=== PATIENT | male | born 1940 | race Caucasian/White ===

== ENCOUNTER 2016-11-04 05:40 | Inpatient (IN) | payer MEDICARE, BC ==
[2016-11-04] MEDS ORDERED: Albuterol/Ipratropium 3.0-0.5 MG/3 ML Neb Soln NEB ONE (05:43)
[2016-11-04] MEDS ORDERED: methylPREDNISolone Sodium Succinate 125 MG/2 ML SDV IVPUSH ONE (05:43)
--- NOTE | 2016-11-04 06:03 | EDM.PDOC ---
ED HISTORY OF PRESENT ILLNESS - General Stated Complaint: GENERAL Time Seen by Provider: 11/04/16 05:40 Source: Reports: Patient, EMS History Limitations: Reports: Respiratory distress - History of Present Illness INITIAL COMMENTS - FREE TEXT/NARRATIVE: 75 years old w m with metabolic syndrome, spinal kyphosis deformity of spine, COPD , DNR/DNI, came to the ed due elevated blood sugar to 405. As the patient arrived here in the ed, his pulse ox was 55 on 5 liters O2 by NC. Pt was talking 2 word sentences. After a NRBM and Duo neb were applied, the pulse ox improved to 91. No CP. Symptom Onset Date: 11/04/16 Symptom Onset Time: 01:00 Timing/Duration: Reports: Hour(s):, Intermittent Severity: moderate Location, General: Reports: chest Quality: Reports: Same as previous episode Improves with: Reports: Cold therapy Context, General: Reports: Activity Associated Symptoms: Reports: shortness of breath, weakness - Related Data Allergies/ADRs: Allergies Allergy/AdvReac Type Severity Reaction Status Date / Time Penicillins Allergy Mouth Sores Verified 04/24/16 16:52 Home Meds: Home Meds Acetaminophen with Codeine [Tylenol with Codeine #3 Tablet] 2 tab PO Q4H PRN 05/16 [History] Aspirin/Calcium Carbonate/Mag [Aspirin Buffered 325 mg Tab] 325 mg PO BID [History] Cholecalciferol (Vitamin D3) [Vitamin D3] 1,000 units PO DAILY 11/10/13 [History ] Furosemide 40 mg PO BID 11/10/13 [History] Glimepiride 2 mg PO DAILY 11/10/13 [History] Mirtazapine [Remeron] 7.5 mg PO BEDTIME 11/10/13 [History] Nitroglycerin [Nitrostat] 0.4 mg SL ASDIRECTED PRN 11/10/13 [History] [place]-3 Fatty Acids [Fish Oil] 1,000 mg PO DAILY 11/10/13 [History] Omeprazole 40 mg PO DAILY 11/10/13 [History] Simvastatin 40 mg PO BEDTIME 11/10/13 [History] Vitamin B Complex 1 each PO DAILY 11/10/13 [History] Vitamin E 1,000 unit PO DAILY 11/10/13 [History] Albuterol/Ipratropium [Combivent] 2 puff INH QID PRN 04/24/16 [History] Alendronate Sodium [Fosamax] 70 mg PO TU 04/24/16 [History] Arformoterol [Brovana] 2 ml INH BID 04/24/16 [History] Ascorbic Acid [Vitamin C with Heather Hips] 1,000 mg PO DAILY 04/24/16 [History] FLUoxetine HCl [Fluoxetine HCl] 40 mg PO DAILY 04/24/16 [History] Glucosam/Msm/Vit C/Jesús/Hrb#21 [Glucosamine-MSM Complex] 1 tab PO BID 04/24/16 [ History] LORazepam 1 mg PO TID PRN 04/24/16 [History] Multivitamin [Multi-Vitamin Daily] 1 tab PO DAILY 04/24/16 [History] Nabumetone 750 mg PO BID 04/24/16 [History] Naproxen Sodium [Naproxen Sodium ER] 500 mg PO DAILY 04/24/16 [History] Polyethylene Glycol 3350 [MiraLAX] 17 gm PO BEDTIME 04/24/16 [History] Levofloxacin [Levaquin] 500 mg PO Q24H #7 tablet 04/26/16 [Rx] predniSONE [Prednisone] 20 mg PO BID #10 tablet 04/26/16 [Rx] Past Medical History Cardiovascular History: Reports: Heart Failure, Hypertension, SOB on exertion, Syncope Respiratory History: Reports: COPD, SOB Other Respiratory History: restrictive airway disease Gastrointestinal History: Reports: Chronic constipation, GERD Musculoskeletal History: Reports: Other (see below) Other Musculoskeletal History: scoliosis Psychiatric History: Reports: Anxiety Endocrine/Metabolic History: Reports: Diabetes, type II Social & Family History - Tobacco Use Smoking Status *Q: Former Smoker Years of Tobacco use: 30 Packs/Tins Daily: 1 Used Tobacco, but Quit: Yes Month Tobacco Last Used: 1980 Second Hand Smoke Exposure: No - Alcohol Use Days Per Week of Alcohol Use: 0 Number of Drinks Per Day: 1 Total Drinks Per Week: 0 - Recreational Drug Use Recreational Drug Use: No ED ROS GENERAL - Review of Systems Review Of Systems: Unable To Obtain (in resp distress) ED EXAM, GENERAL - Physical Exam Exam: See Below Exam Limited By: Respiratory distress General Appearance: alert, WD/WN, moderate distress, obese Eye Exam: bilateral eye: normal inspection Ears: normal external exam Ear Exam: bilateral ear: auricle normal Nose: normal inspection, normal mucosa Throat/Mouth: Normal inspection, No airway compromise Head: atraumatic, normocephalic Neck: normal inspection, supple, non-tender, full range of motion Respiratory/Chest: respiratory distress, decreased breath sounds, wheezing, accessory muscle use, prolonged expiration Cardiovascular: normal peripheral pulses, regular rate, rhythm, no edema, no JVD Peripheral Pulses: 1+: femoral (L), femoral (R) GI/Abdominal: normal bowel sounds, soft, non tender, no abnormal bruit, distended (spinal kyphosis) (Male) Exam: Deferred Rectal (Males) Exam: Deferred Back Exam: other (spinal kyphosis) Extremities: normal inspection, normal range of motion, non-tender, no pedal edema Neurological: alert, CN II-XII intact, no motor/sensory deficits Psychiatric: normal affect, normal mood Skin Exam: Warm, Dry, Intact, Normal color Lymphatic: no adenopathy EKG INTERPRETATION EKG Date: 11/04/16 Time: 06:50 Rhythm: NSR Rate (beats/min): 104 [place]: normal P-wave: present QRS: normal ST-T: other (Peaked T waves) QT: normal Comparison: NA - no prior EKG Course - Vital Signs Text/Narrative:: 75 years old w m with metabolic syndrome, spinal kyphosis deformity of spine, COPD , DNR/DNI, came to the ed due elevated blood sugar to 405. As the patient arrived here in the ed, his pulse ox was 55 on 5 liters O2 by NC. Pt was talking 2 word sentences. After a NRBM and Duo neb were applied, the pulse ox improved to 91. No CP. PE: 75 y.o.w.m. in resp distress due to COPD, pulm edema, spinal Kyphosis Labs: potassium 6.2 BNP 103 WBC nl Cr. 0.9 BUN 24 ABG: pCO2 >100 pH 7.18 Imaging: CXR Pulmonary edema(?), pleural effusion, Kyphosis, official report is pending Impression: COPD, Hyperkalemia, CO2 retainer, resp acidosis, DNR/DNI, pulmonary edema(?) Tx: Ca gluconate, Insulin, Duoneb, Bipap, Biocarbonate, Lasix Reexam: Improved Consultation: Dr. Nolasco, Hospitalist: Accepted the pt for admission to ICU Last Recorded V/S: Last Vital Signs Temp 36.6 C 11/04/16 05:45 Pulse 110 H 11/04/16 05:45 Resp 20 11/04/16 05:45 BP 131/76 11/04/16 05:45 Pulse Ox 92 L 11/04/16 07:40 - Orders/Labs/Meds Orders: Active Orders 24 hr Category Date Time Status Patient Status [ADT] Routine ADT 11/04/16 07:54 Active BIPAP Adult [RT BiPAP/CPAP] [RC] ASDIRECTED Care 11/04/16 07:48 Active Cardiac Monitoring [RC] CONTINUOUS Care 11/04/16 07:56 Active EKG Documentation Completion [RC] ASDIRECTED Care 11/04/16 06:38 Active Rutherford Catheter Insertion [Insert Urinary Catheter] [OM. Care 11/04/16 07:15 Ordered PC] Q24H Oxygen Therapy [RC] PRN Care 11/04/16 07:54 Active RT Aerosol Therapy [RC] ASDIRECTED Care 11/04/16 05:45 Active RT Aerosol Therapy [RC] ASDIRECTED Care 11/04/16 07:58 Active Supplemental O2 [Oxygen Therapy, ED] [RC] ASDIRECTED Care 11/04/16 05:45 Active Up With Assistance [RC] ASDIRECTED Care 11/04/16 07:53 Active Urinary Catheter Assessment [RC] QSHIFT Care 11/04/16 07:15 Active VTE/DVT Education [RC] Per Unit Routine Care 11/04/16 07:54 Active Vital Signs [RC] Q4H Care 11/04/16 07:54 Active Respiratory Care Assess and Treatment [CONS] Routine Cons 11/04/16 07:53 Active Nothing per Oral Now Diet [DIET] Diet 11/04/16 Breakfast Ordered Chest 1V Frontal [CR] Stat Exams 11/04/16 05:43 Taken TROPONIN I [CHEM] Stat Lab 11/04/16 06:20 Received Albuterol [Proventil Neb Soln] Med 11/04/16 07:53 Active 2.5 mg NEB Q2H PRN Sodium Chloride 0.9% [Normal Saline] 1,000 ml Med 11/04/16 07:45 Active IV ASDIRECTED Sodium Chloride 0.9% [Saline Flush] Med 11/04/16 05:43 Active 10 ml FLUSH ASDIRECTED PRN Peripheral IV Insertion Adult [OM.PC] Routine Oth 11/04/16 05:43 Ordered Resuscitation Status Routine Resus Stat 11/04/16 07:53 Ordered EKG 12 Lead [EK] Routine Ther 11/04/16 06:37 Ordered Medication Orders Albuterol (Proventil Neb Soln) 2.5 mg NEB Q2H PRN PRN Reason: Shortness Of Breath/wheezing Sodium Chloride (Normal Saline) 1,000 mls @ 75 mls/hr IV ASDIRECTED WALTER Sodium Chloride (Saline Flush) 10 ml FLUSH ASDIRECTED PRN PRN Reason: Keep Vein Open Last Admin: 11/04/16 08:06 Dose: 10 ml Labs: Laboratory Tests 11/04/16 11/04/16 11/04/16 Range/Units 06:20 06:20 06:20 WBC 11.6 (4.5-12.0) X10-3/uL RBC 4.14 L (4.30-5.75) x10(6)uL Hgb 12.8 (11.5-15.5) g/dL Hct 40.3 (30.0-51.3) % MCV 97.2 H (80-96) fL MCH 30.8 (27.7-33.6) pg MCHC 31.7 L (32.2-35.4) g/dL RDW 12.6 (11.5-15.5) % Plt Count 148 (125-369) X10(3)uL MPV 7.9 (7.4-10.4) fL Add Manual Diff Yes Neutrophils % (Manual) 83 H (46-82) % Band Neutrophils % 2 (0-6) % Lymphocytes % (Manual) 6 L (13-37) % Monocytes % (Manual) 9 (4-12) % PT 10.2 (8.7-11.1) INR 1.01 (0.89-1.13) ABG pH (7.35-7.45) ABG pCO2 (35-45) mmHg ABG pO2 (83-108) mmHg ABG HCO3 (22-26) mmol/L ABG O2 Saturation (96-97) % ABG Base Excess (-2-2) Moises Test O2 Delivery Device Oxygen Flow Rate L Sodium 133 L (135-145) mmol/L Potassium 6.2 H* D (3.5-5.3) mmol/L Chloride 89 L* (100-110) mmol/L Carbon Dioxide 38 H (23-29) mmol/L BUN 25 H (8-23) mg/dL Creatinine 0.9 (0.6-1.3) mg/dL Est Cr Clr Drug Dosing TNP Estimated GFR (MDRD) > 60 (>60) BUN/Creatinine Ratio 27.8 H (9-20) Glucose 361 H D (80-116) mg/dL Hemoglobin A1c (4.0-6.0) % Calcium 8.9 (8.6-10.2) mg/dL B-Natriuretic Peptide (0-100) pg/mL Urine Color (YELLOW) Urine Appearance (CLEAR) Urine pH (5.0-6.5) Ur Specific [place] (1.010-1.025) Urine Protein (NEGATIVE) mg/dL Urine Glucose (UA) (NEGATIVE) mg/dL Urine Ketones (NEGATIVE) mg/dL Urine Occult Blood (NEGATIVE) Urine Nitrite (NEGATIVE) Urine Bilirubin (NEGATIVE) Urine Urobilinogen (NEGATIVE) mg/dL Ur Leukocyte Esterase (NEGATIVE) Urine RBC (0) Urine WBC (0) Ur Squamous Epith Cells (NS,R,O) Urine Bacteria (NS) 11/04/16 11/04/16 11/04/16 Range/Units 06:20 06:20 07:20 WBC (4.5-12.0) X10-3/uL RBC (4.30-5.75) x10(6)uL Hgb (11.5-15.5) g/dL Hct (30.0-51.3) % MCV (80-96) fL MCH (27.7-33.6) pg MCHC (32.2-35.4) g/dL RDW (11.5-15.5) % Plt Count (125-369) X10(3)uL MPV (7.4-10.4) fL Add Manual Diff Neutrophils % (Manual) (46-82) % Band Neutrophils % (0-6) % Lymphocytes % (Manual) (13-37) % Monocytes % (Manual) (4-12) % PT (8.7-11.1) INR (0.89-1.13) ABG pH 7.18 L* (7.35-7.45) ABG pCO2 > 100 H* (35-45) mmHg ABG pO2 80 L (83-108) mmHg ABG HCO3 42 H (22-26) mmol/L ABG O2 Saturation 90 L (96-97) % ABG Base Excess 7.8 H (-2-2) Moises Test passed O2 Delivery Device Non rebr mask Oxygen Flow Rate 0 L Sodium (135-145) mmol/L Potassium (3.5-5.3) mmol/L Chloride (100-110) mmol/L Carbon Dioxide (23-29) mmol/L BUN (8-23) mg/dL Creatinine (0.6-1.3) mg/dL Est Cr Clr Drug Dosing Estimated GFR (MDRD) (>60) BUN/Creatinine Ratio (9-20) Glucose (80-116) mg/dL Hemoglobin A1c 6.7 H (4.0-6.0) % Calcium (8.6-10.2) mg/dL B-Natriuretic Peptide 109 H (0-100) pg/mL Urine Color (YELLOW) Urine Appearance (CLEAR) Urine pH (5.0-6.5) Ur Specific [place] (1.010-1.025) Urine Protein (NEGATIVE) mg/dL Urine Glucose (UA) (NEGATIVE) mg/dL Urine Ketones (NEGATIVE) mg/dL Urine Occult Blood (NEGATIVE) Urine Nitrite (NEGATIVE) Urine Bilirubin (NEGATIVE) Urine Urobilinogen (NEGATIVE) mg/dL Ur Leukocyte Esterase (NEGATIVE) Urine RBC (0) Urine WBC (0) Ur Squamous Epith Cells (NS,R,O) Urine Bacteria (NS) 11/04/16 Range/Units 07:30 WBC (4.5-12.0) X10-3/uL RBC (4.30-5.75) x10(6)uL Hgb (11.5-15.5) g/dL Hct (30.0-51.3) % MCV (80-96) fL MCH (27.7-33.6) pg MCHC (32.2-35.4) g/dL RDW (11.5-15.5) % Plt Count (125-369) X10(3)uL MPV (7.4-10.4) fL Add Manual Diff Neutrophils % (Manual) (46-82) % Band Neutrophils % (0-6) % Lymphocytes % (Manual) (13-37) % Monocytes % (Manual) (4-12) % PT (8.7-11.1) INR (0.89-1.13) ABG pH (7.35-7.45) ABG pCO2 (35-45) mmHg ABG pO2 (83-108) mmHg ABG HCO3 (22-26) mmol/L ABG O2 Saturation (96-97) % ABG Base Excess (-2-2) Moises Test O2 Delivery Device Oxygen Flow Rate L Sodium (135-145) mmol/L Potassium (3.5-5.3) mmol/L Chloride (100-110) mmol/L Carbon Dioxide (23-29) mmol/L BUN (8-23) mg/dL Creatinine (0.6-1.3) mg/dL Est Cr Clr Drug Dosing Estimated GFR (MDRD) (>60) BUN/Creatinine Ratio (9-20) Glucose (80-116) mg/dL Hemoglobin A1c (4.0-6.0) % Calcium (8.6-10.2) mg/dL B-Natriuretic Peptide (0-100) pg/mL Urine Color Yellow (YELLOW) Urine Appearance Slightly cloudy (CLEAR) Urine pH 5.0 (5.0-6.5) Ur Specific [place] 1.020 (1.010-1.025) Urine Protein Negative (NEGATIVE) mg/dL Urine Glucose (UA) >1000 H (NEGATIVE) mg/dL Urine Ketones Negative (NEGATIVE) mg/dL Urine Occult Blood Moderate H (NEGATIVE) Urine Nitrite Negative (NEGATIVE) Urine Bilirubin Negative (NEGATIVE) Urine Urobilinogen Normal (NEGATIVE) mg/dL Ur Leukocyte Esterase Negative (NEGATIVE) Urine RBC 10-20 H (0) Urine WBC 0-5 (0) Ur Squamous Epith Cells Rare (NS,R,O) Urine Bacteria Few H (NS) Meds: Medications Generic Name Dose Route Start Last Admin Trade Name Freq PRN Reason Stop Dose Admin Albuterol 2.5 mg 11/04/16 07:53 Proventil Neb Soln NEB Q2H PRN Shortness Of Breath/wheezing Sodium Chloride 1,000 mls @ 75 mls/hr 11/04/16 07:45 Normal Saline IV ASDIRECTED WALTER Sodium Chloride 10 ml 11/04/16 05:43 11/04/16 08:06 Saline Flush FLUSH 10 ml ASDIRECTED PRN Administration Keep Vein Open Discontinued Medications Generic Name Dose Route Start Last Admin Trade Name Maritoq PRN Reason Stop Dose Admin Albuterol/Ipratropium 3 ml 11/04/16 05:43 11/04/16 06:10 Duoneb 3.0-0.5 Mg/3 Ml NEB 11/04/16 05:44 3 ml ONETIME ONE Administration Calcium Gluconate 1 gm 11/04/16 06:59 11/04/16 07:09 Calcium Gluconate IVPUSH 11/04/16 07:00 1 gm ONETIME ONE Administration Calcium Gluconate Confirm 11/04/16 07:01 11/04/16 07:05 Calcium Gluconate Administered 11/04/16 07:02 Not Given Dose 1 gm .ROUTE .STK-MED ONE Furosemide 20 mg 11/04/16 06:45 11/04/16 07:25 Lasix IVPUSH 11/04/16 06:46 20 mg ONETIME ONE Administration Furosemide Confirm 11/04/16 07:05 11/04/16 07:18 Lasix Administered 11/04/16 07:06 Not Given Dose 40 mg .ROUTE .STK-MED ONE Insulin Human Regular 7 unit 11/04/16 06:40 11/04/16 06:56 Humulin R IVPUSH 11/04/16 06:41 7 units BIDAC STA Administration Protocol Methylprednisolone Sodium Succinate 125 mg 11/04/16 05:43 11/04/16 06:45 Solu-Medrol IVPUSH 11/04/16 05:44 125 mg ONETIME ONE Administration Sodium Bicarbonate 50 meq 11/04/16 07:39 11/04/16 08:06 Sodium Bicarbonate 8.4% IVPUSH 11/04/16 07:40 50 meq ONETIME ONE Administration Departure - Departure Time of Disposition: 08:07 Disposition: Admitted As Inpatient 65 Condition: critical Clinical Impression: Hyperkalemia, COPD exacerbation Hyperglycemia due to type 2 diabetes mellitus Qualifiers: 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 insulin use: unspecified prison insulin use status Qualified Code(s): E11.65 - Type 2 diabetes mellitus with hyperglycemia - My Orders Last 24 Hours: My Active Orders 11/04/16 05:43 Chest 1V Frontal [CR] Stat Sodium Chloride 0.9% [Saline Flush] 10 ml FLUSH ASDIRECTED PRN Peripheral IV Insertion Adult [OM.PC] Routine 11/04/16 05:45 RT Aerosol Therapy [RC] ASDIRECTED Supplemental O2 [Oxygen Therapy, ED] [RC] ASDIRECTED 11/04/16 06:20 TROPONIN I [CHEM] Stat 11/04/16 06:37 EKG 12 Lead [EK] Routine 11/04/16 06:38 EKG Documentation Completion [RC] ASDIRECTED 11/04/16 07:15 Rutherford Catheter Insertion [Insert Urinary Catheter] [OM.PC] Q24H Urinary Catheter Assessment [RC] QSHIFT 11/04/16 07:45 Sodium Chloride 0.9% [Normal Saline] 1,000 ml IV ASDIRECTED 11/04/16 07:48 BIPAP Adult [RT BiPAP/CPAP] [RC] ASDIRECTED 11/04/16 07:53 Up With Assistance [RC] ASDIRECTED Respiratory Care Assess and Treatment [CONS] Routine Albuterol [Proventil Neb Soln] 2.5 mg NEB Q2H PRN Resuscitation Status Routine 11/04/16 07:54 Patient Status [ADT] Routine Oxygen Therapy [RC] PRN VTE/DVT Education [RC] Per Unit Routine Vital Signs [RC] Q4H 11/04/16 07:56 Cardiac Monitoring [RC] CONTINUOUS 11/04/16 07:58 RT Aerosol Therapy [RC] ASDIRECTED 11/04/16 Breakfast Nothing per Oral Now Diet [DIET] - Assessment/Plan Last 24 Hours: My Active Orders 11/04/16 05:43 Chest 1V Frontal [CR] Stat Sodium Chloride 0.9% [Saline Flush] 10 ml FLUSH ASDIRECTED PRN Peripheral IV Insertion Adult [OM.PC] Routine 11/04/16 05:45 RT Aerosol Therapy [RC] ASDIRECTED Supplemental O2 [Oxygen Therapy, ED] [RC] ASDIRECTED 11/04/16 06:20 TROPONIN I [CHEM] Stat 11/04/16 06:37 EKG 12 Lead [EK] Routine 11/04/16 06:38 EKG Documentation Completion [RC] ASDIRECTED 11/04/16 07:15 Rutherford Catheter Insertion [Insert Urinary Catheter] [OM.PC] Q24H Urinary Catheter Assessment [RC] QSHIFT 11/04/16 07:45 Sodium Chloride 0.9% [Normal Saline] 1,000 ml IV ASDIRECTED 11/04/16 07:48 BIPAP Adult [RT BiPAP/CPAP] [RC] ASDIRECTED 11/04/16 07:53 Up With Assistance [RC] ASDIRECTED Respiratory Care Assess and Treatment [CONS] Routine Albuterol [Proventil Neb Soln] 2.5 mg NEB Q2H PRN Resuscitation Status Routine 11/04/16 07:54 Patient Status [ADT] Routine Oxygen Therapy [RC] PRN VTE/DVT Education [RC] Per Unit Routine Vital Signs [RC] Q4H 11/04/16 07:56 Cardiac Monitoring [RC] CONTINUOUS 11/04/16 07:58 RT Aerosol Therapy [RC] ASDIRECTED 11/04/16 Breakfast Nothing per Oral Now Diet [DIET]
[2016-11-04] MEDS ORDERED: Insulin Regular, Human 100 Units/ML 3 ML Vial IVPUSH STA (06:40)
[2016-11-04] MEDS ORDERED: Furosemide 20 MG/2 ML VIAL IVPUSH ONE (06:45)
[2016-11-04] MEDS ORDERED: Calcium Gluconate 10% 1 GM/10 ML SDV IVPUSH ONE (06:59)
[2016-11-04] MEDS ORDERED: Calcium Gluconate 10% 1 GM/10 ML SDV ONE (07:01)
[2016-11-04] MEDS ORDERED: Furosemide 40 MG/4 ML VIAL ONE (07:05)
[2016-11-04] MEDS ORDERED: Sodium Bicarbonate 8.4% 50 MEQ/50 ML Syringe IVPUSH ONE (07:39)
[2016-11-04] MEDS ORDERED: Sodium Chloride 0.9% 1,000 ML IV SCH ×3 (07:45→14:15)
[2016-11-04] MEDS ORDERED: Albuterol 0.083% 2.5 MG/3 ML Neb Soln NEB PRN (07:53)
[2016-11-04] MEDS: Sodium Chloride 0.9% 10 ML Syringe FLUSH PRN ×3 (08:06→19:56)
[2016-11-04] MEDS ORDERED: Enoxaparin 30 MG/0.3 ML Syringe SUBCUT SCH (10:00)
[2016-11-04] MEDS ORDERED: Iopamidol 755 Mg/ML 75 ML Bottle IV ONE (10:32)
[2016-11-04] MEDS: Albuterol/Ipratropium 3.0-0.5 MG/3 ML Neb Soln NEB SCH ×4 (10:51→21:49)
[2016-11-04] MEDS: Azithromycin 500 MG in Sodium Chloride 0.9% 250 ML IV SCH (10:55)
[2016-11-04] MEDS: Insulin Aspart 100 Units/ML 3 ML Pen SUBCUT SCH ×3 (11:06→17:52)
[2016-11-04] MEDS: methylPREDNISolone Sodium Succinate 40 MG/1 ML SDV IVPUSH SCH ×2 (12:00→19:55)
[2016-11-04] MEDS: cefTRIAXone 1 GM in Sodium Chloride 0.9% 50 ML IV SCH (12:03)
--- NOTE | 2016-11-04 13:59 | PCM.HP ---
H&P History of Present Illness - General Date of Service: 11/04/16 Admit Problem/Dx: Admission Diagnosis/Problem Admission Diagnosis/Problem Respiratory failure Source of Information: Patient History Limitations: Reports: Respiratory distress - History of Present Illness Initial Comments - Free Text/Narative: This is a 75-year-old male patient with history of pressure to lung disease possibly COPD. Last 3 days he's been using the oxygen and he couldn't sleep last night because he was so short of breath so he came to the ER. His PCO2 was over 100 and PO2 is very low. Told the ER doctor did not want to be intubated or have CPR. They put him on a CPAP machine. His potassium is elevated they gave him some calcium gluconate and insulin. Blood sugar was also elevated. He can talk to me and is oriented x3. He talks in one-word sentences. He denies cough, fevers, chills, nasal congestion, leg swelling or history of CHF. R hip Pain Score (Numeric/FACES): 2 - Related Data Allergies/Adverse Reactions: Allergies Allergy/AdvReac Type Severity Reaction Status Date / Time Penicillins Allergy Mouth Sores Verified 04/24/16 16:52 Home Medications: Home Meds Acetaminophen with Codeine [Tylenol with Codeine #3 Tablet] 1 - 2 tab PO QID 05/16 [History] Aspirin/Calcium Carbonate/Mag [Aspirin Buffered 325 mg Tab] 325 mg PO BID [History] Cholecalciferol (Vitamin D3) [Vitamin D3] 1,000 units PO DAILY 11/10/13 [History ] Furosemide 40 mg PO BID 11/10/13 [History] Glimepiride 2 mg PO DAILY 11/10/13 [History] Mirtazapine [Remeron] 7.5 mg PO BEDTIME 11/10/13 [History] Nitroglycerin [Nitrostat] 0.4 mg SL ASDIRECTED PRN 11/10/13 [History] Omeprazole 40 mg PO DAILY 11/10/13 [History] Simvastatin 40 mg PO BEDTIME 11/10/13 [History] Vitamin E 1,000 unit PO DAILY 11/10/13 [History] Alendronate Sodium [Fosamax] 70 mg PO TU 04/24/16 [History] Arformoterol [Brovana] 2 ml INH BID 04/24/16 [History] Ascorbic Acid [Vitamin C with Heather Hips] 1,000 mg PO DAILY 04/24/16 [History] FLUoxetine HCl [Fluoxetine HCl] 40 mg PO DAILY 04/24/16 [History] Glucosam/Msm/Vit C/Jesús/Hrb#21 [Glucosamine-MSM Complex] 1 tab PO BID 04/24/16 [ History] LORazepam 0.5 - 1 mg PO TID PRN 04/24/16 [History] Multivitamin [Multi-Vitamin Daily] 1 tab PO DAILY 04/24/16 [History] Nabumetone 750 mg PO BID 04/24/16 [History] Polyethylene Glycol 3350 [MiraLAX] 17 gm PO BEDTIME PRN 04/24/16 [History] Cyanocobalamin (Vitamin B12) [Vitamin B12] 1,000 mcg PO DAILY 11/04/16 [History] Fish Oil/Toxey-3 Fatty Acids [Fish Oil 1,000 MG] 1 gm PO DAILY 11/04/16 [History ] busPIRone [Buspar] 7.5 mg PO BID 11/04/16 [History] Past Medical History HEENT History: Reports: Cataract Cardiovascular History: Reports: Heart Failure, Hypertension, SOB on exertion, Syncope Respiratory History: Reports: COPD, SOB Other Respiratory History: restrictive airway disease Gastrointestinal History: Reports: Chronic constipation, GERD Genitourinary History: Reports: None Musculoskeletal History: Reports: Arthritis, Gout, Other (see below) Other Musculoskeletal History: scoliosis Psychiatric History: Reports: Anxiety, Depression Endocrine/Metabolic History: Reports: Diabetes, type II - Past Surgical History Male Surgical History: Reports: Vasectomy Neurological Surgical History: Reports: Scoliosis Musculoskeletal Surgical History: Reports: None Social & Family History - Family History Family Medical History: Noncontributory - Tobacco Use Smoking Status *Q: Former Smoker Years of Tobacco use: 30 Packs/Tins Daily: 1 Used Tobacco, but Quit: Yes Month Tobacco Last Used: 1980 Second Hand Smoke Exposure: No - Caffeine Use Caffeine Use: Reports: Coffee, Soda - Alcohol Use Days Per Week of Alcohol Use: 0 Number of Drinks Per Day: 1 Total Drinks Per Week: 0 - Recreational Drug Use Recreational Drug Use: No H&P Review of Systems - Review of Systems: Review Of Systems: See Below General: Reports: no symptoms HEENT: Reports: no symptoms Pulmonary: Reports: Shortness of Breath Cardiovascular: Reports: no symptoms Gastrointestinal: Reports: No symptoms Genitourinary: Reports: no symptoms Musculoskeletal: Reports: no symptoms Skin: Reports: no symptoms Psychiatric: Reports: agitation Neurological: Reports: No Symptoms Hematologic/Lymphatic: Reports: no symptoms Immunologic: Reports: no symptoms Exam - Exam Exam: See Below - Vital Signs Vital Signs: Last Vital Signs Temp 97.4 F 11/04/16 11:14 Pulse 90 11/04/16 10:50 Resp 22 H 11/04/16 11:14 BP 120/58 L 11/04/16 11:14 Pulse Ox 98 11/04/16 13:41 Weight: 181 lb 8 oz - Exam Quality Assessment: supplemental oxygen General: alert, oriented, cooperative HEENT: EACs clear, Hearing intact, Mucosa moist & pink, Posterior pharynx clear , Pupils equal, Pupils reactive, TMs clear Neck: supple, trachea midline Lungs: Decreased breath sounds, Crackles. No: Clear to auscultation, Normal respiratory effort Cardiovascular: regular rate, regular rhythm. No: systolic murmur, diastolic murmur Abdomen: normal bowel sounds, soft. No: organomegaly, guarding, rigidity, rebound, tenderness Back Exam: normal inspection Extremities: normal inspection. No: edema Skin: warm, dry, intact Neuro Extensive - Mental Status: alert - Patient Data Lab Results last 24 hrs: Laboratory Results - last 24 hr 11/04/16 11/04/16 11/04/16 Range/Units 08:35 09:00 11:01 ABG pH 7.28 L (7.35-7.45) ABG pCO2 99 H* (35-45) mmHg ABG pO2 97 (83-108) mmHg ABG HCO3 45 H (22-26) mmol/L ABG O2 Saturation 96 (96-97) % ABG Base Excess 12.9 H (-2-2) Moises Test passed O2 Delivery Device Bipap Oxygen Flow Rate 0 L POC Glucose 324 H 218 H D (80-116) mg/dL Troponin I (0.02-0.06) NG/ML 11/04/16 Range/Units 11:36 ABG pH (7.35-7.45) ABG pCO2 (35-45) mmHg ABG pO2 (83-108) mmHg ABG HCO3 (22-26) mmol/L ABG O2 Saturation (96-97) % ABG Base Excess (-2-2) Moises Test O2 Delivery Device Oxygen Flow Rate L POC Glucose (80-116) mg/dL Troponin I 0.01 L (0.02-0.06) NG/ML Result Diagrams: 11/04/16 06:20 11/04/16 06:20 *Q Meaningful Use (ADM) - VTE *Q VTE Criteria *Q: - Stroke *Q Stroke Criteria *Q: - AMI *Q AMI Criteria *Q: - Problem List (1) Respiratory failure SNOMED Code(s): 161254296 ICD Code: J96.90 - RESPIRATORY FAILURE, UNSP, UNSP W HYPOXIA OR HYPERCAPNIA Status: Acute Current Visit: Yes (2) COPD exacerbation SNOMED Code(s): 011150260, 470867663 ICD Code: J44.1 - CHRONIC OBSTRUCTIVE PULMONARY DISEASE W (ACUTE) EXACERBATION Status: Acute Current Visit: Yes (3) Hyperglycemia due to type 2 diabetes mellitus SNOMED Code(s): 468623182019843, 173627119776254 ICD Code: E11.65 - TYPE 2 DIABETES MELLITUS WITH HYPERGLYCEMIA Status: Acute Current Visit: Yes Qualifiers: Diabetes mellitus retirement insulin use: unspecified 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 Qualified Code(s): E11.65 - Type 2 diabetes mellitus with hyperglycemia (4) Hyperkalemia SNOMED Code(s): 44613240 ICD Code: E87.5 - HYPERKALEMIA Status: Acute Current Visit: Yes (5) Palliative care status SNOMED Code(s): 381276722 ICD Code: Z51.5 - ENCOUNTER FOR PALLIATIVE CARE Status: Acute Current Visit: Yes Problem List Initiated/Reviewed/Updated: Yes Orders Last 24hrs: Active Orders 24 hr Category Date Time Status Patient Status [ADT] Routine ADT 11/04/16 08:19 Active Accu Check [Blood Glucose Check, Bedside] [RC] 02,06,10 Care 11/04/16 10:00 Active ,14,18,22 Oxygen Therapy [RC] PRN Care 11/04/16 08:19 Active RT Aerosol Therapy [RC] ASDIRECTED Care 11/04/16 09:26 Active Vital Signs [RC] Q4H Care 11/04/16 08:19 Active Chest w Cont [CT] Routine Exams 11/04/16 09:32 Taken ABG [BLOOD GAS ARTERIAL] [BG] Routine Lab 11/04/16 16:30 Ordered BASIC METABOLIC PANEL,BMP [CHEM] AM Lab 11/05/16 05:11 Ordered POTASSIUM,K [CHEM] Routine Lab 11/04/16 16:30 Ordered Albuterol/Ipratropium [DuoNeb 3.0-0.5 MG/3 ML] Med 11/04/16 10:00 Active 3 ml NEB Q4H Azithromycin [Zithromax] 500 mg Med 11/04/16 10:00 Active Sodium Chloride 0.9% [Normal Saline] 250 ml IV Q24H Enoxaparin [Lovenox] Med 11/04/16 10:00 Active 30 mg SUBCUT Q24H Insulin Aspart [NovoLOG] Med 11/04/16 10:00 Active See Protocol SUBCUT Q4H Sodium Chloride 0.9% [Normal Saline] 1,000 ml Med 11/04/16 09:30 Active IV ASDIRECTED cefTRIAXone [Rocephin] 1 gm Med 11/04/16 11:00 Active Sodium Chloride 0.9% [Normal Saline] 50 ml IV Q24H methylPREDNISolone Sod Succ [Solu-MEDROL] Med 11/04/16 12:00 Active 40 mg IVPUSH Q8H SCD [Sequential Compression Device] [OM.PC] Routine Oth 11/04/16 09:25 Ordered Medication Orders Albuterol (Proventil Neb Soln) 2.5 mg NEB Q2H PRN PRN Reason: Shortness Of Breath/wheezing Albuterol/Ipratropium (Duoneb 3.0-0.5 Mg/3 Ml) 3 ml NEB Q4H [facility] Last Admin: 11/04/16 10:51 Dose: 3 ml Enoxaparin Sodium (Lovenox) 30 mg SUBCUT Q24H [facility] Last Admin: 11/04/16 11:06 Dose: 30 mg Sodium Chloride (Normal Saline) 1,000 mls @ 75 mls/hr IV ASDIRECTED [facility] Azithromycin 500 mg/ Sodium (Chloride) 250 mls @ 250 mls/hr IV Q24H [facility] Last Admin: 11/04/16 10:55 Dose: 250 mls/hr Sodium Chloride (Normal Saline) 1,000 mls @ 100 mls/hr IV ASDIRECTED [facility] Last Admin: 11/04/16 10:55 Dose: 100 mls/hr Ceftriaxone Sodium 1 gm/ (Sodium Chloride) 50 mls @ 100 mls/hr IV Q24H [facility] Last Admin: 11/04/16 12:03 Dose: 100 mls/hr Insulin Aspart (Novolog) 0 unit SUBCUT Q4H [facility] PRN Reason: Protocol Last Admin: 11/04/16 11:06 Dose: 4 units Methylprednisolone Sodium Succinate (Solu-Medrol) 40 mg IVPUSH Q8H [facility] Last Admin: 11/04/16 12:00 Dose: 40 mg Sodium Chloride (Saline Flush) 10 ml FLUSH ASDIRECTED PRN PRN Reason: Keep Vein Open Last Admin: 11/04/16 08:06 Dose: 10 ml Assessment/Plan Comment:: 1. Patient reiterated again to me in the ER doctor he did not want intubation or CPR. So he'll be made a DO NOT RESUSCITATE. 2. X-rays very poor slightly red and I'm going to get CT scan for better clarification. 3. Start Solu-Medrol 40 mg every 8 hours with nebulizer treatments and CPAP. 4. Recheck blood gases. 5. Accu-Cheks every 4 hours with sliding scale insulin 6. Discussed care with his nephew that he is very serious at this point 7. Maintain oxygenation greater than 90%. 8. Recheck potassium 9. NPO 10. IV fluids
[2016-11-04] MEDS ORDERED: Polyethylene Glycol 3350 Powder 17 GM Packet PO PRN (14:00)
[2016-11-04] MEDS: FLUoxetine 20 MG Cap PO SCH (14:46)
[2016-11-04] MEDS: Acetaminophen/Codeine 300-30 MG Tab PO SCH ×2 (14:48→18:11)
[2016-11-04] MEDS: Furosemide 40 MG Tab PO SCH (14:49)
[2016-11-04] MEDS: busPIRone 15 MG Tab PO SCH ×2 (15:52→21:20)
[2016-11-04] MEDS: Omeprazole 20 MG Cap.CR PO SCH (17:18)
[2016-11-04] MEDS: Mirtazapine 15 MG Tab PO SCH (20:41)
[2016-11-04] MEDS ORDERED: Insulin Aspart 100 Units/ML 3 ML Pen SUBCUT SCH (21:00)
[2016-11-05] MEDS: Albuterol/Ipratropium 3.0-0.5 MG/3 ML Neb Soln NEB SCH ×6 (02:01→22:02)
[2016-11-05] MEDS: Sodium Chloride 0.9% 10 ML Syringe FLUSH PRN ×2 (03:46→15:54)
[2016-11-05] MEDS: methylPREDNISolone Sodium Succinate 40 MG/1 ML SDV IVPUSH SCH ×2 (03:46→15:52)
[2016-11-05] MEDS: Omeprazole 20 MG Cap.CR PO SCH (06:03)
--- NOTE | 2016-11-05 07:56 | PCM.PN ---
- General Info Date of Service: 11/05/16 Admission Dx/Problem (Free Text): Patient states he is breathing somewhat better today. He has a cough. He feels that the duo nebs make him worse. He denies fevers, chills, chest pain. He says he has some leg swelling which is normal for him. He is off his nonrebreather and maintaining his oxygenation on 6 L nasal cannula. - Patient Data Vitals - most recent: Last Vital Signs Temp 98.2 F 11/05/16 06:49 Pulse 88 11/05/16 06:49 Resp 22 H 11/05/16 06:49 BP 124/59 L 11/05/16 06:49 Pulse Ox 88 L 11/05/16 06:49 Weight - most recent: 181 lb 8 oz I&O - last 24 hours: Intake & Output 11/04/16 11/05/16 11/05/16 22:59 06:59 14:59 Intake Total 680 375 Output Total 800 650 Balance -120 -275 Lab Results last 24 hrs: Laboratory Results - last 24 hr 11/04/16 11/04/16 11/04/16 Range/Units 08:35 09:00 11:01 ABG pH 7.28 L (7.35-7.45) ABG pCO2 99 H* (35-45) mmHg ABG pO2 97 (83-108) mmHg ABG HCO3 45 H (22-26) mmol/L ABG O2 Saturation 96 (96-97) % ABG Base Excess 12.9 H (-2-2) Moises Test passed O2 Delivery Device Bipap Oxygen Flow Rate 0 L Sodium (135-145) mmol/L Potassium (3.5-5.3) mmol/L Chloride (100-110) mmol/L Carbon Dioxide (23-29) mmol/L BUN (8-23) mg/dL Creatinine (0.6-1.3) mg/dL Est Cr Clr Drug Dosing mL/min Estimated GFR (MDRD) (>60) BUN/Creatinine Ratio (9-20) Glucose (80-116) mg/dL POC Glucose 324 H 218 H D (80-116) mg/dL Calcium (8.6-10.2) mg/dL Troponin I (0.02-0.06) NG/ML 11/04/16 11/04/16 11/04/16 Range/Units 11:36 14:33 16:40 ABG pH (7.35-7.45) ABG pCO2 (35-45) mmHg ABG pO2 (83-108) mmHg ABG HCO3 (22-26) mmol/L ABG O2 Saturation (96-97) % ABG Base Excess (-2-2) Moises Test O2 Delivery Device Oxygen Flow Rate L Sodium (135-145) mmol/L Potassium 5.6 H (3.5-5.3) mmol/L Chloride (100-110) mmol/L Carbon Dioxide (23-29) mmol/L BUN (8-23) mg/dL Creatinine (0.6-1.3) mg/dL Est Cr Clr Drug Dosing mL/min Estimated GFR (MDRD) (>60) BUN/Creatinine Ratio (9-20) Glucose (80-116) mg/dL POC Glucose 148 H (80-116) mg/dL Calcium (8.6-10.2) mg/dL Troponin I 0.01 L (0.02-0.06) NG/ML 11/04/16 11/04/16 11/04/16 Range/Units 17:40 17:49 20:34 ABG pH 7.35 (7.35-7.45) ABG pCO2 88 H* (35-45) mmHg ABG pO2 91 (83-108) mmHg ABG HCO3 47 H (22-26) mmol/L ABG O2 Saturation 96 (96-97) % ABG Base Excess 16.9 H (-2-2) Moises Test Passed O2 Delivery Device Non rebr mask Oxygen Flow Rate 0 L Sodium (135-145) mmol/L Potassium (3.5-5.3) mmol/L Chloride (100-110) mmol/L Carbon Dioxide (23-29) mmol/L BUN (8-23) mg/dL Creatinine (0.6-1.3) mg/dL Est Cr Clr Drug Dosing mL/min Estimated GFR (MDRD) (>60) BUN/Creatinine Ratio (9-20) Glucose (80-116) mg/dL POC Glucose 153 H 264 H D (80-116) mg/dL Calcium (8.6-10.2) mg/dL Troponin I (0.02-0.06) NG/ML 11/05/16 11/05/16 11/05/16 Range/Units 05:50 06:05 06:25 ABG pH 7.47 H (7.35-7.45) ABG pCO2 63 H* (35-45) mmHg ABG pO2 36 L* (83-108) mmHg ABG HCO3 45 H (22-26) mmol/L ABG O2 Saturation 80 L* (96-97) % ABG Base Excess 17.4 H (-2-2) Moises Test Performed O2 Delivery Device Nasal cannula Oxygen Flow Rate 0 L Sodium 135 (135-145) mmol/L Potassium 5.0 (3.5-5.3) mmol/L Chloride 88 L* (100-110) mmol/L Carbon Dioxide 38 H (23-29) mmol/L BUN 25 H (8-23) mg/dL Creatinine 0.7 (0.6-1.3) mg/dL Est Cr Clr Drug Dosing 66.41 mL/min Estimated GFR (MDRD) > 60 (>60) BUN/Creatinine Ratio 35.7 H (9-20) Glucose 172 H D (80-116) mg/dL POC Glucose 162 H D (80-116) mg/dL Calcium 9.2 (8.6-10.2) mg/dL Troponin I (0.02-0.06) NG/ML Med Orders - Current: Current Medications Acetaminophen/Codeine Phosphate (Tylenol With Codeine No.3 300mg/30mg) 1 tab PO QID PRN PRN Reason: Pain Albuterol (Proventil Neb Soln) 2.5 mg NEB Q2H PRN PRN Reason: Shortness Of Breath/wheezing Albuterol/Ipratropium (Duoneb 3.0-0.5 Mg/3 Ml) 3 ml NEB Q4H [facility] Last Admin: 11/05/16 06:03 Dose: 3 ml Arformoterol Tartrate (Brovana) mcg INH BID [facility] Buspirone HCl (Buspar) 7.5 mg PO BID [facility] Last Admin: 11/04/16 21:20 Dose: 7.5 mg Enoxaparin Sodium (Lovenox) 40 mg SUBCUT 1200 [facility] Fluoxetine HCl (Prozac) 40 mg PO DAILY [facility] Last Admin: 11/04/16 14:46 Dose: 40 mg Furosemide (Lasix) 40 mg PO BIDDIURETIC [facility] Last Admin: 11/04/16 14:49 Dose: 40 mg Azithromycin 500 mg/ Sodium (Chloride) 250 mls @ 250 mls/hr IV Q24H [facility] Last Admin: 11/04/16 10:55 Dose: 250 mls/hr Ceftriaxone Sodium 1 gm/ (Sodium Chloride) 50 mls @ 100 mls/hr IV Q24H [facility] Last Admin: 11/04/16 12:03 Dose: 100 mls/hr Insulin Aspart (Novolog) 0 unit SUBCUT QID [facility] PRN Reason: Protocol Last Admin: 11/04/16 20:39 Dose: 6 units Lorazepam (Ativan) 1 mg PO TID PRN PRN Reason: Anxiety Methylprednisolone Sodium Succinate (Solu-Medrol) 40 mg IVPUSH Q8H [facility] Last Admin: 11/05/16 03:46 Dose: 40 mg Mirtazapine (Remeron) 7.5 mg PO BEDTIME [facility] Last Admin: 11/04/16 20:41 Dose: 7.5 mg Omeprazole (Omeprazole) 40 mg PO 0600 [facility] Last Admin: 11/05/16 06:03 Dose: 40 mg Polyethylene Glycol (Miralax) 17 gm PO BEDTIME PRN PRN Reason: Constipation Sodium Chloride (Saline Flush) 10 ml FLUSH ASDIRECTED PRN PRN Reason: Keep Vein Open Last Admin: 11/05/16 03:46 Dose: 10 ml Discontinued Medications Acetaminophen/Codeine Phosphate (Tylenol With Codeine No.3 300mg/30mg) 1 tab PO QID [facility] Last Admin: 11/04/16 18:11 Dose: Not Given Albuterol/Ipratropium (Duoneb 3.0-0.5 Mg/3 Ml) 3 ml NEB ONETIME ONE Stop: 11/04/16 05:44 Last Admin: 11/04/16 06:10 Dose: 3 ml Calcium Gluconate (Calcium Gluconate) 1 gm IVPUSH ONETIME ONE Stop: 11/04/16 07:00 Last Admin: 11/04/16 07:09 Dose: 1 gm Calcium Gluconate (Calcium Gluconate) Confirm Administered Dose 1 gm .ROUTE .STK -MED ONE Stop: 11/04/16 07:02 Last Admin: 11/04/16 07:05 Dose: Not Given Enoxaparin Sodium (Lovenox) 30 mg SUBCUT Q24H [facility] Last Admin: 11/04/16 11:06 Dose: 30 mg Furosemide (Lasix) 20 mg IVPUSH ONETIME ONE Stop: 11/04/16 06:46 Last Admin: 11/04/16 07:25 Dose: 20 mg Furosemide (Lasix) Confirm Administered Dose 40 mg .ROUTE .STK-MED ONE Stop: 11/04/16 07:06 Last Admin: 11/04/16 07:18 Dose: Not Given Sodium Chloride (Normal Saline) 1,000 mls @ 75 mls/hr IV ASDIRECTED [facility] Sodium Chloride (Normal Saline) 1,000 mls @ 100 mls/hr IV ASDIRECTED [facility] Last Admin: 11/04/16 10:55 Dose: 100 mls/hr Sodium Chloride (Normal Saline) 1,000 mls @ 70 mls/hr IV ASDIRECTED [facility] Insulin Aspart (Novolog) 0 unit SUBCUT Q4H [facility] PRN Reason: Protocol Last Admin: 11/04/16 17:52 Dose: 2 units Insulin Human Regular (Humulin R) 7 unit IVPUSH BIDAC STA PRN Reason: Protocol Stop: 11/04/16 06:41 Last Admin: 11/04/16 06:56 Dose: 7 units Iopamidol (Isovue-370 (76%)) 75 ml IV ONETIME ONE Stop: 11/04/16 10:33 Last Admin: 11/04/16 11:07 Dose: 75 ml Methylprednisolone Sodium Succinate (Solu-Medrol) 125 mg IVPUSH ONETIME ONE Stop: 11/04/16 05:44 Last Admin: 11/04/16 06:45 Dose: 125 mg Sodium Bicarbonate (Sodium Bicarbonate 8.4%) 50 meq IVPUSH ONETIME ONE Stop: 11/04/16 07:40 Last Admin: 11/04/16 08:06 Dose: 50 meq - Exam General: alert, oriented, cooperative Neck: supple Lungs: Normal respiratory effort, Crackles Cardiovascular: Regular Rate, Regular Rhythm, No Murmurs Extremities: no edema Psy/Mental Status: alert - Problem List & Annotations (1) Respiratory failure SNOMED Code(s): 023002599 Code(s): J96.90 - RESPIRATORY FAILURE, UNSP, UNSP W HYPOXIA OR HYPERCAPNIA Status: Acute Current Visit: Yes (2) COPD exacerbation SNOMED Code(s): 541077641, 406224083 Code(s): J44.1 - CHRONIC OBSTRUCTIVE PULMONARY DISEASE W (ACUTE) EXACERBATION Status: Acute Current Visit: Yes (3) Hyperglycemia due to type 2 diabetes mellitus SNOMED Code(s): 813111832244004, 886147599353267 Code(s): E11.65 - TYPE 2 DIABETES MELLITUS WITH HYPERGLYCEMIA Status: Acute Current Visit: Yes Qualifiers: Diabetes mellitus retirement insulin 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 Qualified Code(s): E11.65 - Type 2 diabetes mellitus with hyperglycemia (4) Hyperkalemia SNOMED Code(s): 31794463 Code(s): E87.5 - HYPERKALEMIA Status: Acute Current Visit: Yes (5) Palliative care status SNOMED Code(s): 228806816 Code(s): Z51.5 - ENCOUNTER FOR PALLIATIVE CARE Status: Acute Current Visit: Yes (6) Pneumonia SNOMED Code(s): 711631970 Code(s): J18.9 - PNEUMONIA, UNSPECIFIED ORGANISM Status: Acute Current Visit: Yes Qualifiers: Laterality: bilateral - Problem List Review Problem List Initiated/Reviewed/Updated: Yes - My Orders Last 24 Hours: My Active Orders 11/04/16 08:19 Patient Status [ADT] Routine Oxygen Therapy [RC] PRN Vital Signs [RC] Q4H 11/04/16 09:25 SCD [Sequential Compression Device] [OM.PC] Routine 11/04/16 09:26 RT Aerosol Therapy [RC] ASDIRECTED 11/04/16 09:32 Chest w Cont [CT] Routine 11/04/16 10:00 Albuterol/Ipratropium [DuoNeb 3.0-0.5 MG/3 ML] 3 ml NEB Q4H Azithromycin [Zithromax] 500 mg Sodium Chloride 0.9% [Normal Saline] 250 ml IV Q24H 11/04/16 11:00 cefTRIAXone [Rocephin] 1 gm Sodium Chloride 0.9% [Normal Saline] 50 ml IV Q24H 11/04/16 12:00 methylPREDNISolone Sod Succ [Solu-MEDROL] 40 mg IVPUSH Q8H 11/04/16 14:00 LORazepam [Ativan] 1 mg PO TID PRN Polyethylene Glycol 3350 [MiraLAX] 17 gm PO BEDTIME PRN 11/04/16 14:30 FLUoxetine [PROzac] 40 mg PO DAILY Furosemide [Lasix] 40 mg PO BIDDIURETIC busPIRone [Buspar] 7.5 mg PO BID 11/04/16 17:30 Omeprazole 40 mg PO 0600 11/04/16 19:10 Convert IV to Saline Lock [OM.PC] Routine 11/04/16 19:43 Acetaminophen/Codeine [Tylenol with Codeine No.3 300MG/30MG] 1 tab PO QID PRN 11/04/16 21:00 Accu Check [Blood Glucose Check, Bedside] [RC] QIDACANDBED Insulin Aspart [NovoLOG] See Protocol SUBCUT QID Mirtazapine [Remeron] 7.5 mg PO BEDTIME 11/04/16 Dinner Carbohydrate Counting [Consistent Carbohydrate Diet] [DIET] 11/05/16 05:26 Blood Culture x2 Reflex Set [OM.PC] Urgent 11/05/16 05:27 CULTURE SPUTUM + SMEAR [RM] Routine 11/05/16 05:50 CULTURE BLOOD [BC] Urgent 11/05/16 05:55 CULTURE BLOOD [BC] Urgent 11/05/16 09:00 Arformoterol [Brovana] 2 ml INH BID 11/05/16 12:00 Enoxaparin [Lovenox] 40 mg SUBCUT 1200 - Plan Plan:: 1. respiratory therapy did discuss his inhalers and nebulizers. I restarted his dulera. He states the duo nebs make them worse. Hopefully try something else will help him. 2. Decreased areas to twice a day 3. His regular Lasix 40 mg twice a day by mouth was restarted. 4. environmental services attendant see about possibly intermediate placement 5. PT/OT
[2016-11-05] MEDS: Insulin Aspart 100 Units/ML 3 ML Pen SUBCUT SCH ×4 (08:50→20:57)
[2016-11-05] MEDS: busPIRone 15 MG Tab PO SCH ×2 (08:52→20:49)
[2016-11-05] MEDS: Furosemide 40 MG Tab PO SCH ×2 (08:52→15:33)
[2016-11-05] MEDS: FLUoxetine 20 MG Cap PO SCH (08:52)
[2016-11-05] MEDS: Arformoterol 15 MCG/2 ML Neb Soln INH SCH ×2 (09:03→20:48)
[2016-11-05] MEDS: Sodium Chloride 0.9% 250 ML IV SCH (10:35)
[2016-11-05] MEDS: Azithromycin 500 MG in Sodium Chloride 0.9% 250 ML IV SCH (10:35)
[2016-11-05] MEDS: LORazepam 1 MG Tab PO PRN ×2 (11:05→19:10)
[2016-11-05] MEDS ORDERED: Nitroglycerin 0.4 MG Tab.SL SL PRN (11:07)
[2016-11-05] MEDS ORDERED: Morphine 2 MG/ML Syringe IVPUSH PRN ×2 (11:22)
[2016-11-05] MEDS: cefTRIAXone 1 GM in Sodium Chloride 0.9% 50 ML IV SCH (11:48)
[2016-11-05] MEDS: Enoxaparin 40 MG/0.4 ML Syringe SUBCUT SCH (11:51)
[2016-11-05] MEDS: Acetaminophen/Codeine 300-30 MG Tab PO PRN (16:50)
[2016-11-05] MEDS: Mirtazapine 15 MG Tab PO SCH (20:50)
[2016-11-06] MEDS: Albuterol/Ipratropium 3.0-0.5 MG/3 ML Neb Soln NEB SCH ×6 (01:45→21:35)
[2016-11-06] MEDS: Sodium Chloride 0.9% 10 ML Syringe FLUSH PRN (03:51)
[2016-11-06] MEDS: methylPREDNISolone Sodium Succinate 40 MG/1 ML SDV IVPUSH SCH (03:51)
[2016-11-06] MEDS: Omeprazole 20 MG Cap.CR PO SCH (06:08)
[2016-11-06] MEDS: Insulin Aspart 100 Units/ML 3 ML Pen SUBCUT SCH ×4 (08:09→21:37)
[2016-11-06] MEDS ORDERED: Carboxymethylcellulose Sodium 0.5% Ophth Soln 15 ML Bottle EYEBOTH PRN (08:35)
--- NOTE | 2016-11-06 09:06 | PCM.PN ---
- General Info Date of Service: 11/06/16 Admission Dx/Problem (Free Text): Patient states he feels better today. His left shoulder breath. Oxygen saturation still run in the 80s to 90s. This bleed is his norm. He denies fevers, chills, chest pain or coughing. He has some chest pain that he points to the left upper quadrant of his abdomen yesterday at 2 normal troponins. EKG equivocal. - Patient Data Vitals - most recent: Last Vital Signs Temp 98.2 F 11/06/16 08:11 Pulse 94 11/06/16 06:49 Resp 22 H 11/06/16 08:11 BP 134/76 11/06/16 08:11 Pulse Ox 96 11/06/16 08:11 Weight - most recent: 181 lb 8 oz I&O - last 24 hours: Intake & Output 11/05/16 11/06/16 11/06/16 22:59 06:59 14:59 Intake Total 510 150 Output Total 400 500 Balance 110 -350 Lab Results last 24 hrs: Laboratory Results - last 24 hr 11/05/16 11/05/16 11/05/16 Range/Units 11:25 11:29 16:01 WBC (4.5-12.0) X10-3/uL RBC (4.30-5.75) x10(6)uL Hgb (11.5-15.5) g/dL Hct (30.0-51.3) % MCV (80-96) fL MCH (27.7-33.6) pg MCHC (32.2-35.4) g/dL RDW (11.5-15.5) % Plt Count (125-369) X10(3)uL MPV (7.4-10.4) fL Add Manual Diff Neutrophils % (Manual) (46-82) % Band Neutrophils % (0-6) % Lymphocytes % (Manual) (13-37) % Monocytes % (Manual) (4-12) % ABG pH (7.35-7.45) ABG pCO2 (35-45) mmHg ABG pO2 (83-108) mmHg ABG HCO3 (22-26) mmol/L ABG O2 Saturation (96-97) % ABG Base Excess (-2-2) Moises Test O2 Delivery Device Oxygen Flow Rate L Sodium (135-145) mmol/L Potassium (3.5-5.3) mmol/L Chloride (100-110) mmol/L Carbon Dioxide (23-29) mmol/L BUN (8-23) mg/dL Creatinine (0.6-1.3) mg/dL Est Cr Clr Drug Dosing mL/min Estimated GFR (MDRD) (>60) BUN/Creatinine Ratio (9-20) Glucose (80-116) mg/dL POC Glucose 185 H 133 H (80-116) mg/dL Calcium (8.6-10.2) mg/dL Total Bilirubin (0.1-1.3) mg/dL AST (5-27) IU/L ALT (14-26) IU/L Alkaline Phosphatase (56-112) IU/L Troponin I 0.02 (0.02-0.06) NG/ML Total Protein (6.0-8.0) g/dL Albumin (3.2-4.6) g/dL Globulin g/dL Albumin/Globulin Ratio 11/05/16 11/05/16 11/06/16 Range/Units 16:04 20:53 06:05 WBC 13.8 H (4.5-12.0) X10-3/uL RBC 3.94 L (4.30-5.75) x10(6)uL Hgb 12.4 (11.5-15.5) g/dL Hct 38.0 (30.0-51.3) % MCV 96.5 H (80-96) fL MCH 31.5 (27.7-33.6) pg MCHC 32.7 (32.2-35.4) g/dL RDW 12.9 (11.5-15.5) % Plt Count 164 (125-369) X10(3)uL MPV 8.0 (7.4-10.4) fL Add Manual Diff Yes Neutrophils % (Manual) 85 H (46-82) % Band Neutrophils % 3 (0-6) % Lymphocytes % (Manual) 6 L (13-37) % Monocytes % (Manual) 6 (4-12) % ABG pH (7.35-7.45) ABG pCO2 (35-45) mmHg ABG pO2 (83-108) mmHg ABG HCO3 (22-26) mmol/L ABG O2 Saturation (96-97) % ABG Base Excess (-2-2) Moises Test O2 Delivery Device Oxygen Flow Rate L Sodium (135-145) mmol/L Potassium (3.5-5.3) mmol/L Chloride (100-110) mmol/L Carbon Dioxide (23-29) mmol/L BUN (8-23) mg/dL Creatinine (0.6-1.3) mg/dL Est Cr Clr Drug Dosing mL/min Estimated GFR (MDRD) (>60) BUN/Creatinine Ratio (9-20) Glucose (80-116) mg/dL POC Glucose 242 H D (80-116) mg/dL Calcium (8.6-10.2) mg/dL Total Bilirubin (0.1-1.3) mg/dL AST (5-27) IU/L ALT (14-26) IU/L Alkaline Phosphatase (56-112) IU/L Troponin I 0.02 (0.02-0.06) NG/ML Total Protein (6.0-8.0) g/dL Albumin (3.2-4.6) g/dL Globulin g/dL Albumin/Globulin Ratio 11/06/16 11/06/16 11/06/16 Range/Units 06:05 06:24 07:30 WBC (4.5-12.0) X10-3/uL RBC (4.30-5.75) x10(6)uL Hgb (11.5-15.5) g/dL Hct (30.0-51.3) % MCV (80-96) fL MCH (27.7-33.6) pg MCHC (32.2-35.4) g/dL RDW (11.5-15.5) % Plt Count (125-369) X10(3)uL MPV (7.4-10.4) fL Add Manual Diff Neutrophils % (Manual) (46-82) % Band Neutrophils % (0-6) % Lymphocytes % (Manual) (13-37) % Monocytes % (Manual) (4-12) % ABG pH 7.33 L (7.35-7.45) ABG pCO2 87 H* (35-45) mmHg ABG pO2 66 L (83-108) mmHg ABG HCO3 44 H (22-26) mmol/L ABG O2 Saturation 89 L (96-97) % ABG Base Excess 12.6 H (-2-2) Moises Test Passed O2 Delivery Device Nasal cannula Oxygen Flow Rate 4 L Sodium 138 (135-145) mmol/L Potassium 5.0 (3.5-5.3) mmol/L Chloride 90 L (100-110) mmol/L Carbon Dioxide 45 H* (23-29) mmol/L BUN 33 H (8-23) mg/dL Creatinine 0.6 (0.6-1.3) mg/dL Est Cr Clr Drug Dosing 77.48 mL/min Estimated GFR (MDRD) > 60 (>60) BUN/Creatinine Ratio 55.0 H (9-20) Glucose 148 H (80-116) mg/dL POC Glucose 150 H D (80-116) mg/dL Calcium 8.9 (8.6-10.2) mg/dL Total Bilirubin 0.5 (0.1-1.3) mg/dL AST 76 H D (5-27) IU/L ALT 41 H D (14-26) IU/L Alkaline Phosphatase 56 (56-112) IU/L Troponin I (0.02-0.06) NG/ML Total Protein 7.2 (6.0-8.0) g/dL Albumin 4.0 (3.2-4.6) g/dL Globulin 3.2 g/dL Albumin/Globulin Ratio 1.3 Ryan Results last 24 hrs: Microbiology 11/05/16 08:20 Gram Stain - Final Sputum - Expectorated Sputum Culture - Preliminary Normal Carol 11/05/16 05:55 Aerobic Blood Culture - Preliminary Blood - Venous - Lab Draw NO GROWTH AFTER 1 DAY Anaerobic Blood Culture - Preliminary NO GROWTH AFTER 1 DAY 11/05/16 05:50 Aerobic Blood Culture - Preliminary Blood - Venous NO GROWTH AFTER 1 DAY Anaerobic Blood Culture - Preliminary NO GROWTH AFTER 1 DAY Med Orders - Current: Current Medications Acetaminophen/Codeine Phosphate (Tylenol With Codeine No.3 300mg/30mg) 1 tab PO QID PRN PRN Reason: Pain Last Admin: 11/05/16 16:50 Dose: 1 tab Albuterol (Proventil Neb Soln) 2.5 mg NEB Q2H PRN PRN Reason: Shortness Of Breath/wheezing Albuterol/Ipratropium (Duoneb 3.0-0.5 Mg/3 Ml) 3 ml NEB Q4H [facility] Last Admin: 11/06/16 06:07 Dose: 3 ml Alendronate Sodium (Fosamax) 70 mg PO TU [facility] Arformoterol Tartrate (Brovana) 15 mcg INH BID [facility] Last Admin: 11/05/16 20:48 Dose: 15 mcg Artificial Tears (Refresh Tears 0.5%) 0 ml EYEBOTH QID PRN PRN Reason: Dry Eyes Buspirone HCl (Buspar) 7.5 mg PO BID [facility] Last Admin: 11/05/16 20:49 Dose: 7.5 mg Enoxaparin Sodium (Lovenox) 40 mg SUBCUT 1200 [facility] Last Admin: 11/05/16 11:51 Dose: 40 mg Fluoxetine HCl (Prozac) 40 mg PO DAILY [facility] Last Admin: 11/05/16 08:52 Dose: 40 mg Furosemide (Lasix) 40 mg PO BIDDIURETIC [facility] Last Admin: 11/05/16 15:33 Dose: 40 mg Azithromycin 500 mg/ Sodium (Chloride) 250 mls @ 250 mls/hr IV Q24H [facility] Last Admin: 11/05/16 10:35 Dose: 250 mls/hr Ceftriaxone Sodium 1 gm/ (Sodium Chloride) 50 mls @ 100 mls/hr IV Q24H [facility] Last Admin: 11/05/16 11:48 Dose: 100 mls/hr Insulin Aspart (Novolog) 0 unit SUBCUT QIDACANDBED [facility] PRN Reason: Protocol Last Admin: 11/06/16 08:09 Dose: Not Given Lorazepam (Ativan) 1 mg PO TID PRN PRN Reason: Anxiety Last Admin: 11/05/16 19:10 Dose: 1 mg Methylprednisolone Sodium Succinate (Solu-Medrol) 40 mg IVPUSH Q12H [facility] Last Admin: 11/06/16 03:51 Dose: 40 mg Mirtazapine (Remeron) 7.5 mg PO BEDTIME [facility] Last Admin: 11/05/16 20:50 Dose: 7.5 mg Morphine Sulfate (Morphine) 2 mg IVPUSH Q2H PRN PRN Reason: Pain Last Admin: 11/05/16 11:45 Dose: 2 mg Morphine Sulfate (Morphine) 1 mg IVPUSH Q1H PRN PRN Reason: Pain Last Admin: 11/05/16 16:20 Dose: 1 mg Nitroglycerin (Nitrostat) 0.4 mg SL Q5M PRN PRN Reason: Chest Pain Last Admin: 11/05/16 11:14 Dose: 0.4 mg Omeprazole (Omeprazole) 40 mg PO 0600 [facility] Last Admin: 11/06/16 06:08 Dose: 40 mg Polyethylene Glycol (Miralax) 17 gm PO BEDTIME PRN PRN Reason: Constipation Prednisone (Prednisone) 60 mg PO WITHBREAKFAST [facility] Sodium Chloride (Saline Flush) 10 ml FLUSH ASDIRECTED PRN PRN Reason: Keep Vein Open Last Admin: 11/06/16 03:51 Dose: 10 ml Discontinued Medications Acetaminophen/Codeine Phosphate (Tylenol With Codeine No.3 300mg/30mg) 1 tab PO QID [facility] Last Admin: 11/04/16 18:11 Dose: Not Given Albuterol/Ipratropium (Duoneb 3.0-0.5 Mg/3 Ml) 3 ml NEB ONETIME ONE Stop: 11/04/16 05:44 Last Admin: 11/04/16 06:10 Dose: 3 ml Calcium Gluconate (Calcium Gluconate) 1 gm IVPUSH ONETIME ONE Stop: 11/04/16 07:00 Last Admin: 11/04/16 07:09 Dose: 1 gm Calcium Gluconate (Calcium Gluconate) Confirm Administered Dose 1 gm .ROUTE .STK -MED ONE Stop: 11/04/16 07:02 Last Admin: 11/04/16 07:05 Dose: Not Given Enoxaparin Sodium (Lovenox) 30 mg SUBCUT Q24H [facility] Last Admin: 11/04/16 11:06 Dose: 30 mg Furosemide (Lasix) 20 mg IVPUSH ONETIME ONE Stop: 11/04/16 06:46 Last Admin: 11/04/16 07:25 Dose: 20 mg Furosemide (Lasix) Confirm Administered Dose 40 mg .ROUTE .STK-MED ONE Stop: 11/04/16 07:06 Last Admin: 11/04/16 07:18 Dose: Not Given Sodium Chloride (Normal Saline) 1,000 mls @ 75 mls/hr IV ASDIRECTED [facility] Sodium Chloride (Normal Saline) 1,000 mls @ 100 mls/hr IV ASDIRECTED [facility] Last Admin: 11/04/16 10:55 Dose: 100 mls/hr Sodium Chloride (Normal Saline) 1,000 mls @ 70 mls/hr IV ASDIRECTED [facility] Insulin Aspart (Novolog) 0 unit SUBCUT Q4H [facility] PRN Reason: Protocol Last Admin: 11/04/16 17:52 Dose: 2 units Insulin Aspart (Novolog) 0 unit SUBCUT QID [facility] PRN Reason: Protocol Last Admin: 11/04/16 20:39 Dose: 6 units Insulin Human Regular (Humulin R) 7 unit IVPUSH BIDAC STA PRN Reason: Protocol Stop: 11/04/16 06:41 Last Admin: 11/04/16 06:56 Dose: 7 units Iopamidol (Isovue-370 (76%)) 75 ml IV ONETIME ONE Stop: 11/04/16 10:33 Last Admin: 11/04/16 11:07 Dose: 75 ml Methylprednisolone Sodium Succinate (Solu-Medrol) 125 mg IVPUSH ONETIME ONE Stop: 11/04/16 05:44 Last Admin: 11/04/16 06:45 Dose: 125 mg Methylprednisolone Sodium Succinate (Solu-Medrol) 40 mg IVPUSH Q8H [facility] Last Admin: 11/05/16 03:46 Dose: 40 mg Sodium Bicarbonate (Sodium Bicarbonate 8.4%) 50 meq IVPUSH ONETIME ONE Stop: 11/04/16 07:40 Last Admin: 11/04/16 08:06 Dose: 50 meq - Exam General: alert, oriented, cooperative Neck: supple Lungs: Normal respiratory effort, Decreased breath sounds, Crackles Cardiovascular: Regular Rate, Regular Rhythm, No Murmurs Extremities: no edema - Problem List & Annotations (1) Respiratory failure SNOMED Code(s): 450709329 Code(s): J96.90 - RESPIRATORY FAILURE, UNSP, UNSP W HYPOXIA OR HYPERCAPNIA Status: Acute Current Visit: Yes (2) COPD exacerbation SNOMED Code(s): 303293251, 960756716 Code(s): J44.1 - CHRONIC OBSTRUCTIVE PULMONARY DISEASE W (ACUTE) EXACERBATION Status: Acute Current Visit: Yes (3) Hyperglycemia due to type 2 diabetes mellitus SNOMED Code(s): 678952423529764, 429960878210945 Code(s): E11.65 - TYPE 2 DIABETES MELLITUS WITH HYPERGLYCEMIA Status: Acute Current Visit: Yes Qualifiers: 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 Qualified Code(s): E11.65 - Type 2 diabetes mellitus with hyperglycemia (4) Hyperkalemia SNOMED Code(s): 86970305 Code(s): E87.5 - HYPERKALEMIA Status: Acute Current Visit: Yes (5) Palliative care status SNOMED Code(s): 227290563 Code(s): Z51.5 - ENCOUNTER FOR PALLIATIVE CARE Status: Acute Current Visit: Yes (6) Pneumonia SNOMED Code(s): 272230324 Code(s): J18.9 - PNEUMONIA, UNSPECIFIED ORGANISM Status: Acute Current Visit: Yes Qualifiers: Laterality: bilateral - Problem List Review Problem List Initiated/Reviewed/Updated: Yes - My Orders Last 24 Hours: My Active Orders 11/05/16 08:20 CULTURE SPUTUM + SMEAR [RM] Routine 11/05/16 09:00 Arformoterol [Brovana] 15 mcg INH BID 11/05/16 11:06 EKG 12 Lead [EK] Routine 11/05/16 11:07 Nitroglycerin [Nitrostat] 0.4 mg SL Q5M PRN 11/05/16 11:22 Morphine 1 mg IVPUSH Q1H PRN Morphine 2 mg IVPUSH Q2H PRN 11/05/16 12:00 Enoxaparin [Lovenox] 40 mg SUBCUT 1200 11/05/16 16:00 methylPREDNISolone Sod Succ [Solu-MEDROL] 40 mg IVPUSH Q12H 11/06/16 08:35 Carboxymethylcellulose Sodium [Refresh Tears 0.5%] 0 ml EYEBOTH QID PRN 11/06/16 08:59 Patient Status Manage Transfer [TRANSFER] Routine 11/06/16 09:03 Chest 2V [CR] Routine 11/07/16 08:00 predniSONE 60 mg PO WITHBREAKFAST 11/11/16 06:00 Alendronate [Fosamax] 70 mg PO TU - Plan Plan:: 1.transferred the floorout of ICU. 2. DC Rutherford catheter. 3. DC Solu-Medrol and start prednisone 60 mg by mouth a day. 4. Chest x-ray PA and lateral. 5. I did mention hospice to him and his daughter in passing. They did not respond. I told him I could think about this in the future if they wanted to. 6. Continue PT/OT. 7. continue antibiotic therapy.
[2016-11-06] MEDS: Furosemide 40 MG Tab PO SCH ×2 (09:25→13:46)
[2016-11-06] MEDS: busPIRone 15 MG Tab PO SCH ×2 (09:26→21:34)
[2016-11-06] MEDS: FLUoxetine 20 MG Cap PO SCH (09:27)
[2016-11-06] MEDS: Azithromycin 500 MG in Sodium Chloride 0.9% 250 ML IV SCH (10:45)
[2016-11-06] MEDS: Arformoterol 15 MCG/2 ML Neb Soln INH SCH ×2 (10:48→21:37)
[2016-11-06] MEDS: Sodium Chloride 0.9% 250 ML IV SCH (10:48)
[2016-11-06] MEDS: cefTRIAXone 1 GM in Sodium Chloride 0.9% 50 ML IV SCH (11:54)
[2016-11-06] MEDS: Enoxaparin 40 MG/0.4 ML Syringe SUBCUT SCH (11:55)
[2016-11-06] MEDS: predniSONE 20 MG Tab PO SCH (11:56)
--- NOTE | 2016-11-06 16:31 | CR ---
INDICATION: Short of breath. CHEST: Two AP views and two lateral views of the chest were obtained 2016 and were compared with 11/04/2016, revealing suggestion of slightly decreased prominence of the upper lung field pulmonary vasculature, which would be compatible with early resolving CHF. Interstitial changes also appear to be slightly less prominent, suggesting resolving interstitial lung edema. Densities seen in the mid to lower lung henrández on the left and right lung base are also diminished, suggesting resolving areas of atelectasis and/or pneumonia. No significant large pleural effusion was seen. Residual atelectasis and/or consolidating pneumonia are suggested in the lower lobes. Pleuritis may also be present with blunting of both posterior sulci. However, the costophrenic angles are clearly delineated. The heart remains enlarged in appearance. Severe kyphosis and scoliosis are present. IMPRESSION: Overall improved appearance of the chest. However, there remains evidence of bibasilar atelectasis and possibly pneumonia and pleuritis involving the lower lobes. MTDD
[2016-11-06] MEDS: Mirtazapine 15 MG Tab PO SCH (21:34)
[2016-11-07] MEDS: Albuterol/Ipratropium 3.0-0.5 MG/3 ML Neb Soln NEB SCH ×6 (02:08→22:06)
[2016-11-07] MEDS: Omeprazole 20 MG Cap.CR PO SCH (06:20)
[2016-11-07] MEDS: Insulin Aspart 100 Units/ML 3 ML Pen SUBCUT SCH ×4 (07:31→20:59)
[2016-11-07] MEDS: predniSONE 20 MG Tab PO SCH (07:32)
[2016-11-07] MEDS: Furosemide 40 MG Tab PO SCH ×2 (07:32→13:43)
[2016-11-07] MEDS: FLUoxetine 20 MG Cap PO SCH (08:33)
[2016-11-07] MEDS: busPIRone 15 MG Tab PO SCH ×2 (08:33→20:51)
[2016-11-07] MEDS: Arformoterol 15 MCG/2 ML Neb Soln INH SCH ×2 (08:38→20:49)
[2016-11-07] MEDS: Azithromycin 500 MG in Sodium Chloride 0.9% 250 ML IV SCH (10:15)
[2016-11-07] MEDS: Sodium Chloride 0.9% 250 ML IV SCH (10:19)
[2016-11-07] MEDS: cefTRIAXone 1 GM in Sodium Chloride 0.9% 50 ML IV SCH (12:02)
[2016-11-07] MEDS: Enoxaparin 40 MG/0.4 ML Syringe SUBCUT SCH (12:04)
[2016-11-07] MEDS ORDERED: Lidocaine/Prilocaine 2.5-2.5% Crm 5 GM Tube TOP ONE ×3 (15:47→16:00)
[2016-11-07] MEDS: Mirtazapine 15 MG Tab PO SCH (20:50)
[2016-11-07] MEDS: Simvastatin 40 MG Tab PO SCH (20:54)
[2016-11-08] MEDS: Albuterol/Ipratropium 3.0-0.5 MG/3 ML Neb Soln NEB SCH ×6 (02:22→22:02)
[2016-11-08] MEDS: Acetaminophen/Codeine 300-30 MG Tab PO PRN (02:26)
[2016-11-08] MEDS: Omeprazole 20 MG Cap.CR PO SCH (06:19)
[2016-11-08] MEDS: Insulin Aspart 100 Units/ML 3 ML Pen SUBCUT SCH ×7 (07:16→21:06)
[2016-11-08] MEDS: FLUoxetine 20 MG Cap PO SCH (08:15)
[2016-11-08] MEDS: predniSONE 20 MG Tab PO SCH (08:15)
[2016-11-08] MEDS: busPIRone 15 MG Tab PO SCH ×2 (08:15→21:01)
[2016-11-08] MEDS: Furosemide 40 MG Tab PO SCH ×2 (08:15→14:00)
[2016-11-08] MEDS ORDERED: Fish Oil/Omega-3 Fatty Acids 1 Gm Cap PO SCH (09:00)
[2016-11-08] MEDS ORDERED: Glimepiride 2 MG Tab PO SCH (09:00)
[2016-11-08] MEDS: Arformoterol 15 MCG/2 ML Neb Soln INH SCH ×2 (09:42→21:00)
[2016-11-08] MEDS: Azithromycin 500 MG in Sodium Chloride 0.9% 250 ML IV SCH (10:32)
[2016-11-08] MEDS: Enoxaparin 40 MG/0.4 ML Syringe SUBCUT SCH (11:36)
[2016-11-08] MEDS: cefTRIAXone 1 GM in Sodium Chloride 0.9% 50 ML IV SCH (11:46)
[2016-11-08] MEDS ORDERED: Aloe Vera/Sodium Chloride Gel 14.1 GM Tube NAS PRN (12:17)
[2016-11-08] MEDS: Mirtazapine 15 MG Tab PO SCH (21:01)
[2016-11-08] MEDS: Simvastatin 40 MG Tab PO SCH (22:02)
[2016-11-09] MEDS: Albuterol/Ipratropium 3.0-0.5 MG/3 ML Neb Soln NEB SCH ×5 (01:38→21:17)
[2016-11-09] MEDS: Omeprazole 20 MG Cap.CR PO SCH (05:53)
[2016-11-09] MEDS: Insulin Aspart 100 Units/ML 3 ML Pen SUBCUT SCH ×7 (07:32→21:22)
[2016-11-09] MEDS: busPIRone 15 MG Tab PO SCH ×2 (07:35→21:17)
[2016-11-09] MEDS: Fish Oil/Omega-3 Fatty Acids 1 Gm Cap PO SCH (07:35)
[2016-11-09] MEDS: FLUoxetine 20 MG Cap PO SCH (07:35)
[2016-11-09] MEDS: Furosemide 40 MG Tab PO SCH ×2 (07:35→13:42)
[2016-11-09] MEDS: Glimepiride 2 MG Tab PO SCH (07:35)
[2016-11-09] MEDS: predniSONE 20 MG Tab PO SCH (07:36)
[2016-11-09] MEDS: Arformoterol 15 MCG/2 ML Neb Soln INH SCH ×2 (09:06→21:13)
[2016-11-09] MEDS: Azithromycin 500 MG in Sodium Chloride 0.9% 250 ML IV SCH (09:59)
[2016-11-09] MEDS: cefTRIAXone 1 GM in Sodium Chloride 0.9% 50 ML IV SCH (11:16)
[2016-11-09] MEDS: Enoxaparin 40 MG/0.4 ML Syringe SUBCUT SCH (11:59)
[2016-11-09] MEDS: Simvastatin 40 MG Tab PO SCH (21:16)
[2016-11-09] MEDS: Mirtazapine 15 MG Tab PO SCH (21:16)
[2016-11-10] MEDS: Omeprazole 20 MG Cap.CR PO SCH (06:23)
[2016-11-10] MEDS: Insulin Aspart 100 Units/ML 3 ML Pen SUBCUT SCH ×4 (07:37→11:30)
[2016-11-10] MEDS: Albuterol/Ipratropium 3.0-0.5 MG/3 ML Neb Soln NEB SCH (07:41)
[2016-11-10] MEDS: Arformoterol 15 MCG/2 ML Neb Soln INH SCH (07:41)
[2016-11-10] MEDS ORDERED: predniSONE 20 MG Tab PO SCH (08:00)
[2016-11-10] MEDS: Glimepiride 2 MG Tab PO SCH (08:10)
[2016-11-10] MEDS: Fish Oil/Omega-3 Fatty Acids 1 Gm Cap PO SCH (08:11)
[2016-11-10] MEDS: FLUoxetine 20 MG Cap PO SCH (08:11)
[2016-11-10] MEDS: busPIRone 15 MG Tab PO SCH (08:11)
[2016-11-10] MEDS: Furosemide 40 MG Tab PO SCH ×2 (08:11→13:20)
[2016-11-10] MEDS: Enoxaparin 40 MG/0.4 ML Syringe SUBCUT SCH (11:29)
[2016-11-10 11:34] VITALS: BP 125/74
--- NOTE | 2016-11-10 13:48 | PCM.SN ---
- Free Text/Narrative Note: Date of Service: 11/07/16 Subjective: This is a pleasant 75-year-old male admitted on 11/04/16 with history of respiratory failure secondary to acute on chronic severe COPD exacerbation with concombinate chronic restrictive lung disease, acute onset pulmonary edema from acute on chronic CHF, along with understandable exacerbation of chronic anxiety disorder; all of which landed him in the ER with an initial pCO2 retension at > 100, respiratory acidosis with a ph of 7.18 and low blood pO2 at 80 all on NRBM (non-rebreather mask high flow). Chronically on oxygen at home. Switched to BPAP to blow of the pCO2 load bring up his ph. Respiratory/fluid overload cares initiated. He declined any form of intubation or cardiac resusitation should it be required. as a result of above presentation, all renal, glucose and electrolyte status was compromised resulting in severe hyperkalemia treated promptly. hx of Type II diabetes not on home insulin, but controlled with orals. currently on SSS here with novolog. Today tells me he is feeling better, but still sob with any exertion. still requiring high flow O2. not needed bipap. tolerating cares. diet improved with no choking or abdominal pain. no n/v. no difficulty chewing or swallowing. using walker to get up to bathroom. PT/OT/RT on board. He oriented x3 and very pleasant. He denies cough, fevers, chills, nasal congestion, sore throat, neck , jaw, shoulder or chest pain. no pressure or palpitations. no confusion or word finding difficulty. no numbness or tingling. no pain in the legs. no irritation from IV, SC injection or brown site. no epistaxis. no myalgias. PCP: Herminio Ruiz M.D Allergies Allergy/AdvReac Type Severity Reaction Status Date / Time Penicillins Allergy Mouth Sores Verified 04/24/16 16:52 Home Medications prior to admit: Home Meds Acetaminophen with Codeine [Tylenol with Codeine #3 Tablet] 1 - 2 tab PO QID 05/16 [History] Aspirin/Calcium Carbonate/Mag [Aspirin Buffered 325 mg Tab] 325 mg PO BID [History] Cholecalciferol (Vitamin D3) [Vitamin D3] 1,000 units PO DAILY 11/10/13 [History ] Furosemide 40 mg PO BID 11/10/13 [History] Glimepiride 2 mg PO DAILY 11/10/13 [History] Mirtazapine [Remeron] 7.5 mg PO BEDTIME 11/10/13 [History] Nitroglycerin [Nitrostat] 0.4 mg SL ASDIRECTED PRN 11/10/13 [History] Omeprazole 40 mg PO DAILY 11/10/13 [History] Simvastatin 40 mg PO BEDTIME 11/10/13 [History] Vitamin E 1,000 unit PO DAILY 11/10/13 [History] Alendronate Sodium [Fosamax] 70 mg PO TU 04/24/16 [History] Arformoterol [Brovana] 2 ml INH BID 04/24/16 [History] Ascorbic Acid [Vitamin C with Heather Hips] 1,000 mg PO DAILY 04/24/16 [History] FLUoxetine HCl [Fluoxetine HCl] 40 mg PO DAILY 04/24/16 [History] Glucosam/Msm/Vit C/Jesús/Hrb#21 [Glucosamine-MSM Complex] 1 tab PO BID 04/24/16 [ History] LORazepam 0.5 - 1 mg PO TID PRN 04/24/16 [History] Multivitamin [Multi-Vitamin Daily] 1 tab PO DAILY 04/24/16 [History] Nabumetone 750 mg PO BID 04/24/16 [History] Polyethylene Glycol 3350 [MiraLAX] 17 gm PO BEDTIME PRN 04/24/16 [History] Cyanocobalamin (Vitamin B12) [Vitamin B12] 1,000 mcg PO DAILY 11/04/16 [History] Fish Oil/[place]-3 Fatty Acids [Fish Oil 1,000 MG] 1 gm PO DAILY 11/04/16 [History ] busPIRone [Buspar] 7.5 mg PO BID 11/04/16 [History] past medical history HEENT History: Reports: Cataract Cardiovascular History: Reports: Heart Failure, Hypertension, SOB on exertion, Syncope Respiratory History: Reports: COPD, chronic SOB. Hx tobacco use 30y at a ppd. quit 1980. Other Respiratory History: restrictive airway disease secondary to weight and severe kyphosis Gastrointestinal History: Reports: Chronic constipation, GERD Genitourinary History: Reports: None Musculoskeletal History: Reports: Arthritis, Gout, osteoporosis. Other Musculoskeletal History: scoliosis; kyphosis Psychiatric History: Reports: Anxiety, Depression Endocrine/Metabolic History: Reports: Diabetes, type II ROS: See Subjective. Exam: Vital Signs: afebrile 48 hours, pulse: 60-90; BP: 105-132/63-70; respiration: 20-22; O2 sat: 90-93% on high flow NC 6 L (at one point dipped down to 72% while not wearing oxygen cannula correctly, turned up to 7 L immediately came back up 91%. 24-hour I/O: 965/1985 = -1020 mL's (1635 via Brown catheter) Admission Weight: 181 lb 8 oz - Exam Quality Assessment: supplemental oxygen; NC currently at 6 L General: alert, oriented, cooperative HEENT: Hearing intact, Mucosa moist & pink, Posterior pharynx clear, Pupils equal, Pupils reactive, TMs clear Neck: supple, no adenopathy Lungs: Decreased breath sounds, Crackles lower and mid hernández bilat. no intercostal or subcostal retractions. no dullness to percussion. Cardiovascular: regular rate, regular rhythm. No: systolic murmur, diastolic murmur Abdomen: normal bowel sounds, soft. No: organomegaly, guarding, rigidity, rebound, tenderness Back Exam: normal skin inspection; severe musculoskeletal KYPHOSIS CONTRIBUTING TO RESTRICTIVE LUNG DISEASE Extremities: normal inspection. No: edema Skin: warm, dry, intact Neuro Extensive - Mental Status: alert - Patient Data Laboratory Tests 11/04/16 11/04/16 11/04/16 Range/Units 06:20 06:20 06:20 WBC 11.6 (4.5-12.0) X10-3/uL RBC 4.14 L (4.30-5.75) x10(6)uL Hgb 12.8 (11.5-15.5) g/dL Hct 40.3 (30.0-51.3) % MCV 97.2 H (80-96) fL MCH 30.8 (27.7-33.6) pg MCHC 31.7 L (32.2-35.4) g/dL RDW 12.6 (11.5-15.5) % Plt Count 148 (125-369) X10(3)uL MPV 7.9 (7.4-10.4) fL Add Manual Diff Yes Neutrophils % (Manual) 83 H (46-82) % Band Neutrophils % 2 (0-6) % Lymphocytes % (Manual) 6 L (13-37) % Monocytes % (Manual) 9 (4-12) % Eosinophils % (Manual) (0-5) % PT 10.2 (8.7-11.1) INR 1.01 (0.89-1.13) ABG pH (7.35-7.45) ABG pCO2 (35-45) mmHg ABG pO2 (83-108) mmHg ABG HCO3 (22-26) mmol/L ABG O2 Saturation (96-97) % ABG Base Excess (-2-2) Moises Test O2 Delivery Device Oxygen Flow Rate L Sodium 133 L (135-145) mmol/L Potassium 6.2 H* D (3.5-5.3) mmol/L Chloride 89 L* (100-110) mmol/L Carbon Dioxide 38 H (23-29) mmol/L BUN 25 H (8-23) mg/dL Creatinine 0.9 (0.6-1.3) mg/dL Est Cr Clr Drug Dosing TNP Estimated GFR (MDRD) > 60 (>60) BUN/Creatinine Ratio 27.8 H (9-20) Glucose 361 H D (80-116) mg/dL POC Glucose (80-116) mg/dL Hemoglobin A1c (4.0-6.0) % Calcium 8.9 (8.6-10.2) mg/dL Total Bilirubin (0.1-1.3) mg/dL AST (5-27) IU/L ALT (14-26) IU/L Alkaline Phosphatase (56-112) IU/L Troponin I (0.02-0.06) NG/ML B-Natriuretic Peptide (0-100) pg/mL Total Protein (6.0-8.0) g/dL Albumin (3.2-4.6) g/dL Globulin g/dL Albumin/Globulin Ratio Urine Color (YELLOW) Urine Appearance (CLEAR) Urine pH (5.0-6.5) Ur Specific Glen (1.010-1.025) Urine Protein (NEGATIVE) mg/dL Urine Glucose (UA) (NEGATIVE) mg/dL Urine Ketones (NEGATIVE) mg/dL Urine Occult Blood (NEGATIVE) Urine Nitrite (NEGATIVE) Urine Bilirubin (NEGATIVE) Urine Urobilinogen (NEGATIVE) mg/dL Ur Leukocyte Esterase (NEGATIVE) Urine RBC (0) Urine WBC (0) Ur Squamous Epith Cells (NS,R,O) Urine Bacteria (NS) 11/04/16 11/04/16 11/04/16 Range/Units 06:20 06:20 06:20 WBC (4.5-12.0) X10-3/uL RBC (4.30-5.75) x10(6)uL Hgb (11.5-15.5) g/dL Hct (30.0-51.3) % MCV (80-96) fL MCH (27.7-33.6) pg MCHC (32.2-35.4) g/dL RDW (11.5-15.5) % Plt Count (125-369) X10(3)uL MPV (7.4-10.4) fL Add Manual Diff Neutrophils % (Manual) (46-82) % Band Neutrophils % (0-6) % Lymphocytes % (Manual) (13-37) % Monocytes % (Manual) (4-12) % Eosinophils % (Manual) (0-5) % PT (8.7-11.1) INR (0.89-1.13) ABG pH (7.35-7.45) ABG pCO2 (35-45) mmHg ABG pO2 (83-108) mmHg ABG HCO3 (22-26) mmol/L ABG O2 Saturation (96-97) % ABG Base Excess (-2-2) Moises Test O2 Delivery Device Oxygen Flow Rate L Sodium (135-145) mmol/L Potassium (3.5-5.3) mmol/L Chloride (100-110) mmol/L Carbon Dioxide (23-29) mmol/L BUN (8-23) mg/dL Creatinine (0.6-1.3) mg/dL Est Cr Clr Drug Dosing Estimated GFR (MDRD) (>60) BUN/Creatinine Ratio (9-20) Glucose (80-116) mg/dL POC Glucose (80-116) mg/dL Hemoglobin A1c 6.7 H (4.0-6.0) % Calcium (8.6-10.2) mg/dL Total Bilirubin (0.1-1.3) mg/dL AST (5-27) IU/L ALT (14-26) IU/L Alkaline Phosphatase (56-112) IU/L Troponin I < 0.01 L (0.02-0.06) NG/ML B-Natriuretic Peptide 109 H (0-100) pg/mL Total Protein (6.0-8.0) g/dL Albumin (3.2-4.6) g/dL Globulin g/dL Albumin/Globulin Ratio Urine Color (YELLOW) Urine Appearance (CLEAR) Urine pH (5.0-6.5) Ur Specific Glen (1.010-1.025) Urine Protein (NEGATIVE) mg/dL Urine Glucose (UA) (NEGATIVE) mg/dL Urine Ketones (NEGATIVE) mg/dL Urine Occult Blood (NEGATIVE) Urine Nitrite (NEGATIVE) Urine Bilirubin (NEGATIVE) Urine Urobilinogen (NEGATIVE) mg/dL Ur Leukocyte Esterase (NEGATIVE) Urine RBC (0) Urine WBC (0) Ur Squamous Epith Cells (NS,R,O) Urine Bacteria (NS) 11/04/16 11/04/16 11/04/16 Range/Units 07:20 07:30 08:35 WBC (4.5-12.0) X10-3/uL RBC (4.30-5.75) x10(6)uL Hgb (11.5-15.5) g/dL Hct (30.0-51.3) % MCV (80-96) fL MCH (27.7-33.6) pg MCHC (32.2-35.4) g/dL RDW (11.5-15.5) % Plt Count (125-369) X10(3)uL MPV (7.4-10.4) fL Add Manual Diff Neutrophils % (Manual) (46-82) % Band Neutrophils % (0-6) % Lymphocytes % (Manual) (13-37) % Monocytes % (Manual) (4-12) % Eosinophils % (Manual) (0-5) % PT (8.7-11.1) INR (0.89-1.13) ABG pH 7.18 L* (7.35-7.45) ABG pCO2 > 100 H* (35-45) mmHg ABG pO2 80 L (83-108) mmHg ABG HCO3 42 H (22-26) mmol/L ABG O2 Saturation 90 L (96-97) % ABG Base Excess 7.8 H (-2-2) Moises Test passed O2 Delivery Device Non rebr mask Oxygen Flow Rate 0 L Sodium (135-145) mmol/L Potassium (3.5-5.3) mmol/L Chloride (100-110) mmol/L Carbon Dioxide (23-29) mmol/L BUN (8-23) mg/dL Creatinine (0.6-1.3) mg/dL Est Cr Clr Drug Dosing Estimated GFR (MDRD) (>60) BUN/Creatinine Ratio (9-20) Glucose (80-116) mg/dL POC Glucose 324 H (80-116) mg/dL Hemoglobin A1c (4.0-6.0) % Calcium (8.6-10.2) mg/dL Total Bilirubin (0.1-1.3) mg/dL AST (5-27) IU/L ALT (14-26) IU/L Alkaline Phosphatase (56-112) IU/L Troponin I (0.02-0.06) NG/ML B-Natriuretic Peptide (0-100) pg/mL Total Protein (6.0-8.0) g/dL Albumin (3.2-4.6) g/dL Globulin g/dL Albumin/Globulin Ratio Urine Color Yellow (YELLOW) Urine Appearance Slightly cloudy (CLEAR) Urine pH 5.0 (5.0-6.5) Ur Specific Glen 1.020 (1.010-1.025) Urine Protein Negative (NEGATIVE) mg/dL Urine Glucose (UA) >1000 H (NEGATIVE) mg/dL Urine Ketones Negative (NEGATIVE) mg/dL Urine Occult Blood Moderate H (NEGATIVE) Urine Nitrite Negative (NEGATIVE) Urine Bilirubin Negative (NEGATIVE) Urine Urobilinogen Normal (NEGATIVE) mg/dL Ur Leukocyte Esterase Negative (NEGATIVE) Urine RBC 10-20 H (0) Urine WBC 0-5 (0) Ur Squamous Epith Cells Rare (NS,R,O) Urine Bacteria Few H (NS) 11/04/16 11/04/16 11/04/16 Range/Units 09:00 11:01 11:36 WBC (4.5-12.0) X10-3/uL RBC (4.30-5.75) x10(6)uL Hgb (11.5-15.5) g/dL Hct (30.0-51.3) % MCV (80-96) fL MCH (27.7-33.6) pg MCHC (32.2-35.4) g/dL RDW (11.5-15.5) % Plt Count (125-369) X10(3)uL MPV (7.4-10.4) fL Add Manual Diff Neutrophils % (Manual) (46-82) % Band Neutrophils % (0-6) % Lymphocytes % (Manual) (13-37) % Monocytes % (Manual) (4-12) % Eosinophils % (Manual) (0-5) % PT (8.7-11.1) INR (0.89-1.13) ABG pH 7.28 L (7.35-7.45) ABG pCO2 99 H* (35-45) mmHg ABG pO2 97 (83-108) mmHg ABG HCO3 45 H (22-26) mmol/L ABG O2 Saturation 96 (96-97) % ABG Base Excess 12.9 H (-2-2) Moises Test passed O2 Delivery Device Bipap Oxygen Flow Rate 0 L Sodium (135-145) mmol/L Potassium (3.5-5.3) mmol/L Chloride (100-110) mmol/L Carbon Dioxide (23-29) mmol/L BUN (8-23) mg/dL Creatinine (0.6-1.3) mg/dL Est Cr Clr Drug Dosing Estimated GFR (MDRD) (>60) BUN/Creatinine Ratio (9-20) Glucose (80-116) mg/dL POC Glucose 218 H D (80-116) mg/dL Hemoglobin A1c (4.0-6.0) % Calcium (8.6-10.2) mg/dL Total Bilirubin (0.1-1.3) mg/dL AST (5-27) IU/L ALT (14-26) IU/L Alkaline Phosphatase (56-112) IU/L Troponin I 0.01 L (0.02-0.06) NG/ML B-Natriuretic Peptide (0-100) pg/mL Total Protein (6.0-8.0) g/dL Albumin (3.2-4.6) g/dL Globulin g/dL Albumin/Globulin Ratio Urine Color (YELLOW) Urine Appearance (CLEAR) Urine pH (5.0-6.5) Ur Specific Glen (1.010-1.025) Urine Protein (NEGATIVE) mg/dL Urine Glucose (UA) (NEGATIVE) mg/dL Urine Ketones (NEGATIVE) mg/dL Urine Occult Blood (NEGATIVE) Urine Nitrite (NEGATIVE) Urine Bilirubin (NEGATIVE) Urine Urobilinogen (NEGATIVE) mg/dL Ur Leukocyte Esterase (NEGATIVE) Urine RBC (0) Urine WBC (0) Ur Squamous Epith Cells (NS,R,O) Urine Bacteria (NS) 11/04/16 11/04/16 11/04/16 Range/Units 14:33 16:40 17:40 WBC (4.5-12.0) X10-3/uL RBC (4.30-5.75) x10(6)uL Hgb (11.5-15.5) g/dL Hct (30.0-51.3) % MCV (80-96) fL MCH (27.7-33.6) pg MCHC (32.2-35.4) g/dL RDW (11.5-15.5) % Plt Count (125-369) X10(3)uL MPV (7.4-10.4) fL Add Manual Diff Neutrophils % (Manual) (46-82) % Band Neutrophils % (0-6) % Lymphocytes % (Manual) (13-37) % Monocytes % (Manual) (4-12) % Eosinophils % (Manual) (0-5) % PT (8.7-11.1) INR (0.89-1.13) ABG pH 7.35 (7.35-7.45) ABG pCO2 88 H* (35-45) mmHg ABG pO2 91 (83-108) mmHg ABG HCO3 47 H (22-26) mmol/L ABG O2 Saturation 96 (96-97) % ABG Base Excess 16.9 H (-2-2) Moises Test Passed O2 Delivery Device Non rebr mask Oxygen Flow Rate 0 L Sodium (135-145) mmol/L Potassium 5.6 H (3.5-5.3) mmol/L Chloride (100-110) mmol/L Carbon Dioxide (23-29) mmol/L BUN (8-23) mg/dL Creatinine (0.6-1.3) mg/dL Est Cr Clr Drug Dosing Estimated GFR (MDRD) (>60) BUN/Creatinine Ratio (9-20) Glucose (80-116) mg/dL POC Glucose 148 H (80-116) mg/dL Hemoglobin A1c (4.0-6.0) % Calcium (8.6-10.2) mg/dL Total Bilirubin (0.1-1.3) mg/dL AST (5-27) IU/L ALT (14-26) IU/L Alkaline Phosphatase (56-112) IU/L Troponin I (0.02-0.06) NG/ML B-Natriuretic Peptide (0-100) pg/mL Total Protein (6.0-8.0) g/dL Albumin (3.2-4.6) g/dL Globulin g/dL Albumin/Globulin Ratio Urine Color (YELLOW) Urine Appearance (CLEAR) Urine pH (5.0-6.5) Ur Specific Glen (1.010-1.025) Urine Protein (NEGATIVE) mg/dL Urine Glucose (UA) (NEGATIVE) mg/dL Urine Ketones (NEGATIVE) mg/dL Urine Occult Blood (NEGATIVE) Urine Nitrite (NEGATIVE) Urine Bilirubin (NEGATIVE) Urine Urobilinogen (NEGATIVE) mg/dL Ur Leukocyte Esterase (NEGATIVE) Urine RBC (0) Urine WBC (0) Ur Squamous Epith Cells (NS,R,O) Urine Bacteria (NS) 11/04/16 11/04/16 11/05/16 Range/Units 17:49 20:34 05:50 WBC (4.5-12.0) X10-3/uL RBC (4.30-5.75) x10(6)uL Hgb (11.5-15.5) g/dL Hct (30.0-51.3) % MCV (80-96) fL MCH (27.7-33.6) pg MCHC (32.2-35.4) g/dL RDW (11.5-15.5) % Plt Count (125-369) X10(3)uL MPV (7.4-10.4) fL Add Manual Diff Neutrophils % (Manual) (46-82) % Band Neutrophils % (0-6) % Lymphocytes % (Manual) (13-37) % Monocytes % (Manual) (4-12) % Eosinophils % (Manual) (0-5) % PT (8.7-11.1) INR (0.89-1.13) ABG pH (7.35-7.45) ABG pCO2 (35-45) mmHg ABG pO2 (83-108) mmHg ABG HCO3 (22-26) mmol/L ABG O2 Saturation (96-97) % ABG Base Excess (-2-2) Moises Test O2 Delivery Device Oxygen Flow Rate L Sodium 135 (135-145) mmol/L Potassium 5.0 (3.5-5.3) mmol/L Chloride 88 L* (100-110) mmol/L Carbon Dioxide 38 H (23-29) mmol/L BUN 25 H (8-23) mg/dL Creatinine 0.7 (0.6-1.3) mg/dL Est Cr Clr Drug Dosing 66.41 Estimated GFR (MDRD) > 60 (>60) BUN/Creatinine Ratio 35.7 H (9-20) Glucose 172 H D (80-116) mg/dL POC Glucose 153 H 264 H D (80-116) mg/dL Hemoglobin A1c (4.0-6.0) % Calcium 9.2 (8.6-10.2) mg/dL Total Bilirubin (0.1-1.3) mg/dL AST (5-27) IU/L ALT (14-26) IU/L Alkaline Phosphatase (56-112) IU/L Troponin I (0.02-0.06) NG/ML B-Natriuretic Peptide (0-100) pg/mL Total Protein (6.0-8.0) g/dL Albumin (3.2-4.6) g/dL Globulin g/dL Albumin/Globulin Ratio Urine Color (YELLOW) Urine Appearance (CLEAR) Urine pH (5.0-6.5) Ur Specific Glen (1.010-1.025) Urine Protein (NEGATIVE) mg/dL Urine Glucose (UA) (NEGATIVE) mg/dL Urine Ketones (NEGATIVE) mg/dL Urine Occult Blood (NEGATIVE) Urine Nitrite (NEGATIVE) Urine Bilirubin (NEGATIVE) Urine Urobilinogen (NEGATIVE) mg/dL Ur Leukocyte Esterase (NEGATIVE) Urine RBC (0) Urine WBC (0) Ur Squamous Epith Cells (NS,R,O) Urine Bacteria (NS) 11/05/16 11/05/16 11/05/16 Range/Units 06:05 06:25 11:25 WBC (4.5-12.0) X10-3/uL RBC (4.30-5.75) x10(6)uL Hgb (11.5-15.5) g/dL Hct (30.0-51.3) % MCV (80-96) fL MCH (27.7-33.6) pg MCHC (32.2-35.4) g/dL RDW (11.5-15.5) % Plt Count (125-369) X10(3)uL MPV (7.4-10.4) fL Add Manual Diff Neutrophils % (Manual) (46-82) % Band Neutrophils % (0-6) % Lymphocytes % (Manual) (13-37) % Monocytes % (Manual) (4-12) % Eosinophils % (Manual) (0-5) % PT (8.7-11.1) INR (0.89-1.13) ABG pH 7.47 H (7.35-7.45) ABG pCO2 63 H* (35-45) mmHg ABG pO2 36 L* (83-108) mmHg ABG HCO3 45 H (22-26) mmol/L ABG O2 Saturation 80 L* (96-97) % ABG Base Excess 17.4 H (-2-2) Moises Test Performed O2 Delivery Device Nasal cannula Oxygen Flow Rate 0 L Sodium (135-145) mmol/L Potassium (3.5-5.3) mmol/L Chloride (100-110) mmol/L Carbon Dioxide (23-29) mmol/L BUN (8-23) mg/dL Creatinine (0.6-1.3) mg/dL Est Cr Clr Drug Dosing Estimated GFR (MDRD) (>60) BUN/Creatinine Ratio (9-20) Glucose (80-116) mg/dL POC Glucose 162 H D 185 H (80-116) mg/dL Hemoglobin A1c (4.0-6.0) % Calcium (8.6-10.2) mg/dL Total Bilirubin (0.1-1.3) mg/dL AST (5-27) IU/L ALT (14-26) IU/L Alkaline Phosphatase (56-112) IU/L Troponin I (0.02-0.06) NG/ML B-Natriuretic Peptide (0-100) pg/mL Total Protein (6.0-8.0) g/dL Albumin (3.2-4.6) g/dL Globulin g/dL Albumin/Globulin Ratio Urine Color (YELLOW) Urine Appearance (CLEAR) Urine pH (5.0-6.5) Ur Specific Glen (1.010-1.025) Urine Protein (NEGATIVE) mg/dL Urine Glucose (UA) (NEGATIVE) mg/dL Urine Ketones (NEGATIVE) mg/dL Urine Occult Blood (NEGATIVE) Urine Nitrite (NEGATIVE) Urine Bilirubin (NEGATIVE) Urine Urobilinogen (NEGATIVE) mg/dL Ur Leukocyte Esterase (NEGATIVE) Urine RBC (0) Urine WBC (0) Ur Squamous Epith Cells (NS,R,O) Urine Bacteria (NS) 11/05/16 11/05/16 11/05/16 Range/Units 11:29 16:01 16:04 WBC (4.5-12.0) X10-3/uL RBC (4.30-5.75) x10(6)uL Hgb (11.5-15.5) g/dL Hct (30.0-51.3) % MCV (80-96) fL MCH (27.7-33.6) pg MCHC (32.2-35.4) g/dL RDW (11.5-15.5) % Plt Count (125-369) X10(3)uL MPV (7.4-10.4) fL Add Manual Diff Neutrophils % (Manual) (46-82) % Band Neutrophils % (0-6) % Lymphocytes % (Manual) (13-37) % Monocytes % (Manual) (4-12) % Eosinophils % (Manual) (0-5) % PT (8.7-11.1) INR (0.89-1.13) ABG pH (7.35-7.45) ABG pCO2 (35-45) mmHg ABG pO2 (83-108) mmHg ABG HCO3 (22-26) mmol/L ABG O2 Saturation (96-97) % ABG Base Excess (-2-2) Moises Test O2 Delivery Device Oxygen Flow Rate L Sodium (135-145) mmol/L Potassium (3.5-5.3) mmol/L Chloride (100-110) mmol/L Carbon Dioxide (23-29) mmol/L BUN (8-23) mg/dL Creatinine (0.6-1.3) mg/dL Est Cr Clr Drug Dosing Estimated GFR (MDRD) (>60) BUN/Creatinine Ratio (9-20) Glucose (80-116) mg/dL POC Glucose 133 H (80-116) mg/dL Hemoglobin A1c (4.0-6.0) % Calcium (8.6-10.2) mg/dL Total Bilirubin (0.1-1.3) mg/dL AST (5-27) IU/L ALT (14-26) IU/L Alkaline Phosphatase (56-112) IU/L Troponin I 0.02 0.02 (0.02-0.06) NG/ML B-Natriuretic Peptide (0-100) pg/mL Total Protein (6.0-8.0) g/dL Albumin (3.2-4.6) g/dL Globulin g/dL Albumin/Globulin Ratio Urine Color (YELLOW) Urine Appearance (CLEAR) Urine pH (5.0-6.5) Ur Specific Glen (1.010-1.025) Urine Protein (NEGATIVE) mg/dL Urine Glucose (UA) (NEGATIVE) mg/dL Urine Ketones (NEGATIVE) mg/dL Urine Occult Blood (NEGATIVE) Urine Nitrite (NEGATIVE) Urine Bilirubin (NEGATIVE) Urine Urobilinogen (NEGATIVE) mg/dL Ur Leukocyte Esterase (NEGATIVE) Urine RBC (0) Urine WBC (0) Ur Squamous Epith Cells (NS,R,O) Urine Bacteria (NS) 11/05/16 11/06/16 11/06/16 Range/Units 20:53 06:05 06:05 WBC 13.8 H (4.5-12.0) X10-3/uL RBC 3.94 L (4.30-5.75) x10(6)uL Hgb 12.4 (11.5-15.5) g/dL Hct 38.0 (30.0-51.3) % MCV 96.5 H (80-96) fL MCH 31.5 (27.7-33.6) pg MCHC 32.7 (32.2-35.4) g/dL RDW 12.9 (11.5-15.5) % Plt Count 164 (125-369) X10(3)uL MPV 8.0 (7.4-10.4) fL Add Manual Diff Yes Neutrophils % (Manual) 85 H (46-82) % Band Neutrophils % 3 (0-6) % Lymphocytes % (Manual) 6 L (13-37) % Monocytes % (Manual) 6 (4-12) % Eosinophils % (Manual) (0-5) % PT (8.7-11.1) INR (0.89-1.13) ABG pH (7.35-7.45) ABG pCO2 (35-45) mmHg ABG pO2 (83-108) mmHg ABG HCO3 (22-26) mmol/L ABG O2 Saturation (96-97) % ABG Base Excess (-2-2) Moises Test O2 Delivery Device Oxygen Flow Rate L Sodium 138 (135-145) mmol/L Potassium 5.0 (3.5-5.3) mmol/L Chloride 90 L (100-110) mmol/L Carbon Dioxide 45 H* (23-29) mmol/L BUN 33 H (8-23) mg/dL Creatinine 0.6 (0.6-1.3) mg/dL Est Cr Clr Drug Dosing 77.48 Estimated GFR (MDRD) > 60 (>60) BUN/Creatinine Ratio 55.0 H (9-20) Glucose 148 H (80-116) mg/dL POC Glucose 242 H D (80-116) mg/dL Hemoglobin A1c (4.0-6.0) % Calcium 8.9 (8.6-10.2) mg/dL Total Bilirubin 0.5 (0.1-1.3) mg/dL AST 76 H D (5-27) IU/L ALT 41 H D (14-26) IU/L Alkaline Phosphatase 56 (56-112) IU/L Troponin I (0.02-0.06) NG/ML B-Natriuretic Peptide (0-100) pg/mL Total Protein 7.2 (6.0-8.0) g/dL Albumin 4.0 (3.2-4.6) g/dL Globulin 3.2 g/dL Albumin/Globulin Ratio 1.3 Urine Color (YELLOW) Urine Appearance (CLEAR) Urine pH (5.0-6.5) Ur Specific Glen (1.010-1.025) Urine Protein (NEGATIVE) mg/dL Urine Glucose (UA) (NEGATIVE) mg/dL Urine Ketones (NEGATIVE) mg/dL Urine Occult Blood (NEGATIVE) Urine Nitrite (NEGATIVE) Urine Bilirubin (NEGATIVE) Urine Urobilinogen (NEGATIVE) mg/dL Ur Leukocyte Esterase (NEGATIVE) Urine RBC (0) Urine WBC (0) Ur Squamous Epith Cells (NS,R,O) Urine Bacteria (NS) 11/06/16 11/06/16 11/06/16 Range/Units 06:24 07:30 11:46 WBC (4.5-12.0) X10-3/uL RBC (4.30-5.75) x10(6)uL Hgb (11.5-15.5) g/dL Hct (30.0-51.3) % MCV (80-96) fL MCH (27.7-33.6) pg MCHC (32.2-35.4) g/dL RDW (11.5-15.5) % Plt Count (125-369) X10(3)uL MPV (7.4-10.4) fL Add Manual Diff Neutrophils % (Manual) (46-82) % Band Neutrophils % (0-6) % Lymphocytes % (Manual) (13-37) % Monocytes % (Manual) (4-12) % Eosinophils % (Manual) (0-5) % PT (8.7-11.1) INR (0.89-1.13) ABG pH 7.33 L (7.35-7.45) ABG pCO2 87 H* (35-45) mmHg ABG pO2 66 L (83-108) mmHg ABG HCO3 44 H (22-26) mmol/L ABG O2 Saturation 89 L (96-97) % ABG Base Excess 12.6 H (-2-2) Moises Test Passed O2 Delivery Device Nasal cannula Oxygen Flow Rate 4 L Sodium (135-145) mmol/L Potassium (3.5-5.3) mmol/L Chloride (100-110) mmol/L Carbon Dioxide (23-29) mmol/L BUN (8-23) mg/dL Creatinine (0.6-1.3) mg/dL Est Cr Clr Drug Dosing Estimated GFR (MDRD) (>60) BUN/Creatinine Ratio (9-20) Glucose (80-116) mg/dL POC Glucose 150 H D 248 H D (80-116) mg/dL Hemoglobin A1c (4.0-6.0) % Calcium (8.6-10.2) mg/dL Total Bilirubin (0.1-1.3) mg/dL AST (5-27) IU/L ALT (14-26) IU/L Alkaline Phosphatase (56-112) IU/L Troponin I (0.02-0.06) NG/ML B-Natriuretic Peptide (0-100) pg/mL Total Protein (6.0-8.0) g/dL Albumin (3.2-4.6) g/dL Globulin g/dL Albumin/Globulin Ratio Urine Color (YELLOW) Urine Appearance (CLEAR) Urine pH (5.0-6.5) Ur Specific Glen (1.010-1.025) Urine Protein (NEGATIVE) mg/dL Urine Glucose (UA) (NEGATIVE) mg/dL Urine Ketones (NEGATIVE) mg/dL Urine Occult Blood (NEGATIVE) Urine Nitrite (NEGATIVE) Urine Bilirubin (NEGATIVE) Urine Urobilinogen (NEGATIVE) mg/dL Ur Leukocyte Esterase (NEGATIVE) Urine RBC (0) Urine WBC (0) Ur Squamous Epith Cells (NS,R,O) Urine Bacteria (NS) 11/06/16 11/06/16 11/07/16 Range/Units 16:57 21:32 07:23 WBC (4.5-12.0) X10-3/uL RBC (4.30-5.75) x10(6)uL Hgb (11.5-15.5) g/dL Hct (30.0-51.3) % MCV (80-96) fL MCH (27.7-33.6) pg MCHC (32.2-35.4) g/dL RDW (11.5-15.5) % Plt Count (125-369) X10(3)uL MPV (7.4-10.4) fL Add Manual Diff Neutrophils % (Manual) (46-82) % Band Neutrophils % (0-6) % Lymphocytes % (Manual) (13-37) % Monocytes % (Manual) (4-12) % Eosinophils % (Manual) (0-5) % PT (8.7-11.1) INR (0.89-1.13) ABG pH (7.35-7.45) ABG pCO2 (35-45) mmHg ABG pO2 (83-108) mmHg ABG HCO3 (22-26) mmol/L ABG O2 Saturation (96-97) % ABG Base Excess (-2-2) Moises Test O2 Delivery Device Oxygen Flow Rate L Sodium (135-145) mmol/L Potassium (3.5-5.3) mmol/L Chloride (100-110) mmol/L Carbon Dioxide (23-29) mmol/L BUN (8-23) mg/dL Creatinine (0.6-1.3) mg/dL Est Cr Clr Drug Dosing Estimated GFR (MDRD) (>60) BUN/Creatinine Ratio (9-20) Glucose (80-116) mg/dL POC Glucose 213 H 243 H 128 H D (80-116) mg/dL Hemoglobin A1c (4.0-6.0) % Calcium (8.6-10.2) mg/dL Total Bilirubin (0.1-1.3) mg/dL AST (5-27) IU/L ALT (14-26) IU/L Alkaline Phosphatase (56-112) IU/L Troponin I (0.02-0.06) NG/ML B-Natriuretic Peptide (0-100) pg/mL Total Protein (6.0-8.0) g/dL Albumin (3.2-4.6) g/dL Globulin g/dL Albumin/Globulin Ratio Urine Color (YELLOW) Urine Appearance (CLEAR) Urine pH (5.0-6.5) Ur Specific [place] (1.010-1.025) Urine Protein (NEGATIVE) mg/dL Urine Glucose (UA) (NEGATIVE) mg/dL Urine Ketones (NEGATIVE) mg/dL Urine Occult Blood (NEGATIVE) Urine Nitrite (NEGATIVE) Urine Bilirubin (NEGATIVE) Urine Urobilinogen (NEGATIVE) mg/dL Ur Leukocyte Esterase (NEGATIVE) Urine RBC (0) Urine WBC (0) Ur Squamous Epith Cells (NS,R,O) Urine Bacteria (NS) - Problem List (1) Pneumonia SNOMED Code(s): 257213483 ICD Code: J18.9 - PNEUMONIA, UNSPECIFIED ORGANISM Status: Acute Current Visit: Yes Qualifiers: Laterality: bilateral (2) Respiratory failure SNOMED Code(s): 497569689 ICD Code: J96.90 - RESPIRATORY FAILURE, UNSP, UNSP W HYPOXIA OR HYPERCAPNIA Status: Acute Current Visit: Yes (3) COPD exacerbation SNOMED Code(s): 599412637, 707767490 ICD Code: J44.1 - CHRONIC OBSTRUCTIVE PULMONARY DISEASE W (ACUTE) EXACERBATION Status: Acute Current Visit: Yes (4) Hyperglycemia due to type 2 diabetes mellitus SNOMED Code(s): 940401038429039, 638535774401381 ICD Code: E11.65 - TYPE 2 DIABETES MELLITUS WITH HYPERGLYCEMIA Status: Acute Current Visit: Yes 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 insulin use status Qualified Code(s): E11.65 - Type 2 diabetes mellitus with hyperglycemia (5) CHF, Congestive heart failure SNOMED Code(s): 87288569 ICD Code: I50.9 - HEART FAILURE, UNSPECIFIED Status: Acute Current Visit : No Problem Details: Appears stable (6) Restrictive airway disease SNOMED Code(s): 95070730 ICD Code: J98.4 - OTHER DISORDERS OF LUNG Status: Acute Current Visit: No (7) Palliative care status SNOMED Code(s): 399814186 ICD Code: Z51.5 - ENCOUNTER FOR PALLIATIVE CARE Status: Acute Current Visit: Yes (8) CODE STATUS: DO NOT INTUBATE: DO NOT RESUSCITATE (9) Hyperkalemia SNOMED Code(s): 35528371 ICD Code: E87.5 - HYPERKALEMIA Status: Acute Current Visit: Yes Problem List Initiated/Reviewed/Updated: Yes Assessment/Plan Comment:: 1. continue current cares and abx. 2. taper steroids continue SVN and IS. CPAP at night. 3. follow ABGs 4 accu-Cheks every 4 hours with sliding scale insulin 5. Maintain oxygenation greater than 90%. 6. follow electrolytes
--- NOTE | 2016-11-10 13:48 | PCM.SN ---
- Free Text/Narrative Note: Date of Service: 11/08/16 Subjective: This is a pleasant 75-year-old male admitted on 11/04/16 with history of respiratory failure secondary to acute on chronic severe COPD exacerbation with chronic restrictive lung disease, acute onset pulmonary edema from acute on chronic CHF, along with exacerbation of chronic anxiety disorder. Chronically on oxygen at 4L at home. Today tells me he is feeling better, but still sob with any exertion. still requiring high flow O2. not needed bipap. tolerating cares. diet improved with no choking or abdominal pain. no n/v. no difficulty chewing or swallowing. using walker to get up to bathroom. PT/OT/RT on board. He oriented x3 and very pleasant. He denies cough, fevers, chills, nasal congestion, sore throat, neck , jaw, shoulder or chest pain. no pressure or palpitations. no confusion or word finding difficulty. no numbness or tingling. no pain in the legs. no irritation from IV, SC injection or brown site. no epistaxis. no myalgias. PCP: Herminio Ruiz M.D Allergies Allergy/AdvReac Type Severity Reaction Status Date / Time Penicillins Allergy Mouth Sores Verified 04/24/16 16:52 Home Medications prior to admit: Acetaminophen with Codeine [Tylenol with Codeine #3 Tablet] 1 - 2 tab PO QID 05/16 [History] Aspirin/Calcium Carbonate/Mag [Aspirin Buffered 325 mg Tab] 325 mg PO BID [History] Cholecalciferol (Vitamin D3) [Vitamin D3] 1,000 units PO DAILY 11/10/13 [History ] Furosemide 40 mg PO BID 11/10/13 [History] Glimepiride 2 mg PO DAILY 11/10/13 [History] Mirtazapine [Remeron] 7.5 mg PO BEDTIME 11/10/13 [History] Nitroglycerin [Nitrostat] 0.4 mg SL ASDIRECTED PRN 11/10/13 [History] Omeprazole 40 mg PO DAILY 11/10/13 [History] Simvastatin 40 mg PO BEDTIME 11/10/13 [History] Vitamin E 1,000 unit PO DAILY 11/10/13 [History] Alendronate Sodium [Fosamax] 70 mg PO TU 04/24/16 [History] Arformoterol [Brovana] 2 ml INH BID 04/24/16 [History] Ascorbic Acid [Vitamin C with Heather Hips] 1,000 mg PO DAILY 04/24/16 [History] FLUoxetine HCl [Fluoxetine HCl] 40 mg PO DAILY 04/24/16 [History] Glucosam/Msm/Vit C/Jesús/Hrb#21 [Glucosamine-MSM Complex] 1 tab PO BID 04/24/16 [ History] LORazepam 0.5 - 1 mg PO TID PRN 04/24/16 [History] Multivitamin [Multi-Vitamin Daily] 1 tab PO DAILY 04/24/16 [History] Nabumetone 750 mg PO BID 04/24/16 [History] Polyethylene Glycol 3350 [MiraLAX] 17 gm PO BEDTIME PRN 04/24/16 [History] Cyanocobalamin (Vitamin B12) [Vitamin B12] 1,000 mcg PO DAILY 11/04/16 [History] Fish Oil/[place]-3 Fatty Acids [Fish Oil 1,000 MG] 1 gm PO DAILY 11/04/16 [History ] busPIRone [Buspar] 7.5 mg PO BID 11/04/16 [History] ROS: See Subjective. Vital Signs: afebrile 72 hours, pulse: 60-90; BP: 105-132/63-70; respiration: 20-22; O2 sat: 90-93% on high flow NC 6 L - Exam Quality Assessment: supplemental oxygen; NC currently at 6 L General: alert, oriented, cooperative HEENT: Hearing intact, Mucosa moist & pink, Posterior pharynx clear, Pupils equal, Pupils reactive, TMs clear Neck: supple, no adenopathy Lungs: Decreased breath sounds, Crackles lower and mid hernández bilat. no intercostal or subcostal retractions. no dullness to percussion. Cardiovascular: regular rate, regular rhythm. No: systolic murmur, diastolic murmur Abdomen: normal bowel sounds, soft. No: organomegaly, guarding, rigidity, rebound, tenderness Back Exam: normal skin inspection; severe musculoskeletal KYPHOSIS CONTRIBUTING TO RESTRICTIVE LUNG DISEASE Extremities: normal inspection. No: edema Skin: warm, dry, intact Neuro Extensive - Mental Status: alert Labs/brian/imaging reviewed. nursing and resp report reviewed. - Problem List (1) Pneumonia SNOMED Code(s): 877810956 ICD Code: J18.9 - PNEUMONIA, UNSPECIFIED ORGANISM Status: Acute Current Visit: Yes Qualifiers: Laterality: bilateral (2) Respiratory failure SNOMED Code(s): 901079018 ICD Code: J96.90 - RESPIRATORY FAILURE, UNSP, UNSP W HYPOXIA OR HYPERCAPNIA Status: Acute Current Visit: Yes (3) COPD exacerbation SNOMED Code(s): 096560623, 080850168 ICD Code: J44.1 - CHRONIC OBSTRUCTIVE PULMONARY DISEASE W (ACUTE) EXACERBATION Status: Acute Current Visit: Yes (4) Hyperglycemia due to type 2 diabetes mellitus SNOMED Code(s): 389124848312791, 729840408719973 ICD Code: E11.65 - TYPE 2 DIABETES MELLITUS WITH HYPERGLYCEMIA Status: Acute Current Visit: Yes Qualifiers: Diabetes mellitus 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: unspecified [facility] insulin use status Qualified Code(s): E11.65 - Type 2 diabetes mellitus with hyperglycemia (5) CHF, Congestive heart failure SNOMED Code(s): 30942841 ICD Code: I50.9 - HEART FAILURE, UNSPECIFIED Status: Acute Current Visit : No Problem Details: Appears stable (6) Restrictive airway disease SNOMED Code(s): 19058087 ICD Code: J98.4 - OTHER DISORDERS OF LUNG Status: Acute Current Visit: No (7) Palliative care status SNOMED Code(s): 302181599 ICD Code: Z51.5 - ENCOUNTER FOR PALLIATIVE CARE Status: Acute Current Visit: Yes (8) CODE STATUS: DO NOT INTUBATE: DO NOT RESUSCITATE (9) Hyperkalemia SNOMED Code(s): 29728042 ICD Code: E87.5 - HYPERKALEMIA Status: Acute Current Visit: Yes Problem List Initiated/Reviewed/Updated: Yes Assessment/Plan Comment:: 1. continue current cares and abx. 2. taper steroids continue SVN and IS. CPAP at night. 3. follow ABGs 4 accu-Cheks every 4 hours with sliding scale insulin 5. Maintain oxygenation greater than 90% and increase activity. wean o2 as able. 6. follow electrolytes
--- NOTE | 2016-11-10 13:49 | PCM.SN ---
- Free Text/Narrative Note: Date of Service: 11/09/16 Subjective: Pleasant 75-year-old male admitted on 11/04/16 with history of respiratory failure secondary to acute on chronic severe COPD exacerbation with chronic restrictive lung disease, acute onset pulmonary edema from acute on chronic CHF , along with exacerbation of chronic anxiety disorder. Chronically on oxygen at 4L at home. Today tells me he is feeling better, and sob at rest and with exertion improved. o2 requirements improved. activity improved. not needed bipap. tolerating cares. diet improved with no choking or abdominal pain. no n/v. no difficulty chewing or swallowing. using walker to get up to bathroom. PT/OT/RT on board. He oriented x3 and very pleasant. He denies cough, fevers, chills, nasal congestion, sore throat, neck, jaw, shoulder or chest pain. no pressure or palpitations. no confusion or word finding difficulty. no numbness or tingling. no pain in the legs. no irritation from IV, SC injection. or brown site. no epistaxis. no myalgias. PCP: Herminio Ruiz M.D Allergies Allergy/AdvReac Type Severity Reaction Status Date / Time Penicillins Allergy Mouth Sores Verified 04/24/16 16:52 Home Medications prior to admit: Acetaminophen with Codeine [Tylenol with Codeine #3 Tablet] 1 - 2 tab PO QID 05/16 [History] Aspirin/Calcium Carbonate/Mag [Aspirin Buffered 325 mg Tab] 325 mg PO BID [History] Cholecalciferol (Vitamin D3) [Vitamin D3] 1,000 units PO DAILY 11/10/13 [History ] Furosemide 40 mg PO BID 11/10/13 [History] Glimepiride 2 mg PO DAILY 11/10/13 [History] Mirtazapine [Remeron] 7.5 mg PO BEDTIME 11/10/13 [History] Nitroglycerin [Nitrostat] 0.4 mg SL ASDIRECTED PRN 11/10/13 [History] Omeprazole 40 mg PO DAILY 11/10/13 [History] Simvastatin 40 mg PO BEDTIME 11/10/13 [History] Vitamin E 1,000 unit PO DAILY 11/10/13 [History] Alendronate Sodium [Fosamax] 70 mg PO TU 04/24/16 [History] Arformoterol [Brovana] 2 ml INH BID 04/24/16 [History] Ascorbic Acid [Vitamin C with Heather Hips] 1,000 mg PO DAILY 04/24/16 [History] FLUoxetine HCl [Fluoxetine HCl] 40 mg PO DAILY 04/24/16 [History] Glucosam/Msm/Vit C/Jesús/Hrb#21 [Glucosamine-MSM Complex] 1 tab PO BID 04/24/16 [ History] LORazepam 0.5 - 1 mg PO TID PRN 04/24/16 [History] Multivitamin [Multi-Vitamin Daily] 1 tab PO DAILY 04/24/16 [History] Nabumetone 750 mg PO BID 04/24/16 [History] Polyethylene Glycol 3350 [MiraLAX] 17 gm PO BEDTIME PRN 04/24/16 [History] Cyanocobalamin (Vitamin B12) [Vitamin B12] 1,000 mcg PO DAILY 11/04/16 [History] Fish Oil/[place]-3 Fatty Acids [Fish Oil 1,000 MG] 1 gm PO DAILY 11/04/16 [History ] busPIRone [Buspar] 7.5 mg PO BID 11/04/16 [History] ROS: See Subjective. Vital Signs: afebrile >72 hours, pulse: 60-90; BP: 105-132/63-70; respiration: 18-22; O2 sat : 90-93% on 4 L - Exam Quality Assessment: supplemental oxygen; NC currently at 4 L General: alert, oriented, cooperative HEENT: Hearing intact, Mucosa moist & pink, Posterior pharynx clear, Pupils equal, Pupils reactive Neck: supple, no adenopathy Lungs: Decreased breath sounds but improved aeration, crackles lower hernández bilat. no intercostal or subcostal retractions. no dullness to percussion. Cardiovascular: regular rate, regular rhythm. No: systolic murmur, diastolic murmur Abdomen: normal bowel sounds, soft. No: organomegaly, guarding, rigidity, rebound, tenderness Back Exam: normal skin inspection; severe musculoskeletal KYPHOSIS CONTRIBUTING TO RESTRICTIVE LUNG DISEASE Extremities: normal inspection. No: edema Skin: warm, dry, intact Neuro Extensive - Mental Status: alert Labs/brian/imaging reviewed. nursing and resp report reviewed. - Problem List (1) Pneumonia SNOMED Code(s): 681824881 ICD Code: J18.9 - PNEUMONIA, UNSPECIFIED ORGANISM Status: Acute Current Visit: Yes Qualifiers: Laterality: bilateral (2) Respiratory failure SNOMED Code(s): 465605083 ICD Code: J96.90 - RESPIRATORY FAILURE, UNSP, UNSP W HYPOXIA OR HYPERCAPNIA Status: Acute Current Visit: Yes (3) COPD exacerbation SNOMED Code(s): 843845747, 090908764 ICD Code: J44.1 - CHRONIC OBSTRUCTIVE PULMONARY DISEASE W (ACUTE) EXACERBATION Status: Acute Current Visit: Yes (4) Hyperglycemia due to type 2 diabetes mellitus SNOMED Code(s): 192413255402121, 691788315464791 ICD Code: E11.65 - TYPE 2 DIABETES MELLITUS WITH HYPERGLYCEMIA Status: Acute Current Visit: Yes 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 care insulin use status Qualified Code(s): E11.65 - Type 2 diabetes mellitus with hyperglycemia (5) CHF, Congestive heart failure SNOMED Code(s): 11932672 ICD Code: I50.9 - HEART FAILURE, UNSPECIFIED Status: Acute Current Visit : No Problem Details: Appears stable (6) Restrictive airway disease SNOMED Code(s): 39839268 ICD Code: J98.4 - OTHER DISORDERS OF LUNG Status: Acute Current Visit: No (7) Palliative care status SNOMED Code(s): 387154655 ICD Code: Z51.5 - ENCOUNTER FOR PALLIATIVE CARE Status: Acute Current Visit: Yes (8) CODE STATUS: DO NOT INTUBATE: DO NOT RESUSCITATE (9) Hyperkalemia SNOMED Code(s): 95655094 ICD Code: E87.5 - HYPERKALEMIA Status: Acute Current Visit: Yes Problem List Initiated/Reviewed/Updated: Yes Assessment/Plan Comment:: 1. continue current cares and abx. 2. taper steroids continue SVN and IS. CPAP at night. 3. ABGs much improved 4 accu-Cheks every 4 hours with sliding scale insulin 5. Maintain oxygenation greater than 90% and increase activity. 6. brown out and follow electrolytes
--- NOTE | 2016-11-10 13:57 | PCM.DCSUM1 ---
Discharge Summary - Discharge Data Discharge Date: 11/10/16 Discharge Disposition: Home, W Home Health Agency 06 Condition: Fair - Discharge Diagnosis/Problem(s) (1) Pneumonia SNOMED Code(s): 807282094 ICD Code: J18.9 - PNEUMONIA, UNSPECIFIED ORGANISM Status: Acute Current Visit: Yes Qualifiers: Laterality: bilateral (2) Respiratory failure SNOMED Code(s): 467600338 ICD Code: J96.90 - RESPIRATORY FAILURE, UNSP, UNSP W HYPOXIA OR HYPERCAPNIA Status: Acute Current Visit: Yes (3) COPD exacerbation SNOMED Code(s): 398266994, 317204458 ICD Code: J44.1 - CHRONIC OBSTRUCTIVE PULMONARY DISEASE W (ACUTE) EXACERBATION Status: Acute Current Visit: Yes (4) Hyperglycemia due to type 2 diabetes mellitus SNOMED Code(s): 712052394830875, 790671940089969 ICD Code: E11.65 - TYPE 2 DIABETES MELLITUS WITH HYPERGLYCEMIA Status: Acute Current Visit: Yes Qualifiers: 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 Qualified Code(s): E11.65 - Type 2 diabetes mellitus with hyperglycemia (5) CHF, Congestive heart failure SNOMED Code(s): 79386305 ICD Code: I50.9 - HEART FAILURE, UNSPECIFIED Status: Acute Current Visit : No Problem Details: Appears stable (6) Restrictive airway disease SNOMED Code(s): 23961053 ICD Code: J98.4 - OTHER DISORDERS OF LUNG Status: Acute Current Visit: No (7) Palliative care status SNOMED Code(s): 709541162 ICD Code: Z51.5 - ENCOUNTER FOR PALLIATIVE CARE Status: Acute Current Visit: Yes - Patient Summary/Data Consults: Consultations 11/05/16 07:56 Consult to Occupational Therapy [OT Evaluation and Treatment] [CONS] Routine Please Evaluate and Treat. OT Reason for Consult: Strengthening This query below is only for informational purposes and is not editable. Admission Diagnosis/Problem: Respiratory failure Consult to Physical Therapy [PT Evaluation and Treatment] [CONS] Routine Please Evaluate and Treat. PT Reason for Consult: Strengthening This query below is only for informational purposes and is not editable. 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 required bipap and hi flow oxygen to reduce pco2 load, diuresis, iv abx which have been completed and started and tapering down steroids and nebs. he has down well and is improved with regards to back to baseline o2 supplementation at 4L with rest and activity maintaining sats in the low 90s which is normal for him, endurance and strength improved with PT/OT which will need to continue as outpatient for at least the next 30-60 days, fluid status improved with medication adjustment noted on discharge. he will follow up with his pcp in 7- 10 days for reviewed of medication changes, tapers, and functional status. pt and son are comfortable with this plan of care. - Patient Instructions Diet: Heart Healthy Diet, Low Sodium Fluid Restriction: 1500 mL Activity: Cough & Deep Breathe Driving: Do Not Drive Notify Provider of: Fever, Nausea and/or Vomiting Other/Special Instructions: increased sob or sudden increase swelling. - Discharge Plan Prescriptions/Med Rec: Albuterol/Ipratropium [DuoNeb 3.0-0.5 MG/3 ML] 3 ml NEB TIDRT #90 neb Prednisone [IJD: predniSONE] 40 mg PO WITHBREAKFAST #10 tablet Home Medications: Home Meds Acetaminophen with Codeine [Tylenol with Codeine #3 Tablet] 1 - 2 tab PO QID 05/16 [History] Aspirin/Calcium Carbonate/Mag [Aspirin Buffered 325 mg Tab] 325 mg PO BID [History] Cholecalciferol (Vitamin D3) [Vitamin D3] 1,000 units PO DAILY 11/10/13 [History ] Furosemide 40 mg PO BID 11/10/13 [History] Glimepiride 2 mg PO DAILY 11/10/13 [History] Mirtazapine [Remeron] 7.5 mg PO BEDTIME 11/10/13 [History] Omeprazole 40 mg PO DAILY 11/10/13 [History] Simvastatin 40 mg PO BEDTIME 11/10/13 [History] Vitamin E 1,000 unit PO DAILY 11/10/13 [History] Alendronate Sodium [Fosamax] 70 mg PO TU 04/24/16 [History] Arformoterol [Brovana] 2 ml INH BID 04/24/16 [History] Ascorbic Acid [Vitamin C with Heather Hips] 1,000 mg PO DAILY 04/24/16 [History] FLUoxetine HCl [Fluoxetine HCl] 40 mg PO DAILY 04/24/16 [History] Glucosam/Msm/Vit C/Jesús/Hrb#21 [Glucosamine-MSM Complex] 1 tab PO BID 04/24/16 [ History] LORazepam 0.5 - 1 mg PO TID PRN 04/24/16 [History] Multivitamin [Multi-Vitamin Daily] 1 tab PO DAILY 04/24/16 [History] Nabumetone 750 mg PO BID 04/24/16 [History] Polyethylene Glycol 3350 [MiraLAX] 17 gm PO BEDTIME PRN 04/24/16 [History] Cyanocobalamin (Vitamin B12) [Vitamin B12] 1,000 mcg PO DAILY 11/04/16 [History] Fish Oil/Jewett-3 Fatty Acids [Fish Oil 1,000 MG] 1 gm PO DAILY 11/04/16 [History ] busPIRone [Buspar] 7.5 mg PO BID 11/04/16 [History] Albuterol/Ipratropium [DuoNeb 3.0-0.5 MG/3 ML] 3 ml NEB TIDRT #90 neb 11/10/16 [ Rx] Prednisone [IJD: predniSONE] 40 mg PO WITHBREAKFAST #10 tablet 11/10/16 [Rx] Referrals: Herminio Ruiz MD [Primary Care Provider] - - General Info Date of Service: 11/10/16 Functional Status: Reports: pain controlled, tolerating diet, ambulating, urinating - Review of Systems General: Reports: No Symptoms HEENT: Reports: no symptoms Pulmonary: Denies: cough, wheezing Cardiovascular: Reports: No Symptoms Gastrointestinal: Reports: No symptoms Genitourinary: Reports: no symptoms Musculoskeletal: Denies: leg pain, foot pain Skin: Reports: no symptoms Neurological: Reports: Difficulty Walking. Denies: Confusion, Dizziness, Headache, Numbness, Tingling Psychiatric: Reports: anxiety - Patient Data Vitals - Most Recent: Vital Signs (72 hours) 11/07/16 11/07/16 11/07/16 15:44 20:00 21:00 Temperature [ 98.8 F 98.4 F Oral] Pulse, 47 L 82 Peripheral [ Left Brachial] Pulse, 84 84 Peripheral [ Left Pulse Oximetry] Pulse, Peripheral [ Right Brachial] Pulse, 86 Peripheral [ Right Pulse Oximetry] Respiratory 20 18 Rate Blood Pressure 120/57 L [Left Upper Arm ] Blood Pressure 132/71 [Right Upper Arm] O2 Sat by Pulse 93 L 93 L Oximetry O2 Sat by Pulse 93 L Oximetry [High Flow Nasal Cannula] 11/07/16 11/08/16 11/08/16 22:00 00:00 02:00 Temperature [ 97.6 F Oral] Pulse, 68 88 Peripheral [ Left Brachial] Pulse, 82 58 L Peripheral [ Left Pulse Oximetry] Pulse, Peripheral [ Right Brachial] Pulse, 86 Peripheral [ Right Pulse Oximetry] Respiratory 22 H Rate Blood Pressure 140/73 [Left Upper Arm ] Blood Pressure [Right Upper Arm] O2 Sat by Pulse 94 L Oximetry O2 Sat by Pulse 95 Oximetry [High Flow Nasal Cannula] 11/08/16 11/08/16 11/08/16 06:53 07:35 09:43 Temperature [ 97.8 F Oral] Pulse, 88 80 Peripheral [ Left Brachial] Pulse, 48 L Peripheral [ Left Pulse Oximetry] Pulse, Peripheral [ Right Brachial] Pulse, 86 86 Peripheral [ Right Pulse Oximetry] Respiratory 18 Rate Blood Pressure [Left Upper Arm ] Blood Pressure 118/61 [Right Upper Arm] O2 Sat by Pulse 95 Oximetry O2 Sat by Pulse 96 95 97 Oximetry [High Flow Nasal Cannula] 11/08/16 11/08/16 11/08/16 12:18 15:06 16:47 Temperature [ 98.5 F 97.4 F Oral] Pulse, 95 89 Peripheral [ Left Brachial] Pulse, 80 Peripheral [ Left Pulse Oximetry] Pulse, Peripheral [ Right Brachial] Pulse, Peripheral [ Right Pulse Oximetry] Respiratory 18 20 Rate Blood Pressure 122/74 121/78 [Left Upper Arm ] Blood Pressure [Right Upper Arm] O2 Sat by Pulse 93 L 92 L Oximetry O2 Sat by Pulse 92 L Oximetry [High Flow Nasal Cannula] 11/08/16 11/08/16 11/08/16 19:40 21:00 22:00 Temperature [ 98.4 F Oral] Pulse, 88 88 Peripheral [ Left Brachial] Pulse, 88 82 Peripheral [ Left Pulse Oximetry] Pulse, Peripheral [ Right Brachial] Pulse, Peripheral [ Right Pulse Oximetry] Respiratory 20 Rate Blood Pressure 148/73 H [Left Upper Arm ] Blood Pressure [Right Upper Arm] O2 Sat by Pulse 94 L Oximetry O2 Sat by Pulse 94 L 94 L 93 L Oximetry [High Flow Nasal Cannula] 11/09/16 11/09/16 11/09/16 01:40 06:14 07:31 Temperature [ 98.0 F 98.2 F Oral] Pulse, 90 94 Peripheral [ Left Brachial] Pulse, 88 88 Peripheral [ Left Pulse Oximetry] Pulse, Peripheral [ Right Brachial] Pulse, Peripheral [ Right Pulse Oximetry] Respiratory 20 20 Rate Blood Pressure 147/94 H [Left Upper Arm ] Blood Pressure 124/74 [Right Upper Arm] O2 Sat by Pulse 96 95 Oximetry O2 Sat by Pulse 96 Oximetry [High Flow Nasal Cannula] 11/09/16 11/09/16 11/09/16 09:08 09:15 13:59 Temperature [ Oral] Pulse, Peripheral [ Left Brachial] Pulse, 85 85 Peripheral [ Left Pulse Oximetry] Pulse, Peripheral [ Right Brachial] Pulse, Peripheral [ Right Pulse Oximetry] Respiratory Rate Blood Pressure [Left Upper Arm ] Blood Pressure [Right Upper Arm] O2 Sat by Pulse Oximetry O2 Sat by Pulse 93 L 92 L Oximetry [High Flow Nasal Cannula] 11/09/16 11/09/16 11/09/16 14:00 16:19 21:00 Temperature [ 97.8 F Oral] Pulse, 86 Peripheral [ Left Brachial] Pulse, 88 Peripheral [ Left Pulse Oximetry] Pulse, Peripheral [ Right Brachial] Pulse, 90 Peripheral [ Right Pulse Oximetry] Respiratory 18 Rate Blood Pressure [Left Upper Arm ] Blood Pressure 103/56 L [Right Upper Arm] O2 Sat by Pulse 94 L Oximetry O2 Sat by Pulse 95 Oximetry [High Flow Nasal Cannula] 11/10/16 11/10/16 00:00 07:45 Temperature [ 97.9 F 98.2 F Oral] Pulse, Peripheral [ Left Brachial] Pulse, Peripheral [ Left Pulse Oximetry] Pulse, 87 90 Peripheral [ Right Brachial] Pulse, Peripheral [ Right Pulse Oximetry] Respiratory 20 20 Rate Blood Pressure [Left Upper Arm ] Blood Pressure 129/78 125/74 [Right Upper Arm] O2 Sat by Pulse 95 92 L Oximetry O2 Sat by Pulse 92 L Oximetry [High Flow Nasal Cannula] Weight - Most Recent: 82.327 kg I&O - Last 24 hours: Intake & Output 11/08/16 11/09/16 11/10/16 11/11/16 06:59 06:59 06:59 06:59 Intake Total 1065 1210 812 240 Output Total 2024 0104 8171 670 Balance -298 -552 -7332 -819 Lab Results - Last 24 hrs: Laboratory Tests 11/04/16 11/04/16 11/04/16 Range/Units 06:20 06:20 06:20 WBC 11.6 (4.5-12.0) X10-3/uL RBC 4.14 L (4.30-5.75) x10(6)uL Hgb 12.8 (11.5-15.5) g/dL Hct 40.3 (30.0-51.3) % MCV 97.2 H (80-96) fL MCH 30.8 (27.7-33.6) pg MCHC 31.7 L (32.2-35.4) g/dL RDW 12.6 (11.5-15.5) % Plt Count 148 (125-369) X10(3)uL MPV 7.9 (7.4-10.4) fL Add Manual Diff Yes Neutrophils % (Manual) 83 H (46-82) % Band Neutrophils % 2 (0-6) % Lymphocytes % (Manual) 6 L (13-37) % Monocytes % (Manual) 9 (4-12) % Eosinophils % (Manual) (0-5) % PT 10.2 (8.7-11.1) INR 1.01 (0.89-1.13) ABG pH (7.35-7.45) ABG pCO2 (35-45) mmHg ABG pO2 (83-108) mmHg ABG HCO3 (22-26) mmol/L ABG O2 Saturation (96-97) % ABG Base Excess (-2-2) Moises Test O2 Delivery Device Oxygen Flow Rate L Sodium 133 L (135-145) mmol/L Potassium 6.2 H* D (3.5-5.3) mmol/L Chloride 89 L* (100-110) mmol/L Carbon Dioxide 38 H (23-29) mmol/L BUN 25 H (8-23) mg/dL Creatinine 0.9 (0.6-1.3) mg/dL Est Cr Clr Drug Dosing TNP Estimated GFR (MDRD) > 60 (>60) BUN/Creatinine Ratio 27.8 H (9-20) Glucose 361 H D (80-116) mg/dL POC Glucose (80-116) mg/dL Hemoglobin A1c (4.0-6.0) % Calcium 8.9 (8.6-10.2) mg/dL Total Bilirubin (0.1-1.3) mg/dL AST (5-27) IU/L ALT (14-26) IU/L Alkaline Phosphatase (56-112) IU/L Troponin I (0.02-0.06) NG/ML B-Natriuretic Peptide (0-100) pg/mL Total Protein (6.0-8.0) g/dL Albumin (3.2-4.6) g/dL Globulin g/dL Albumin/Globulin Ratio Urine Color (YELLOW) Urine Appearance (CLEAR) Urine pH (5.0-6.5) Ur Specific [place] (1.010-1.025) Urine Protein (NEGATIVE) mg/dL Urine Glucose (UA) (NEGATIVE) mg/dL Urine Ketones (NEGATIVE) mg/dL Urine Occult Blood (NEGATIVE) Urine Nitrite (NEGATIVE) Urine Bilirubin (NEGATIVE) Urine Urobilinogen (NEGATIVE) mg/dL Ur Leukocyte Esterase (NEGATIVE) Urine RBC (0) Urine WBC (0) Ur Squamous Epith Cells (NS,R,O) Urine Bacteria (NS) 11/04/16 11/04/16 11/04/16 Range/Units 06:20 06:20 06:20 WBC (4.5-12.0) X10-3/uL RBC (4.30-5.75) x10(6)uL Hgb (11.5-15.5) g/dL Hct (30.0-51.3) % MCV (80-96) fL MCH (27.7-33.6) pg MCHC (32.2-35.4) g/dL RDW (11.5-15.5) % Plt Count (125-369) X10(3)uL MPV (7.4-10.4) fL Add Manual Diff Neutrophils % (Manual) (46-82) % Band Neutrophils % (0-6) % Lymphocytes % (Manual) (13-37) % Monocytes % (Manual) (4-12) % Eosinophils % (Manual) (0-5) % PT (8.7-11.1) INR (0.89-1.13) ABG pH (7.35-7.45) ABG pCO2 (35-45) mmHg ABG pO2 (83-108) mmHg ABG HCO3 (22-26) mmol/L ABG O2 Saturation (96-97) % ABG Base Excess (-2-2) Moises Test O2 Delivery Device Oxygen Flow Rate L Sodium (135-145) mmol/L Potassium (3.5-5.3) mmol/L Chloride (100-110) mmol/L Carbon Dioxide (23-29) mmol/L BUN (8-23) mg/dL Creatinine (0.6-1.3) mg/dL Est Cr Clr Drug Dosing Estimated GFR (MDRD) (>60) BUN/Creatinine Ratio (9-20) Glucose (80-116) mg/dL POC Glucose (80-116) mg/dL Hemoglobin A1c 6.7 H (4.0-6.0) % Calcium (8.6-10.2) mg/dL Total Bilirubin (0.1-1.3) mg/dL AST (5-27) IU/L ALT (14-26) IU/L Alkaline Phosphatase (56-112) IU/L Troponin I < 0.01 L (0.02-0.06) NG/ML B-Natriuretic Peptide 109 H (0-100) pg/mL Total Protein (6.0-8.0) g/dL Albumin (3.2-4.6) g/dL Globulin g/dL Albumin/Globulin Ratio Urine Color (YELLOW) Urine Appearance (CLEAR) Urine pH (5.0-6.5) Ur Specific [place] (1.010-1.025) Urine Protein (NEGATIVE) mg/dL Urine Glucose (UA) (NEGATIVE) mg/dL Urine Ketones (NEGATIVE) mg/dL Urine Occult Blood (NEGATIVE) Urine Nitrite (NEGATIVE) Urine Bilirubin (NEGATIVE) Urine Urobilinogen (NEGATIVE) mg/dL Ur Leukocyte Esterase (NEGATIVE) Urine RBC (0) Urine WBC (0) Ur Squamous Epith Cells (NS,R,O) Urine Bacteria (NS) 11/04/16 11/04/16 11/04/16 Range/Units 07:20 07:30 08:35 WBC (4.5-12.0) X10-3/uL RBC (4.30-5.75) x10(6)uL Hgb (11.5-15.5) g/dL Hct (30.0-51.3) % MCV (80-96) fL MCH (27.7-33.6) pg MCHC (32.2-35.4) g/dL RDW (11.5-15.5) % Plt Count (125-369) X10(3)uL MPV (7.4-10.4) fL Add Manual Diff Neutrophils % (Manual) (46-82) % Band Neutrophils % (0-6) % Lymphocytes % (Manual) (13-37) % Monocytes % (Manual) (4-12) % Eosinophils % (Manual) (0-5) % PT (8.7-11.1) INR (0.89-1.13) ABG pH 7.18 L* (7.35-7.45) ABG pCO2 > 100 H* (35-45) mmHg ABG pO2 80 L (83-108) mmHg ABG HCO3 42 H (22-26) mmol/L ABG O2 Saturation 90 L (96-97) % ABG Base Excess 7.8 H (-2-2) Moises Test passed O2 Delivery Device Non rebr mask Oxygen Flow Rate 0 L Sodium (135-145) mmol/L Potassium (3.5-5.3) mmol/L Chloride (100-110) mmol/L Carbon Dioxide (23-29) mmol/L BUN (8-23) mg/dL Creatinine (0.6-1.3) mg/dL Est Cr Clr Drug Dosing Estimated GFR (MDRD) (>60) BUN/Creatinine Ratio (9-20) Glucose (80-116) mg/dL POC Glucose 324 H (80-116) mg/dL Hemoglobin A1c (4.0-6.0) % Calcium (8.6-10.2) mg/dL Total Bilirubin (0.1-1.3) mg/dL AST (5-27) IU/L ALT (14-26) IU/L Alkaline Phosphatase (56-112) IU/L Troponin I (0.02-0.06) NG/ML B-Natriuretic Peptide (0-100) pg/mL Total Protein (6.0-8.0) g/dL Albumin (3.2-4.6) g/dL Globulin g/dL Albumin/Globulin Ratio Urine Color Yellow (YELLOW) Urine Appearance Slightly cloudy (CLEAR) Urine pH 5.0 (5.0-6.5) Ur Specific [place] 1.020 (1.010-1.025) Urine Protein Negative (NEGATIVE) mg/dL Urine Glucose (UA) >1000 H (NEGATIVE) mg/dL Urine Ketones Negative (NEGATIVE) mg/dL Urine Occult Blood Moderate H (NEGATIVE) Urine Nitrite Negative (NEGATIVE) Urine Bilirubin Negative (NEGATIVE) Urine Urobilinogen Normal (NEGATIVE) mg/dL Ur Leukocyte Esterase Negative (NEGATIVE) Urine RBC 10-20 H (0) Urine WBC 0-5 (0) Ur Squamous Epith Cells Rare (NS,R,O) Urine Bacteria Few H (NS) 11/04/16 11/04/16 11/04/16 Range/Units 09:00 11:01 11:36 WBC (4.5-12.0) X10-3/uL RBC (4.30-5.75) x10(6)uL Hgb (11.5-15.5) g/dL Hct (30.0-51.3) % MCV (80-96) fL MCH (27.7-33.6) pg MCHC (32.2-35.4) g/dL RDW (11.5-15.5) % Plt Count (125-369) X10(3)uL MPV (7.4-10.4) fL Add Manual Diff Neutrophils % (Manual) (46-82) % Band Neutrophils % (0-6) % Lymphocytes % (Manual) (13-37) % Monocytes % (Manual) (4-12) % Eosinophils % (Manual) (0-5) % PT (8.7-11.1) INR (0.89-1.13) ABG pH 7.28 L (7.35-7.45) ABG pCO2 99 H* (35-45) mmHg ABG pO2 97 (83-108) mmHg ABG HCO3 45 H (22-26) mmol/L ABG O2 Saturation 96 (96-97) % ABG Base Excess 12.9 H (-2-2) Moises Test passed O2 Delivery Device Bipap Oxygen Flow Rate 0 L Sodium (135-145) mmol/L Potassium (3.5-5.3) mmol/L Chloride (100-110) mmol/L Carbon Dioxide (23-29) mmol/L BUN (8-23) mg/dL Creatinine (0.6-1.3) mg/dL Est Cr Clr Drug Dosing Estimated GFR (MDRD) (>60) BUN/Creatinine Ratio (9-20) Glucose (80-116) mg/dL POC Glucose 218 H D (80-116) mg/dL Hemoglobin A1c (4.0-6.0) % Calcium (8.6-10.2) mg/dL Total Bilirubin (0.1-1.3) mg/dL AST (5-27) IU/L ALT (14-26) IU/L Alkaline Phosphatase (56-112) IU/L Troponin I 0.01 L (0.02-0.06) NG/ML B-Natriuretic Peptide (0-100) pg/mL Total Protein (6.0-8.0) g/dL Albumin (3.2-4.6) g/dL Globulin g/dL Albumin/Globulin Ratio Urine Color (YELLOW) Urine Appearance (CLEAR) Urine pH (5.0-6.5) Ur Specific [place] (1.010-1.025) Urine Protein (NEGATIVE) mg/dL Urine Glucose (UA) (NEGATIVE) mg/dL Urine Ketones (NEGATIVE) mg/dL Urine Occult Blood (NEGATIVE) Urine Nitrite (NEGATIVE) Urine Bilirubin (NEGATIVE) Urine Urobilinogen (NEGATIVE) mg/dL Ur Leukocyte Esterase (NEGATIVE) Urine RBC (0) Urine WBC (0) Ur Squamous Epith Cells (NS,R,O) Urine Bacteria (NS) 11/04/16 11/04/16 11/04/16 Range/Units 14:33 16:40 17:40 WBC (4.5-12.0) X10-3/uL RBC (4.30-5.75) x10(6)uL Hgb (11.5-15.5) g/dL Hct (30.0-51.3) % MCV (80-96) fL MCH (27.7-33.6) pg MCHC (32.2-35.4) g/dL RDW (11.5-15.5) % Plt Count (125-369) X10(3)uL MPV (7.4-10.4) fL Add Manual Diff Neutrophils % (Manual) (46-82) % Band Neutrophils % (0-6) % Lymphocytes % (Manual) (13-37) % Monocytes % (Manual) (4-12) % Eosinophils % (Manual) (0-5) % PT (8.7-11.1) INR (0.89-1.13) ABG pH 7.35 (7.35-7.45) ABG pCO2 88 H* (35-45) mmHg ABG pO2 91 (83-108) mmHg ABG HCO3 47 H (22-26) mmol/L ABG O2 Saturation 96 (96-97) % ABG Base Excess 16.9 H (-2-2) Moises Test Passed O2 Delivery Device Non rebr mask Oxygen Flow Rate 0 L Sodium (135-145) mmol/L Potassium 5.6 H (3.5-5.3) mmol/L Chloride (100-110) mmol/L Carbon Dioxide (23-29) mmol/L BUN (8-23) mg/dL Creatinine (0.6-1.3) mg/dL Est Cr Clr Drug Dosing Estimated GFR (MDRD) (>60) BUN/Creatinine Ratio (9-20) Glucose (80-116) mg/dL POC Glucose 148 H (80-116) mg/dL Hemoglobin A1c (4.0-6.0) % Calcium (8.6-10.2) mg/dL Total Bilirubin (0.1-1.3) mg/dL AST (5-27) IU/L ALT (14-26) IU/L Alkaline Phosphatase (56-112) IU/L Troponin I (0.02-0.06) NG/ML B-Natriuretic Peptide (0-100) pg/mL Total Protein (6.0-8.0) g/dL Albumin (3.2-4.6) g/dL Globulin g/dL Albumin/Globulin Ratio Urine Color (YELLOW) Urine Appearance (CLEAR) Urine pH (5.0-6.5) Ur Specific [place] (1.010-1.025) Urine Protein (NEGATIVE) mg/dL Urine Glucose (UA) (NEGATIVE) mg/dL Urine Ketones (NEGATIVE) mg/dL Urine Occult Blood (NEGATIVE) Urine Nitrite (NEGATIVE) Urine Bilirubin (NEGATIVE) Urine Urobilinogen (NEGATIVE) mg/dL Ur Leukocyte Esterase (NEGATIVE) Urine RBC (0) Urine WBC (0) Ur Squamous Epith Cells (NS,R,O) Urine Bacteria (NS) 11/04/16 11/04/16 11/05/16 Range/Units 17:49 20:34 05:50 WBC (4.5-12.0) X10-3/uL RBC (4.30-5.75) x10(6)uL Hgb (11.5-15.5) g/dL Hct (30.0-51.3) % MCV (80-96) fL MCH (27.7-33.6) pg MCHC (32.2-35.4) g/dL RDW (11.5-15.5) % Plt Count (125-369) X10(3)uL MPV (7.4-10.4) fL Add Manual Diff Neutrophils % (Manual) (46-82) % Band Neutrophils % (0-6) % Lymphocytes % (Manual) (13-37) % Monocytes % (Manual) (4-12) % Eosinophils % (Manual) (0-5) % PT (8.7-11.1) INR (0.89-1.13) ABG pH (7.35-7.45) ABG pCO2 (35-45) mmHg ABG pO2 (83-108) mmHg ABG HCO3 (22-26) mmol/L ABG O2 Saturation (96-97) % ABG Base Excess (-2-2) Moises Test O2 Delivery Device Oxygen Flow Rate L Sodium 135 (135-145) mmol/L Potassium 5.0 (3.5-5.3) mmol/L Chloride 88 L* (100-110) mmol/L Carbon Dioxide 38 H (23-29) mmol/L BUN 25 H (8-23) mg/dL Creatinine 0.7 (0.6-1.3) mg/dL Est Cr Clr Drug Dosing 66.41 Estimated GFR (MDRD) > 60 (>60) BUN/Creatinine Ratio 35.7 H (9-20) Glucose 172 H D (80-116) mg/dL POC Glucose 153 H 264 H D (80-116) mg/dL Hemoglobin A1c (4.0-6.0) % Calcium 9.2 (8.6-10.2) mg/dL Total Bilirubin (0.1-1.3) mg/dL AST (5-27) IU/L ALT (14-26) IU/L Alkaline Phosphatase (56-112) IU/L Troponin I (0.02-0.06) NG/ML B-Natriuretic Peptide (0-100) pg/mL Total Protein (6.0-8.0) g/dL Albumin (3.2-4.6) g/dL Globulin g/dL Albumin/Globulin Ratio Urine Color (YELLOW) Urine Appearance (CLEAR) Urine pH (5.0-6.5) Ur Specific [place] (1.010-1.025) Urine Protein (NEGATIVE) mg/dL Urine Glucose (UA) (NEGATIVE) mg/dL Urine Ketones (NEGATIVE) mg/dL Urine Occult Blood (NEGATIVE) Urine Nitrite (NEGATIVE) Urine Bilirubin (NEGATIVE) Urine Urobilinogen (NEGATIVE) mg/dL Ur Leukocyte Esterase (NEGATIVE) Urine RBC (0) Urine WBC (0) Ur Squamous Epith Cells (NS,R,O) Urine Bacteria (NS) 11/05/16 11/05/16 11/05/16 Range/Units 06:05 06:25 11:25 WBC (4.5-12.0) X10-3/uL RBC (4.30-5.75) x10(6)uL Hgb (11.5-15.5) g/dL Hct (30.0-51.3) % MCV (80-96) fL MCH (27.7-33.6) pg MCHC (32.2-35.4) g/dL RDW (11.5-15.5) % Plt Count (125-369) X10(3)uL MPV (7.4-10.4) fL Add Manual Diff Neutrophils % (Manual) (46-82) % Band Neutrophils % (0-6) % Lymphocytes % (Manual) (13-37) % Monocytes % (Manual) (4-12) % Eosinophils % (Manual) (0-5) % PT (8.7-11.1) INR (0.89-1.13) ABG pH 7.47 H (7.35-7.45) ABG pCO2 63 H* (35-45) mmHg ABG pO2 36 L* (83-108) mmHg ABG HCO3 45 H (22-26) mmol/L ABG O2 Saturation 80 L* (96-97) % ABG Base Excess 17.4 H (-2-2) Moises Test Performed O2 Delivery Device Nasal cannula Oxygen Flow Rate 0 L Sodium (135-145) mmol/L Potassium (3.5-5.3) mmol/L Chloride (100-110) mmol/L Carbon Dioxide (23-29) mmol/L BUN (8-23) mg/dL Creatinine (0.6-1.3) mg/dL Est Cr Clr Drug Dosing Estimated GFR (MDRD) (>60) BUN/Creatinine Ratio (9-20) Glucose (80-116) mg/dL POC Glucose 162 H D 185 H (80-116) mg/dL Hemoglobin A1c (4.0-6.0) % Calcium (8.6-10.2) mg/dL Total Bilirubin (0.1-1.3) mg/dL AST (5-27) IU/L ALT (14-26) IU/L Alkaline Phosphatase (56-112) IU/L Troponin I (0.02-0.06) NG/ML B-Natriuretic Peptide (0-100) pg/mL Total Protein (6.0-8.0) g/dL Albumin (3.2-4.6) g/dL Globulin g/dL Albumin/Globulin Ratio Urine Color (YELLOW) Urine Appearance (CLEAR) Urine pH (5.0-6.5) Ur Specific [place] (1.010-1.025) Urine Protein (NEGATIVE) mg/dL Urine Glucose (UA) (NEGATIVE) mg/dL Urine Ketones (NEGATIVE) mg/dL Urine Occult Blood (NEGATIVE) Urine Nitrite (NEGATIVE) Urine Bilirubin (NEGATIVE) Urine Urobilinogen (NEGATIVE) mg/dL Ur Leukocyte Esterase (NEGATIVE) Urine RBC (0) Urine WBC (0) Ur Squamous Epith Cells (NS,R,O) Urine Bacteria (NS) 11/05/16 11/05/16 11/05/16 Range/Units 11:29 16:01 16:04 WBC (4.5-12.0) X10-3/uL RBC (4.30-5.75) x10(6)uL Hgb (11.5-15.5) g/dL Hct (30.0-51.3) % MCV (80-96) fL MCH (27.7-33.6) pg MCHC (32.2-35.4) g/dL RDW (11.5-15.5) % Plt Count (125-369) X10(3)uL MPV (7.4-10.4) fL Add Manual Diff Neutrophils % (Manual) (46-82) % Band Neutrophils % (0-6) % Lymphocytes % (Manual) (13-37) % Monocytes % (Manual) (4-12) % Eosinophils % (Manual) (0-5) % PT (8.7-11.1) INR (0.89-1.13) ABG pH (7.35-7.45) ABG pCO2 (35-45) mmHg ABG pO2 (83-108) mmHg ABG HCO3 (22-26) mmol/L ABG O2 Saturation (96-97) % ABG Base Excess (-2-2) Moises Test O2 Delivery Device Oxygen Flow Rate L Sodium (135-145) mmol/L Potassium (3.5-5.3) mmol/L Chloride (100-110) mmol/L Carbon Dioxide (23-29) mmol/L BUN (8-23) mg/dL Creatinine (0.6-1.3) mg/dL Est Cr Clr Drug Dosing Estimated GFR (MDRD) (>60) BUN/Creatinine Ratio (9-20) Glucose (80-116) mg/dL POC Glucose 133 H (80-116) mg/dL Hemoglobin A1c (4.0-6.0) % Calcium (8.6-10.2) mg/dL Total Bilirubin (0.1-1.3) mg/dL AST (5-27) IU/L ALT (14-26) IU/L Alkaline Phosphatase (56-112) IU/L Troponin I 0.02 0.02 (0.02-0.06) NG/ML B-Natriuretic Peptide (0-100) pg/mL Total Protein (6.0-8.0) g/dL Albumin (3.2-4.6) g/dL Globulin g/dL Albumin/Globulin Ratio Urine Color (YELLOW) Urine Appearance (CLEAR) Urine pH (5.0-6.5) Ur Specific [place] (1.010-1.025) Urine Protein (NEGATIVE) mg/dL Urine Glucose (UA) (NEGATIVE) mg/dL Urine Ketones (NEGATIVE) mg/dL Urine Occult Blood (NEGATIVE) Urine Nitrite (NEGATIVE) Urine Bilirubin (NEGATIVE) Urine Urobilinogen (NEGATIVE) mg/dL Ur Leukocyte Esterase (NEGATIVE) Urine RBC (0) Urine WBC (0) Ur Squamous Epith Cells (NS,R,O) Urine Bacteria (NS) 11/05/16 11/06/16 11/06/16 Range/Units 20:53 06:05 06:05 WBC 13.8 H (4.5-12.0) X10-3/uL RBC 3.94 L (4.30-5.75) x10(6)uL Hgb 12.4 (11.5-15.5) g/dL Hct 38.0 (30.0-51.3) % MCV 96.5 H (80-96) fL MCH 31.5 (27.7-33.6) pg MCHC 32.7 (32.2-35.4) g/dL RDW 12.9 (11.5-15.5) % Plt Count 164 (125-369) X10(3)uL MPV 8.0 (7.4-10.4) fL Add Manual Diff Yes Neutrophils % (Manual) 85 H (46-82) % Band Neutrophils % 3 (0-6) % Lymphocytes % (Manual) 6 L (13-37) % Monocytes % (Manual) 6 (4-12) % Eosinophils % (Manual) (0-5) % PT (8.7-11.1) INR (0.89-1.13) ABG pH (7.35-7.45) ABG pCO2 (35-45) mmHg ABG pO2 (83-108) mmHg ABG HCO3 (22-26) mmol/L ABG O2 Saturation (96-97) % ABG Base Excess (-2-2) Moises Test O2 Delivery Device Oxygen Flow Rate L Sodium 138 (135-145) mmol/L Potassium 5.0 (3.5-5.3) mmol/L Chloride 90 L (100-110) mmol/L Carbon Dioxide 45 H* (23-29) mmol/L BUN 33 H (8-23) mg/dL Creatinine 0.6 (0.6-1.3) mg/dL Est Cr Clr Drug Dosing 77.48 Estimated GFR (MDRD) > 60 (>60) BUN/Creatinine Ratio 55.0 H (9-20) Glucose 148 H (80-116) mg/dL POC Glucose 242 H D (80-116) mg/dL Hemoglobin A1c (4.0-6.0) % Calcium 8.9 (8.6-10.2) mg/dL Total Bilirubin 0.5 (0.1-1.3) mg/dL AST 76 H D (5-27) IU/L ALT 41 H D (14-26) IU/L Alkaline Phosphatase 56 (56-112) IU/L Troponin I (0.02-0.06) NG/ML B-Natriuretic Peptide (0-100) pg/mL Total Protein 7.2 (6.0-8.0) g/dL Albumin 4.0 (3.2-4.6) g/dL Globulin 3.2 g/dL Albumin/Globulin Ratio 1.3 Urine Color (YELLOW) Urine Appearance (CLEAR) Urine pH (5.0-6.5) Ur Specific [place] (1.010-1.025) Urine Protein (NEGATIVE) mg/dL Urine Glucose (UA) (NEGATIVE) mg/dL Urine Ketones (NEGATIVE) mg/dL Urine Occult Blood (NEGATIVE) Urine Nitrite (NEGATIVE) Urine Bilirubin (NEGATIVE) Urine Urobilinogen (NEGATIVE) mg/dL Ur Leukocyte Esterase (NEGATIVE) Urine RBC (0) Urine WBC (0) Ur Squamous Epith Cells (NS,R,O) Urine Bacteria (NS) 11/06/16 11/06/16 11/06/16 Range/Units 06:24 07:30 11:46 WBC (4.5-12.0) X10-3/uL RBC (4.30-5.75) x10(6)uL Hgb (11.5-15.5) g/dL Hct (30.0-51.3) % MCV (80-96) fL MCH (27.7-33.6) pg MCHC (32.2-35.4) g/dL RDW (11.5-15.5) % Plt Count (125-369) X10(3)uL MPV (7.4-10.4) fL Add Manual Diff Neutrophils % (Manual) (46-82) % Band Neutrophils % (0-6) % Lymphocytes % (Manual) (13-37) % Monocytes % (Manual) (4-12) % Eosinophils % (Manual) (0-5) % PT (8.7-11.1) INR (0.89-1.13) ABG pH 7.33 L (7.35-7.45) ABG pCO2 87 H* (35-45) mmHg ABG pO2 66 L (83-108) mmHg ABG HCO3 44 H (22-26) mmol/L ABG O2 Saturation 89 L (96-97) % ABG Base Excess 12.6 H (-2-2) Moises Test Passed O2 Delivery Device Nasal cannula Oxygen Flow Rate 4 L Sodium (135-145) mmol/L Potassium (3.5-5.3) mmol/L Chloride (100-110) mmol/L Carbon Dioxide (23-29) mmol/L BUN (8-23) mg/dL Creatinine (0.6-1.3) mg/dL Est Cr Clr Drug Dosing Estimated GFR (MDRD) (>60) BUN/Creatinine Ratio (9-20) Glucose (80-116) mg/dL POC Glucose 150 H D 248 H D (80-116) mg/dL Hemoglobin A1c (4.0-6.0) % Calcium (8.6-10.2) mg/dL Total Bilirubin (0.1-1.3) mg/dL AST (5-27) IU/L ALT (14-26) IU/L Alkaline Phosphatase (56-112) IU/L Troponin I (0.02-0.06) NG/ML B-Natriuretic Peptide (0-100) pg/mL Total Protein (6.0-8.0) g/dL Albumin (3.2-4.6) g/dL Globulin g/dL Albumin/Globulin Ratio Urine Color (YELLOW) Urine Appearance (CLEAR) Urine pH (5.0-6.5) Ur Specific [place] (1.010-1.025) Urine Protein (NEGATIVE) mg/dL Urine Glucose (UA) (NEGATIVE) mg/dL Urine Ketones (NEGATIVE) mg/dL Urine Occult Blood (NEGATIVE) Urine Nitrite (NEGATIVE) Urine Bilirubin (NEGATIVE) Urine Urobilinogen (NEGATIVE) mg/dL Ur Leukocyte Esterase (NEGATIVE) Urine RBC (0) Urine WBC (0) Ur Squamous Epith Cells (NS,R,O) Urine Bacteria (NS) 11/06/16 11/06/16 11/07/16 Range/Units 16:57 21:32 07:23 WBC (4.5-12.0) X10-3/uL RBC (4.30-5.75) x10(6)uL Hgb (11.5-15.5) g/dL Hct (30.0-51.3) % MCV (80-96) fL MCH (27.7-33.6) pg MCHC (32.2-35.4) g/dL RDW (11.5-15.5) % Plt Count (125-369) X10(3)uL MPV (7.4-10.4) fL Add Manual Diff Neutrophils % (Manual) (46-82) % Band Neutrophils % (0-6) % Lymphocytes % (Manual) (13-37) % Monocytes % (Manual) (4-12) % Eosinophils % (Manual) (0-5) % PT (8.7-11.1) INR (0.89-1.13) ABG pH (7.35-7.45) ABG pCO2 (35-45) mmHg ABG pO2 (83-108) mmHg ABG HCO3 (22-26) mmol/L ABG O2 Saturation (96-97) % ABG Base Excess (-2-2) Moises Test O2 Delivery Device Oxygen Flow Rate L Sodium (135-145) mmol/L Potassium (3.5-5.3) mmol/L Chloride (100-110) mmol/L Carbon Dioxide (23-29) mmol/L BUN (8-23) mg/dL Creatinine (0.6-1.3) mg/dL Est Cr Clr Drug Dosing Estimated GFR (MDRD) (>60) BUN/Creatinine Ratio (9-20) Glucose (80-116) mg/dL POC Glucose 213 H 243 H 128 H D (80-116) mg/dL Hemoglobin A1c (4.0-6.0) % Calcium (8.6-10.2) mg/dL Total Bilirubin (0.1-1.3) mg/dL AST (5-27) IU/L ALT (14-26) IU/L Alkaline Phosphatase (56-112) IU/L Troponin I (0.02-0.06) NG/ML B-Natriuretic Peptide (0-100) pg/mL Total Protein (6.0-8.0) g/dL Albumin (3.2-4.6) g/dL Globulin g/dL Albumin/Globulin Ratio Urine Color (YELLOW) Urine Appearance (CLEAR) Urine pH (5.0-6.5) Ur Specific [place] (1.010-1.025) Urine Protein (NEGATIVE) mg/dL Urine Glucose (UA) (NEGATIVE) mg/dL Urine Ketones (NEGATIVE) mg/dL Urine Occult Blood (NEGATIVE) Urine Nitrite (NEGATIVE) Urine Bilirubin (NEGATIVE) Urine Urobilinogen (NEGATIVE) mg/dL Ur Leukocyte Esterase (NEGATIVE) Urine RBC (0) Urine WBC (0) Ur Squamous Epith Cells (NS,R,O) Urine Bacteria (NS) 11/07/16 11/07/16 11/07/16 Range/Units 11:21 16:30 16:40 WBC (4.5-12.0) X10-3/uL RBC (4.30-5.75) x10(6)uL Hgb (11.5-15.5) g/dL Hct (30.0-51.3) % MCV (80-96) fL MCH (27.7-33.6) pg MCHC (32.2-35.4) g/dL RDW (11.5-15.5) % Plt Count (125-369) X10(3)uL MPV (7.4-10.4) fL Add Manual Diff Neutrophils % (Manual) (46-82) % Band Neutrophils % (0-6) % Lymphocytes % (Manual) (13-37) % Monocytes % (Manual) (4-12) % Eosinophils % (Manual) (0-5) % PT (8.7-11.1) INR (0.89-1.13) ABG pH 7.48 H (7.35-7.45) ABG pCO2 60 H (35-45) mmHg ABG pO2 46 L* (83-108) mmHg ABG HCO3 44 H (22-26) mmol/L ABG O2 Saturation 83 L* (96-97) % ABG Base Excess 17.3 H (-2-2) Moises Test Passed O2 Delivery Device Hi flow nasal cannu Oxygen Flow Rate 0 L Sodium 137 (135-145) mmol/L Potassium 4.6 (3.5-5.3) mmol/L Chloride 88 L* (100-110) mmol/L Carbon Dioxide 41 H* (23-29) mmol/L BUN 26 H (8-23) mg/dL Creatinine 0.7 (0.6-1.3) mg/dL Est Cr Clr Drug Dosing 66.41 Estimated GFR (MDRD) > 60 (>60) BUN/Creatinine Ratio 37.1 H (9-20) Glucose 292 H D (80-116) mg/dL POC Glucose 242 H D (80-116) mg/dL Hemoglobin A1c (4.0-6.0) % Calcium 9.3 (8.6-10.2) mg/dL Total Bilirubin (0.1-1.3) mg/dL AST (5-27) IU/L ALT (14-26) IU/L Alkaline Phosphatase (56-112) IU/L Troponin I (0.02-0.06) NG/ML B-Natriuretic Peptide (0-100) pg/mL Total Protein (6.0-8.0) g/dL Albumin (3.2-4.6) g/dL Globulin g/dL Albumin/Globulin Ratio Urine Color (YELLOW) Urine Appearance (CLEAR) Urine pH (5.0-6.5) Ur Specific [place] (1.010-1.025) Urine Protein (NEGATIVE) mg/dL Urine Glucose (UA) (NEGATIVE) mg/dL Urine Ketones (NEGATIVE) mg/dL Urine Occult Blood (NEGATIVE) Urine Nitrite (NEGATIVE) Urine Bilirubin (NEGATIVE) Urine Urobilinogen (NEGATIVE) mg/dL Ur Leukocyte Esterase (NEGATIVE) Urine RBC (0) Urine WBC (0) Ur Squamous Epith Cells (NS,R,O) Urine Bacteria (NS) 11/07/16 11/07/16 11/08/16 Range/Units 17:21 20:59 06:26 WBC (4.5-12.0) X10-3/uL RBC (4.30-5.75) x10(6)uL Hgb (11.5-15.5) g/dL Hct (30.0-51.3) % MCV (80-96) fL MCH (27.7-33.6) pg MCHC (32.2-35.4) g/dL RDW (11.5-15.5) % Plt Count (125-369) X10(3)uL MPV (7.4-10.4) fL Add Manual Diff Neutrophils % (Manual) (46-82) % Band Neutrophils % (0-6) % Lymphocytes % (Manual) (13-37) % Monocytes % (Manual) (4-12) % Eosinophils % (Manual) (0-5) % PT (8.7-11.1) INR (0.89-1.13) ABG pH (7.35-7.45) ABG pCO2 (35-45) mmHg ABG pO2 (83-108) mmHg ABG HCO3 (22-26) mmol/L ABG O2 Saturation (96-97) % ABG Base Excess (-2-2) Moises Test O2 Delivery Device Oxygen Flow Rate L Sodium (135-145) mmol/L Potassium (3.5-5.3) mmol/L Chloride (100-110) mmol/L Carbon Dioxide (23-29) mmol/L BUN (8-23) mg/dL Creatinine (0.6-1.3) mg/dL Est Cr Clr Drug Dosing Estimated GFR (MDRD) (>60) BUN/Creatinine Ratio (9-20) Glucose (80-116) mg/dL POC Glucose 245 H 199 H 127 H (80-116) mg/dL Hemoglobin A1c (4.0-6.0) % Calcium (8.6-10.2) mg/dL Total Bilirubin (0.1-1.3) mg/dL AST (5-27) IU/L ALT (14-26) IU/L Alkaline Phosphatase (56-112) IU/L Troponin I (0.02-0.06) NG/ML B-Natriuretic Peptide (0-100) pg/mL Total Protein (6.0-8.0) g/dL Albumin (3.2-4.6) g/dL Globulin g/dL Albumin/Globulin Ratio Urine Color (YELLOW) Urine Appearance (CLEAR) Urine pH (5.0-6.5) Ur Specific [place] (1.010-1.025) Urine Protein (NEGATIVE) mg/dL Urine Glucose (UA) (NEGATIVE) mg/dL Urine Ketones (NEGATIVE) mg/dL Urine Occult Blood (NEGATIVE) Urine Nitrite (NEGATIVE) Urine Bilirubin (NEGATIVE) Urine Urobilinogen (NEGATIVE) mg/dL Ur Leukocyte Esterase (NEGATIVE) Urine RBC (0) Urine WBC (0) Ur Squamous Epith Cells (NS,R,O) Urine Bacteria (NS) 04/08/17 04/08/17 04/08/17 Range/Units 11:32 17:15 21:06 WBC (4.5-12.0) X10-3/uL RBC (4.30-5.75) x10(6)uL Hgb (11.5-15.5) g/dL Hct (30.0-51.3) % MCV (80-96) fL MCH (27.7-33.6) pg MCHC (32.2-35.4) g/dL RDW (11.5-15.5) % Plt Count (125-369) X10(3)uL MPV (7.4-10.4) fL Add Manual Diff Neutrophils % (Manual) (46-82) % Band Neutrophils % (0-6) % Lymphocytes % (Manual) (13-37) % Monocytes % (Manual) (4-12) % Eosinophils % (Manual) (0-5) % PT (8.7-11.1) INR (0.89-1.13) ABG pH (7.35-7.45) ABG pCO2 (35-45) mmHg ABG pO2 (83-108) mmHg ABG HCO3 (22-26) mmol/L ABG O2 Saturation (96-97) % ABG Base Excess (-2-2) Moises Test O2 Delivery Device Oxygen Flow Rate L Sodium (135-145) mmol/L Potassium (3.5-5.3) mmol/L Chloride (100-110) mmol/L Carbon Dioxide (23-29) mmol/L BUN (8-23) mg/dL Creatinine (0.6-1.3) mg/dL Est Cr Clr Drug Dosing Estimated GFR (MDRD) (>60) BUN/Creatinine Ratio (9-20) Glucose (80-116) mg/dL POC Glucose 237 H D 229 H 240 H (80-116) mg/dL Hemoglobin A1c (4.0-6.0) % Calcium (8.6-10.2) mg/dL Total Bilirubin (0.1-1.3) mg/dL AST (5-27) IU/L ALT (14-26) IU/L Alkaline Phosphatase (56-112) IU/L Troponin I (0.02-0.06) NG/ML B-Natriuretic Peptide (0-100) pg/mL Total Protein (6.0-8.0) g/dL Albumin (3.2-4.6) g/dL Globulin g/dL Albumin/Globulin Ratio Urine Color (YELLOW) Urine Appearance (CLEAR) Urine pH (5.0-6.5) Ur Specific [place] (1.010-1.025) Urine Protein (NEGATIVE) mg/dL Urine Glucose (UA) (NEGATIVE) mg/dL Urine Ketones (NEGATIVE) mg/dL Urine Occult Blood (NEGATIVE) Urine Nitrite (NEGATIVE) Urine Bilirubin (NEGATIVE) Urine Urobilinogen (NEGATIVE) mg/dL Ur Leukocyte Esterase (NEGATIVE) Urine RBC (0) Urine WBC (0) Ur Squamous Epith Cells (NS,R,O) Urine Bacteria (NS) 11/09/16 11/09/16 11/09/16 Range/Units 06:09 11:25 11:25 WBC 11.3 (4.5-12.0) X10-3/uL RBC 4.65 (4.30-5.75) x10(6)uL Hgb 14.5 (11.5-15.5) g/dL Hct 44.1 (30.0-51.3) % MCV 94.8 (80-96) fL MCH 31.2 (27.7-33.6) pg MCHC 32.9 (32.2-35.4) g/dL RDW 12.7 (11.5-15.5) % Plt Count 201 (125-369) X10(3)uL MPV 8.1 (7.4-10.4) fL Add Manual Diff Yes Neutrophils % (Manual) 88 H (46-82) % Band Neutrophils % 2 (0-6) % Lymphocytes % (Manual) 7 L (13-37) % Monocytes % (Manual) 2 L (4-12) % Eosinophils % (Manual) 1 (0-5) % PT (8.7-11.1) INR (0.89-1.13) ABG pH (7.35-7.45) ABG pCO2 (35-45) mmHg ABG pO2 (83-108) mmHg ABG HCO3 (22-26) mmol/L ABG O2 Saturation (96-97) % ABG Base Excess (-2-2) Moises Test O2 Delivery Device Oxygen Flow Rate L Sodium 135 (135-145) mmol/L Potassium 4.7 (3.5-5.3) mmol/L Chloride 89 L* (100-110) mmol/L Carbon Dioxide 39 H (23-29) mmol/L BUN 21 (8-23) mg/dL Creatinine 0.7 (0.6-1.3) mg/dL Est Cr Clr Drug Dosing 66.41 Estimated GFR (MDRD) > 60 (>60) BUN/Creatinine Ratio 30.0 H (9-20) Glucose 231 H (80-116) mg/dL POC Glucose 101 D (80-116) mg/dL Hemoglobin A1c (4.0-6.0) % Calcium 9.8 (8.6-10.2) mg/dL Total Bilirubin (0.1-1.3) mg/dL AST (5-27) IU/L ALT (14-26) IU/L Alkaline Phosphatase (56-112) IU/L Troponin I (0.02-0.06) NG/ML B-Natriuretic Peptide (0-100) pg/mL Total Protein (6.0-8.0) g/dL Albumin (3.2-4.6) g/dL Globulin g/dL Albumin/Globulin Ratio Urine Color (YELLOW) Urine Appearance (CLEAR) Urine pH (5.0-6.5) Ur Specific [place] (1.010-1.025) Urine Protein (NEGATIVE) mg/dL Urine Glucose (UA) (NEGATIVE) mg/dL Urine Ketones (NEGATIVE) mg/dL Urine Occult Blood (NEGATIVE) Urine Nitrite (NEGATIVE) Urine Bilirubin (NEGATIVE) Urine Urobilinogen (NEGATIVE) mg/dL Ur Leukocyte Esterase (NEGATIVE) Urine RBC (0) Urine WBC (0) Ur Squamous Epith Cells (NS,R,O) Urine Bacteria (NS) 11/09/16 11/09/16 11/09/16 Range/Units 11:55 17:29 21:22 WBC (4.5-12.0) X10-3/uL RBC (4.30-5.75) x10(6)uL Hgb (11.5-15.5) g/dL Hct (30.0-51.3) % MCV (80-96) fL MCH (27.7-33.6) pg MCHC (32.2-35.4) g/dL RDW (11.5-15.5) % Plt Count (125-369) X10(3)uL MPV (7.4-10.4) fL Add Manual Diff Neutrophils % (Manual) (46-82) % Band Neutrophils % (0-6) % Lymphocytes % (Manual) (13-37) % Monocytes % (Manual) (4-12) % Eosinophils % (Manual) (0-5) % PT (8.7-11.1) INR (0.89-1.13) ABG pH (7.35-7.45) ABG pCO2 (35-45) mmHg ABG pO2 (83-108) mmHg ABG HCO3 (22-26) mmol/L ABG O2 Saturation (96-97) % ABG Base Excess (-2-2) Moises Test O2 Delivery Device Oxygen Flow Rate L Sodium (135-145) mmol/L Potassium (3.5-5.3) mmol/L Chloride (100-110) mmol/L Carbon Dioxide (23-29) mmol/L BUN (8-23) mg/dL Creatinine (0.6-1.3) mg/dL Est Cr Clr Drug Dosing Estimated GFR (MDRD) (>60) BUN/Creatinine Ratio (9-20) Glucose (80-116) mg/dL POC Glucose 210 H D 265 H 239 H (80-116) mg/dL Hemoglobin A1c (4.0-6.0) % Calcium (8.6-10.2) mg/dL Total Bilirubin (0.1-1.3) mg/dL AST (5-27) IU/L ALT (14-26) IU/L Alkaline Phosphatase (56-112) IU/L Troponin I (0.02-0.06) NG/ML B-Natriuretic Peptide (0-100) pg/mL Total Protein (6.0-8.0) g/dL Albumin (3.2-4.6) g/dL Globulin g/dL Albumin/Globulin Ratio Urine Color (YELLOW) Urine Appearance (CLEAR) Urine pH (5.0-6.5) Ur Specific [place] (1.010-1.025) Urine Protein (NEGATIVE) mg/dL Urine Glucose (UA) (NEGATIVE) mg/dL Urine Ketones (NEGATIVE) mg/dL Urine Occult Blood (NEGATIVE) Urine Nitrite (NEGATIVE) Urine Bilirubin (NEGATIVE) Urine Urobilinogen (NEGATIVE) mg/dL Ur Leukocyte Esterase (NEGATIVE) Urine RBC (0) Urine WBC (0) Ur Squamous Epith Cells (NS,R,O) Urine Bacteria (NS) 11/10/16 11/10/16 Range/Units 06:26 11:21 WBC (4.5-12.0) X10-3/uL RBC (4.30-5.75) x10(6)uL Hgb (11.5-15.5) g/dL Hct (30.0-51.3) % MCV (80-96) fL MCH (27.7-33.6) pg MCHC (32.2-35.4) g/dL RDW (11.5-15.5) % Plt Count (125-369) X10(3)uL MPV (7.4-10.4) fL Add Manual Diff Neutrophils % (Manual) (46-82) % Band Neutrophils % (0-6) % Lymphocytes % (Manual) (13-37) % Monocytes % (Manual) (4-12) % Eosinophils % (Manual) (0-5) % PT (8.7-11.1) INR (0.89-1.13) ABG pH (7.35-7.45) ABG pCO2 (35-45) mmHg ABG pO2 (83-108) mmHg ABG HCO3 (22-26) mmol/L ABG O2 Saturation (96-97) % ABG Base Excess (-2-2) Moises Test O2 Delivery Device Oxygen Flow Rate L Sodium (135-145) mmol/L Potassium (3.5-5.3) mmol/L Chloride (100-110) mmol/L Carbon Dioxide (23-29) mmol/L BUN (8-23) mg/dL Creatinine (0.6-1.3) mg/dL Est Cr Clr Drug Dosing Estimated GFR (MDRD) (>60) BUN/Creatinine Ratio (9-20) Glucose (80-116) mg/dL POC Glucose 111 D 190 H (80-116) mg/dL Hemoglobin A1c (4.0-6.0) % Calcium (8.6-10.2) mg/dL Total Bilirubin (0.1-1.3) mg/dL AST (5-27) IU/L ALT (14-26) IU/L Alkaline Phosphatase (56-112) IU/L Troponin I (0.02-0.06) NG/ML B-Natriuretic Peptide (0-100) pg/mL Total Protein (6.0-8.0) g/dL Albumin (3.2-4.6) g/dL Globulin g/dL Albumin/Globulin Ratio Urine Color (YELLOW) Urine Appearance (CLEAR) Urine pH (5.0-6.5) Ur Specific [place] (1.010-1.025) Urine Protein (NEGATIVE) mg/dL Urine Glucose (UA) (NEGATIVE) mg/dL Urine Ketones (NEGATIVE) mg/dL Urine Occult Blood (NEGATIVE) Urine Nitrite (NEGATIVE) Urine Bilirubin (NEGATIVE) Urine Urobilinogen (NEGATIVE) mg/dL Ur Leukocyte Esterase (NEGATIVE) Urine RBC (0) Urine WBC (0) Ur Squamous Epith Cells (NS,R,O) Urine Bacteria (NS) BRIAN Results - Last 24 hrs: Microbiology 11/05/16 05:55 Aerobic Blood Culture - Final Blood - Venous - Lab Draw NO GROWTH AFTER 5 DAYS Anaerobic Blood Culture - Final NO GROWTH AFTER 5 DAYS 11/05/16 05:50 Aerobic Blood Culture - Final Blood - Venous NO GROWTH AFTER 5 DAYS Anaerobic Blood Culture - Preliminary NO GROWTH AFTER 4 DAYS Med Orders - Current: Current Medications Acetaminophen/Codeine Phosphate (Tylenol With Codeine No.3 300mg/30mg) 1 tab PO QID PRN PRN Reason: Pain Last Admin: 11/08/16 02:26 Dose: 1 tab Albuterol (Proventil Neb Soln) 2.5 mg NEB Q2H PRN PRN Reason: Shortness Of Breath/wheezing Albuterol/Ipratropium (Duoneb 3.0-0.5 Mg/3 Ml) 3 ml NEB TIDRT [facility] Last Admin: 11/10/16 07:41 Dose: 3 ml Alendronate Sodium (Fosamax) 70 mg PO [facility] Arformoterol Tartrate (Brovana) 15 mcg INH BID@0800,2100 [facility] Last Admin: 11/10/16 07:41 Dose: 15 mcg Artificial Tears (Refresh Tears 0.5%) 0 ml EYEBOTH QID PRN PRN Reason: Dry Eyes Last Admin: 11/08/16 19:39 Dose: 1 drop Buspirone HCl (Buspar) 7.5 mg PO BID@0800,2100 [facility] Last Admin: 11/10/16 08:11 Dose: 7.5 mg Enoxaparin Sodium (Lovenox) 40 mg SUBCUT 1100 [facility] Last Admin: 11/10/16 11:29 Dose: 40 mg Fish Oil (Fish Oil) 1 gm PO DAILY@0800 [facility] Last Admin: 11/10/16 08:11 Dose: 1 gm Fluoxetine HCl (Prozac) 40 mg PO DAILY@0800 [facility] Last Admin: 11/10/16 08:11 Dose: 40 mg Furosemide (Lasix) 40 mg PO BIDDIURETIC [facility] Last Admin: 11/10/16 13:20 Dose: 40 mg Glimepiride (Amaryl) 2 mg PO DAILY@0800 [facility] Last Admin: 11/10/16 08:10 Dose: 2 mg Insulin Aspart (Novolog) 0 unit SUBCUT QIDACANDBED [facility] PRN Reason: Protocol Last Admin: 11/10/16 11:30 Dose: 2 units Insulin Aspart (Novolog) 2 unit SUBCUT TIDMEALS [facility] Last Admin: 11/10/16 11:30 Dose: 2 units Lorazepam (Ativan) 1 mg PO TID PRN PRN Reason: Anxiety Last Admin: 11/05/16 19:10 Dose: 1 mg Mirtazapine (Remeron) 7.5 mg PO BEDTIME [facility] Last Admin: 11/09/16 21:16 Dose: 7.5 mg Nitroglycerin (Nitrostat) 0.4 mg SL Q5M PRN PRN Reason: Chest Pain Last Admin: 11/05/16 11:14 Dose: 0.4 mg Omeprazole (Omeprazole) 40 mg PO 0600 [facility] Last Admin: 11/10/16 06:23 Dose: 40 mg Polyethylene Glycol (Miralax) 17 gm PO BEDTIME PRN PRN Reason: Constipation Prednisone (Prednisone) 40 mg PO WITHBREAKFAST [facility] Last Admin: 11/10/16 08:11 Dose: 40 mg Simvastatin (Zocor) 40 mg PO BEDTIME [facility] Last Admin: 11/09/16 21:16 Dose: 40 mg Sodium Chloride (Saline Flush) 10 ml FLUSH ASDIRECTED PRN PRN Reason: Keep Vein Open Last Admin: 11/06/16 03:51 Dose: 10 ml Sodium Chloride ([place] Saline Nasal Gel) 0 gm [place] ASDIRECTED PRN PRN Reason: nasal dryness, may keep at bed Last Admin: 11/08/16 18:02 Dose: 1 applic Discontinued Medications Acetaminophen/Codeine Phosphate (Tylenol With Codeine No.3 300mg/30mg) 1 tab PO QID [facility] Last Admin: 11/04/16 18:11 Dose: Not Given Albuterol/Ipratropium (Duoneb 3.0-0.5 Mg/3 Ml) 3 ml NEB ONETIME ONE Stop: 11/04/16 05:44 Last Admin: 11/04/16 06:10 Dose: 3 ml Albuterol/Ipratropium (Duoneb 3.0-0.5 Mg/3 Ml) 3 ml NEB Q4H [facility] Last Admin: 11/09/16 09:06 Dose: 3 ml Arformoterol Tartrate (Brovana) 15 mcg INH BID [facility] Last Admin: 11/08/16 09:42 Dose: 15 mcg Buspirone HCl (Buspar) 7.5 mg PO BID [facility] Last Admin: 11/08/16 08:15 Dose: 7.5 mg Calcium Gluconate (Calcium Gluconate) 1 gm IVPUSH ONETIME ONE Stop: 11/04/16 07:00 Last Admin: 11/04/16 07:09 Dose: 1 gm Calcium Gluconate (Calcium Gluconate) Confirm Administered Dose 1 gm .ROUTE .STK -MED ONE Stop: 11/04/16 07:02 Last Admin: 11/04/16 07:05 Dose: Not Given Enoxaparin Sodium (Lovenox) 30 mg SUBCUT Q24H [facility] Last Admin: 11/04/16 11:06 Dose: 30 mg Enoxaparin Sodium (Lovenox) 40 mg SUBCUT 1200 [facility] Last Admin: 11/07/16 12:04 Dose: 40 mg Fish Oil (Fish Oil) 1 gm PO DAILY [facility] Last Admin: 11/08/16 09:28 Dose: 1 gm Fluoxetine HCl (Prozac) 40 mg PO DAILY [facility] Last Admin: 11/08/16 08:15 Dose: 40 mg Furosemide (Lasix) 20 mg IVPUSH ONETIME ONE Stop: 11/04/16 06:46 Last Admin: 11/04/16 07:25 Dose: 20 mg Furosemide (Lasix) Confirm Administered Dose 40 mg .ROUTE .STK-MED ONE Stop: 11/04/16 07:06 Last Admin: 11/04/16 07:18 Dose: Not Given Glimepiride (Amaryl) 2 mg PO DAILY [facility] Last Admin: 11/08/16 09:28 Dose: 2 mg Sodium Chloride (Normal Saline) 1,000 mls @ 75 mls/hr IV ASDIRECTED [facility] Azithromycin 500 mg/ Sodium (Chloride) 250 mls @ 250 mls/hr IV Q24H [facility] Last Admin: 11/09/16 09:59 Dose: 250 mls/hr Sodium Chloride (Normal Saline) 1,000 mls @ 100 mls/hr IV ASDIRECTED [facility] Last Admin: 11/04/16 10:55 Dose: 100 mls/hr Ceftriaxone Sodium 1 gm/ (Sodium Chloride) 50 mls @ 100 mls/hr IV Q24H [facility] Last Admin: 11/09/16 11:16 Dose: 100 mls/hr Sodium Chloride (Normal Saline) 1,000 mls @ 70 mls/hr IV ASDIRECTED [facility] Sodium Chloride (Normal Saline) 250 mls @ 100 mls/hr IV ASDIRECTED [facility] Last Admin: 11/07/16 10:19 Dose: 100 mls/hr Insulin Aspart (Novolog) 0 unit SUBCUT Q4H [facility] PRN Reason: Protocol Last Admin: 11/04/16 17:52 Dose: 2 units Insulin Aspart (Novolog) 0 unit SUBCUT QID [facility] PRN Reason: Protocol Last Admin: 11/04/16 20:39 Dose: 6 units Insulin Human Regular (Humulin R) 7 unit IVPUSH BIDAC STA PRN Reason: Protocol Stop: 11/04/16 06:41 Last Admin: 11/04/16 06:56 Dose: 7 units Iopamidol (Isovue-370 (76%)) 75 ml IV ONETIME ONE Stop: 11/04/16 10:33 Last Admin: 11/04/16 11:07 Dose: 75 ml Lidocaine/Prilocaine (Emla Crm) 5 gm TOP ONETIME ONE Stop: 11/07/16 16:01 Last Admin: 11/07/16 16:00 Dose: 1 applic Methylprednisolone Sodium Succinate (Solu-Medrol) 125 mg IVPUSH ONETIME ONE Stop: 11/04/16 05:44 Last Admin: 11/04/16 06:45 Dose: 125 mg Methylprednisolone Sodium Succinate (Solu-Medrol) 40 mg IVPUSH Q8H [facility] Last Admin: 11/05/16 03:46 Dose: 40 mg Methylprednisolone Sodium Succinate (Solu-Medrol) 40 mg IVPUSH Q12H [facility] Last Admin: 11/06/16 03:51 Dose: 40 mg Morphine Sulfate (Morphine) 2 mg IVPUSH Q2H PRN PRN Reason: Pain Last Admin: 11/05/16 11:45 Dose: 2 mg Morphine Sulfate (Morphine) 1 mg IVPUSH Q1H PRN PRN Reason: Pain Last Admin: 11/05/16 16:20 Dose: 1 mg Prednisone (Prednisone) 60 mg PO WITHBREAKFAST [facility] Last Admin: 11/09/16 07:36 Dose: 60 mg Sodium Bicarbonate (Sodium Bicarbonate 8.4%) 50 meq IVPUSH ONETIME ONE Stop: 11/04/16 07:40 Last Admin: 11/04/16 08:06 Dose: 50 meq - Exam Quality Assessment: Reports: supplemental oxygen General: Reports: alert, oriented, cooperative, no acute distress HEENT: Reports: Mucous membr. moist/pink Neck: Reports: supple Lungs: Reports: Normal respiratory effort, Decreased breath sounds, Crackles ( bases chronic). Denies: Rub, Wheezing Cardiovascular: Reports: Regular Rate, Regular Rhythm Abdomen: Reports: bowel sounds present, soft, no tenderness. Denies: CVA tenderness Extremities: Reports: no edema, no calf tenderness Skin: Reports: warm, dry Neurological: Reports: no new focal deficit, normal speech, strength equal bilateral Psy/Mental Status: Reports: alert, normal affect, normal mood *Q Meaningful Use (DIS) - VTE *Q VTE Criteria *Q: - Stroke *Q Stroke Criteria *Q: - AMI *Q AMI Criteria *Q:
--- NOTE | 2016-11-10 15:37 | CR ---
INDICATION: COPD, CHF. CHEST: PA and lateral views of the chest 11/09/2016 were compared with 2016 and 11/04/2016, revealing decreasing bilateral pneumonia in the lower lung hernández and lung bases, compatible with resolving pneumonia and pleuritis. No new acute process was seen. Findings remain compatible with severe kyphoscoliosis, probable COPD, and ASHD, likely with cardiomegaly. MTDD
[2016-11-11] MEDS ORDERED: Alendronate 70 MG Tab PO SCH (06:00)
== END 2016-11-10 14:35 | disposition home health service (06) | DRG 189 ==
LOC: FB.ED 05:40 → FB.ICU 08:03 → FB.MS 11-06 08:59
PROVIDERS: ADMIT Family Medicine; ATTEND Family Medicine
PROC: 5A09457 Assistance with Respiratory Ventilation, 24-96 Consecutive Hours, Continuous Positive Airway Pressure (ICD-10-PCS; principal; 2016-11-04)
DX: J96.90 Respiratory failure, unspecified, unspecified whether with hypoxia or hypercapnia (principal); J18.9 Pneumonia, unspecified organism; J44.0 Chronic obstructive pulmonary disease with (acute) lower respiratory infection; J44.1 Chronic obstructive pulmonary disease with (acute) exacerbation; E11.65 Type 2 diabetes mellitus with hyperglycemia; E87.5 Hyperkalemia; J98.4 Other disorders of lung; Z51.5 Encounter for palliative care; K21.9 Gastro-esophageal reflux disease without esophagitis; M19.90 Unspecified osteoarthritis, unspecified site; F41.8 Other specified anxiety disorders; Z87.891 Personal history of nicotine dependence; Z79.4 Long term (current) use of insulin; Z66 Do not resuscitate; E88.81 Metabolic syndrome and other insulin resistance; M40.00 Postural kyphosis, site unspecified; I50.9 Heart failure, unspecified
CPT/HCPCS: 36415; 36600; 71010; 80048; 81001; 82803; 83036; 83880; 84484; 85025; 85610; 93005; 94660; 96374; 96375; 99285 ×2; J0610; J1815; J1940; J2930; J7620; 71020; 71260; 80053; 82962; 84132; 87040; 87070; 87205; 94640-76; 97110-GO; 97110-GP; 97116-GP; 97162-GP; 97165-GO; 97530-GO; 97530-GO-KX; 97530-GP; 97535-GO; A9270-GY; J0456; J0696; J1650; J2270; J2920; J7040; J7050; J7605; Q9967

== ENCOUNTER 2016-12-29 08:38 | Inpatient (IN) | payer MEDICARE, BC ==
[2016-12-29] MEDS ORDERED: methylPREDNISolone Sodium Succinate 125 MG/2 ML SDV IVPUSH ONE (08:47)
[2016-12-29] MEDS ORDERED: Albuterol/Ipratropium 3.0-0.5 MG/3 ML Neb Soln NEB ONE (08:47)
--- NOTE | 2016-12-29 08:51 | EDM.PDOC ---
ED HPI GENERAL MEDICAL PROBLEM - General Stated Complaint: SOB Time Seen by Provider: 12/29/16 08:38 Source of Information: Reports: Patient, EMS, EMS Notes Reviewed History Limitations: Reports: Physical Impairment - History of Present Illness INITIAL COMMENTS - FREE TEXT/NARRATIVE: 76 y.o.w.m was found down at home, unable to get up. As the ems arrived, his pulse ox was in the 60th. Pt has COPD wit severe scoliosis. Here in the ed, puls ox was 91% on 8 l o2 by NC, He c/o r hip pain amd r knee pain as well. Pt is a poor historian, no family is present. Onset Date: 12/29/16 Onset Time: 05:00 Duration: Intermittent Location: Reports: Chest Quality: Reports: Same as Previous Episode Improves with: Reports: Cold Therapy, Medication Worsens with: Reports: Immobilization Right Hip Pain Score (Numeric/FACES): 6 - Related Data Allergies Allergy/AdvReac Type Severity Reaction Status Date / Time Penicillins Allergy Mouth Sores Verified 12/29/16 16:04 Home Meds: Home Meds Aspirin/Calcium Carbonate/Mag [Aspirin Buffered 325 mg Tab] 325 mg PO BID [History] Cholecalciferol (Vitamin D3) [Vitamin D3] 1,000 units PO DAILY 11/10/13 [History ] Furosemide 40 mg PO BID 11/10/13 [History] Glimepiride 2 mg PO DAILY 11/10/13 [History] Mirtazapine [Remeron] 7.5 mg PO BEDTIME 11/10/13 [History] Omeprazole 40 mg PO DAILY 11/10/13 [History] Simvastatin 40 mg PO BEDTIME 11/10/13 [History] Vitamin E 1,000 unit PO DAILY 11/10/13 [History] Alendronate Sodium [Fosamax] 70 mg PO TU 04/24/16 [History] Arformoterol [Brovana] 2 ml INH BID 04/24/16 [History] Ascorbic Acid [Vitamin C with [place] Hips] 1,000 mg PO DAILY 04/24/16 [History] FLUoxetine HCl [Fluoxetine HCl] 40 mg PO DAILY 04/24/16 [History] Glucosam/Msm/Vit C/Jesús/Hrb#21 [Glucosamine-MSM Complex] 1 tab PO BID 04/24/16 [ History] LORazepam 0.5 - 1 mg PO TID PRN 04/24/16 [History] Multivitamin [Multi-Vitamin Daily] 1 tab PO DAILY 04/24/16 [History] Nabumetone 750 mg PO BID 04/24/16 [History] Polyethylene Glycol 3350 [MiraLAX] 17 gm PO BEDTIME PRN 04/24/16 [History] Cyanocobalamin (Vitamin B12) [Vitamin B12] 1,000 mcg PO DAILY 11/04/16 [History] Fish Oil/[place]-3 Fatty Acids [Fish Oil 1,000 MG] 1 gm PO DAILY 11/04/16 [History ] busPIRone [Buspar] 7.5 mg PO BID 11/04/16 [History] Albuterol/Ipratropium [DuoNeb 3.0-0.5 MG/3 ML] 3 ml NEB TIDRT #90 neb 11/10/16 [ Rx] Prednisone [IMW: Prednisone] 10 mg PO DAILY 12/29/16 [History] Past Medical History HEENT History: Reports: Cataract Cardiovascular History: Reports: Heart Failure, Hypertension, SOB on Exertion, Syncope Respiratory History: Reports: COPD, SOB Other Respiratory History: restrictive airway disease Gastrointestinal History: Reports: Chronic Constipation, GERD Genitourinary History: Reports: None Musculoskeletal History: Reports: Arthritis, Gout, Other (See Below) Other Musculoskeletal History: scoliosis Psychiatric History: Reports: Anxiety, Depression Endocrine/Metabolic History: Reports: Diabetes, Type II - Past Surgical History Male Surgical History: Reports: Vasectomy Neurological Surgical History: Reports: Scoliosis Musculoskeletal Surgical History: Reports: None Social & Family History - Family History Family Medical History: Noncontributory - Tobacco Use Smoking Status *Q: Former Smoker Years of Tobacco use: 30 Packs/Tins Daily: 1 Used Tobacco, but Quit: Yes Month Tobacco Last Used: 1980 Second Hand Smoke Exposure: No - Caffeine Use Caffeine Use: Reports: Coffee, Soda - Alcohol Use Days Per Week of Alcohol Use: 0 Number of Drinks Per Day: 1 Total Drinks Per Week: 0 - Recreational Drug Use Recreational Drug Use: No ED ROS GENERAL - Review of Systems Review Of Systems: Unable To Obtain ED EXAM, GENERAL - Physical Exam Exam: See Below Exam Limited By: Physical Impairment General Appearance: Alert, WD/WN, Moderate Distress Eye Exam: Bilateral Eye: Normal Inspection Ears: Normal External Exam Ear Exam: Bilateral Ear: Auricle Normal Nose: Normal Inspection, Normal Mucosa Throat/Mouth: Normal Inspection, Normal Lips Head: Atraumatic, Normocephalic Neck: Normal Inspection, Supple, Non-Tender Respiratory/Chest: Respiratory Distress, Decreased Breath Sounds, Wheezing, Prolonged Expiration Cardiovascular: Normal Peripheral Pulses, Regular Rate, Rhythm Peripheral Pulses: 1+: Femoral (L), Femoral (R) GI/Abdominal: Normal Bowel Sounds, Soft, Non-Tender (Male) Exam: Deferred Rectal (Males) Exam: Deferred Back Exam: Muscle Spasm, Vertebral Tenderness, Other (severe scoliosis) Extremities: Other (R knee SQ hematoma, minor. medial aspect) Neurological: Alert, Confused (occ), Disoriented, Abnormal Gait Psychiatric: Depressed Mood Skin Exam: Warm, Dry, Intact, Normal Color, No Rash Lymphatic: No Adenopathy EKG INTERPRETATION EKG Date: 12/29/16 Time: 09:25 Rhythm: NSR Rate (beats/min): 95 [place]: normal P-wave: present QRS: normal ST-T: normal QT: normal Comparison: NA - no prior EKG EKG Interpretation Comments: peaked t waves Course - Vital Signs Text/Narrative:: 76 y.o.w.m was found down at home, unable to get up. As the ems arrived, his pulse ox was in the 60th. Pt has COPD wit severe scoliosis. Here in the ed, puls ox was 91% on 8 l o2 by NC, He c/o r hip pain amd r knee pain as well. Pt is a poor historian, no family is present. PE: COPD exacerbation, scoliosis, fall Imaging: CXR: RLL pneumonia,atelectais, R HIP: Neg Labs: ABG; pO2 82 Nl WBC Impression: COPD exacerbation, Pneymonia, Hypoxemia, scoliosis, CO2 retainer, Atelectasis Tx: Duo neb, Solumedrol. Albut neb Levoflox Reexam; Improved Plan: Admit to m/s tele Last Recorded V/S: Last Vital Signs Temp 37.1 C 12/29/16 21:00 Pulse 107 H 12/29/16 21:00 Resp 24 H 12/29/16 21:00 BP 125/76 12/29/16 21:00 Pulse Ox 92 L 12/29/16 21:00 - Orders/Labs/Meds Orders: Active Orders 24 hr Category Date Time Status Chest 1V Frontal [CR] Stat Exams 12/29/16 08:47 Taken Hip Min 2V or 3V w Pelvis Rt [CR] Stat Exams 12/29/16 08:48 Taken Knee 1V or 2V Rt [CR] Stat Exams 12/29/16 08:48 Taken CULTURE BLOOD [BC] Urgent Lab 12/29/16 12:00 Received CULTURE BLOOD [BC] Urgent Lab 12/29/16 12:05 Received Levofloxacin/Dextrose 5%-Water [Levaquin in D5W 500 MG/ Med 12/29/16 12:00 Active 100 ML] 500 mg Premix Bag 1 bag IV Q24H Blood Culture x2 Reflex Set [OM.PC] Urgent Oth 12/29/16 11:46 Ordered EKG 12 Lead [EK] Routine Ther 12/29/16 08:47 Ordered Medication Orders Albuterol/Ipratropium (Duoneb 3.0-0.5 Mg/3 Ml) 3 ml NEB QIDRT [facility] Last Admin: 12/29/16 21:28 Dose: Not Given Admin: 12/29/16 19:02 Dose: Not Given Albuterol/Ipratropium (Duoneb 3.0-0.5 Mg/3 Ml) 3 ml NEB Q4H PRN PRN Reason: Dyspnea Alendronate Sodium (Fosamax) 70 mg PO Tu@0700 [facility] Arformoterol Tartrate (Brovana) 15 mcg INH BIDRT [facility] Last Admin: 12/29/16 21:27 Dose: Not Given Ascorbic Acid (Vitamin C) 1,000 mg PO DAILY [facility] Aspirin (Ecotrin) 325 mg PO BID [facility] Last Admin: 12/29/16 21:28 Dose: Not Given Buspirone HCl (Buspar) 7.5 mg PO BID [facility] Last Admin: 12/29/16 21:28 Dose: Not Given Cholecalciferol (Vitamin D3) 1,000 units PO DAILY [facility] Cyanocobalamin (Vitamin B12) 1,000 mcg PO DAILY [facility] Enoxaparin Sodium (Lovenox) 40 mg SUBCUT DAILY [facility] Last Admin: 12/29/16 15:04 Dose: 40 mg Fish Oil (Fish Oil) 1 gm PO DAILY [facility] Fluoxetine HCl (Prozac) 40 mg PO DAILY [facility] Furosemide (Lasix) 40 mg PO BIDDIURETIC [facility] Glimepiride (Amaryl) 2 mg PO DAILY [facility] Levofloxacin/Dextrose 500 mg/ (Premix) 100 mls @ 100 mls/hr IV Q24H [facility] Last Admin: 12/29/16 15:12 Dose: 100 mls/hr Sodium Chloride (Normal Saline) 250 mls @ 100 mls/hr IV ASDIRECTED [facility] Lorazepam (Ativan) 0.5 mg PO TID PRN PRN Reason: Anxiety Methylprednisolone Sodium Succinate (Solu-Medrol) 125 mg IVPUSH Q12H [facility] Last Admin: 12/29/16 21:28 Dose: Not Given Mirtazapine (Remeron) 7.5 mg PO BEDTIME [facility] Last Admin: 12/29/16 21:28 Dose: Not Given Multivitamins/Minerals/Vitamin C (Tab-A-Hernandez) 1 tab PO DAILY [facility] Nabumetone (Relafen) 750 mg PO BID [facility] Last Admin: 12/29/16 21:28 Dose: Not Given Omeprazole (Omeprazole) 40 mg PO DAILY@0730 [facility] Polyethylene Glycol (Miralax) 17 gm PO BEDTIME PRN PRN Reason: Constipation Simvastatin (Zocor) 40 mg PO BEDTIME [facility] Last Admin: 12/29/16 21:28 Dose: Not Given Sodium Chloride (Saline Flush) 10 ml FLUSH ASDIRECTED PRN PRN Reason: Keep Vein Open Vitamin E (Vitamin E) 1,000 units PO DAILY [facility] Labs: Laboratory Tests 12/29/16 12/29/16 12/29/16 Range/Units 09:00 09:00 09:00 WBC 17.0 H (4.5-12.0) X10-3/uL RBC 3.99 L (4.30-5.75) x10(6)uL Hgb 12.6 (11.5-15.5) g/dL Hct 38.4 (30.0-51.3) % MCV 96.3 H (80-96) fL MCH 31.5 (27.7-33.6) pg MCHC 32.7 (32.2-35.4) g/dL RDW 12.7 (11.5-15.5) % Plt Count 193 (125-369) X10(3)uL MPV 7.2 L (7.4-10.4) fL Add Manual Diff Yes Neutrophils % (Manual) 82 (46-82) % Lymphocytes % (Manual) 7 L (13-37) % Monocytes % (Manual) 10 (4-12) % Eosinophils % (Manual) 1 (0-5) % PT 9.9 (8.7-11.1) INR 0.98 (0.89-1.13) ABG pH (7.35-7.45) ABG pCO2 (35-45) mmHg ABG pO2 (83-108) mmHg ABG HCO3 (22-26) mmol/L ABG O2 Saturation (96-97) % ABG Base Excess (-2-2) Moises Test O2 Delivery Device Sodium 139 (135-145) mmol/L Potassium 5.1 (3.5-5.3) mmol/L Chloride 85 L* (100-110) mmol/L Carbon Dioxide 48 H* (23-29) mmol/L BUN 18 (8-23) mg/dL Creatinine 0.6 (0.6-1.3) mg/dL Est Cr Clr Drug Dosing TNP Estimated GFR (MDRD) > 60 (>60) BUN/Creatinine Ratio 30.0 H (9-20) Glucose 148 H D (80-116) mg/dL Lactic Acid (0.5-2.2) mmol/L Calcium 9.3 (8.6-10.2) mg/dL Creatine Kinase (60-160) IU/L B-Natriuretic Peptide (0-100) pg/mL 12/29/16 12/29/16 12/29/16 Range/Units 09:20 11:45 12:00 WBC (4.5-12.0) X10-3/uL RBC (4.30-5.75) x10(6)uL Hgb (11.5-15.5) g/dL Hct (30.0-51.3) % MCV (80-96) fL MCH (27.7-33.6) pg MCHC (32.2-35.4) g/dL RDW (11.5-15.5) % Plt Count (125-369) X10(3)uL MPV (7.4-10.4) fL Add Manual Diff Neutrophils % (Manual) (46-82) % Lymphocytes % (Manual) (13-37) % Monocytes % (Manual) (4-12) % Eosinophils % (Manual) (0-5) % PT (8.7-11.1) INR (0.89-1.13) ABG pH 7.37 (7.35-7.45) ABG pCO2 86 H* (35-45) mmHg ABG pO2 70 L (83-108) mmHg ABG HCO3 49 H (22-26) mmol/L ABG O2 Saturation 92 L (96-97) % ABG Base Excess 18.3 H (-2-2) Moises Test Passed O2 Delivery Device Nasal cannula Sodium (135-145) mmol/L Potassium (3.5-5.3) mmol/L Chloride (100-110) mmol/L Carbon Dioxide (23-29) mmol/L BUN (8-23) mg/dL Creatinine (0.6-1.3) mg/dL Est Cr Clr Drug Dosing Estimated GFR (MDRD) (>60) BUN/Creatinine Ratio (9-20) Glucose (80-116) mg/dL Lactic Acid (0.5-2.2) mmol/L Calcium (8.6-10.2) mg/dL Creatine Kinase 223 H (60-160) IU/L B-Natriuretic Peptide 197 H (0-100) pg/mL // Range/Units 12:05 WBC (4.5-12.0) X10-3/uL RBC (4.30-5.75) x10(6)uL Hgb (11.5-15.5) g/dL Hct (30.0-51.3) % MCV (80-96) fL MCH (27.7-33.6) pg MCHC (32.2-35.4) g/dL RDW (11.5-15.5) % Plt Count (125-369) X10(3)uL MPV (7.4-10.4) fL Add Manual Diff Neutrophils % (Manual) (46-82) % Lymphocytes % (Manual) (13-37) % Monocytes % (Manual) (4-12) % Eosinophils % (Manual) (0-5) % PT (8.7-11.1) INR (0.89-1.13) ABG pH (7.35-7.45) ABG pCO2 (35-45) mmHg ABG pO2 (83-108) mmHg ABG HCO3 (22-26) mmol/L ABG O2 Saturation (96-97) % ABG Base Excess (-2-2) Moises Test O2 Delivery Device Sodium (135-145) mmol/L Potassium (3.5-5.3) mmol/L Chloride (100-110) mmol/L Carbon Dioxide (23-29) mmol/L BUN (8-23) mg/dL Creatinine (0.6-1.3) mg/dL Est Cr Clr Drug Dosing Estimated GFR (MDRD) (>60) BUN/Creatinine Ratio (9-20) Glucose (80-116) mg/dL Lactic Acid 1.1 (0.5-2.2) mmol/L Calcium (8.6-10.2) mg/dL Creatine Kinase (60-160) IU/L B-Natriuretic Peptide (0-100) pg/mL Meds: Medications Generic Name Dose Route Start Last Admin Trade Name Freq PRN Reason Stop Dose Admin Albuterol/Ipratropium 3 ml 12/29/16 17:00 12/29/16 21:28 Duoneb 3.0-0.5 Mg/3 Ml NEB Not Given QIDRT [facility] Albuterol/Ipratropium 3 ml 12/29/16 16:03 Duoneb 3.0-0.5 Mg/3 Ml NEB Q4H PRN Dyspnea Alendronate Sodium 70 mg 12/30/16 07:00 Fosamax PO Tu@0700 [facility] Arformoterol Tartrate 15 mcg 12/29/16 21:00 12/29/16 21:27 Brovana INH Not Given BIDRT [facility] Ascorbic Acid 1,000 mg 12/30/16 09:00 Vitamin C PO DAILY [facility] Aspirin 325 mg 12/29/16 21:00 12/29/16 21:28 Ecotrin PO Not Given BID [facility] Buspirone HCl 7.5 mg 12/29/16 21:00 12/29/16 21:28 Buspar PO Not Given BID [facility] Cholecalciferol 1,000 units 12/30/16 09:00 Vitamin D3 PO DAILY [facility] Cyanocobalamin 1,000 mcg 12/30/16 09:00 Vitamin B12 PO DAILY [facility] Enoxaparin Sodium 40 mg 12/29/16 13:15 12/29/16 15:04 Lovenox SUBCUT 40 mg DAILY [facility] Administration Fish Oil 1 gm 12/30/16 09:00 Fish Oil PO DAILY [facility] Fluoxetine HCl 40 mg 12/30/16 09:00 Prozac PO DAILY [facility] Furosemide 40 mg 12/30/16 16:30 Lasix PO BIDDIURETIC [facility] Glimepiride 2 mg 12/30/16 09:00 Amaryl PO DAILY [facility] Levofloxacin/Dextrose 500 mg/ 100 mls @ 100 mls/hr 12/29/16 12:00 12/29/16 15 :12 Premix IV 100 mls/hr Q24H [facility] Administration Sodium Chloride 250 mls @ 100 mls/hr 12/29/16 18:30 Normal Saline IV ASDIRECTED [facility] Lorazepam 0.5 mg 12/29/16 16:10 Ativan PO TID PRN Anxiety Methylprednisolone Sodium Succinate 125 mg 12/29/16 21:00 12/29/16 21:28 Solu-Medrol IVPUSH Not Given Q12H [facility] Mirtazapine 7.5 mg 12/29/16 21:00 12/29/16 21:28 Remeron PO Not Given BEDTIME [facility] Multivitamins/Minerals/Vitamin C 1 tab 12/30/16 09:00 Tab-A-Hernandez PO DAILY [facility] Nabumetone 750 mg 12/29/16 21:00 12/29/16 21:28 Relafen PO Not Given BID [facility] Omeprazole 40 mg 12/30/16 07:30 Omeprazole PO DAILY@0730 [facility] Polyethylene Glycol 17 gm 12/29/16 16:10 Miralax PO BEDTIME PRN Constipation Simvastatin 40 mg 12/29/16 21:00 12/29/16 21:28 Zocor PO Not Given BEDTIME [facility] Sodium Chloride 10 ml 12/29/16 13:00 Saline Flush FLUSH ASDIRECTED PRN Keep Vein Open Vitamin E 1,000 units 12/30/16 09:00 Vitamin E PO DAILY [facility] Discontinued Medications Generic Name Dose Route Start Last Admin Trade Name Freq PRN Reason Stop Dose Admin Albuterol/Ipratropium 3 ml 12/29/16 08:47 12/29/16 09:11 Duoneb 3.0-0.5 Mg/3 Ml NEB 12/29/16 08:48 3 ml ONETIME ONE Administration Alendronate Sodium 70 mg 12/30/16 16:10 Fosamax PO TU [facility] Furosemide 40 mg 12/29/16 11:33 Lasix IVPUSH 12/29/16 11:34 NOW STA Furosemide 20 mg 12/29/16 11:38 12/29/16 15:29 Lasix IVPUSH 12/29/16 11:39 Not Given NOW ONE Levofloxacin/Dextrose Confirm 12/29/16 14:55 12/29/16 15:17 Levaquin In D5w 500 Mg/100 Ml Administered 12/29/16 14:56 Not Given Dose 100 mls @ as directed IV .STK-MED ONE Methylprednisolone Sodium Succinate 125 mg 12/29/16 08:47 12/29/16 09:20 Solu-Medrol IVPUSH 12/29/16 08:48 125 mg ONETIME ONE Administration Departure - Departure Time of Disposition: 12:14 Disposition: Admitted As Inpatient 65 Condition: fair, poor Clinical Impression: Hypoxemia, Atelectasis of right lung COPD (chronic obstructive pulmonary disease) Qualifiers: COPD type: COPD with acute lower respiratory infection Qualified Code(s): J44.0 - Chronic obstructive pulmonary disease with acute lower respiratory infection Scoliosis Qualifiers: Scoliosis type: idiopathic Pneumonia Qualifiers: Pneumonia type: aspiration pneumonia Laterality: bilateral - Discharge Information - My Orders Last 24 Hours: My Active Orders 12/29/16 08:47 Chest 1V Frontal [CR] Stat EKG 12 Lead [EK] Routine 12/29/16 08:48 Hip Min 2V or 3V w Pelvis Rt [CR] Stat Knee 1V or 2V Rt [CR] Stat 12/29/16 11:46 Blood Culture x2 Reflex Set [OM.PC] Urgent 12/29/16 12:00 CULTURE BLOOD [BC] Urgent Levofloxacin/Dextrose 5%-Water [Levaquin in D5W 500 MG/100 ML] 500 mg Premix Bag 1 bag IV Q24H 12/29/16 12:05 CULTURE BLOOD [BC] Urgent - Assessment/Plan Last 24 Hours: My Active Orders 12/29/16 08:47 Chest 1V Frontal [CR] Stat EKG 12 Lead [EK] Routine 12/29/16 08:48 Hip Min 2V or 3V w Pelvis Rt [CR] Stat Knee 1V or 2V Rt [CR] Stat 12/29/16 11:46 Blood Culture x2 Reflex Set [OM.PC] Urgent 12/29/16 12:00 CULTURE BLOOD [BC] Urgent Levofloxacin/Dextrose 5%-Water [Levaquin in D5W 500 MG/100 ML] 500 mg Premix Bag 1 bag IV Q24H 12/29/16 12:05 CULTURE BLOOD [BC] Urgent
[2016-12-29] MEDS ORDERED: Furosemide 40 MG/4 ML VIAL IVPUSH ONE (11:38)
--- NOTE | 2016-12-29 13:10 | PCM.HP ---
H&P History of Present Illness - General Date of Service: 12/29/16 Admit Problem/Dx: Admission Diagnosis/Problem Admission Diagnosis/Problem Pneumonia Source of Information: Patient, Family History Limitations: Reports: Respiratory Distress - History of Present Illness Initial Comments - Free Text/Narative: This is a 76-year-old male patient with known history of COPD, obesity and severe scoliosis. He said a two-day history of shortness of breath to the point where this morning he was so weak that he fell down and was not able to get back up. His son found him in the morning and called EMS who brought him in. He states she's been short of breath. He was found to have pneumonia and COPD exacerbation. He'll be admitted. He denies fevers, chills, nasal congestion, sore throat. He normally uses 3 L of nasal cannula O2 at home. He also has some right hip pain that he has had for some time. - Related Data Allergies/Adverse Reactions: Allergies Allergy/AdvReac Type Severity Reaction Status Date / Time Penicillins Allergy Mouth Sores Verified 04/24/16 16:52 Home Medications: Home Meds Acetaminophen with Codeine [Tylenol with Codeine #3 Tablet] 1 - 2 tab PO QID 05/16 [History] Aspirin/Calcium Carbonate/Mag [Aspirin Buffered 325 mg Tab] 325 mg PO BID [History] Cholecalciferol (Vitamin D3) [Vitamin D3] 1,000 units PO DAILY 11/10/13 [History ] Furosemide 40 mg PO BID 11/10/13 [History] Glimepiride 2 mg PO DAILY 11/10/13 [History] Mirtazapine [Remeron] 7.5 mg PO BEDTIME 11/10/13 [History] Omeprazole 40 mg PO DAILY 11/10/13 [History] Simvastatin 40 mg PO BEDTIME 11/10/13 [History] Vitamin E 1,000 unit PO DAILY 11/10/13 [History] Alendronate Sodium [Fosamax] 70 mg PO TU 04/24/16 [History] Arformoterol [Brovana] 2 ml INH BID 04/24/16 [History] Ascorbic Acid [Vitamin C with Heather Hips] 1,000 mg PO DAILY 04/24/16 [History] FLUoxetine HCl [Fluoxetine HCl] 40 mg PO DAILY 04/24/16 [History] Glucosam/Msm/Vit C/Jesús/Hrb#21 [Glucosamine-MSM Complex] 1 tab PO BID 04/24/16 [ History] LORazepam 0.5 - 1 mg PO TID PRN 04/24/16 [History] Multivitamin [Multi-Vitamin Daily] 1 tab PO DAILY 04/24/16 [History] Nabumetone 750 mg PO BID 04/24/16 [History] Polyethylene Glycol 3350 [MiraLAX] 17 gm PO BEDTIME PRN 04/24/16 [History] Cyanocobalamin (Vitamin B12) [Vitamin B12] 1,000 mcg PO DAILY 11/04/16 [History] Fish Oil/Clyde-3 Fatty Acids [Fish Oil 1,000 MG] 1 gm PO DAILY 11/04/16 [History ] busPIRone [Buspar] 7.5 mg PO BID 11/04/16 [History] Albuterol/Ipratropium [DuoNeb 3.0-0.5 MG/3 ML] 3 ml NEB TIDRT #90 neb 11/10/16 [ Rx] Prednisone [IJD: predniSONE] 40 mg PO WITHBREAKFAST #10 tablet 11/10/16 [Rx] Past Medical History HEENT History: Reports: Cataract Cardiovascular History: Reports: Heart Failure, Hypertension, SOB on Exertion, Syncope Respiratory History: Reports: COPD, SOB Other Respiratory History: restrictive airway disease Gastrointestinal History: Reports: Chronic Constipation, GERD Genitourinary History: Reports: None Musculoskeletal History: Reports: Arthritis, Gout, Other (See Below) Other Musculoskeletal History: scoliosis Psychiatric History: Reports: Anxiety, Depression Endocrine/Metabolic History: Reports: Diabetes, Type II - Past Surgical History Male Surgical History: Reports: Vasectomy Neurological Surgical History: Reports: Scoliosis Musculoskeletal Surgical History: Reports: None Social & Family History - Family History Family Medical History: Noncontributory - Tobacco Use Smoking Status *Q: Former Smoker Years of Tobacco use: 30 Packs/Tins Daily: 1 Used Tobacco, but Quit: Yes Month Tobacco Last Used: 1980 Second Hand Smoke Exposure: No - Caffeine Use Caffeine Use: Reports: Coffee, Soda - Alcohol Use Days Per Week of Alcohol Use: 0 Number of Drinks Per Day: 1 Total Drinks Per Week: 0 - Recreational Drug Use Recreational Drug Use: No H&P Review of Systems - Review of Systems: Review Of Systems: See Below General: Reports: No Symptoms HEENT: Reports: No Symptoms Pulmonary: Reports: Shortness of Breath. Denies: Wheezing, Pleuritic Chest Pain , Cough, Sputum, Hemoptysis Cardiovascular: Reports: No Symptoms Gastrointestinal: Reports: No Symptoms Genitourinary: Reports: No Symptoms Musculoskeletal: Reports: Other (Right hip) Skin: Reports: No Symptoms Psychiatric: Reports: No Symptoms Neurological: Reports: No Symptoms Hematologic/Lymphatic: Reports: No Symptoms Immunologic: Reports: No Symptoms Exam - Exam Exam: See Below - Vital Signs Vital Signs: Last Vital Signs Temp Pulse 92 12/29/16 09:20 Resp BP Pulse Ox 84 L 12/29/16 11:15 Weight: 181 lb 8 oz - Exam General: Alert, Oriented, Cooperative HEENT: PERRLA, Hearing Intact, Mucosa Moist & [place], Posterior Pharynx Clear, TMs Clear. No: Rhinitis, Scleral Icterus Neck: Supple, Trachea Midline Lungs: Decreased Breath Sounds, Other (Tachypnea). No: Crackles, Rales, Rhonchi Cardiovascular: Regular Rate, Regular Rhythm, Normal S1, Normal S2, Tachycardia. No: Irregular Rhythm, Bradycardia, Systolic Murmur Abdomen: Normal Bowel Sounds, Soft. No: Organomegaly, Peritoneal Signs, Distention, Guarding, Rigidity Back Exam: Normal Inspection Skin: Warm, Dry, Intact Neurological: Normal Speech, Normal Tone Neuro Extensive - Mental Status: Alert, Oriented x3 Psychiatric: Alert - Patient Data Lab Results last 24 hrs: Laboratory Results - last 24 hr 12/29/16 12/29/16 12/29/16 Range/Units 09:00 09:00 09:00 WBC 17.0 H (4.5-12.0) X10-3/uL RBC 3.99 L (4.30-5.75) x10(6)uL Hgb 12.6 (11.5-15.5) g/dL Hct 38.4 (30.0-51.3) % MCV 96.3 H (80-96) fL MCH 31.5 (27.7-33.6) pg MCHC 32.7 (32.2-35.4) g/dL RDW 12.7 (11.5-15.5) % Plt Count 193 (125-369) X10(3)uL MPV 7.2 L (7.4-10.4) fL Add Manual Diff Yes Neutrophils % (Manual) 82 (46-82) % Lymphocytes % (Manual) 7 L (13-37) % Monocytes % (Manual) 10 (4-12) % Eosinophils % (Manual) 1 (0-5) % PT 9.9 (8.7-11.1) INR 0.98 (0.89-1.13) ABG pH (7.35-7.45) ABG pCO2 (35-45) mmHg ABG pO2 (83-108) mmHg ABG HCO3 (22-26) mmol/L ABG O2 Saturation (96-97) % ABG Base Excess (-2-2) Moises Test O2 Delivery Device Sodium 139 (135-145) mmol/L Potassium 5.1 (3.5-5.3) mmol/L Chloride 85 L* (100-110) mmol/L Carbon Dioxide 48 H* (23-29) mmol/L BUN 18 (8-23) mg/dL Creatinine 0.6 (0.6-1.3) mg/dL Est Cr Clr Drug Dosing TNP Estimated GFR (MDRD) > 60 (>60) BUN/Creatinine Ratio 30.0 H (9-20) Glucose 148 H D (80-116) mg/dL Lactic Acid (0.5-2.2) mmol/L Calcium 9.3 (8.6-10.2) mg/dL Creatine Kinase (60-160) IU/L B-Natriuretic Peptide (0-100) pg/mL 12/29/16 12/29/16 12/29/16 Range/Units 09:20 11:45 12:00 WBC (4.5-12.0) X10-3/uL RBC (4.30-5.75) x10(6)uL Hgb (11.5-15.5) g/dL Hct (30.0-51.3) % MCV (80-96) fL MCH (27.7-33.6) pg MCHC (32.2-35.4) g/dL RDW (11.5-15.5) % Plt Count (125-369) X10(3)uL MPV (7.4-10.4) fL Add Manual Diff Neutrophils % (Manual) (46-82) % Lymphocytes % (Manual) (13-37) % Monocytes % (Manual) (4-12) % Eosinophils % (Manual) (0-5) % PT (8.7-11.1) INR (0.89-1.13) ABG pH 7.37 (7.35-7.45) ABG pCO2 86 H* (35-45) mmHg ABG pO2 70 L (83-108) mmHg ABG HCO3 49 H (22-26) mmol/L ABG O2 Saturation 92 L (96-97) % ABG Base Excess 18.3 H (-2-2) Moises Test Passed O2 Delivery Device Nasal cannula Sodium (135-145) mmol/L Potassium (3.5-5.3) mmol/L Chloride (100-110) mmol/L Carbon Dioxide (23-29) mmol/L BUN (8-23) mg/dL Creatinine (0.6-1.3) mg/dL Est Cr Clr Drug Dosing Estimated GFR (MDRD) (>60) BUN/Creatinine Ratio (9-20) Glucose (80-116) mg/dL Lactic Acid (0.5-2.2) mmol/L Calcium (8.6-10.2) mg/dL Creatine Kinase 223 H (60-160) IU/L B-Natriuretic Peptide 197 H (0-100) pg/mL // Range/Units 12:05 WBC (4.5-12.0) X10-3/uL RBC (4.30-5.75) x10(6)uL Hgb (11.5-15.5) g/dL Hct (30.0-51.3) % MCV (80-96) fL MCH (27.7-33.6) pg MCHC (32.2-35.4) g/dL RDW (11.5-15.5) % Plt Count (125-369) X10(3)uL MPV (7.4-10.4) fL Add Manual Diff Neutrophils % (Manual) (46-82) % Lymphocytes % (Manual) (13-37) % Monocytes % (Manual) (4-12) % Eosinophils % (Manual) (0-5) % PT (8.7-11.1) INR (0.89-1.13) ABG pH (7.35-7.45) ABG pCO2 (35-45) mmHg ABG pO2 (83-108) mmHg ABG HCO3 (22-26) mmol/L ABG O2 Saturation (96-97) % ABG Base Excess (-2-2) Moises Test O2 Delivery Device Sodium (135-145) mmol/L Potassium (3.5-5.3) mmol/L Chloride (100-110) mmol/L Carbon Dioxide (23-29) mmol/L BUN (8-23) mg/dL Creatinine (0.6-1.3) mg/dL Est Cr Clr Drug Dosing Estimated GFR (MDRD) (>60) BUN/Creatinine Ratio (9-20) Glucose (80-116) mg/dL Lactic Acid 1.1 (0.5-2.2) mmol/L Calcium (8.6-10.2) mg/dL Creatine Kinase (60-160) IU/L B-Natriuretic Peptide (0-100) pg/mL Result Diagrams: 12/29/16 09:00 12/29/16 09:00 *Q Meaningful Use (ADM) - VTE *Q VTE Criteria *Q: - Stroke *Q Stroke Criteria *Q: - AMI *Q AMI Criteria *Q: - Problem List (1) COPD (chronic obstructive pulmonary disease) SNOMED Code(s): 92347800 ICD Code: J44.9 - CHRONIC OBSTRUCTIVE PULMONARY DISEASE, UNSPECIFIED Status : Acute Current Visit: Yes Qualifiers: COPD type: COPD with acute lower respiratory infection Qualified Code(s): J44.0 - Chronic obstructive pulmonary disease with acute lower respiratory infection (2) Pneumonia SNOMED Code(s): 386735233 ICD Code: J18.9 - PNEUMONIA, UNSPECIFIED ORGANISM Status: Acute Current Visit: Yes Qualifiers: Pneumonia type: aspiration pneumonia Laterality: bilateral (3) Palliative care status SNOMED Code(s): 653443639 ICD Code: Z51.5 - ENCOUNTER FOR PALLIATIVE CARE Status: Acute Current Visit: No Problem List Initiated/Reviewed/Updated: Yes Orders Last 24hrs: Active Orders 24 hr Category Date Time Status Accu Check [Blood Glucose Check, Bedside] [RC] BIDMEALS Care 12/29/16 13:04 Ordered Ambulate [RC] ASDIRECTED Care 12/29/16 13:00 Ordered Intake and Output [RC] QSHIFT Care 12/29/16 13:02 Ordered May Shower [RC] ASDIRECTED Care 12/29/16 13:00 Ordered Oxygen Therapy Adult [Oxygen Therapy, ED] [RC] Care 12/29/16 09:15 Active ASDIRECTED Oxygen Therapy [RC] PRN Care 12/29/16 12:52 Active Oxygen Therapy [RC] PRN Care 12/29/16 13:00 Ordered Up With Assistance [RC] ASDIRECTED Care 12/29/16 13:00 Ordered VTE/DVT Education [RC] Per Unit Routine Care 12/29/16 12:52 Active VTE/DVT Education [RC] Per Unit Routine Care 12/29/16 13:00 Ordered Vital Signs [RC] Q4H Care 12/29/16 12:52 Active Vital Signs [RC] Q4H Care 12/29/16 13:00 Ordered Consistent Carbohydrate Diet [DIET] Diet 12/29/16 Dinner Ordered Chest 1V Frontal [CR] Stat Exams 12/29/16 08:47 Taken Hip Min 2V or 3V w Pelvis Rt [CR] Stat Exams 12/29/16 08:48 Taken Knee 1V or 2V Rt [CR] Stat Exams 12/29/16 08:48 Taken BLOOD GAS ARTERIAL [BG] Routine Lab 12/30/16 06:00 Ordered CBC WITH AUTO DIFF [HEME] AM Lab 12/30/16 05:11 Ordered COMPREHENSIVE METABOLIC PN,CMP [CHEM] AM Lab 12/30/16 05:11 Ordered CULTURE BLOOD [BC] Urgent Lab 12/29/16 12:00 Received CULTURE BLOOD [BC] Urgent Lab 12/29/16 12:05 Received Enoxaparin [Lovenox] Med 12/29/16 13:00 Ordered 30 mg SUBCUT DAILY Levofloxacin/Dextrose 5%-Water [Levaquin in D5W 500 MG/ Med 12/29/16 12:00 Active 100 ML] 500 mg Premix Bag 1 bag IV Q24H Sodium Chloride 0.9% [Saline Flush] Med 12/29/16 13:00 Ordered 10 ml FLUSH ASDIRECTED PRN methylPREDNISolone Sod Succ [Solu-MEDROL] Med 12/29/16 13:15 Ordered 125 mg IVPUSH Q12H Blood Culture x2 Reflex Set [OM.PC] Urgent Oth 12/29/16 11:46 Ordered Peripheral IV Insertion Adult [OM.PC] Routine Oth 12/29/16 13:00 Ordered Sequential Compression Device [OM.PC] Per Unit Routine Oth 12/29/16 13:02 Ordered Resuscitation Status Routine Resus Stat 12/29/16 12:52 Ordered EKG 12 Lead [EK] Routine Ther 12/29/16 08:47 Ordered Medication Orders Enoxaparin Sodium (Lovenox) 30 mg SUBCUT DAILY [facility] Levofloxacin/Dextrose 500 mg/ (Premix) 100 mls @ 100 mls/hr IV Q24H [facility] Methylprednisolone Sodium Succinate (Solu-Medrol) 125 mg IVPUSH Q12H [facility] Sodium Chloride (Saline Flush) 10 ml FLUSH ASDIRECTED PRN PRN Reason: Keep Vein Open Assessment/Plan Comment:: 1. Admit for pneumonia and COPD exacerbation. Chest x-ray shows pneumonia. 2. Levaquin, [id number] orders 3. O2 to keep sats between 88-92%. 4. Discussed advanced directive. He wants to be a DO NOT RESUSCITATE/DO NOT INTUBATE. 5. Check Accu-Cheks and diabetic diet 6. Up with assist and ambulate. 7. Recheck labs in the a.m. including a ABG.
[2016-12-29] MEDS ORDERED: Levofloxacin/Dextrose 5%-Water 100 ML IV ONE (14:55)
[2016-12-29] MEDS: Enoxaparin 40 MG/0.4 ML Syringe SUBCUT SCH (15:04)
[2016-12-29] MEDS: Levofloxacin/Dextrose 5%-Water 500 MG in Premix Bag 1 BAG IV SCH (15:12)
[2016-12-29] MEDS ORDERED: Polyethylene Glycol 3350 Powder 17 GM Packet PO PRN (16:10)
[2016-12-29] MEDS ORDERED: LORazepam 1 MG Tab PO PRN (16:10)
[2016-12-29] MEDS ORDERED: Sodium Chloride 0.9% 250 ML IV SCH (18:30)
[2016-12-29] MEDS: Albuterol/Ipratropium 3.0-0.5 MG/3 ML Neb Soln NEB SCH ×2 (19:02→21:28)
[2016-12-29] MEDS: Arformoterol 15 MCG/2 ML Neb Soln INH SCH (21:27)
[2016-12-29] MEDS: methylPREDNISolone Sodium Succinate 125 MG/2 ML SDV IVPUSH SCH (21:28)
[2016-12-29] MEDS: Aspirin 325 MG Tab.EC PO SCH (21:28)
[2016-12-29] MEDS: Simvastatin 40 MG Tab PO SCH (21:28)
[2016-12-29] MEDS: Mirtazapine 15 MG Tab PO SCH (21:28)
[2016-12-29] MEDS: busPIRone 15 MG Tab PO SCH (21:28)
[2016-12-30] MEDS: Alendronate 70 MG Tab PO SCH ×2 (07:39→10:31)
[2016-12-30] MEDS: Omeprazole 20 MG Cap.CR PO SCH ×2 (07:40→10:32)
[2016-12-30] MEDS: Albuterol/Ipratropium 3.0-0.5 MG/3 ML Neb Soln NEB SCH ×4 (08:03→20:56)
[2016-12-30] MEDS: Arformoterol 15 MCG/2 ML Neb Soln INH SCH ×2 (08:03→20:44)
--- NOTE | 2016-12-30 08:19 | PCM.PN ---
- General Info Date of Service: 12/30/16 Admission Dx/Problem (Free Text): Patient states that he wants to pull the plug. He's been refusing his nebulizer treatments and wanted the IV out. He states he short of breath. Denies coughing, chest pain, fevers or chills. Denies leg swelling. - Patient Data Vitals - most recent: Last Vital Signs Temp 97.7 F 12/30/16 04:00 Pulse 96 12/30/16 04:00 Resp 24 H 12/30/16 04:00 BP 128/82 12/30/16 00:00 Pulse Ox 92 L 12/30/16 04:00 Weight - most recent: 186 lb I&O - last 24 hours: Intake & Output 12/29/16 12/30/16 12/30/16 22:59 06:59 14:59 Intake Total 250 250 Output Total 450 Balance -200 250 Lab Results last 24 hrs: Laboratory Results - last 24 hr 12/29/16 12/30/16 12/30/16 Range/Units 19:00 06:35 06:35 WBC 12.8 H (4.5-12.0) X10-3/uL RBC 3.69 L (4.30-5.75) x10(6)uL Hgb 11.5 (11.5-15.5) g/dL Hct 35.7 (30.0-51.3) % MCV 96.8 H (80-96) fL MCH 31.1 (27.7-33.6) pg MCHC 32.1 L (32.2-35.4) g/dL RDW 12.8 (11.5-15.5) % Plt Count 187 (125-369) X10(3)uL MPV 7.4 (7.4-10.4) fL Neut % (Auto) 80.6 (46-82) % Lymph % (Auto) 8.0 L (13-37) % [place] % (Auto) 10.9 (4-12) % Eos % (Auto) 0 L (1.0-5.0) % Baso % (Auto) 0 (0-2) % Neut # (Auto) 10.3 H (1.6-8.3) # Lymph # (Auto) 1.0 (0.6-5.0) # [place] # (Auto) 1.4 H (0.0-1.3) # Eos # (Auto) 0.0 (0.0-0.8) # Baso # (Auto) 0.1 (0.0-0.2) # ABG pH (7.35-7.45) ABG pCO2 (35-45) mmHg ABG pO2 (83-108) mmHg ABG HCO3 (22-26) mmol/L ABG O2 Saturation (96-97) % ABG Base Excess (-2-2) Moises Test O2 Delivery Device Sodium 139 (135-145) mmol/L Potassium 4.6 (3.5-5.3) mmol/L Chloride 87 L* (100-110) mmol/L Carbon Dioxide 45 H* (23-29) mmol/L BUN 21 (8-23) mg/dL Creatinine 0.6 (0.6-1.3) mg/dL Est Cr Clr Drug Dosing 89.69 mL/min Estimated GFR (MDRD) > 60 (>60) BUN/Creatinine Ratio 35.0 H (9-20) Glucose 119 H (80-116) mg/dL POC Glucose 247 H (80-116) mg/dL Calcium 9.2 (8.6-10.2) mg/dL Total Bilirubin 0.4 (0.1-1.3) mg/dL AST 44 H D (5-27) IU/L ALT 33 H D (14-26) IU/L Alkaline Phosphatase 50 L (56-112) IU/L Total Protein 6.9 (6.0-8.0) g/dL Albumin 3.9 (3.2-4.6) g/dL Globulin 3.0 g/dL Albumin/Globulin Ratio 1.3 12/30/16 Range/Units 07:25 WBC (4.5-12.0) X10-3/uL RBC (4.30-5.75) x10(6)uL Hgb (11.5-15.5) g/dL Hct (30.0-51.3) % MCV (80-96) fL MCH (27.7-33.6) pg MCHC (32.2-35.4) g/dL RDW (11.5-15.5) % Plt Count (125-369) X10(3)uL MPV (7.4-10.4) fL Neut % (Auto) (46-82) % Lymph % (Auto) (13-37) % [place] % (Auto) (4-12) % Eos % (Auto) (1.0-5.0) % Baso % (Auto) (0-2) % Neut # (Auto) (1.6-8.3) # Lymph # (Auto) (0.6-5.0) # [place] # (Auto) (0.0-1.3) # Eos # (Auto) (0.0-0.8) # Baso # (Auto) (0.0-0.2) # ABG pH 7.35 (7.35-7.45) ABG pCO2 87 H* (35-45) mmHg ABG pO2 71 L (83-108) mmHg ABG HCO3 47 H (22-26) mmol/L ABG O2 Saturation 92 L (96-97) % ABG Base Excess 17.1 H (-2-2) Moises Test Performed O2 Delivery Device Hi flow nasal cannu Sodium (135-145) mmol/L Potassium (3.5-5.3) mmol/L Chloride (100-110) mmol/L Carbon Dioxide (23-29) mmol/L BUN (8-23) mg/dL Creatinine (0.6-1.3) mg/dL Est Cr Clr Drug Dosing mL/min Estimated GFR (MDRD) (>60) BUN/Creatinine Ratio (9-20) Glucose (80-116) mg/dL POC Glucose (80-116) mg/dL Calcium (8.6-10.2) mg/dL Total Bilirubin (0.1-1.3) mg/dL AST (5-27) IU/L ALT (14-26) IU/L Alkaline Phosphatase (56-112) IU/L Total Protein (6.0-8.0) g/dL Albumin (3.2-4.6) g/dL Globulin g/dL Albumin/Globulin Ratio Med Orders - Current: Current Medications Albuterol/Ipratropium (Duoneb 3.0-0.5 Mg/3 Ml) 3 ml NEB QIDRT [facility] Last Admin: 12/30/16 08:03 Dose: Not Given Albuterol/Ipratropium (Duoneb 3.0-0.5 Mg/3 Ml) 3 ml NEB Q4H PRN PRN Reason: Dyspnea Alendronate Sodium (Fosamax) 70 mg PO Tu@0700 [facility] Last Admin: 12/30/16 07:39 Dose: Not Given Arformoterol Tartrate (Brovana) 15 mcg INH BIDRT [facility] Last Admin: 12/30/16 08:03 Dose: Not Given Ascorbic Acid (Vitamin C) 1,000 mg PO DAILY [facility] Aspirin (Ecotrin) 325 mg PO BID [facility] Last Admin: 12/29/16 21:28 Dose: Not Given Buspirone HCl (Buspar) 7.5 mg PO BID [facility] Last Admin: 12/29/16 21:28 Dose: Not Given Cholecalciferol (Vitamin D3) 1,000 units PO DAILY [facility] Cyanocobalamin (Vitamin B12) 1,000 mcg PO DAILY [facility] Enoxaparin Sodium (Lovenox) 40 mg SUBCUT DAILY [facility] Last Admin: 12/29/16 15:04 Dose: 40 mg Fish Oil (Fish Oil) 1 gm PO DAILY [facility] Fluoxetine HCl (Prozac) 40 mg PO DAILY [facility] Furosemide (Lasix) 40 mg PO BIDDIURETIC [facility] Glimepiride (Amaryl) 2 mg PO DAILY [facility] Levofloxacin/Dextrose 500 mg/ (Premix) 100 mls @ 100 mls/hr IV Q24H [facility] Last Admin: 12/29/16 15:12 Dose: 100 mls/hr Sodium Chloride (Normal Saline) 250 mls @ 100 mls/hr IV ASDIRECTED [facility] Lorazepam (Ativan) 0.5 mg PO TID PRN PRN Reason: Anxiety Methylprednisolone Sodium Succinate (Solu-Medrol) 125 mg IVPUSH Q12H [facility] Last Admin: 12/29/16 21:28 Dose: Not Given Mirtazapine (Remeron) 7.5 mg PO BEDTIME [facility] Last Admin: 12/29/16 21:28 Dose: Not Given Multivitamins/Minerals/Vitamin C (Tab-A-Hernandez) 1 tab PO DAILY [facility] Nabumetone (Relafen) 750 mg PO BID [facility] Last Admin: 12/29/16 21:28 Dose: Not Given Omeprazole (Omeprazole) 40 mg PO DAILY@0730 [facility] Last Admin: 12/30/16 07:40 Dose: Not Given Polyethylene Glycol (Miralax) 17 gm PO BEDTIME PRN PRN Reason: Constipation Simvastatin (Zocor) 40 mg PO BEDTIME [facility] Last Admin: 12/29/16 21:28 Dose: Not Given Sodium Chloride (Saline Flush) 10 ml FLUSH ASDIRECTED PRN PRN Reason: Keep Vein Open Vitamin E (Vitamin E) 1,000 units PO DAILY [facility] Discontinued Medications Albuterol/Ipratropium (Duoneb 3.0-0.5 Mg/3 Ml) 3 ml NEB ONETIME ONE Stop: 12/29/16 08:48 Last Admin: 12/29/16 09:11 Dose: 3 ml Alendronate Sodium (Fosamax) 70 mg PO TU [facility] Furosemide (Lasix) 40 mg IVPUSH NOW STA Stop: 12/29/16 11:34 Furosemide (Lasix) 20 mg IVPUSH NOW ONE Stop: 12/29/16 11:39 Last Admin: 12/29/16 15:29 Dose: Not Given Levofloxacin/Dextrose (Levaquin In D5w 500 Mg/100 Ml) Confirm Administered Dose 100 mls @ as directed IV .STK-MED ONE Stop: 12/29/16 14:56 Last Admin: 12/29/16 15:17 Dose: Not Given Methylprednisolone Sodium Succinate (Solu-Medrol) 125 mg IVPUSH ONETIME ONE Stop: 12/29/16 08:48 Last Admin: 12/29/16 09:20 Dose: 125 mg - Exam General: alert, oriented. No: cooperative Neck: supple Lungs: Normal respiratory effort, Decreased breath sounds, Wheezing Cardiovascular: Regular Rate, Regular Rhythm, No Murmurs Abdomen: bowel sounds present, soft, no tenderness, no distension Extremities: no edema - Problem List & Annotations (1) COPD (chronic obstructive pulmonary disease) SNOMED Code(s): 13007319 Code(s): J44.9 - CHRONIC OBSTRUCTIVE PULMONARY DISEASE, UNSPECIFIED Status : Acute Current Visit: Yes Qualifiers: COPD type: COPD with acute lower respiratory infection Qualified Code(s): J44.0 - Chronic obstructive pulmonary disease with acute lower respiratory infection (2) Pneumonia SNOMED Code(s): 849041976 Code(s): J18.9 - PNEUMONIA, UNSPECIFIED ORGANISM Status: Acute Current Visit: Yes Qualifiers: Pneumonia type: aspiration pneumonia Laterality: bilateral (3) Palliative care status SNOMED Code(s): 461927792 Code(s): Z51.5 - ENCOUNTER FOR PALLIATIVE CARE Status: Acute Current Visit: No - Problem List Review Problem List Initiated/Reviewed/Updated: Yes - My Orders Last 24 Hours: My Active Orders 12/29/16 12:52 Resuscitation Status Routine 12/29/16 13:00 Ambulate [RC] 09,13,17,21 December Shower [RC] ASDIRECTED Up With Assistance [RC] ASDIRECTED Sodium Chloride 0.9% [Saline Flush] 10 ml FLUSH ASDIRECTED PRN Peripheral IV Insertion Adult [OM.PC] Routine 12/29/16 13:02 Intake and Output [RC] 06,14,22 Sequential Compression Device [OM.PC] Per Unit Routine 12/29/16 13:04 Accu Check [Blood Glucose Check, Bedside] [RC] BIDMEALS 12/29/16 13:15 Enoxaparin [Lovenox] 40 mg SUBCUT DAILY 12/29/16 16:03 Albuterol/Ipratropium [DuoNeb 3.0-0.5 MG/3 ML] 3 ml NEB Q4H PRN 12/29/16 16:04 RT Aerosol Therapy [RC] ASDIRECTED 12/29/16 16:10 LORazepam [Ativan] 0.5 mg PO TID PRN Polyethylene Glycol 3350 [MiraLAX] 17 gm PO BEDTIME PRN 12/29/16 17:00 Albuterol/Ipratropium [DuoNeb 3.0-0.5 MG/3 ML] 3 ml NEB QIDRT 12/29/16 18:30 Sodium Chloride 0.9% [Normal Saline] 250 ml IV ASDIRECTED 12/29/16 21:00 Arformoterol [Brovana] 15 mcg INH BIDRT Aspirin [Ecotrin] 325 mg PO BID Mirtazapine [Remeron] 7.5 mg PO BEDTIME Nabumetone [Relafen] 750 mg PO BID Simvastatin [Zocor] 40 mg PO BEDTIME busPIRone [Buspar] 7.5 mg PO BID methylPREDNISolone Sod Succ [Solu-MEDROL] 125 mg IVPUSH Q12H 12/29/16 Dinner Consistent Carbohydrate Diet [DIET] 12/30/16 07:00 Alendronate [Fosamax] 70 mg PO Tu@0700 12/30/16 07:30 Omeprazole 40 mg PO DAILY@0730 12/30/16 09:00 Ascorbic Acid [Vitamin C] 1,000 mg PO DAILY Cholecalciferol (Vitamin D3) [Vitamin D3] 1,000 units PO DAILY Cyanocobalamin (Vitamin B12) [Vitamin B12] 1,000 mcg PO DAILY FLUoxetine [PROzac] 40 mg PO DAILY Fish Oil/Seibert-3 Fatty Acids [Fish Oil] 1 gm PO DAILY Glimepiride [Amaryl] 2 mg PO DAILY Multivitamins [Tab-A-Hernandez] 1 tab PO DAILY Vitamin E 1,000 units PO DAILY 12/30/16 16:30 Furosemide [Lasix] 40 mg PO BIDDIURETIC - Assessment Assessment:: 1. I discussed the importance of the treatments that were given. I told him that none of them are heroic. 2. Continue current care. Keep O2 sats between 88-92% if he is willing. 3. I did briefly mention hospice with the patient. He says he has talk to his family about that but said nothing further about it. 4. I encouraged him that he is not as bad as he was last time he came in. - Plan Plan:: 1. Admit for pneumonia and COPD exacerbation. Chest x-ray shows pneumonia. 2. LevNitza meadeMcgd-[id number]-[id number] orders 3. O2 to keep sats between 88-92%. 4. Discussed advanced directive. He wants to be a DO NOT RESUSCITATE/DO NOT INTUBATE. 5. Check Accu-Cheks and diabetic diet 6. Up with assist and ambulate. 7. Recheck labs in the a.m. including a ABG.
[2016-12-30] MEDS ORDERED: VITAMIN E 200 UNIT PO SCH (09:00)
[2016-12-30] MEDS ORDERED: Glimepiride 2 MG Tab PO SCH (09:00)
[2016-12-30] MEDS: Enoxaparin 40 MG/0.4 ML Syringe SUBCUT SCH (09:42)
[2016-12-30] MEDS ORDERED: LORazepam 0.5 MG Tab PO PRN (09:52)
[2016-12-30] MEDS: busPIRone 15 MG Tab PO SCH ×2 (10:25→20:30)
[2016-12-30] MEDS: Fish Oil/Omega-3 Fatty Acids 1 Gm Cap PO SCH (10:26)
[2016-12-30] MEDS: Aspirin 325 MG Tab.EC PO SCH ×2 (10:26→20:32)
[2016-12-30] MEDS: FLUoxetine 20 MG Cap PO SCH (10:26)
[2016-12-30] MEDS: Multivitamin Tab PO SCH (10:27)
[2016-12-30] MEDS: Glimepiride 2 MG Tab PO SCH (10:28)
[2016-12-30] MEDS: Ascorbic Acid 500 MG Tab PO SCH (10:28)
[2016-12-30] MEDS: Cyanocobalamin (Vitamin B12) 1,000 MCG Tab PO SCH (10:28)
[2016-12-30] MEDS: Cholecalciferol (Vitamin D3) 1,000 Unit Tab PO SCH (10:28)
[2016-12-30] MEDS: Vitamin E (dl-alpha-tocopherol acetate) 400 Unit Cap PO SCH (10:30)
[2016-12-30] MEDS: ClonazePAM 1 MG Tab PO SCH ×2 (10:41→21:33)
[2016-12-30] MEDS: Acetaminophen/Codeine 300-30 MG Tab PO SCH ×2 (10:41→15:06)
[2016-12-30] MEDS: methylPREDNISolone Sodium Succinate 125 MG/2 ML SDV IVPUSH SCH ×2 (10:52→20:35)
[2016-12-30] MEDS: Sodium Chloride 0.9% 10 ML Syringe FLUSH PRN ×2 (10:52→13:25)
--- NOTE | 2016-12-30 13:16 | CR ---
INDICATION: Trauma, fell. PELVIS WITH RIGHT HIP: Four images of the pelvis and right hip, with frontal and lateral views of the right hip, revealed degenerative changes of mild degree at the right hip joint, with the joint spaces of both hip joints fairly well preserved. A fracture or dislocation was not identified. IMPRESSION: Mild degenerative changes right hip joint. MTDD
--- NOTE | 2016-12-30 13:16 | CR ---
INDICATION: Trauma, fell. RIGHT KNEE: Frontal and lateral views of the right knee were obtained. There is suggested some degenerative change at the medial femorotibial joint surface of the tibia with some sclerosis at the tibial plateau. However, no significant hypertrophic degenerative change or definite narrowing of the joint space was identified. A definite fracture or dislocation was not identified. IMPRESSION: No acute fracture or dislocation identified. MTDD
[2016-12-30] MEDS ORDERED: Acetaminophen/Codeine 300-30 MG Tab PO PRN (13:20)
[2016-12-30] MEDS: Levofloxacin/Dextrose 5%-Water 500 MG in Premix Bag 1 BAG IV SCH (13:25)
[2016-12-30] MEDS ORDERED: Furosemide 100 MG/10 ML SDV IVPUSH ONE (13:30)
[2016-12-30] MEDS ORDERED: Alendronate 70 MG Tab PO SCH (16:10)
[2016-12-30] MEDS ORDERED: Furosemide 40 MG Tab PO SCH (16:30)
[2016-12-30] MEDS: Mirtazapine 15 MG Tab PO SCH (20:33)
[2016-12-30] MEDS: Simvastatin 40 MG Tab PO SCH (20:34)
[2016-12-31] MEDS: Omeprazole 20 MG Cap.CR PO SCH (06:37)
[2016-12-31] MEDS: Arformoterol 15 MCG/2 ML Neb Soln INH SCH ×2 (07:34→20:30)
[2016-12-31] MEDS: Albuterol/Ipratropium 3.0-0.5 MG/3 ML Neb Soln NEB SCH ×4 (07:34→20:56)
[2016-12-31] MEDS: Furosemide 40 MG Tab PO SCH ×2 (08:22→14:19)
[2016-12-31] MEDS: Aspirin 325 MG Tab.EC PO SCH ×2 (08:23→21:29)
[2016-12-31] MEDS: Glimepiride 2 MG Tab PO SCH (08:23)
[2016-12-31] MEDS: busPIRone 15 MG Tab PO SCH ×2 (08:23→21:29)
[2016-12-31] MEDS: Enoxaparin 40 MG/0.4 ML Syringe SUBCUT SCH (08:24)
[2016-12-31] MEDS: FLUoxetine 20 MG Cap PO SCH (08:24)
[2016-12-31] MEDS: Fish Oil/Omega-3 Fatty Acids 1 Gm Cap PO SCH (08:24)
[2016-12-31] MEDS: Ascorbic Acid 500 MG Tab PO SCH (08:25)
[2016-12-31] MEDS: Cyanocobalamin (Vitamin B12) 1,000 MCG Tab PO SCH (08:25)
[2016-12-31] MEDS: Vitamin E (dl-alpha-tocopherol acetate) 400 Unit Cap PO SCH (08:25)
[2016-12-31] MEDS: Multivitamin Tab PO SCH (08:25)
[2016-12-31] MEDS: Cholecalciferol (Vitamin D3) 1,000 Unit Tab PO SCH (08:25)
[2016-12-31] MEDS: Sodium Chloride 0.9% 10 ML Syringe FLUSH PRN (08:26)
[2016-12-31] MEDS: methylPREDNISolone Sodium Succinate 125 MG/2 ML SDV IVPUSH SCH (08:26)
--- NOTE | 2016-12-31 08:32 | PCM.PN ---
- General Info Date of Service: 12/31/16 Admission Dx/Problem (Free Text): Patient states he is breathing better. He denies cough. Less short of breath. No chest pain, fevers, chills, leg swelling. - Patient Data Vitals - most recent: Last Vital Signs Temp 97.4 F 12/31/16 04:00 Pulse 100 12/31/16 07:45 Resp 26 H 12/31/16 04:00 BP 109/72 12/31/16 04:00 Pulse Ox 98 12/31/16 07:35 Weight - most recent: 186 lb I&O - last 24 hours: Intake & Output 12/30/16 12/31/16 12/31/16 22:59 06:59 14:59 Intake Total 325 100 Output Total 400 Balance -75 100 Lab Results last 24 hrs: Laboratory Results - last 24 hr 12/30/16 12/30/16 12/30/16 Range/Units 11:32 18:01 21:01 POC Glucose 216 H 409 H* D 338 H (80-116) mg/dL 12/31/16 Range/Units 06:36 POC Glucose 188 H D (80-116) mg/dL Med Orders - Current: Current Medications Acetaminophen/Codeine Phosphate (Tylenol With Codeine No.3 300mg/30mg) 1 tab PO QID PRN PRN Reason: PAIN Albuterol/Ipratropium (Duoneb 3.0-0.5 Mg/3 Ml) 3 ml NEB QIDRT [facility] Last Admin: 12/31/16 07:34 Dose: 3 ml Albuterol/Ipratropium (Duoneb 3.0-0.5 Mg/3 Ml) 3 ml NEB Q4H PRN PRN Reason: Dyspnea Alendronate Sodium (Fosamax) 70 mg PO Tu@0700 [facility] Last Admin: 12/30/16 10:31 Dose: 70 mg Arformoterol Tartrate (Brovana) 15 mcg INH BIDRT [facility] Last Admin: 12/31/16 07:34 Dose: 15 mcg Ascorbic Acid (Vitamin C) 1,000 mg PO DAILY [facility] Last Admin: 12/31/16 08:25 Dose: 1,000 mg Aspirin (Ecotrin) 325 mg PO BID [facility] Last Admin: 12/31/16 08:23 Dose: 325 mg Buspirone HCl (Buspar) 7.5 mg PO BID [facility] Last Admin: 12/31/16 08:23 Dose: 7.5 mg Cholecalciferol (Vitamin D3) 1,000 units PO DAILY [facility] Last Admin: 12/31/16 08:25 Dose: 1,000 units Clonazepam (Klonopin) 1 mg PO BID [facility] Last Admin: 12/30/16 21:33 Dose: 1 mg Cyanocobalamin (Vitamin B12) 1,000 mcg PO DAILY [facility] Last Admin: 12/31/16 08:25 Dose: 1,000 mcg Enoxaparin Sodium (Lovenox) 40 mg SUBCUT DAILY [facility] Last Admin: 12/31/16 08:24 Dose: 40 mg Fish Oil (Fish Oil) 1 gm PO DAILY [facility] Last Admin: 12/31/16 08:24 Dose: 1 gm Fluoxetine HCl (Prozac) 40 mg PO DAILY [facility] Last Admin: 12/31/16 08:24 Dose: 40 mg Furosemide (Lasix) 40 mg PO BIDDIURETIC [facility] Last Admin: 12/31/16 08:22 Dose: 40 mg Glimepiride (Amaryl) 1 mg PO DAILY [facility] Last Admin: 12/31/16 08:23 Dose: 1 mg Levofloxacin/Dextrose 500 mg/ (Premix) 100 mls @ 100 mls/hr IV Q24H [facility] Last Admin: 12/30/16 13:25 Dose: 100 mls/hr Sodium Chloride (Normal Saline) 250 mls @ 100 mls/hr IV ASDIRECTED [facility] Last Admin: 12/30/16 13:25 Dose: 100 mls/hr Lorazepam (Ativan) 0.5 mg PO TID PRN PRN Reason: ANXIETY Methylprednisolone Sodium Succinate (Solu-Medrol) 125 mg IVPUSH Q12H [facility] Last Admin: 12/31/16 08:26 Dose: 125 mg Mirtazapine (Remeron) 7.5 mg PO BEDTIME [facility] Last Admin: 12/30/16 20:33 Dose: 7.5 mg Multivitamins/Minerals/Vitamin C (Tab-A-Hernandez) 1 tab PO DAILY [facility] Last Admin: 12/31/16 08:25 Dose: 1 tab Nabumetone (Relafen) 750 mg PO BID [facility] Last Admin: 12/31/16 08:24 Dose: 750 mg Omeprazole (Omeprazole) 40 mg PO DAILY@0730 [facility] Last Admin: 12/31/16 06:37 Dose: 40 mg Polyethylene Glycol (Miralax) 17 gm PO BEDTIME PRN PRN Reason: Constipation Simvastatin (Zocor) 40 mg PO BEDTIME [facility] Last Admin: 12/30/16 20:34 Dose: 40 mg Vitamin E (Vitamin E) 400 units PO DAILY [facility] Last Admin: 12/31/16 08:25 Dose: 400 units Discontinued Medications Acetaminophen/Codeine Phosphate (Tylenol With Codeine No.3 300mg/30mg) 1 tab PO QID [facility] Last Admin: 12/30/16 15:06 Dose: Not Given Albuterol/Ipratropium (Duoneb 3.0-0.5 Mg/3 Ml) 3 ml NEB ONETIME ONE Stop: 12/29/16 08:48 Last Admin: 12/29/16 09:11 Dose: 3 ml Alendronate Sodium (Fosamax) 70 mg PO TU [facility] Furosemide (Lasix) 40 mg IVPUSH NOW STA Stop: 12/29/16 11:34 Furosemide (Lasix) 20 mg IVPUSH NOW ONE Stop: 12/29/16 11:39 Last Admin: 12/29/16 15:29 Dose: Not Given Furosemide (Lasix) 40 mg PO BIDDIURETIC [facility] Furosemide (Lasix) 60 mg IVPUSH ONETIME ONE Stop: 12/30/16 13:31 Last Admin: 12/30/16 13:28 Dose: 60 mg Levofloxacin/Dextrose (Levaquin In D5w 500 Mg/100 Ml) Confirm Administered Dose 100 mls @ as directed IV .STK-MED ONE Stop: 12/29/16 14:56 Last Admin: 12/29/16 15:17 Dose: Not Given Lorazepam (Ativan) 0.5 mg PO TID PRN PRN Reason: Anxiety Methylprednisolone Sodium Succinate (Solu-Medrol) 125 mg IVPUSH ONETIME ONE Stop: 12/29/16 08:48 Last Admin: 12/29/16 09:20 Dose: 125 mg Sodium Chloride (Saline Flush) 10 ml FLUSH ASDIRECTED PRN PRN Reason: Keep Vein Open Last Admin: 12/31/16 08:26 Dose: 10 ml - Exam General: alert, oriented, cooperative Neck: supple Lungs: Decreased breath sounds, Rales (Mild) Cardiovascular: Regular Rate, Regular Rhythm, No Murmurs Extremities: no edema - Problem List & Annotations (1) COPD (chronic obstructive pulmonary disease) SNOMED Code(s): 79344609 Code(s): J44.9 - CHRONIC OBSTRUCTIVE PULMONARY DISEASE, UNSPECIFIED Status : Acute Current Visit: Yes Qualifiers: COPD type: COPD with acute lower respiratory infection Qualified Code(s): J44.0 - Chronic obstructive pulmonary disease with acute lower respiratory infection (2) Pneumonia SNOMED Code(s): 518347519 Code(s): J18.9 - PNEUMONIA, UNSPECIFIED ORGANISM Status: Acute Current Visit: Yes Qualifiers: Pneumonia type: aspiration pneumonia Laterality: bilateral (3) Palliative care status SNOMED Code(s): 368417129 Code(s): Z51.5 - ENCOUNTER FOR PALLIATIVE CARE Status: Acute Current Visit: No - Problem List Review Problem List Initiated/Reviewed/Updated: Yes - My Orders Last 24 Hours: My Active Orders 12/30/16 09:00 Ascorbic Acid [Vitamin C] 1,000 mg PO DAILY Cholecalciferol (Vitamin D3) [Vitamin D3] 1,000 units PO DAILY Cyanocobalamin (Vitamin B12) [Vitamin B12] 1,000 mcg PO DAILY FLUoxetine [PROzac] 40 mg PO DAILY Fish Oil/[place]-3 Fatty Acids [Fish Oil] 1 gm PO DAILY Multivitamins [Tab-A-Hernandez] 1 tab PO DAILY 12/30/16 09:52 LORazepam [Ativan] 0.5 mg PO TID PRN 12/30/16 10:00 ClonazePAM [KlonoPIN] 1 mg PO BID Glimepiride [Amaryl] 1 mg PO DAILY Vitamin E (dl, acetate) [Vitamin E] 400 units PO DAILY 12/30/16 10:08 Consult to Vp Of Customer Experience Strategy [CONS] Routine OT Evaluation and Treatment [CONS] Routine PT Evaluation and Treatment [CONS] Routine 12/30/16 13:20 Acetaminophen/Codeine [Tylenol with Codeine No.3 300MG/30MG] 1 tab PO QID PRN 12/31/16 08:00 Furosemide [Lasix] 40 mg PO BIDDIURETIC 12/31/16 09:00 methylPREDNISolone Sod Succ [Solu-MEDROL] 125 mg IVPUSH DAILY - Plan Plan:: 1. Decrease Solu-Medrol to once a day. 2. 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 3. Stop IV fluids and saline locked IV. 4. Continue breathing treatments and antibiotic therapy.
[2016-12-31] MEDS: ClonazePAM 1 MG Tab PO SCH ×2 (08:39→21:29)
[2016-12-31] MEDS: Carboxymethylcellulose Sodium 0.5% Ophth Soln 15 ML Bottle EYEBOTH PRN ×2 (09:47→20:31)
[2016-12-31] MEDS ORDERED: Sodium Chloride 0.9% 10 ML Syringe FLUSH PRN (12:45)
[2016-12-31] MEDS ORDERED: Sodium Chloride 0.9% 250 ML IV SCH (12:45)
[2016-12-31] MEDS: Levofloxacin/Dextrose 5%-Water 500 MG in Premix Bag 1 BAG IV SCH (12:47)
[2016-12-31] MEDS: Mirtazapine 15 MG Tab PO SCH (21:30)
[2016-12-31] MEDS: Simvastatin 40 MG Tab PO SCH (21:30)
[2017-01-01] MEDS: Furosemide 40 MG/4 ML VIAL IVPUSH STA ×2 (02:53→02:54)
[2017-01-01] MEDS: Omeprazole 20 MG Cap.CR PO SCH (06:29)
[2017-01-01] MEDS: Albuterol/Ipratropium 3.0-0.5 MG/3 ML Neb Soln NEB SCH ×4 (07:37→20:46)
[2017-01-01] MEDS: Arformoterol 15 MCG/2 ML Neb Soln INH SCH ×2 (07:37→20:45)
--- NOTE | 2017-01-01 08:05 | PCM.PN ---
- General Info Date of Service: 01/01/17 Admission Dx/Problem (Free Text): Nurses state that he was not arousable last night. The ER evaluated him and almost felt like intubating him. But since he was not a full code they watched him overnight. He sat of 92% and looked comfortable on nasal cannula 3 L through his mouth. He woke up this morning and is doing well. He states his breathing is better with less cough. Denies fevers, chills, chest pain. - Patient Data Vitals - most recent: Last Vital Signs Temp 97.8 F 01/01/17 05:00 Pulse 97 01/01/17 05:00 Resp 20 01/01/17 05:00 BP 130/78 01/01/17 05:00 Pulse Ox 94 L 01/01/17 07:00 Weight - most recent: 186 lb I&O - last 24 hours: Intake & Output 12/31/16 01/01/17 01/01/17 22:59 06:59 14:59 Intake Total 0 0 200 Output Total 0 Balance 0 0 200 Lab Results last 24 hrs: Laboratory Results - last 24 hr 12/31/16 01/01/17 Range/Units 19:23 06:23 POC Glucose 229 H 120 H D (80-116) mg/dL Med Orders - Current: Current Medications Acetaminophen/Codeine Phosphate (Tylenol With Codeine No.3 300mg/30mg) 1 tab PO QID PRN PRN Reason: PAIN Albuterol/Ipratropium (Duoneb 3.0-0.5 Mg/3 Ml) 3 ml NEB QIDRT [facility] Last Admin: 01/01/17 07:37 Dose: 3 ml Albuterol/Ipratropium (Duoneb 3.0-0.5 Mg/3 Ml) 3 ml NEB Q4H PRN PRN Reason: Dyspnea Alendronate Sodium (Fosamax) 70 mg PO Tu@0700 [facility] Last Admin: 12/30/16 10:31 Dose: 70 mg Arformoterol Tartrate (Brovana) 15 mcg INH BIDRT [facility] Last Admin: 01/01/17 07:37 Dose: 15 mcg Artificial Tears (Refresh Tears 0.5%) 1 ml EYEBOTH ASDIRECTED PRN PRN Reason: Dry Eyes Last Admin: 12/31/16 20:31 Dose: 1 drop Ascorbic Acid (Vitamin C) 1,000 mg PO DAILY [facility] Last Admin: 12/31/16 08:25 Dose: 1,000 mg Aspirin (Ecotrin) 325 mg PO BID [facility] Last Admin: 12/31/16 21:29 Dose: Not Given Buspirone HCl (Buspar) 7.5 mg PO BID [facility] Last Admin: 12/31/16 21:29 Dose: Not Given Cholecalciferol (Vitamin D3) 1,000 units PO DAILY [facility] Last Admin: 12/31/16 08:25 Dose: 1,000 units Clonazepam (Klonopin) 1 mg PO BID [facility] Last Admin: 12/31/16 21:29 Dose: Not Given Cyanocobalamin (Vitamin B12) 1,000 mcg PO DAILY [facility] Last Admin: 12/31/16 08:25 Dose: 1,000 mcg Enoxaparin Sodium (Lovenox) 40 mg SUBCUT DAILY [facility] Last Admin: 12/31/16 08:24 Dose: 40 mg Fish Oil (Fish Oil) 1 gm PO DAILY [facility] Last Admin: 12/31/16 08:24 Dose: 1 gm Fluoxetine HCl (Prozac) 40 mg PO DAILY [facility] Last Admin: 12/31/16 08:24 Dose: 40 mg Furosemide (Lasix) 40 mg PO BIDDIURETIC [facility] Last Admin: 12/31/16 14:19 Dose: 40 mg Glimepiride (Amaryl) 1 mg PO DAILY [facility] Last Admin: 12/31/16 08:23 Dose: 1 mg Levofloxacin/Dextrose 500 mg/ (Premix) 100 mls @ 100 mls/hr IV Q24H [facility] Last Admin: 12/31/16 12:47 Dose: 100 mls/hr Sodium Chloride (Normal Saline) 250 mls @ 100 mls/hr IV ASDIRECTED [facility] Last Admin: 12/31/16 12:47 Dose: 100 mls/hr Lorazepam (Ativan) 0.5 mg PO TID PRN PRN Reason: ANXIETY Methylprednisolone Sodium Succinate (Solu-Medrol) 125 mg IVPUSH DAILY [facility] Mirtazapine (Remeron) 7.5 mg PO BEDTIME [facility] Last Admin: 12/31/16 21:30 Dose: Not Given Multivitamins/Minerals/Vitamin C (Tab-A-Hernandez) 1 tab PO DAILY [facility] Last Admin: 12/31/16 08:25 Dose: 1 tab Nabumetone (Relafen) 750 mg PO BID [facility] Last Admin: 12/31/16 21:29 Dose: Not Given Omeprazole (Omeprazole) 40 mg PO DAILY@0730 [facility] Last Admin: 01/01/17 06:29 Dose: 40 mg Polyethylene Glycol (Miralax) 17 gm PO BEDTIME PRN PRN Reason: Constipation Simvastatin (Zocor) 40 mg PO BEDTIME [facility] Last Admin: 12/31/16 21:30 Dose: Not Given Sodium Chloride (Saline Flush) 10 ml FLUSH ASDIRECTED PRN PRN Reason: flush med Last Admin: 12/31/16 12:47 Dose: 10 ml Vitamin E (Vitamin E) 400 units PO DAILY [facility] Last Admin: 12/31/16 08:25 Dose: 400 units Discontinued Medications Acetaminophen/Codeine Phosphate (Tylenol With Codeine No.3 300mg/30mg) 1 tab PO QID [facility] Last Admin: 12/30/16 15:06 Dose: Not Given Albuterol/Ipratropium (Duoneb 3.0-0.5 Mg/3 Ml) 3 ml NEB ONETIME ONE Stop: 12/29/16 08:48 Last Admin: 12/29/16 09:11 Dose: 3 ml Alendronate Sodium (Fosamax) 70 mg PO TU [facility] Furosemide (Lasix) 40 mg IVPUSH NOW STA Stop: 12/29/16 11:34 Last Admin: 01/01/17 02:54 Dose: Not Given Furosemide (Lasix) 20 mg IVPUSH NOW ONE Stop: 12/29/16 11:39 Last Admin: 12/29/16 15:29 Dose: Not Given Furosemide (Lasix) 40 mg PO BIDDIURETIC [facility] Furosemide (Lasix) 60 mg IVPUSH ONETIME ONE Stop: 12/30/16 13:31 Last Admin: 12/30/16 13:28 Dose: 60 mg Levofloxacin/Dextrose (Levaquin In D5w 500 Mg/100 Ml) Confirm Administered Dose 100 mls @ as directed IV .STK-MED ONE Stop: 12/29/16 14:56 Last Admin: 12/29/16 15:17 Dose: Not Given Sodium Chloride (Normal Saline) 250 mls @ 100 mls/hr IV ASDIRECTED [facility] Last Admin: 12/30/16 13:25 Dose: 100 mls/hr Lorazepam (Ativan) 0.5 mg PO TID PRN PRN Reason: Anxiety Methylprednisolone Sodium Succinate (Solu-Medrol) 125 mg IVPUSH ONETIME ONE Stop: 12/29/16 08:48 Last Admin: 12/29/16 09:20 Dose: 125 mg Methylprednisolone Sodium Succinate (Solu-Medrol) 125 mg IVPUSH Q12H [facility] Last Admin: 12/31/16 08:26 Dose: 125 mg Sodium Chloride (Saline Flush) 10 ml FLUSH ASDIRECTED PRN PRN Reason: Keep Vein Open Last Admin: 12/31/16 08:26 Dose: 10 ml - Exam General: alert, oriented, cooperative Lungs: Normal respiratory effort, Crackles (Minimal) Cardiovascular: Regular Rate, Regular Rhythm, No Murmurs Extremities: no edema - Problem List & Annotations (1) COPD (chronic obstructive pulmonary disease) SNOMED Code(s): 41895758 Code(s): J44.9 - CHRONIC OBSTRUCTIVE PULMONARY DISEASE, UNSPECIFIED Status : Acute Current Visit: Yes Qualifiers: COPD type: COPD with acute lower respiratory infection Qualified Code(s): J44.0 - Chronic obstructive pulmonary disease with acute lower respiratory infection (2) Pneumonia SNOMED Code(s): 169081243 Code(s): J18.9 - PNEUMONIA, UNSPECIFIED ORGANISM Status: Acute Current Visit: Yes Qualifiers: Pneumonia type: aspiration pneumonia Laterality: bilateral (3) Palliative care status SNOMED Code(s): 132906553 Code(s): Z51.5 - ENCOUNTER FOR PALLIATIVE CARE Status: Acute Current Visit: No - Problem List Review Problem List Initiated/Reviewed/Updated: Yes - My Orders Last 24 Hours: My Active Orders 12/31/16 08:00 Furosemide [Lasix] 40 mg PO BIDDIURETIC 12/31/16 08:32 Convert IV to Saline Lock [OM.PC] Routine 12/31/16 08:41 Carboxymethylcellulose Sodium [Refresh Tears 0.5%] 1 ml EYEBOTH ASDIRECTED PRN 12/31/16 12:45 Sodium Chloride 0.9% [Normal Saline] 250 ml IV ASDIRECTED Sodium Chloride 0.9% [Saline Flush] 10 ml FLUSH ASDIRECTED PRN 01/01/17 09:00 methylPREDNISolone Sod Succ [Solu-MEDROL] 125 mg IVPUSH DAILY - Assessment Assessment:: 1. DC IV antibiotics and start by mouth and Vioxx. 2. DC IV steroids and start by mouth steroids. 3. Awaiting to see if this patient qualifies for swing bed. - Plan Plan:: 1. Decrease Solu-Medrol to once a day. 2. 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 3. Stop IV fluids and saline locked IV. 4. Continue breathing treatments and antibiotic therapy.
[2017-01-01] MEDS: ClonazePAM 1 MG Tab PO SCH ×2 (08:48→20:46)
[2017-01-01] MEDS: predniSONE 20 MG Tab PO SCH (08:48)
[2017-01-01] MEDS: Glimepiride 2 MG Tab PO SCH (08:50)
[2017-01-01] MEDS: Furosemide 40 MG Tab PO SCH ×2 (08:50→13:43)
[2017-01-01] MEDS: Enoxaparin 40 MG/0.4 ML Syringe SUBCUT SCH (08:50)
[2017-01-01] MEDS: busPIRone 15 MG Tab PO SCH ×2 (08:51→20:45)
[2017-01-01] MEDS: Aspirin 325 MG Tab.EC PO SCH ×2 (08:52→20:46)
[2017-01-01] MEDS: Fish Oil/Omega-3 Fatty Acids 1 Gm Cap PO SCH (08:52)
[2017-01-01] MEDS: FLUoxetine 20 MG Cap PO SCH (08:53)
[2017-01-01] MEDS: Cyanocobalamin (Vitamin B12) 1,000 MCG Tab PO SCH (08:53)
[2017-01-01] MEDS: Ascorbic Acid 500 MG Tab PO SCH (08:53)
[2017-01-01] MEDS: Multivitamin Tab PO SCH (08:53)
[2017-01-01] MEDS: Cholecalciferol (Vitamin D3) 1,000 Unit Tab PO SCH (08:54)
[2017-01-01] MEDS: Vitamin E (dl-alpha-tocopherol acetate) 400 Unit Cap PO SCH (08:54)
[2017-01-01] MEDS: Carboxymethylcellulose Sodium 0.5% Ophth Soln 15 ML Bottle EYEBOTH PRN (08:55)
[2017-01-01] MEDS ORDERED: methylPREDNISolone Sodium Succinate 125 MG/2 ML SDV IVPUSH SCH (09:00)
[2017-01-01] MEDS: Levofloxacin 500 MG Tab PO SCH (12:00)
[2017-01-01] MEDS: Mirtazapine 15 MG Tab PO SCH (20:47)
[2017-01-01] MEDS: Simvastatin 40 MG Tab PO SCH (20:47)
[2017-01-01] MEDS: Albuterol/Ipratropium 3.0-0.5 MG/3 ML Neb Soln NEB PRN (23:38)
[2017-01-02] MEDS: Albuterol/Ipratropium 3.0-0.5 MG/3 ML Neb Soln NEB PRN (04:05)
[2017-01-02] MEDS: Albuterol/Ipratropium 3.0-0.5 MG/3 ML Neb Soln NEB SCH ×4 (07:11→21:42)
[2017-01-02] MEDS: Arformoterol 15 MCG/2 ML Neb Soln INH SCH ×3 (07:11→21:51)
[2017-01-02] MEDS: busPIRone 15 MG Tab PO SCH ×2 (09:24→21:41)
[2017-01-02] MEDS: Furosemide 40 MG Tab PO SCH ×2 (09:24→14:07)
[2017-01-02] MEDS: Omeprazole 20 MG Cap.CR PO SCH (09:24)
[2017-01-02] MEDS: Glimepiride 2 MG Tab PO SCH (09:24)
[2017-01-02] MEDS: Fish Oil/Omega-3 Fatty Acids 1 Gm Cap PO SCH (09:25)
[2017-01-02] MEDS: ClonazePAM 1 MG Tab PO SCH ×2 (09:25→21:42)
[2017-01-02] MEDS: Aspirin 325 MG Tab.EC PO SCH ×2 (09:25→21:42)
[2017-01-02] MEDS: Enoxaparin 40 MG/0.4 ML Syringe SUBCUT SCH (09:26)
[2017-01-02] MEDS: FLUoxetine 20 MG Cap PO SCH (09:27)
[2017-01-02] MEDS: Multivitamin Tab PO SCH (09:27)
[2017-01-02] MEDS: predniSONE 20 MG Tab PO SCH (09:27)
[2017-01-02] MEDS: Cholecalciferol (Vitamin D3) 1,000 Unit Tab PO SCH (09:28)
[2017-01-02] MEDS: Vitamin E (dl-alpha-tocopherol acetate) 400 Unit Cap PO SCH (09:28)
[2017-01-02] MEDS: Cyanocobalamin (Vitamin B12) 1,000 MCG Tab PO SCH (09:28)
[2017-01-02] MEDS: Ascorbic Acid 500 MG Tab PO SCH (09:28)
--- NOTE | 2017-01-02 12:40 | PN ---
DATE SEEN: 01/02/2017 REASON FOR VISIT: He has shortness of breath. HISTORY OF PRESENT ILLNESS: This is a 76-year-old male, who was admitted for pneumonia and COPD/restrictive airway lung disease exacerbation. He overnight has been known to be unresponsive due to high oxygenation and CO2 narcosis. He is unresponsive today and lethargic. No fever has been reported. Oxygenation was noted to be 95% this morning. PAST MEDICAL HISTORY: Type 2 diabetes, restrictive airway disease, COPD, severe kyphoscoliosis, and history of CHF in the past. MEDICATIONS: 1. He is on prednisone and Levaquin along with breathing treatments. 2. He also takes Lasix 40 mg b.i.d. PHYSICAL EXAMINATION: VITAL SIGNS: He is lethargic. He has a pulse of 108, and temperature 98.0. ENT: Negative. CHEST: Mild tachypnea and indrawing of respiratory muscles, diminished breath sounds bilaterally. Crackles on the left side. EXTREMITIES: No edema. MENTAL STATUS: Lethargic and obtunded. IMPRESSION: 1. Severe chronic obstructive pulmonary disease or restrictive lung disease exacerbation. 2. CO2 narcosis. 3. Pneumonia. 4. Type 2 diabetes. 5. Kyphoscoliosis. PLAN: I will reduce oxygenation to just keep it above 85% on room air. Physical therapy has not been helpful. The patient is not motivated enough. Continue care with antibiotics, oral Levaquin. I have no further suggestions this morning. /[id number] [place]IO/HUMPHREYL
[2017-01-02] MEDS: Levofloxacin 500 MG Tab PO SCH (14:06)
[2017-01-02] MEDS: Simvastatin 40 MG Tab PO SCH (21:43)
[2017-01-02] MEDS: Mirtazapine 15 MG Tab PO SCH (21:43)
[2017-01-03] MEDS: Albuterol/Ipratropium 3.0-0.5 MG/3 ML Neb Soln NEB PRN (03:17)
[2017-01-03] MEDS: Omeprazole 20 MG Cap.CR PO SCH (06:48)
[2017-01-03] MEDS: Arformoterol 15 MCG/2 ML Neb Soln INH SCH ×2 (07:35→21:24)
[2017-01-03] MEDS: Albuterol/Ipratropium 3.0-0.5 MG/3 ML Neb Soln NEB SCH ×4 (07:35→21:25)
[2017-01-03] MEDS: busPIRone 15 MG Tab PO SCH ×2 (09:23→21:24)
[2017-01-03] MEDS: Fish Oil/Omega-3 Fatty Acids 1 Gm Cap PO SCH (09:23)
[2017-01-03] MEDS: Carboxymethylcellulose Sodium 0.5% Ophth Soln 15 ML Bottle EYEBOTH PRN ×2 (09:23→14:26)
[2017-01-03] MEDS: predniSONE 20 MG Tab PO SCH (09:25)
[2017-01-03] MEDS: Furosemide 40 MG Tab PO SCH ×2 (09:25→14:24)
[2017-01-03] MEDS: Aspirin 325 MG Tab.EC PO SCH ×2 (09:25→21:25)
[2017-01-03] MEDS: Ascorbic Acid 500 MG Tab PO SCH (09:26)
[2017-01-03] MEDS: Multivitamin Tab PO SCH (09:26)
[2017-01-03] MEDS: Cholecalciferol (Vitamin D3) 1,000 Unit Tab PO SCH (09:27)
[2017-01-03] MEDS: Glimepiride 2 MG Tab PO SCH (09:29)
[2017-01-03] MEDS: FLUoxetine 20 MG Cap PO SCH (09:30)
[2017-01-03] MEDS: Cyanocobalamin (Vitamin B12) 1,000 MCG Tab PO SCH (09:31)
[2017-01-03] MEDS: Vitamin E (dl-alpha-tocopherol acetate) 400 Unit Cap PO SCH (09:31)
[2017-01-03] MEDS: Enoxaparin 40 MG/0.4 ML Syringe SUBCUT SCH (09:32)
[2017-01-03] MEDS: ClonazePAM 1 MG Tab PO SCH ×2 (09:39→21:58)
--- NOTE | 2017-01-03 09:54 | PN ---
DATE SEEN: 01/03/2017 REASON FOR VISIT: COPD, pneumonia. HISTORY OF PRESENT ILLNESS: Mr. Castañeda is a 76-year-old male with severe end- stage restrictive lung disease, COPD. He has severe kyphoscoliosis, type 2 diabetes, recent pneumonia. This morning, he is awake. He is alert. He is conversing with me. He complains of no new symptoms. REVIEW OF SYSTEMS: No fever, nausea, vomiting, or chest pain. ALLERGIES: Reviewed. MEDICATIONS: Reviewed. SOCIAL HISTORY: He has been living alone, does not smoke. PHYSICAL EXAMINATION: VITAL SIGNS: Blood pressure is normal, pulse is 102. His oxygenation is 86% on 3 L. EARS, NOSE, and THROAT: Negative. NECK: Supple. CHEST: Clear breath sounds anteriorly. CARDIOVASCULAR: Normal. MENTAL STATUS: Flat affect, but answers questions well. LABORATORY DATA: Today labs showed white blood cell count of 12.3, hemoglobin 12.7, chloride 88, and CO2 is 49. His BNP is 175. IMPRESSION: 1. Community-acquired pneumonia. 2. Severe restrictive lung disease. 3. Chronic obstructive pulmonary disease. 4. Type 2 diabetes. 5. Kyphoscoliosis. PLAN: I discussed with the daughter, Nery, who is a nurse in [place]. Jean Marie's options are limited in terms of long-term care, but the family will get together tonight to discuss further options, which include swing bed status, custodial placement, hospice care. We will know more today or tomorrow. In the meantime, continue with oxygenation to keep his oxygen about 85%. We will also continue with oral Levaquin and prednisone. /[id number] ARCADIO/FAUZIA
[2017-01-03] MEDS: Levofloxacin 500 MG Tab PO SCH (12:11)
[2017-01-03] MEDS: Mirtazapine 15 MG Tab PO SCH (21:25)
[2017-01-03] MEDS: Simvastatin 40 MG Tab PO SCH (21:26)
[2017-01-04] MEDS: Omeprazole 20 MG Cap.CR PO SCH (06:48)
[2017-01-04] MEDS: Albuterol/Ipratropium 3.0-0.5 MG/3 ML Neb Soln NEB SCH ×4 (07:32→21:40)
[2017-01-04] MEDS: Arformoterol 15 MCG/2 ML Neb Soln INH SCH ×2 (07:32→21:40)
[2017-01-04] MEDS: Furosemide 40 MG Tab PO SCH ×2 (08:53→13:59)
[2017-01-04] MEDS: Glimepiride 2 MG Tab PO SCH (08:54)
[2017-01-04] MEDS: busPIRone 15 MG Tab PO SCH ×2 (08:54→21:43)
[2017-01-04] MEDS: Aspirin 325 MG Tab.EC PO SCH ×2 (08:54→21:44)
[2017-01-04] MEDS: Fish Oil/Omega-3 Fatty Acids 1 Gm Cap PO SCH (08:55)
[2017-01-04] MEDS: Enoxaparin 40 MG/0.4 ML Syringe SUBCUT SCH (08:55)
[2017-01-04] MEDS: predniSONE 20 MG Tab PO SCH (08:56)
[2017-01-04] MEDS: Cyanocobalamin (Vitamin B12) 1,000 MCG Tab PO SCH (08:57)
[2017-01-04] MEDS: FLUoxetine 20 MG Cap PO SCH (08:57)
[2017-01-04] MEDS: Ascorbic Acid 500 MG Tab PO SCH (08:57)
[2017-01-04] MEDS: Vitamin E (dl-alpha-tocopherol acetate) 400 Unit Cap PO SCH (08:58)
[2017-01-04] MEDS: Cholecalciferol (Vitamin D3) 1,000 Unit Tab PO SCH (08:58)
[2017-01-04] MEDS: Multivitamin Tab PO SCH (08:58)
[2017-01-04] MEDS: ClonazePAM 1 MG Tab PO SCH ×2 (09:03→21:50)
[2017-01-04] MEDS: Carboxymethylcellulose Sodium 0.5% Ophth Soln 15 ML Bottle EYEBOTH PRN (09:42)
[2017-01-04] MEDS: Levofloxacin 500 MG Tab PO SCH (12:32)
[2017-01-04] MEDS: Mirtazapine 15 MG Tab PO SCH (21:44)
[2017-01-04] MEDS: Simvastatin 40 MG Tab PO SCH (21:45)
--- NOTE | 2017-01-04 23:09 | PN ---
DATE SEEN: 01/04/2017 CHIEF COMPLAINT: COPD, pneumonia. HISTORY OF PRESENT ILLNESS: A 76-year-old male with COPD and pneumonia. Today, he complains of incontinence and urgency of urination in the last couple of days, primarily at night and like to have his prostate examined. He has been walking in the halls, but he still has some problems with shortness of breath on many activities of daily living. REVIEW OF SYSTEMS: No fever has been reported. No chest pain. MEDICATIONS: Reviewed. ALLERGIES: Reviewed. PHYSICAL EXAMINATION: VITAL SIGNS: Blood pressure is normal. Temperature is 98.2, oxygenation is 87%. EARS, NOSE, and THROAT: Negative. NECK: Supple. CHEST: End-expiratory rhonchi. CARDIOVASCULAR: Normal. ABDOMEN: Soft. IMPRESSION: 1. Chronic obstructive pulmonary disease, severe. 2. Kyphoscoliosis, severe. 3. Restrictive lung disease. 4. Community-acquired pneumonia. 5. Type 2 diabetes. 6. Urgency of urination. 7. Palliative care status. PLAN: 1. Obtain a UA. 2. Decrease the dose of prednisone to 40 mg a day. 3. Consult occupational therapy tomorrow. I had a discussion with the family yesterday at the bedside, and they decided tomorrow, Thursday, will be the day to discuss disposition, possibly for swing bed or to be discharged home. /[id number] ARCADIO/FAUZIA
[2017-01-05] MEDS: Arformoterol 15 MCG/2 ML Neb Soln INH SCH (07:17)
[2017-01-05] MEDS: Albuterol/Ipratropium 3.0-0.5 MG/3 ML Neb Soln NEB SCH (07:17)
[2017-01-05] MEDS ORDERED: predniSONE 20 MG Tab PO SCH (08:00)
[2017-01-05] MEDS: Enoxaparin 40 MG/0.4 ML Syringe SUBCUT SCH (08:37)
[2017-01-05] MEDS: Carboxymethylcellulose Sodium 0.5% Ophth Soln 15 ML Bottle EYEBOTH PRN (08:37)
[2017-01-05] MEDS: Omeprazole 20 MG Cap.CR PO SCH (08:38)
[2017-01-05] MEDS: Ascorbic Acid 500 MG Tab PO SCH (08:42)
[2017-01-05] MEDS: Vitamin E (dl-alpha-tocopherol acetate) 400 Unit Cap PO SCH (08:42)
[2017-01-05] MEDS: Glimepiride 2 MG Tab PO SCH (08:42)
[2017-01-05] MEDS: Cyanocobalamin (Vitamin B12) 1,000 MCG Tab PO SCH (08:42)
[2017-01-05] MEDS: Aspirin 325 MG Tab.EC PO SCH (08:42)
[2017-01-05] MEDS: Multivitamin Tab PO SCH (08:42)
[2017-01-05] MEDS: Furosemide 40 MG Tab PO SCH (08:42)
[2017-01-05] MEDS: Fish Oil/Omega-3 Fatty Acids 1 Gm Cap PO SCH (08:43)
[2017-01-05] MEDS: busPIRone 15 MG Tab PO SCH (08:43)
[2017-01-05] MEDS: FLUoxetine 20 MG Cap PO SCH (08:43)
[2017-01-05] MEDS: Cholecalciferol (Vitamin D3) 1,000 Unit Tab PO SCH (08:54)
[2017-01-05] MEDS: ClonazePAM 1 MG Tab PO SCH (08:58)
[2017-01-05] MEDS ORDERED: Tamsulosin 0.4 MG Cap.ER PO SCH (09:00)
--- NOTE | 2017-01-05 09:54 | PN ---
DATE SEEN: 01/05/2017 CHIEF COMPLAINT: Pneumonia. HISTORY OF PRESENT ILLNESS: This is a 76-year-old male with pneumonia, severe kyphoscoliosis, COPD, and type 2 diabetes. He has complaints of incontinence and urgency of urination, but his urine is negative. Overnight, he slept well. He still complains of weakness and marked shortness of breath on moderate ambulation. REVIEW OF SYSTEMS: No fever or chills. No weakness of one side. No chest pain. MEDICATIONS: Please see EPIC. ALLERGIES: Please see EPIC. PHYSICAL EXAMINATION: GENERAL: Pleasant and afebrile. VITAL SIGNS: Pulse is 88 and blood pressure 108/58. ENT: Negative. NECK: Supple. CHEST: Clear with the exception of diminished breath sounds in the bases and crackles on the left side. EXTREMITIES: No edema. LABORATORY DATA: This morning, urine was negative for any infection. FINAL IMPRESSION: 1. Community-acquired pneumonia. 2. Chronic obstructive pulmonary disease. 3. Restrictive lung disease. 4. Kyphoscoliosis. 5. Benign prostatic hyperplasia. 6. Physical deconditioning. PLAN: Admit to the swing bed today for either strengthening and rehabilitation for possible disposition and discharge towards the end of the week to home. I will start the patient on Flomax for his symptoms of urination. /[id number] ARCADIO/FAUZIA
[2017-01-05 10:58] VITALS: BP 123/72
--- NOTE | 2017-01-06 08:26 | DISCH ---
DISCHARGE DATE: 01/05/2017 REASON FOR ADMISSION: 1. Community-acquired pneumonia. 2. Restrictive lung disease exacerbation. 3. COPD. DISCHARGE DIAGNOSES: 1. Community-acquired pneumonia. 2. Severe chronic obstructive pulmonary disease exacerbation. 3. Restrictive lung disease due to kyphoscoliosis. 4. Type 2 diabetes. 5. Benign prostatic hyperplasia. 6. Physical deconditioning. 7. Palliative care status. CONSULTATIONS: PT, OT, senior medical transcriptionist. BRIEF HISTORY AND HOSPITAL COURSE: A 76-year-old male who came in on December 29, 2016 after a fall and was found to be hypoxic. He complained of severe weakness. Chest x-ray showed pneumonia and he was started on IV antibiotics, SVNs, and Solu-Medrol. He continued to improve, however, he had several times of lethargy and narcosis from too much oxygenation and at times he was uncooperative and unwilling to work with Physical Therapy. Eventually, he improved enough to be switched to oral medications. He complained of urination symptoms that were suggestive of BPH. A urinalysis was negative for infection. Physical Therapy and Occupation Therapy worked with him and they feel that he is qualified to go to a swing bed for rehab to be able to go home independently towards the end of the week. I will discharge him home on prednisone 40 mg daily for another 5 days and Levaquin 500 mg daily to complete another 5 days, and I will start him on Flomax 0.4 mg every day. The rest of his home medications will be continued as previously prescribed. I spent more than 35 minutes in the discharge of the patient. /[id number] ARCADIO/FAUZIA
== END 2017-01-05 10:30 | disposition swing bed (61) | DRG 190 ==
LOC: FB.ED 08:38 → FB.MS 12:40
PROVIDERS: ADMIT Family Medicine; ATTEND Family Medicine
DX: J44.0 Chronic obstructive pulmonary disease with (acute) lower respiratory infection (principal); J18.9 Pneumonia, unspecified organism; J44.1 Chronic obstructive pulmonary disease with (acute) exacerbation; I11.0 Hypertensive heart disease with heart failure; I50.9 Heart failure, unspecified; Z66 Do not resuscitate; Z51.5 Encounter for palliative care; E11.9 Type 2 diabetes mellitus without complications; Z87.891 Personal history of nicotine dependence; M41.80 Other forms of scoliosis, site unspecified; W19.XXXA Unspecified fall, initial encounter; Y92.009 Unspecified place in unspecified non-institutional (private) residence as the place of occurrence of the external cause; Z99.81 Dependence on supplemental oxygen; M25.551 Pain in right hip; M25.561 Pain in right knee; R06.89 Other abnormalities of breathing; N40.1 Benign prostatic hyperplasia with lower urinary tract symptoms; R39.15 Urgency of urination; K21.9 Gastro-esophageal reflux disease without esophagitis; M19.90 Unspecified osteoarthritis, unspecified site; F32.9 Major depressive disorder, single episode, unspecified; F41.9 Anxiety disorder, unspecified; E66.9 Obesity, unspecified; Z79.82 Long term (current) use of aspirin; Z79.52 Long term (current) use of systemic steroids; Z88.0 Allergy status to penicillin; Z91.19 Patient's noncompliance with other medical treatment and regimen
CPT/HCPCS: 36415; 36600; 71010; 73502; 73560; 80048; 82550; 82803; 83605; 83880; 85025; 85610; 87040 ×2; 93005; 94664; 96374; 99285; J2930; J7620; 80053; 81001; 82962; 94640-76; 97110-GO; 97165-GO; 97535-GO; A9270-GY; J1650; J1940; J1956; J7050; J7605

== ENCOUNTER 2017-01-05 10:31 | Inpatient (IN) | payer MEDICARE, BC ==
[2017-01-05] MEDS ORDERED: Polyethylene Glycol 3350 Powder 17 GM Packet PO PRN (12:34)
[2017-01-05] MEDS ORDERED: Acetaminophen/Codeine 300-30 MG Tab PO SCH (13:00)
[2017-01-05] MEDS ORDERED: LORazepam 0.5 MG Tab PO PRN (14:00)
[2017-01-05] MEDS ORDERED: ClonazePAM 1 MG Tab PO SCH (14:00)
[2017-01-05] MEDS: Levofloxacin 500 MG Tab PO SCH (14:29)
[2017-01-05] MEDS: Furosemide 40 MG Tab PO SCH (14:30)
[2017-01-05] MEDS: Albuterol/Ipratropium 3.0-0.5 MG/3 ML Neb Soln NEB SCH ×2 (14:59→21:28)
[2017-01-05] MEDS ORDERED: Acetaminophen/Codeine 300-30 MG Tab PO PRN (15:03)
[2017-01-05] MEDS: Arformoterol 15 MCG/2 ML Neb Soln INH SCH (21:27)
[2017-01-05] MEDS: busPIRone 15 MG Tab PO SCH (21:28)
[2017-01-05] MEDS: ClonazePAM 1 MG Tab PO SCH (21:29)
[2017-01-05] MEDS: Aspirin 325 MG Tab.EC PO SCH (21:29)
[2017-01-05] MEDS: Mirtazapine 15 MG Tab PO SCH (21:30)
[2017-01-05] MEDS: Simvastatin 40 MG Tab PO SCH (21:31)
[2017-01-06] MEDS ORDERED: Alendronate 70 MG Tab PO SCH (06:00)
[2017-01-06] MEDS: Omeprazole 20 MG Cap.CR PO SCH (06:20)
[2017-01-06] MEDS: Albuterol/Ipratropium 3.0-0.5 MG/3 ML Neb Soln NEB SCH ×3 (08:33→20:42)
[2017-01-06] MEDS: Arformoterol 15 MCG/2 ML Neb Soln INH SCH ×2 (08:33→20:41)
[2017-01-06] MEDS: Cyanocobalamin (Vitamin B12) 1,000 MCG Tab PO SCH (09:20)
[2017-01-06] MEDS: Ascorbic Acid 500 MG Tab PO SCH (09:21)
[2017-01-06] MEDS: Vitamin E (dl-alpha-tocopherol acetate) 400 Unit Cap PO SCH (09:21)
[2017-01-06] MEDS: FLUoxetine 20 MG Cap PO SCH (09:21)
[2017-01-06] MEDS: predniSONE 20 MG Tab PO SCH (09:21)
[2017-01-06] MEDS: Furosemide 40 MG Tab PO SCH ×2 (09:21→15:27)
[2017-01-06] MEDS: busPIRone 15 MG Tab PO SCH ×2 (09:21→20:42)
[2017-01-06] MEDS: Carboxymethylcellulose Sodium 0.5% Ophth Soln 15 ML Bottle EYEBOTH PRN (09:22)
[2017-01-06] MEDS: Aspirin 325 MG Tab.EC PO SCH ×2 (09:22→20:42)
[2017-01-06] MEDS: Cholecalciferol (Vitamin D3) 1,000 Unit Tab PO SCH (09:22)
[2017-01-06] MEDS: Glimepiride 2 MG Tab PO SCH (09:22)
[2017-01-06] MEDS: Fish Oil/Omega-3 Fatty Acids 1 Gm Cap PO SCH (09:22)
[2017-01-06] MEDS: Tamsulosin 0.4 MG Cap.ER PO SCH (09:22)
[2017-01-06] MEDS: Multivitamin Tab PO SCH (09:23)
[2017-01-06] MEDS: ClonazePAM 1 MG Tab PO SCH ×2 (10:43→21:10)
[2017-01-06] MEDS: Levofloxacin 500 MG Tab PO SCH (12:55)
[2017-01-06] MEDS: Mirtazapine 15 MG Tab PO SCH (20:43)
[2017-01-06] MEDS: Simvastatin 40 MG Tab PO SCH (20:45)
[2017-01-07] MEDS: Omeprazole 20 MG Cap.CR PO SCH (05:46)
[2017-01-07] MEDS: Albuterol/Ipratropium 3.0-0.5 MG/3 ML Neb Soln NEB SCH ×3 (07:32→20:11)
[2017-01-07] MEDS: Arformoterol 15 MCG/2 ML Neb Soln INH SCH ×2 (07:32→20:06)
[2017-01-07] MEDS: predniSONE 20 MG Tab PO SCH (09:08)
[2017-01-07] MEDS: Furosemide 40 MG Tab PO SCH ×2 (09:08→13:23)
[2017-01-07] MEDS: Tamsulosin 0.4 MG Cap.ER PO SCH (09:09)
[2017-01-07] MEDS: FLUoxetine 20 MG Cap PO SCH (09:09)
[2017-01-07] MEDS: Fish Oil/Omega-3 Fatty Acids 1 Gm Cap PO SCH (09:09)
[2017-01-07] MEDS: ClonazePAM 1 MG Tab PO SCH ×2 (09:09→20:24)
[2017-01-07] MEDS: Aspirin 325 MG Tab.EC PO SCH ×2 (09:09→20:12)
[2017-01-07] MEDS: Glimepiride 2 MG Tab PO SCH (09:09)
[2017-01-07] MEDS: busPIRone 15 MG Tab PO SCH ×2 (09:09→20:11)
[2017-01-07] MEDS: Vitamin E (dl-alpha-tocopherol acetate) 400 Unit Cap PO SCH (09:10)
[2017-01-07] MEDS: Cholecalciferol (Vitamin D3) 1,000 Unit Tab PO SCH (09:10)
[2017-01-07] MEDS: Ascorbic Acid 500 MG Tab PO SCH (09:10)
[2017-01-07] MEDS: Multivitamin Tab PO SCH (09:10)
[2017-01-07] MEDS: Cyanocobalamin (Vitamin B12) 1,000 MCG Tab PO SCH (09:10)
[2017-01-07] MEDS: Levofloxacin 500 MG Tab PO SCH (13:23)
[2017-01-07] MEDS: Insulin Aspart 100 Units/ML 3 ML Pen SUBCUT SCH (17:36)
[2017-01-07] MEDS: Mirtazapine 15 MG Tab PO SCH (20:17)
[2017-01-07] MEDS: Simvastatin 40 MG Tab PO SCH (20:17)
[2017-01-07] MEDS: Docusate Sodium 100 MG Cap PO SCH (20:24)
[2017-01-08] MEDS: Omeprazole 20 MG Cap.CR PO SCH (06:53)
[2017-01-08] MEDS: Albuterol/Ipratropium 3.0-0.5 MG/3 ML Neb Soln NEB SCH ×3 (07:40→20:14)
[2017-01-08] MEDS: Arformoterol 15 MCG/2 ML Neb Soln INH SCH ×2 (07:40→20:14)
[2017-01-08] MEDS: Furosemide 40 MG Tab PO SCH ×2 (10:35→14:11)
[2017-01-08] MEDS: Glimepiride 2 MG Tab PO SCH (10:36)
[2017-01-08] MEDS: busPIRone 15 MG Tab PO SCH ×2 (10:36→20:19)
[2017-01-08] MEDS: predniSONE 20 MG Tab PO SCH (10:36)
[2017-01-08] MEDS: Aspirin 325 MG Tab.EC PO SCH ×2 (10:37→20:19)
[2017-01-08] MEDS: Tamsulosin 0.4 MG Cap.ER PO SCH (10:37)
[2017-01-08] MEDS: Fish Oil/Omega-3 Fatty Acids 1 Gm Cap PO SCH (10:37)
[2017-01-08] MEDS: Multivitamin Tab PO SCH (10:38)
[2017-01-08] MEDS: FLUoxetine 20 MG Cap PO SCH (10:38)
[2017-01-08] MEDS: Ascorbic Acid 500 MG Tab PO SCH (10:38)
[2017-01-08] MEDS: Cyanocobalamin (Vitamin B12) 1,000 MCG Tab PO SCH (10:38)
[2017-01-08] MEDS: Vitamin E (dl-alpha-tocopherol acetate) 400 Unit Cap PO SCH (10:39)
[2017-01-08] MEDS: Cholecalciferol (Vitamin D3) 1,000 Unit Tab PO SCH (10:39)
[2017-01-08] MEDS: ClonazePAM 1 MG Tab PO SCH ×2 (10:47→20:20)
[2017-01-08] MEDS: Docusate Sodium 100 MG Cap PO SCH ×2 (10:47→20:19)
[2017-01-08] MEDS: Insulin Aspart 100 Units/ML 3 ML Pen SUBCUT SCH ×3 (10:48→18:04)
[2017-01-08] MEDS: Carboxymethylcellulose Sodium 0.5% Ophth Soln 15 ML Bottle EYEBOTH PRN (13:13)
[2017-01-08] MEDS: Levofloxacin 500 MG Tab PO SCH (13:13)
[2017-01-08] MEDS: Mirtazapine 15 MG Tab PO SCH (20:20)
[2017-01-08] MEDS: Simvastatin 40 MG Tab PO SCH (20:21)
[2017-01-09] MEDS: Omeprazole 20 MG Cap.CR PO SCH (06:05)
[2017-01-09] MEDS: Arformoterol 15 MCG/2 ML Neb Soln INH SCH (07:05)
[2017-01-09] MEDS: Albuterol/Ipratropium 3.0-0.5 MG/3 ML Neb Soln NEB SCH (07:05)
--- NOTE | 2017-01-09 09:16 | PCM.PN ---
- General Info Date of Service: 01/09/17 Admission Dx/Problem (Free Text): patient without concerns today. He denies shortness of breath, wheezing, cough , fevers or chills. - Patient Data Vitals - most recent: Last Vital Signs Temp 98.2 F 01/08/17 09:00 Pulse 93 01/09/17 08:21 Resp 18 01/08/17 09:00 BP 125/72 01/08/17 09:00 Pulse Ox 89 L 01/09/17 08:21 Weight - most recent: 186 lb I&O - last 24 hours: Intake & Output 01/08/17 01/09/17 01/09/17 22:59 06:59 14:59 Intake Total 300 Output Total 400 Balance -100 Lab Results last 24 hrs: Laboratory Results - last 24 hr 01/08/17 01/08/17 01/09/17 Range/Units 13:12 17:38 06:07 POC Glucose 232 H 276 H 217 H (80-116) mg/dL Med Orders - Current: Current Medications Acetaminophen/Codeine Phosphate (Tylenol With Codeine No.3 300mg/30mg) 1 tab PO QID PRN PRN Reason: PAIN Last Admin: 01/06/17 22:08 Dose: 1 tab Albuterol/Ipratropium (Duoneb 3.0-0.5 Mg/3 Ml) 3 ml NEB TIDRT [facility] Last Admin: 01/09/17 07:05 Dose: 3 ml Alendronate Sodium (Fosamax) 70 mg PO TU [facility] Last Admin: 01/06/17 06:23 Dose: 70 mg Arformoterol Tartrate (Brovana) 15 mcg INH 0700,2100 [facility] Last Admin: 01/09/17 07:05 Dose: 15 mcg Artificial Tears (Refresh Tears 0.5%) 0 ml EYEBOTH Q2H PRN PRN Reason: DRY EYES Last Admin: 01/08/17 13:13 Dose: 1 drop Ascorbic Acid (Vitamin C) 1,000 mg PO DAILY [facility] Last Admin: 01/08/17 10:38 Dose: 1,000 mg Aspirin (Ecotrin) 325 mg PO BID [facility] Last Admin: 01/08/17 20:19 Dose: 325 mg Buspirone HCl (Buspar) 7.5 mg PO BID [facility] Last Admin: 01/08/17 20:19 Dose: 7.5 mg Cholecalciferol (Vitamin D3) 1,000 units PO DAILY [facility] Last Admin: 01/08/17 10:39 Dose: 1,000 units Clonazepam (Klonopin) 1 mg PO BID [facility] Last Admin: 01/08/17 20:20 Dose: 1 mg Cyanocobalamin (Vitamin B12) 1,000 mcg PO DAILY [facility] Last Admin: 01/08/17 10:38 Dose: 1,000 mcg Docusate Sodium (Colace) 100 mg PO BID [facility] Last Admin: 01/08/17 20:19 Dose: 100 mg Fish Oil (Fish Oil) 1 gm PO DAILY [facility] Last Admin: 01/08/17 10:37 Dose: 1 gm Fluoxetine HCl (Prozac) 40 mg PO DAILY [facility] Last Admin: 01/08/17 10:38 Dose: 40 mg Furosemide (Lasix) 40 mg PO BIDDIURETIC [facility] Last Admin: 01/08/17 14:11 Dose: 40 mg Glimepiride (Amaryl) 1 mg PO DAILY [facility] Last Admin: 01/08/17 10:36 Dose: 1 mg Insulin Aspart (Novolog) 0 unit SUBCUT TIDMEALS [facility] PRN Reason: Protocol Last Admin: 01/08/17 18:04 Dose: 6 units Levofloxacin (Levaquin) 500 mg PO Q24H [facility] Stop: 01/09/17 13:01 Last Admin: 01/08/17 13:13 Dose: 500 mg Lorazepam (Ativan) 0.5 mg PO TID PRN PRN Reason: ANXIETY Mirtazapine (Remeron) 7.5 mg PO BEDTIME [facility] Last Admin: 01/08/17 20:20 Dose: 7.5 mg Multivitamins/Minerals/Vitamin C (Tab-A-Hernandez) 1 tab PO DAILY [facility] Last Admin: 01/08/17 10:38 Dose: 1 tab Nabumetone (Relafen) 750 mg PO BID [facility] Last Admin: 01/08/17 20:20 Dose: 750 mg Non-Formulary Medication (Glucosam/Msm/Vit C/Jesús/Hrb#21 [Glucosamine-Msm Complex]) 1 tab PO BID [facility] Omeprazole (Omeprazole) 40 mg PO DAILY@0600 [facility] Last Admin: 01/09/17 06:05 Dose: 40 mg Polyethylene Glycol (Miralax) 17 gm PO BEDTIME PRN PRN Reason: Constipation Prednisone (Prednisone) 40 mg PO WITHBREAKFAST [facility] Stop: 01/10/17 08:01 Last Admin: 01/08/17 10:36 Dose: 40 mg Simvastatin (Zocor) 40 mg PO BEDTIME [facility] Last Admin: 01/08/17 20:21 Dose: 40 mg Tamsulosin HCl (Flomax) 0.4 mg PO PCBREAKFAST [facility] Last Admin: 01/08/17 10:37 Dose: 0.4 mg Vitamin E (Vitamin E) 400 units PO DAILY [facility] Last Admin: 01/08/17 10:39 Dose: 400 units Discontinued Medications Acetaminophen/Codeine Phosphate (Tylenol With Codeine No.3 300mg/30mg) 1 tab PO QID [facility] Last Admin: 01/05/17 14:29 Dose: 1 tab Arformoterol Tartrate (Brovana) 15 mcg INH BID [facility] Last Admin: 01/06/17 08:33 Dose: 15 mcg Clonazepam (Klonopin) 1 mg PO TID [facility] Last Admin: 01/05/17 14:29 Dose: 1 mg - Exam General: alert, cooperative Lungs: Decreased breath sounds. No: Crackles, Rales, Rhonchi, Rub Cardiovascular: Regular Rate, Regular Rhythm, No Murmurs Extremities: no edema - Problem List & Annotations (1) COPD (chronic obstructive pulmonary disease) SNOMED Code(s): 78421371 Code(s): J44.9 - CHRONIC OBSTRUCTIVE PULMONARY DISEASE, UNSPECIFIED Status : Acute Current Visit: No Qualifiers: COPD type: COPD with acute lower respiratory infection Qualified Code(s): J44.0 - Chronic obstructive pulmonary disease with acute lower respiratory infection (2) Diabetes mellitus type 2 SNOMED Code(s): 60066491 Code(s): E11.9 - TYPE 2 DIABETES MELLITUS WITHOUT COMPLICATIONS Status: Acute Current Visit: No Annotation/Comment:: Check sugars tid AC (3) Hypoxemia SNOMED Code(s): 277660731 Code(s): R09.02 - HYPOXEMIA Status: Acute Current Visit: No (4) Pneumonia SNOMED Code(s): 143213085 Code(s): J18.9 - PNEUMONIA, UNSPECIFIED ORGANISM Status: Acute Current Visit: No Qualifiers: Pneumonia type: aspiration pneumonia Laterality: bilateral - Problem List Review Problem List Initiated/Reviewed/Updated: Yes - My Orders Last 24 Hours: My Active Orders 01/09/17 09:14 Ready for Discharge [RC] PER UNIT ROUTINE - Plan Plan:: discharged to home on home health/PT/OT.
--- NOTE | 2017-01-09 09:20 | PCM.DCSUM1 ---
Discharge Summary - Hospital Course Free Text/Narrative:: Hospital course-patient did well in swing bed. He maintained his oxygen between 80-92%. He was on Levaquin 750 mg a day with a tapering dose steroids. PT/OT worked with them. He'll be discharged home on tapering steroids down to his regular 10 mg and then continuing 10 mg. Today is his last day of Levaquin. He'll followup with Dr. Ramon in 7-10 days. Brief History: this is a 76-year-old male patient came in to the ER short of breath. He is initially unresponsive at home and he was found to be hypoxic with pneumonia. He was admitted to the hospital and treated with steroids, Levaquin, O2. He was transferred to swing bed. - Discharge Data Discharge Date: 01/09/17 Discharge Disposition: Home, Home Health Agency 06 Condition: Good - Discharge Diagnosis/Problem(s) (1) COPD (chronic obstructive pulmonary disease) SNOMED Code(s): 57643978 ICD Code: J44.9 - CHRONIC OBSTRUCTIVE PULMONARY DISEASE, UNSPECIFIED Status : Acute Current Visit: No Qualifiers: COPD type: COPD with acute lower respiratory infection Qualified Code(s): J44.0 - Chronic obstructive pulmonary disease with acute lower respiratory infection (2) Diabetes mellitus type 2 SNOMED Code(s): 67780468 ICD Code: E11.9 - TYPE 2 DIABETES MELLITUS WITHOUT COMPLICATIONS Status: Acute Current Visit: No Problem Details: Check sugars tid AC (3) Hypoxemia SNOMED Code(s): 630077139 ICD Code: R09.02 - HYPOXEMIA Status: Acute Current Visit: No (4) Pneumonia SNOMED Code(s): 115596051 ICD Code: J18.9 - PNEUMONIA, UNSPECIFIED ORGANISM Status: Acute Current Visit: No Qualifiers: Pneumonia type: aspiration pneumonia Laterality: bilateral - Patient Summary/Data Consults: Consultations 01/05/17 10:56 Consult to [employer] [CONS] Routine Comment: Physician Instructions: Reason for Consult: DC PLANNING OT Evaluation and Treatment [CONS] Routine Please Evaluate and Treat. OT Reason for Consult: Strengthening This query below is only for informational purposes and is not editable. PT Evaluation and Treatment [CONS] Routine Please Evaluate and Treat. PT Reason for Consult: Strengthening This query below is only for informational purposes and is not editable. - Patient Instructions Diet: Diabetic Diet Activity: As Tolerated Driving: Do Not Drive Showering/Bathing: May Shower Other/Special Instructions: 1. Recheck with Dr. Ramon 7-10 days. 2. O2 nasal cannula to keep saturations between 88-92% this is acute from retaining CO2. 3. Home health/PT/OT for medication management, disease management, disease teaching. Strengthening home evaluation. - Discharge Plan Prescriptions/Med Rec: Prednisone [IJD: predniSONE] 20 mg PO WITHBREAKFAST #6 tablet Home Medications: Home Meds Aspirin/Calcium Carbonate/Mag [Aspirin Buffered 325 mg Tab] 325 mg PO BID [History] Cholecalciferol (Vitamin D3) [Vitamin D3] 1,000 units PO DAILY 11/10/13 [History ] Furosemide 40 mg PO BID 11/10/13 [History] Mirtazapine [Remeron] 7.5 mg PO BEDTIME 11/10/13 [History] Omeprazole 40 mg PO DAILY 11/10/13 [History] Simvastatin 40 mg PO BEDTIME 11/10/13 [History] Vitamin E 1,000 unit PO DAILY 11/10/13 [History] Alendronate Sodium [Fosamax] 70 mg PO TU 04/24/16 [History] Arformoterol [Brovana] 2 ml INH BID 04/24/16 [History] Ascorbic Acid [Vitamin C with Heather Hips] 1,000 mg PO DAILY 04/24/16 [History] FLUoxetine HCl [Fluoxetine HCl] 40 mg PO DAILY 04/24/16 [History] Glucosam/Msm/Vit C/Jesús/Hrb#21 [Glucosamine-MSM Complex] 1 tab PO BID 04/24/16 [ History] LORazepam 0.5 - 1 mg PO TID PRN 04/24/16 [History] Multivitamin [Multi-Vitamin Daily] 1 tab PO DAILY 04/24/16 [History] Nabumetone 750 mg PO BID 04/24/16 [History] Polyethylene Glycol 3350 [MiraLAX] 17 gm PO BEDTIME 04/24/16 [History] Cyanocobalamin (Vitamin B12) [Vitamin B12] 1,000 mcg PO DAILY 11/04/16 [History] Fish Oil/Laurel-3 Fatty Acids [Fish Oil 1,000 MG] 1 gm PO DAILY 11/04/16 [History ] busPIRone [Buspar] 7.5 mg PO BID 11/04/16 [History] Albuterol/Ipratropium [DuoNeb 3.0-0.5 MG/3 ML] 3 ml NEB TIDRT #90 neb 11/10/16 [ Rx] Acetaminophen with Codeine [Acetaminophen-Cod #3] 1 each PO QID 12/30/16 [ History] Glimepiride [Amaryl] 1 mg PO DAILY 12/30/16 [History] clonazePAM [Clonazepam] 1 mg PO TID 12/30/16 [History] Tamsulosin [Flomax] 0.4 mg PO PCBREAKFAST #30 cap.er 01/05/17 [Rx] Prednisone [IJD: predniSONE] 20 mg PO WITHBREAKFAST #6 tablet 01/09/17 [Rx] - Discharge Summary/Plan Comment DC Time >30 min.: No - Patient Data Vitals - Most Recent: Last Vital Signs Temp 98.2 F 01/08/17 09:00 Pulse 93 01/09/17 08:21 Resp 18 01/08/17 09:00 BP 125/72 01/08/17 09:00 Pulse Ox 89 L 01/09/17 08:21 Weight - Most Recent: 186 lb I&O - Last 24 hours: Intake & Output 01/08/17 01/09/17 01/09/17 22:59 06:59 14:59 Intake Total 300 Output Total 400 Balance -100 Lab Results - Last 24 hrs: Laboratory Results - last 24 hr 01/08/17 01/08/17 01/09/17 Range/Units 13:12 17:38 06:07 POC Glucose 232 H 276 H 217 H (80-116) mg/dL Med Orders - Current: Current Medications Acetaminophen/Codeine Phosphate (Tylenol With Codeine No.3 300mg/30mg) 1 tab PO QID PRN PRN Reason: PAIN Last Admin: 01/06/17 22:08 Dose: 1 tab Albuterol/Ipratropium (Duoneb 3.0-0.5 Mg/3 Ml) 3 ml NEB TIDRT [facility] Last Admin: 01/09/17 07:05 Dose: 3 ml Alendronate Sodium (Fosamax) 70 mg PO TU [facility] Last Admin: 01/06/17 06:23 Dose: 70 mg Arformoterol Tartrate (Brovana) 15 mcg INH 0700,2100 [facility] Last Admin: 01/09/17 07:05 Dose: 15 mcg Artificial Tears (Refresh Tears 0.5%) 0 ml EYEBOTH Q2H PRN PRN Reason: DRY EYES Last Admin: 01/08/17 13:13 Dose: 1 drop Ascorbic Acid (Vitamin C) 1,000 mg PO DAILY [facility] Last Admin: 01/08/17 10:38 Dose: 1,000 mg Aspirin (Ecotrin) 325 mg PO BID [facility] Last Admin: 01/08/17 20:19 Dose: 325 mg Buspirone HCl (Buspar) 7.5 mg PO BID [facility] Last Admin: 01/08/17 20:19 Dose: 7.5 mg Cholecalciferol (Vitamin D3) 1,000 units PO DAILY [facility] Last Admin: 01/08/17 10:39 Dose: 1,000 units Clonazepam (Klonopin) 1 mg PO BID [facility] Last Admin: 01/08/17 20:20 Dose: 1 mg Cyanocobalamin (Vitamin B12) 1,000 mcg PO DAILY [facility] Last Admin: 01/08/17 10:38 Dose: 1,000 mcg Docusate Sodium (Colace) 100 mg PO BID [facility] Last Admin: 01/08/17 20:19 Dose: 100 mg Fish Oil (Fish Oil) 1 gm PO DAILY [facility] Last Admin: 01/08/17 10:37 Dose: 1 gm Fluoxetine HCl (Prozac) 40 mg PO DAILY [facility] Last Admin: 01/08/17 10:38 Dose: 40 mg Furosemide (Lasix) 40 mg PO BIDDIURETIC [facility] Last Admin: 01/08/17 14:11 Dose: 40 mg Glimepiride (Amaryl) 1 mg PO DAILY [facility] Last Admin: 01/08/17 10:36 Dose: 1 mg Insulin Aspart (Novolog) 0 unit SUBCUT TIDMEALS [facility] PRN Reason: Protocol Last Admin: 01/08/17 18:04 Dose: 6 units Levofloxacin (Levaquin) 500 mg PO Q24H [facility] Stop: 01/09/17 13:01 Last Admin: 01/08/17 13:13 Dose: 500 mg Lorazepam (Ativan) 0.5 mg PO TID PRN PRN Reason: ANXIETY Mirtazapine (Remeron) 7.5 mg PO BEDTIME [facility] Last Admin: 01/08/17 20:20 Dose: 7.5 mg Multivitamins/Minerals/Vitamin C (Tab-A-Hernandez) 1 tab PO DAILY [facility] Last Admin: 01/08/17 10:38 Dose: 1 tab Nabumetone (Relafen) 750 mg PO BID [facility] Last Admin: 01/08/17 20:20 Dose: 750 mg Non-Formulary Medication (Glucosam/Msm/Vit C/Jesús/Hrb#21 [Glucosamine-Msm Complex]) 1 tab PO BID [facility] Omeprazole (Omeprazole) 40 mg PO DAILY@0600 [facility] Last Admin: 01/09/17 06:05 Dose: 40 mg Polyethylene Glycol (Miralax) 17 gm PO BEDTIME PRN PRN Reason: Constipation Prednisone (Prednisone) 40 mg PO WITHBREAKFAST [facility] Stop: 01/10/17 08:01 Last Admin: 01/08/17 10:36 Dose: 40 mg Simvastatin (Zocor) 40 mg PO BEDTIME [facility] Last Admin: 01/08/17 20:21 Dose: 40 mg Tamsulosin HCl (Flomax) 0.4 mg PO PCBREAKFAST [facility] Last Admin: 01/08/17 10:37 Dose: 0.4 mg Vitamin E (Vitamin E) 400 units PO DAILY [facility] Last Admin: 01/08/17 10:39 Dose: 400 units Discontinued Medications Acetaminophen/Codeine Phosphate (Tylenol With Codeine No.3 300mg/30mg) 1 tab PO QID [facility] Last Admin: 01/05/17 14:29 Dose: 1 tab Arformoterol Tartrate (Brovana) 15 mcg INH BID [facility] Last Admin: 01/06/17 08:33 Dose: 15 mcg Clonazepam (Klonopin) 1 mg PO TID [facility] Last Admin: 01/05/17 14:29 Dose: 1 mg *Q Meaningful Use (DIS) - VTE *Q VTE Criteria *Q: - Stroke *Q Stroke Criteria *Q: - AMI *Q AMI Criteria *Q:
[2017-01-09 09:31] VITALS: BP 129/72
[2017-01-09] MEDS: Insulin Aspart 100 Units/ML 3 ML Pen SUBCUT SCH (10:23)
[2017-01-09] MEDS: Furosemide 40 MG Tab PO SCH (10:25)
[2017-01-09] MEDS: Glimepiride 2 MG Tab PO SCH (10:26)
[2017-01-09] MEDS: predniSONE 20 MG Tab PO SCH (10:26)
[2017-01-09] MEDS: Aspirin 325 MG Tab.EC PO SCH (10:27)
[2017-01-09] MEDS: Docusate Sodium 100 MG Cap PO SCH (10:27)
[2017-01-09] MEDS: busPIRone 15 MG Tab PO SCH (10:27)
[2017-01-09] MEDS: Fish Oil/Omega-3 Fatty Acids 1 Gm Cap PO SCH (10:27)
[2017-01-09] MEDS: FLUoxetine 20 MG Cap PO SCH (10:28)
[2017-01-09] MEDS: Multivitamin Tab PO SCH (10:28)
[2017-01-09] MEDS: Tamsulosin 0.4 MG Cap.ER PO SCH (10:28)
[2017-01-09] MEDS: Cyanocobalamin (Vitamin B12) 1,000 MCG Tab PO SCH (10:28)
[2017-01-09] MEDS: Ascorbic Acid 500 MG Tab PO SCH (10:29)
[2017-01-09] MEDS: Cholecalciferol (Vitamin D3) 1,000 Unit Tab PO SCH (10:29)
[2017-01-09] MEDS: Vitamin E (dl-alpha-tocopherol acetate) 400 Unit Cap PO SCH (10:29)
[2017-01-09] MEDS: ClonazePAM 1 MG Tab PO SCH (10:36)
== END 2017-01-09 11:30 | disposition home health service (06) | DRG 190 ==
LOC: FB.MS 10:31
PROVIDERS: ADMIT Family Medicine; ATTEND Family Medicine
DX: J44.0 Chronic obstructive pulmonary disease with (acute) lower respiratory infection (principal); J18.9 Pneumonia, unspecified organism; J44.9 Chronic obstructive pulmonary disease, unspecified; M41.9 Scoliosis, unspecified; E11.9 Type 2 diabetes mellitus without complications; N40.0 Benign prostatic hyperplasia without lower urinary tract symptoms; R09.02 Hypoxemia; I11.0 Hypertensive heart disease with heart failure; I50.9 Heart failure, unspecified; M19.90 Unspecified osteoarthritis, unspecified site; F41.9 Anxiety disorder, unspecified; F32.9 Major depressive disorder, single episode, unspecified; K59.09 Other constipation; K21.9 Gastro-esophageal reflux disease without esophagitis; Z87.891 Personal history of nicotine dependence; Z79.82 Long term (current) use of aspirin; Z79.84 Long term (current) use of oral hypoglycemic drugs; Z79.52 Long term (current) use of systemic steroids
CPT/HCPCS: 82962; 94640-76; 97110-GP; 97116-GP; 97162-GP; 97530-GO-KX; 97530-GP; 97535-GO; A9270-GY; J7605; J7620

== ENCOUNTER 2017-01-25 17:01 | Inpatient (IN) | payer MEDICARE, BC ==
[2017-01-25] MEDS ORDERED: Albuterol/Ipratropium 3.0-0.5 MG/3 ML Neb Soln NEB ONE (17:05)
[2017-01-25] MEDS ORDERED: methylPREDNISolone Sodium Succinate 125 MG/2 ML SDV ONE (17:05)
[2017-01-25] MEDS: methylPREDNISolone Sodium Succinate 125 MG/2 ML SDV IVPUSH ONE ×2 (17:10→18:10)
[2017-01-25] MEDS: Albuterol/Ipratropium 3.0-0.5 MG/3 ML Neb Soln ONE ×2 (17:10→18:10)
--- NOTE | 2017-01-25 17:11 | EDM.PDOC ---
ED HPI GENERAL MEDICAL PROBLEM - General Stated Complaint: SHORT OF BREATH Time Seen by Provider: 01/25/17 17:01 Source of Information: Reports: Patient, EMS, Family History Limitations: Reports: Respiratory Distress - History of Present Illness INITIAL COMMENTS - FREE TEXT/NARRATIVE: 76 years old w m with h/o copd, came to the ed by ems due to worsening of SOB. Pt was in this ed last months for same. Pt is a DNR/DNI. Pt is obtunded and pale Onset: Unknown/Unsure Onset Date: 01/25/17 Onset Time: 09:00 Duration: Hour(s):, Getting Worse Location: Reports: Chest Severity: Severe Improves with: Reports: Medication Worsens with: Reports: Rest Context: Reports: Other (COPD) Associated Symptoms: Reports: Shortness of Breath, Weakness, Other (lethargic) - Related Data Allergies Allergy/AdvReac Type Severity Reaction Status Date / Time Penicillins Allergy Mouth Sores Verified 01/25/17 17:15 Home Meds: Home Meds Aspirin/Calcium Carbonate/Mag [Aspirin Buffered 325 mg Tab] 325 mg PO BID [History] Cholecalciferol (Vitamin D3) [Vitamin D3] 1,000 units PO DAILY 11/10/13 [History ] Furosemide 40 mg PO BID 11/10/13 [History] Mirtazapine [Remeron] 7.5 mg PO BEDTIME 11/10/13 [History] Omeprazole 40 mg PO DAILY 11/10/13 [History] Simvastatin 40 mg PO BEDTIME 11/10/13 [History] Alendronate Sodium [Fosamax] 70 mg PO TU 04/24/16 [History] Arformoterol [Brovana] 2 ml INH BID 04/24/16 [History] Ascorbic Acid [Vitamin C with Heather Hips] 1,000 mg PO DAILY 04/24/16 [History] FLUoxetine HCl [Fluoxetine HCl] 40 mg PO DAILY 04/24/16 [History] Glucosam/Msm/Vit C/Jesús/Hrb#21 [Glucosamine-MSM Complex] 1 tab PO BID 04/24/16 [ History] Multivitamin [Multi-Vitamin Daily] 1 tab PO DAILY 04/24/16 [History] Nabumetone 750 mg PO BID 04/24/16 [History] Polyethylene Glycol 3350 [MiraLAX] 17 gm PO BEDTIME 04/24/16 [History] Cyanocobalamin (Vitamin B12) [Vitamin B12] 1,000 mcg PO DAILY 11/04/16 [History] Fish Oil/[place]-3 Fatty Acids [Fish Oil 1,000 MG] 1 gm PO DAILY 11/04/16 [History ] busPIRone [Buspar] 7.5 mg PO BID 11/04/16 [History] Albuterol/Ipratropium [DuoNeb 3.0-0.5 MG/3 ML] 3 ml NEB TIDRT #90 neb 11/10/16 [ Rx] Acetaminophen with Codeine [Acetaminophen-Cod #3] 1 each PO QID 12/30/16 [ History] Glimepiride [Amaryl] 1 mg PO DAILY 12/30/16 [History] Tamsulosin [Flomax] 0.4 mg PO PCBREAKFAST #30 cap.er 01/05/17 [Rx] Prednisone [IJD: predniSONE] 20 mg PO WITHBREAKFAST #6 tablet 01/09/17 [Rx] Vitamin E 400 unit PO DAILY 01/09/17 [History] Past Medical History HEENT History: Reports: Cataract Cardiovascular History: Reports: Heart Failure, Hypertension, SOB on Exertion, Syncope Respiratory History: Reports: COPD, SOB Other Respiratory History: restrictive airway disease Gastrointestinal History: Reports: Chronic Constipation, GERD Genitourinary History: Reports: None Musculoskeletal History: Reports: Arthritis, Gout, Other (See Below) Other Musculoskeletal History: scoliosis Psychiatric History: Reports: Anxiety, Depression Endocrine/Metabolic History: Reports: Diabetes, Type II - Past Surgical History Male Surgical History: Reports: Vasectomy Neurological Surgical History: Reports: Scoliosis Musculoskeletal Surgical History: Reports: None Social & Family History - Family History Family Medical History: Noncontributory - Tobacco Use Smoking Status *Q: Former Smoker Years of Tobacco use: 30 Packs/Tins Daily: 1 Used Tobacco, but Quit: Yes Month Tobacco Last Used: 1980 Second Hand Smoke Exposure: No - Caffeine Use Caffeine Use: Reports: Coffee, Soda - Alcohol Use Days Per Week of Alcohol Use: 0 Number of Drinks Per Day: 1 Total Drinks Per Week: 0 - Recreational Drug Use Recreational Drug Use: No ED ROS GENERAL - Review of Systems Review Of Systems: Unable To Obtain ED EXAM, GENERAL - Physical Exam Exam: See Below Exam Limited By: Respiratory Distress General Appearance: Obtunded, Severe Distress (respiratory) Eye Exam: Bilateral Eye: Normal Inspection Ears: Normal External Exam Ear Exam: Bilateral Ear: Auricle Normal Nose: Normal Inspection Head: Atraumatic, Normocephalic Neck: Normal Inspection, Supple, Non-Tender Respiratory/Chest: Respiratory Distress, Decreased Breath Sounds, Retractions, Prolonged Expiration Cardiovascular: Regular Rate, Rhythm, No Edema, No JVD, Tachycardia Peripheral Pulses: 2+: Femoral (L), Femoral (R) GI/Abdominal: Normal Bowel Sounds, Soft (Male) Exam: Deferred Rectal (Males) Exam: Deferred Back Exam: Decreased Range of Motion, Muscle Spasm, Paraspinal Tenderness, Vertebral Tenderness, Other (severe scoliosis) Extremities: Normal Inspection, Normal Range of Motion, No Pedal Edema Neurological: Slow to Respond Psychiatric: Other (unable to evaluate) Skin Exam: Pallor Lymphatic: No Adenopathy EKG INTERPRETATION EKG Date: 01/25/17 Time: 17:25 Rhythm: NSR Rate (Beats/Min): 101 [place]: RAD-Right [place] Deviation P-Wave: Present QRS: Normal ST-T: Normal QT: Normal Comparison: NA - No Prior EKG Course - Vital Signs Text/Narrative:: 76 years old w m with h/o copd, came to the ed by ems due to worsening of SOB. Pt was in this ed last months for same. Pt is a DNR/DNI. Pt is obtunded and pale PE: Pale, obtunded, poor air movement Labs; Resp acidosis (pH 7.14). Hyperkalemia (5.6), hypochloremia, BUN/Cr ration 30. CXR: severe scoliosis, Severe COPD, official report is pending Impression: COPD, with resp acidosis, CO2 retainer(>100), Dehydration, Hyperkalemia, DNR/DNI Tx: Duoneb, Solumedrol, NS, O2 by NC 4 liters, Reexam: 92% on puls ox on 4 liter O2 by NC Plan: Admit to [facility] with tele Last Recorded V/S: Last Vital Signs Temp 35.6 C 01/25/17 17:05 Pulse 100 01/25/17 17:55 Resp 20 01/25/17 18:11 BP 135/65 01/25/17 18:11 Pulse Ox 90 L 01/25/17 18:11 - Orders/Labs/Meds Orders: Active Orders 24 hr Category Date Time Status EKG Documentation Completion [RC] ASDIRECTED Care 01/25/17 17:19 Active Chest 1V Frontal [CR] Stat Exams 01/25/17 17:07 Taken EKG 12 Lead [EK] Routine Ther 01/25/17 17:18 Ordered Medication Orders Albuterol (Proventil Neb Soln) 2.5 mg NEB Q4H WALTER Sodium Chloride (Normal Saline) 1,000 mls @ 125 mls/hr IV ASDIRECTED WALTER Ondansetron HCl (Zofran) 4 mg IV Q4H PRN PRN Reason: Nausea/Vomiting Sodium Chloride (Saline Flush) 10 ml FLUSH ASDIRECTED PRN PRN Reason: Keep Vein Open Labs: Laboratory Tests 01/25/17 01/25/17 01/25/17 Range/Units 17:20 17:20 17:20 WBC 8.2 (4.5-12.0) X10-3/uL RBC 4.40 (4.30-5.75) x10(6)uL Hgb 13.8 (11.5-15.5) g/dL Hct 44.2 (30.0-51.3) % MCV 100.3 H (80-96) fL MCH 31.2 (27.7-33.6) pg MCHC 31.1 L (32.2-35.4) g/dL RDW 14.4 (11.5-15.5) % Plt Count 187 (125-369) X10(3)uL MPV 8.2 (7.4-10.4) fL Add Manual Diff Yes Neutrophils % (Manual) 85 H (46-82) % Lymphocytes % (Manual) 7 L (13-37) % Monocytes % (Manual) 8 (4-12) % Macrocytosis Few ABG pH (7.35-7.45) ABG pCO2 (35-45) mmHg ABG pO2 (83-108) mmHg ABG HCO3 (22-26) mmol/L ABG O2 Saturation (96-97) % ABG Base Excess (-2-2) Moises Test O2 Delivery Device Sodium 141 (135-145) mmol/L Potassium 5.6 H (3.5-5.3) mmol/L Chloride 86 L* (100-110) mmol/L Carbon Dioxide 48 H* (23-29) mmol/L BUN 24 H (8-23) mg/dL Creatinine 0.8 (0.6-1.3) mg/dL Est Cr Clr Drug Dosing TNP Estimated GFR (MDRD) > 60 (>60) BUN/Creatinine Ratio 30.0 H (9-20) Glucose 244 H (80-116) mg/dL Calcium 9.4 (8.6-10.2) mg/dL Troponin I (0.02-0.06) NG/ML B-Natriuretic Peptide 319 H (0-100) pg/mL 01/25/01/25/17 Range/Units 17:20 17:25 WBC (4.5-12.0) X10-3/uL RBC (4.30-5.75) x10(6)uL Hgb (11.5-15.5) g/dL Hct (30.0-51.3) % MCV (80-96) fL MCH (27.7-33.6) pg MCHC (32.2-35.4) g/dL RDW (11.5-15.5) % Plt Count (125-369) X10(3)uL MPV (7.4-10.4) fL Add Manual Diff Neutrophils % (Manual) (46-82) % Lymphocytes % (Manual) (13-37) % Monocytes % (Manual) (4-12) % Macrocytosis ABG pH 7.14 L* (7.35-7.45) ABG pCO2 > 100 H* (35-45) mmHg ABG pO2 88 (83-108) mmHg ABG HCO3 46 H (22-26) mmol/L ABG O2 Saturation 91 L (96-97) % ABG Base Excess 8.1 H (-2-2) Moises Test Passed O2 Delivery Device Nasal cannula Sodium (135-145) mmol/L Potassium (3.5-5.3) mmol/L Chloride (100-110) mmol/L Carbon Dioxide (23-29) mmol/L BUN (8-23) mg/dL Creatinine (0.6-1.3) mg/dL Est Cr Clr Drug Dosing Estimated GFR (MDRD) (>60) BUN/Creatinine Ratio (9-20) Glucose (80-116) mg/dL Calcium (8.6-10.2) mg/dL Troponin I 0.03 (0.02-0.06) NG/ML B-Natriuretic Peptide (0-100) pg/mL Meds: Medications Generic Name Dose Route Start Last Admin Trade Name Freq PRN Reason Stop Dose Admin Albuterol 2.5 mg 01/25/17 18:45 Proventil Neb Soln NEB Q4H WALTER Sodium Chloride 1,000 mls @ 125 mls/hr 01/25/17 18:45 Normal Saline IV ASDIRECTED WALTER Ondansetron HCl 4 mg 01/25/17 17:54 Zofran IV Q4H PRN Nausea/Vomiting Sodium Chloride 10 ml 01/25/17 17:54 Saline Flush FLUSH ASDIRECTED PRN Keep Vein Open Discontinued Medications Generic Name Dose Route Start Last Admin Trade Name Freq PRN Reason Stop Dose Admin Albuterol/Ipratropium Confirm 01/25/17 17:05 01/25/17 17:10 Duoneb 3.0-0.5 Mg/3 Ml Administered 01/25/17 17:06 3 ml Dose Administration 3 ml .ROUTE .STK-MED ONE Albuterol/Ipratropium 3 ml 01/25/17 21:00 Duoneb 3.0-0.5 Mg/3 Ml NEB QIDRT WALTER Albuterol/Ipratropium 3 ml 01/25/17 17:05 Duoneb 3.0-0.5 Mg/3 Ml NEB 01/25/17 17:06 ONETIME ONE Methylprednisolone Sodium Succinate 125 mg 01/25/17 17:06 01/25/17 17:10 Solu-Medrol IVPUSH 01/25/17 17:07 125 mg ONETIME ONE Administration Methylprednisolone Sodium Succinate Confirm 01/25/17 17:05 01/25/17 18:44 Solu-Medrol Administered 01/25/17 17:06 Not Given Dose 125 mg .ROUTE .STK-MED ONE Departure - Departure Time of Disposition: 18:00 Disposition: Admitted As Inpatient 65 Condition: Serious Clinical Impression: Decompensated COPD with exacerbation (chronic obstructive pulmonary disease) - Discharge Information - My Orders Last 24 Hours: My Active Orders 01/25/17 17:07 Chest 1V Frontal [CR] Stat 01/25/17 17:18 EKG 12 Lead [EK] Routine 01/25/17 17:19 EKG Documentation Completion [RC] ASDIRECTED - Assessment/Plan Last 24 Hours: My Active Orders 01/25/17 17:07 Chest 1V Frontal [CR] Stat 01/25/17 17:18 EKG 12 Lead [EK] Routine 01/25/17 17:19 EKG Documentation Completion [RC] ASDIRECTED
[2017-01-25] MEDS ORDERED: Ondansetron 4 MG/2 ML SDV IV PRN (17:54)
[2017-01-25] MEDS ORDERED: Albuterol 0.083% 2.5 MG/3 ML Neb Soln NEB SCH (18:45)
[2017-01-25] MEDS: Sodium Chloride 0.9% 1,000 ML IV SCH (19:45)
[2017-01-25] MEDS ORDERED: Albuterol/Ipratropium 3.0-0.5 MG/3 ML Neb Soln NEB SCH (21:00)
[2017-01-25] MEDS: Albuterol 0.083% 2.5 MG/3 ML Neb Soln NEB SCH (23:26)
[2017-01-26] MEDS: Albuterol 0.083% 2.5 MG/3 ML Neb Soln NEB SCH ×3 (02:38→10:08)
[2017-01-26] MEDS: Sodium Chloride 0.9% 1,000 ML IV SCH (04:00)
[2017-01-26] MEDS: Furosemide 40 MG Tab PO SCH ×2 (10:36→14:59)
[2017-01-26] MEDS: Tamsulosin 0.4 MG Cap.ER PO SCH (10:36)
[2017-01-26] MEDS ORDERED: Morphine 2 MG/ML Syringe IVPUSH ONE (10:50)
[2017-01-26] MEDS: Sodium Chloride 0.9% 10 ML Syringe FLUSH PRN ×3 (11:26→22:27)
--- NOTE | 2017-01-26 11:26 | PCM.HP ---
H&P History of Present Illness - General Admit Problem/Dx: Admission Diagnosis/Problem Admission Diagnosis/Problem COPD, Severe chronic obstructive pulmonary disease pleasant 76y gentleman i have cared for during hospital addmissions in the past for his recurrent acute on chronic end stage restrictive/obstructive COPD. brought in to ER with respiratory failure through er requiring high flow bipap to blow off excess co2 as he was unresponsive with and acidodic ph. he did start to come around a few hours in the ER and never required intubation as this is not what he wanted. Source of Information: Patient, Family, Old Records, Provider History Limitations: Reports: Respiratory Distress - History of Present Illness Onset of Symptoms: Reports: Gradual (increasing sob and fatique.) Duration of Symptoms: Reports: Week(s): (1-2 wks after being discharged from the hospital. was to be getting daily visits by family as well as home health so that he would not have to go to the care home however these visits were not completed in full adherence to the medical treatment plan as discussed with regards to frequency of visits. ) Associated Symptoms: Reports: Confusion, Cough, Fever/Chills, Loss of Appetite, Shortness of Breath, Weakness Denies Pain Score (Numeric/FACES): 0 - Related Data Allergies/Adverse Reactions: Allergies Allergy/AdvReac Type Severity Reaction Status Date / Time Penicillins Allergy Mouth Sores Verified 01/25/17 18:47 Home Medications: Home Meds Aspirin/Calcium Carbonate/Mag [Aspirin Buffered 325 mg Tab] 325 mg PO BID [History] Cholecalciferol (Vitamin D3) [Vitamin D3] 1,000 units PO DAILY 11/10/13 [History ] Furosemide 40 mg PO BID 11/10/13 [History] Mirtazapine [Remeron] 7.5 mg PO BEDTIME 11/10/13 [History] Omeprazole 40 mg PO DAILY 11/10/13 [History] Simvastatin 40 mg PO BEDTIME 11/10/13 [History] Alendronate Sodium [Fosamax] 70 mg PO TU 04/24/16 [History] Arformoterol [Brovana] 2 ml INH BID 04/24/16 [History] Ascorbic Acid [Vitamin C with [place] Hips] 1,000 mg PO DAILY 04/24/16 [History] FLUoxetine HCl [Fluoxetine HCl] 40 mg PO DAILY 04/24/16 [History] Glucosam/Msm/Vit C/Jesús/Hrb#21 [Glucosamine-MSM Complex] 1 tab PO BID 04/24/16 [ History] Multivitamin [Multi-Vitamin Daily] 1 tab PO DAILY 04/24/16 [History] Nabumetone 750 mg PO BID 04/24/16 [History] Polyethylene Glycol 3350 [MiraLAX] 17 gm PO BEDTIME 04/24/16 [History] Cyanocobalamin (Vitamin B12) [Vitamin B12] 1,000 mcg PO DAILY 11/04/16 [History] Fish Oil/[place]-3 Fatty Acids [Fish Oil 1,000 MG] 1 gm PO DAILY 11/04/16 [History ] busPIRone [Buspar] 7.5 mg PO BID 11/04/16 [History] Albuterol/Ipratropium [DuoNeb 3.0-0.5 MG/3 ML] 3 ml NEB TIDRT #90 neb 11/10/16 [ Rx] Acetaminophen with Codeine [Acetaminophen-Cod #3] 1 each PO QID 12/30/16 [ History] Glimepiride [Amaryl] 1 mg PO DAILY 12/30/16 [History] Tamsulosin [Flomax] 0.4 mg PO PCBREAKFAST #30 cap.er 01/05/17 [Rx] Prednisone [IJD: predniSONE] 20 mg PO WITHBREAKFAST #6 tablet 01/09/17 [Rx] Vitamin E 400 unit PO DAILY 01/09/17 [History] Past Medical History HEENT History: Reports: Cataract Cardiovascular History: Reports: Heart Failure, Hypertension, SOB on Exertion, Syncope Respiratory History: Reports: COPD, SOB Other Respiratory History: restrictive airway disease Gastrointestinal History: Reports: Chronic Constipation, GERD Genitourinary History: Reports: None Musculoskeletal History: Reports: Arthritis, Gout, Other (See Below) Other Musculoskeletal History: scoliosis Psychiatric History: Reports: Anxiety, Depression Endocrine/Metabolic History: Reports: Diabetes, Type II - Infectious Disease History Infectious Disease History: Reports: Chicken Pox - Past Surgical History Male Surgical History: Reports: Vasectomy Neurological Surgical History: Reports: Scoliosis Musculoskeletal Surgical History: Reports: None Social & Family History - Family History Family Medical History: Noncontributory - Tobacco Use Smoking Status *Q: Former Smoker Years of Tobacco use: 30 Packs/Tins Daily: 1 Used Tobacco, but Quit: Yes Month Tobacco Last Used: 1980 Second Hand Smoke Exposure: No - Caffeine Use Caffeine Use: Reports: Coffee, Soda - Alcohol Use Days Per Week of Alcohol Use: 0 Number of Drinks Per Day: 1 Total Drinks Per Week: 0 - Recreational Drug Use Recreational Drug Use: No H&P Review of Systems - Review of Systems: Review Of Systems: ROS reveals no pertinent complaints other than HPI. Exam - Exam Exam: See Below - Vital Signs Vital Signs: Last Vital Signs Temp 98.9 F 01/26/17 08:59 Pulse 100 01/26/17 08:59 Resp 21 H 01/26/17 08:59 BP 116/67 01/26/17 08:59 Pulse Ox 95 01/26/17 08:59 Weight: 87.288 kg - Exam Quality Assessment: Supplemental Oxygen (6l) General: Alert, Oriented, Cooperative, Mild Distress HEENT: PERRLA, Conjunctiva Clear, Nares Patent, Normal Nasal Septum Neck: Supple, +2 Carotid Pulse wo Bruit. No: Thyromegaly Lungs: Decreased Breath Sounds, Rales, Wheezing. No: Normal Respiratory Effort Cardiovascular: Regular Rate, Regular Rhythm, Normal S1, Normal S2 Abdomen: Soft, Hypoactive Bowel Sounds. No: Rigidity (Male) Exam: No Hernia, Normal Inspection. No: Rash, Scrotal Swelling, Scrotum Tenderness (L), Suprapubic Fullness, Urethral Discharge Rectal (Males) Exam: Deferred Back Exam: Normal Inspection, Other (chronic severe scoliosis and kyphosis contributing to his restrictive lung disease) Peripheral Pulses: 1+: Posterior Tibial (L), Posterior Tibial (R), Dorsalis Pedis (L), Dorsalis Pedis (R), 2+: Carotid (L), Carotid (R), Radial (L), Radial (R), Femoral (L), Femoral (R) Skin: Cool. No: Wound Neuro Extensive - Mental Status: Normal Mood/Affect, Normal Cognition, Nl Response to Commands, Withdraws to Pain Neuro Extensive - Motor, Sensory, Reflexes: CN II-XII Intact Psychiatric: Anxious - Patient Data Lab Results Last 24 hrs: Laboratory Results - last 24 hr 01/25/17 01/25/17 01/26/17 Range/Units 21:52 22:00 06:09 PT (8.7-11.1) INR (0.89-1.13) Sodium 141 (135-145) mmol/L Potassium 6.0 H (3.5-5.3) mmol/L Chloride 89 L* (100-110) mmol/L Carbon Dioxide 50 H* (23-29) mmol/L BUN 25 H (8-23) mg/dL Creatinine 0.7 (0.6-1.3) mg/dL Est Cr Clr Drug Dosing 76.88 mL/min Estimated GFR (MDRD) > 60 (>60) BUN/Creatinine Ratio 35.7 H (9-20) Glucose 231 H (80-116) mg/dL POC Glucose 219 H 192 H (80-116) mg/dL Lactic Acid (0.5-2.2) mmol/L Calcium 9.1 (8.6-10.2) mg/dL Total Bilirubin (0.1-1.3) mg/dL AST (5-27) IU/L ALT (14-26) IU/L Alkaline Phosphatase (56-112) IU/L Troponin I (0.02-0.06) NG/ML Total Protein (6.0-8.0) g/dL Albumin (3.2-4.6) g/dL Globulin g/dL Albumin/Globulin Ratio 01/26/17 01/26/17 01/26/17 Range/Units 08:39 08:39 08:39 PT (8.7-11.1) INR (0.89-1.13) Sodium 139 (135-145) mmol/L Potassium 5.3 (3.5-5.3) mmol/L Chloride 89 L* (100-110) mmol/L Carbon Dioxide 44 H* (23-29) mmol/L BUN 29 H (8-23) mg/dL Creatinine 0.7 (0.6-1.3) mg/dL Est Cr Clr Drug Dosing 76.88 mL/min Estimated GFR (MDRD) > 60 (>60) BUN/Creatinine Ratio 41.4 H (9-20) Glucose 220 H (80-116) mg/dL POC Glucose (80-116) mg/dL Lactic Acid 1.7 (0.5-2.2) mmol/L Calcium 9.0 (8.6-10.2) mg/dL Total Bilirubin 0.8 (0.1-1.3) mg/dL AST 37 H D (5-27) IU/L ALT 50 H D (14-26) IU/L Alkaline Phosphatase 61 (56-112) IU/L Troponin I 0.02 (0.02-0.06) NG/ML Total Protein 6.4 (6.0-8.0) g/dL Albumin 3.6 (3.2-4.6) g/dL Globulin 2.8 g/dL Albumin/Globulin Ratio 1.3 01/26/17 Range/Units 08:39 PT 10.9 (8.7-11.1) INR 1.08 (0.89-1.13) Sodium (135-145) mmol/L Potassium (3.5-5.3) mmol/L Chloride (100-110) mmol/L Carbon Dioxide (23-29) mmol/L BUN (8-23) mg/dL Creatinine (0.6-1.3) mg/dL Est Cr Clr Drug Dosing mL/min Estimated GFR (MDRD) (>60) BUN/Creatinine Ratio (9-20) Glucose (80-116) mg/dL POC Glucose (80-116) mg/dL Lactic Acid (0.5-2.2) mmol/L Calcium (8.6-10.2) mg/dL Total Bilirubin (0.1-1.3) mg/dL AST (5-27) IU/L ALT (14-26) IU/L Alkaline Phosphatase (56-112) IU/L Troponin I (0.02-0.06) NG/ML Total Protein (6.0-8.0) g/dL Albumin (3.2-4.6) g/dL Globulin g/dL Albumin/Globulin Ratio Result Diagrams: 01/25/17 17:20 01/26/17 08:39 *Q Meaningful Use (ADM) - VTE *Q VTE Criteria *Q: - Stroke *Q Stroke Criteria *Q: - AMI *Q AMI Criteria *Q: - Problem List (1) Decompensated COPD with exacerbation (chronic obstructive pulmonary disease) SNOMED Code(s): 385242394, 537312099 ICD Code: J44.1 - CHRONIC OBSTRUCTIVE PULMONARY DISEASE W (ACUTE) EXACERBATION Status: Acute (2) Respiratory failure SNOMED Code(s): 832980704 ICD Code: J96.90 - RESPIRATORY FAILURE, UNSP, UNSP W HYPOXIA OR HYPERCAPNIA Status: Acute (3) Restrictive airway disease SNOMED Code(s): 07699073 ICD Code: J98.4 - OTHER DISORDERS OF LUNG Status: Acute (4) Hypoxemia SNOMED Code(s): 308338928 ICD Code: R09.02 - HYPOXEMIA Status: Acute (5) Hyperkalemia SNOMED Code(s): 03942126 ICD Code: E87.5 - HYPERKALEMIA Status: Acute (6) DNR (do not resuscitate) Status: Acute (7) DNI (do not intubate) SNOMED Code(s): 755490107 ICD Code: Z78.9 - OTHER SPECIFIED HEALTH STATUS Status: Acute (8) Anxiety disorder SNOMED Code(s): 806101281 ICD Code: F41.9 - ANXIETY DISORDER, UNSPECIFIED Status: Acute Problem Details: Lorazepam prn (9) Atelectasis of right lung SNOMED Code(s): 74818141 ICD Code: J98.11 - ATELECTASIS Status: Acute (10) CHF, Congestive heart failure SNOMED Code(s): 61934853 ICD Code: I50.9 - HEART FAILURE, UNSPECIFIED Status: Acute Problem Details: Appears stable (11) Palliative care status SNOMED Code(s): 760728146 ICD Code: Z51.5 - ENCOUNTER FOR PALLIATIVE CARE Status: Acute (12) Hyperglycemia due to type 2 diabetes mellitus SNOMED Code(s): 235345307752147, 180546799647052 ICD Code: E11.65 - TYPE 2 DIABETES MELLITUS WITH HYPERGLYCEMIA Status: Acute Qualifiers: Diabetes mellitus terminologist insulin use: unspecified jail insulin use status Qualified Code(s): E11.65 - Type 2 diabetes mellitus with hyperglycemia (13) BPH (benign prostatic hyperplasia) SNOMED Code(s): 921171290, 969911855 ICD Code: N40.0 - BENIGN PROSTATIC HYPERPLASIA WITHOUT LOWER URINRY TRACT SYMP Status: Acute Qualifiers: Lower urinary tract symptom presence: symptoms present Lower urinary tract symptom detail: straining on urination Qualified Code(s): N40.1 - Benign prostatic hyperplasia with lower urinary tract symptoms; R39.16 - Straining to void Problem List Initiated/Reviewed/Updated: Yes Orders Last 24hrs: Active Orders 24 hr Category Date Time Status Bladder Scan [RC] ASDIRECTED Care 01/26/17 07:58 Active Nursing Bedside Swallow Screen [RC] ASDIRECTED Care 01/26/17 07:55 Active RT Aerosol Therapy [RC] ASDIRECTED Care 01/25/17 18:33 Active RT Aerosol Therapy [RC] ASDIRECTED Care 01/25/17 18:45 Active Albuterol [Proventil Neb Soln] Med 01/25/17 22:00 Active 2.5 mg NEB Q4H Furosemide [Lasix] Med 01/26/17 09:00 Active 40 mg PO BIDDIURETIC Mirtazapine [Remeron] Med 01/26/17 21:00 Active 7.5 mg PO BEDTIME Tamsulosin [Flomax] Med 01/26/17 09:00 Active 0.4 mg PO PCBREAKFAST Convert IV to Saline Lock [OM.PC] Routine Oth 01/26/17 10:50 Ordered Medication Orders Albuterol (Proventil Neb Soln) 2.5 mg NEB Q4H WALTER Last Admin: 01/26/17 10:08 Dose: Not Given Admin: 01/26/17 05:46 Dose: 2.5 mg Admin: 01/26/17 02:38 Dose: 2.5 mg Admin: 01/25/17 23:26 Dose: 2.5 mg Furosemide (Lasix) 40 mg PO BIDDIURETIC WALTER Last Admin: 01/26/17 10:36 Dose: 40 mg Mirtazapine (Remeron) 7.5 mg PO BEDTIME WALTER Ondansetron HCl (Zofran) 4 mg IV Q4H PRN PRN Reason: Nausea/Vomiting Sodium Chloride (Saline Flush) 10 ml FLUSH ASDIRECTED PRN PRN Reason: Keep Vein Open Tamsulosin HCl (Flomax) 0.4 mg PO PCBREAKFAST WALTER Last Admin: 01/26/17 10:36 Dose: 0.4 mg Assessment/Plan Comment:: see above assessments and associated orders which were discussed with the patient at the bedside in the present of his son and daughter. he does not wish to have any more ABGs done. He refuses intubation or bipap if needed, will continue with current cares to include RT, trial of PT, OT when able. he understands that his prognosis is poor and that will the amount of CO2 he is retaining, without incubation his respiratory status will only get worse. with his decreased appetite, he is okay with gentle fluids, electrolytes and glucose for hydration in hopes that his appetite will improve. at this time he has agreed to his oral medications as able. he decline a brown at this time and with opt to use a bedside commode and urinal. he will let me know if his weakness makes this too difficultly for him. protonix iv for gi prof. real for dvt prof. I had a discussion regarding the progression and prognosis of his current illness and that i believe he and his family should visit with hospice, as i do not believe he is likely to survive more that 4-5 days at his current conditions and slow refusal of treatments, with poor intake and increasing anxiety related to his lack of oxygen. i will add morphine iv intermittently to help decrease air hunger as well as intermittent low dose ativan if needed. Titrated oxygen to keep no greater than 92% and RR no greater than 25 rpm. discussed the details of treatment and all questions answered for the patient as well as his family. They agree to hospice and this is appropriate. Total time: 90 min with >50% spent face to face with patient and his family conducting interview, physicial exam, and consulting with family and pt regarding the above.
[2017-01-26] MEDS ORDERED: LORazepam 1 MG Tab PO PRN (12:46)
[2017-01-26] MEDS ORDERED: Nitroglycerin 0.4 MG Tab.SL SL PRN (12:58)
[2017-01-26] MEDS ORDERED: Atropine 1% Ophth Soln 5 ML Bottle SL PRN ×2 (12:58→13:37)
[2017-01-26] MEDS ORDERED: Morphine 2 MG/ML Syringe IVPUSH PRN (12:58)
[2017-01-26] MEDS ORDERED: Loperamide 2 MG Tab PO PRN (12:58)
[2017-01-26] MEDS ORDERED: Sennosides 8.6 MG Tab PO PRN (12:58)
[2017-01-26] MEDS ORDERED: Haloperidol 0.5 MG Tab PO PRN (12:58)
[2017-01-26] MEDS ORDERED: guaiFENesin 200 MG Tab PO PRN (12:58)
[2017-01-26] MEDS ORDERED: Carboxymethylcellulose Sodium 0.5% Ophth Soln 15 ML Bottle EYEBOTH PRN (12:58)
[2017-01-26] MEDS ORDERED: Albuterol 0.083% 2.5 MG/3 ML Neb Soln NEB PRN (13:45)
[2017-01-26] MEDS ORDERED: Enoxaparin 30 MG/0.3 ML Syringe SUBCUT SCH (14:00)
[2017-01-26] MEDS: Albuterol/Ipratropium 3.0-0.5 MG/3 ML Neb Soln NEB SCH ×2 (15:09→21:46)
--- NOTE | 2017-01-26 15:51 | CR ---
INDICATION: Short of breath. CHEST: Portable AP upright view of the chest, 01/25/2017, was limited by poor inspiration and motion. It is compared with 12/29/2016. There is increased density - infiltration suggested centrally with enlarged heart. Findings suggest the possibility of acute pulmonary edema in a patient with CHF, although aspiration pneumonia would also be a consideration. When clinically possible, full inspiration PA and lateral views of the chest are recommended for further evaluation. IMPRESSION: Acute pulmonary edema. MTDD
[2017-01-26] MEDS: Insulin Aspart 100 Units/ML 3 ML Pen SUBCUT SCH ×2 (16:56→22:15)
[2017-01-26] MEDS ORDERED: Mirtazapine 15 MG Tab PO SCH (21:00)
[2017-01-26] MEDS: methylPREDNISolone Sodium Succinate 125 MG/2 ML SDV IV SCH (21:47)
[2017-01-27] MEDS: Albuterol/Ipratropium 3.0-0.5 MG/3 ML Neb Soln NEB SCH ×2 (07:05→11:08)
--- NOTE | 2017-01-27 08:48 | PCM.PN ---
- General Info Date of Service: 01/27/17 Subjective Update: Event overnight includes apnec spell for which his son was called and pt was given increased o2 via nasal canual after a short while. no aystolic. when i ask him about this morning, he doesnt recall the event but tells me 'please just let me go." not hungry. no bm. making urine. no heaches or vomiting. hurts to breathing at time. does not want more imaging. Nursing and family (son) without other concerns. Functional Status: Reports: urinating, incentive spirometry. Denies: pain controlled - Review of Systems General: Reports: Weakness, Fatigue Pulmonary: Reports: shortness of breath, pleuritic chest pain, wheezing Cardiovascular: Reports: Orthopnea Gastrointestinal: Reports: Decreased appetite Genitourinary: Reports: retention Musculoskeletal: Reports: no symptoms Skin: Reports: diaphoresis Neurological: Reports: Weakness Psychiatric: Reports: anxiety - Patient Data Vitals - most recent: Last Vital Signs Temp 98.2 F 01/27/17 01:00 Pulse 90 01/27/17 07:10 Resp 20 01/27/17 01:00 BP 124/82 01/27/17 01:00 Pulse Ox 94 L 01/27/17 07:10 Weight - most recent: 87.288 kg I&O - last 24 hours: Intake & Output 01/26/17 01/27/17 01/27/17 22:59 06:59 14:59 Intake Total 300 Output Total 225 225 Balance 75 -225 Lab Results last 24 hrs: Laboratory Results - last 24 hr 01/26/17 01/26/17 01/26/17 Range/Units 08:39 08:39 08:39 PT (8.7-11.1) INR (0.89-1.13) Sodium 139 (135-145) mmol/L Potassium 5.3 (3.5-5.3) mmol/L Chloride 89 L* (100-110) mmol/L Carbon Dioxide 44 H* (23-29) mmol/L BUN 29 H (8-23) mg/dL Creatinine 0.7 (0.6-1.3) mg/dL Est Cr Clr Drug Dosing 76.88 mL/min Estimated GFR (MDRD) > 60 (>60) BUN/Creatinine Ratio 41.4 H (9-20) Glucose 220 H (80-116) mg/dL POC Glucose (80-116) mg/dL Lactic Acid 1.7 (0.5-2.2) mmol/L Calcium 9.0 (8.6-10.2) mg/dL Total Bilirubin 0.8 (0.1-1.3) mg/dL AST 37 H D (5-27) IU/L ALT 50 H D (14-26) IU/L Alkaline Phosphatase 61 (56-112) IU/L Troponin I 0.02 (0.02-0.06) NG/ML Total Protein 6.4 (6.0-8.0) g/dL Albumin 3.6 (3.2-4.6) g/dL Globulin 2.8 g/dL Albumin/Globulin Ratio 1.3 01/26/17 01/26/17 01/26/17 Range/Units 08:39 16:31 22:12 PT 10.9 (8.7-11.1) INR 1.08 (0.89-1.13) Sodium (135-145) mmol/L Potassium (3.5-5.3) mmol/L Chloride (100-110) mmol/L Carbon Dioxide (23-29) mmol/L BUN (8-23) mg/dL Creatinine (0.6-1.3) mg/dL Est Cr Clr Drug Dosing mL/min Estimated GFR (MDRD) (>60) BUN/Creatinine Ratio (9-20) Glucose (80-116) mg/dL POC Glucose 200 H 181 H (80-116) mg/dL Lactic Acid (0.5-2.2) mmol/L Calcium (8.6-10.2) mg/dL Total Bilirubin (0.1-1.3) mg/dL AST (5-27) IU/L ALT (14-26) IU/L Alkaline Phosphatase (56-112) IU/L Troponin I (0.02-0.06) NG/ML Total Protein (6.0-8.0) g/dL Albumin (3.2-4.6) g/dL Globulin g/dL Albumin/Globulin Ratio 01/27/17 Range/Units 07:22 PT (8.7-11.1) INR (0.89-1.13) Sodium (135-145) mmol/L Potassium (3.5-5.3) mmol/L Chloride (100-110) mmol/L Carbon Dioxide (23-29) mmol/L BUN (8-23) mg/dL Creatinine (0.6-1.3) mg/dL Est Cr Clr Drug Dosing mL/min Estimated GFR (MDRD) (>60) BUN/Creatinine Ratio (9-20) Glucose (80-116) mg/dL POC Glucose 214 H (80-116) mg/dL Lactic Acid (0.5-2.2) mmol/L Calcium (8.6-10.2) mg/dL Total Bilirubin (0.1-1.3) mg/dL AST (5-27) IU/L ALT (14-26) IU/L Alkaline Phosphatase (56-112) IU/L Troponin I (0.02-0.06) NG/ML Total Protein (6.0-8.0) g/dL Albumin (3.2-4.6) g/dL Globulin g/dL Albumin/Globulin Ratio Med Orders - Current: Current Medications Albuterol (Proventil Neb Soln) 2.5 mg NEB Q4H PRN PRN Reason: SHORTNESS OF BREATH Last Admin: 01/27/17 01:41 Dose: 2.5 mg Albuterol/Ipratropium (Duoneb 3.0-0.5 Mg/3 Ml) 3 ml NEB QIDRT [facility] Last Admin: 01/27/17 07:05 Dose: 3 ml Artificial Tears (Refresh Tears 0.5%) 0 ml EYEBOTH ASDIRECTED PRN PRN Reason: Dry Eyes Atropine Sulfate (Isopto Atropine 1% Ophth Soln) 0 ml SL Q1H PRN PRN Reason: EXCESSIVE SECRETIONS Enoxaparin Sodium (Lovenox) 30 mg SUBCUT Q24H [facility] Last Admin: 01/26/17 14:15 Dose: Not Given Furosemide (Lasix) 40 mg PO BIDDIURETIC [facility] Last Admin: 01/26/17 14:59 Dose: 40 mg Guaifenesin (Organ-I Nr) 200 mg PO Q4H PRN PRN Reason: Cough Haloperidol (Haldol) 0.5 mg PO Q6H PRN PRN Reason: RESTLESSNESS/DELIUM/AGGITATION Insulin Aspart (Novolog) 0 unit SUBCUT QIDACANDBED [facility] PRN Reason: Protocol Last Admin: 01/26/17 22:15 Dose: 2 units Loperamide HCl (Imodium Ad) 4 mg PO Q6H PRN PRN Reason: Diarrhea Lorazepam (Ativan) 1 mg PO Q4H PRN PRN Reason: agitation/anxiety Methylprednisolone Sodium Succinate (Solu-Medrol) 60 mg IV Q12H [facility] Last Admin: 01/26/17 21:47 Dose: 60 mg Mirtazapine (Remeron) 7.5 mg PO BEDTIME [facility] Last Admin: 01/26/17 21:47 Dose: 7.5 mg Morphine Sulfate (Morphine) 2 mg IVPUSH Q2H PRN PRN Reason: DYSPNEA/PAIN/RESPITORY DISTRES Nitroglycerin (Nitrostat) 0.4 mg SL Q5M PRN PRN Reason: Chest Pain Senna (Senna) 8.6 mg PO BEDTIME PRN PRN Reason: Constipation Sodium Chloride (Saline Flush) 10 ml FLUSH ASDIRECTED PRN PRN Reason: Keep Vein Open Last Admin: 01/26/17 22:27 Dose: 10 ml Tamsulosin HCl (Flomax) 0.4 mg PO PCBREAKFAST [facility] Last Admin: 01/26/17 10:36 Dose: 0.4 mg Discontinued Medications Albuterol (Proventil Neb Soln) 2.5 mg NEB Q4H [facility] Albuterol (Proventil Neb Soln) 2.5 mg NEB Q4H [facility] Last Admin: 01/26/17 10:08 Dose: Not Given Albuterol/Ipratropium (Duoneb 3.0-0.5 Mg/3 Ml) Confirm Administered Dose 3 ml .ROUTE .STK-MED ONE Stop: 01/25/17 17:06 Last Admin: 01/25/17 17:10 Dose: 3 ml Albuterol/Ipratropium (Duoneb 3.0-0.5 Mg/3 Ml) 3 ml NEB QIDRT [facility] Atropine Sulfate (Isopto Atropine 1% Ophth Soln) 0 ml SL Q1H PRN PRN Reason: EXCESSIVE SECRETIONS Sodium Chloride (Normal Saline) 1,000 mls @ 125 mls/hr IV ASDIRECTED [facility] Last Admin: 01/26/17 04:00 Dose: 125 mls/hr Methylprednisolone Sodium Succinate (Solu-Medrol) 125 mg IVPUSH ONETIME ONE Stop: 01/25/17 17:07 Last Admin: 01/25/17 17:10 Dose: 125 mg Methylprednisolone Sodium Succinate (Solu-Medrol) Confirm Administered Dose 125 mg .ROUTE .STK-MED ONE Stop: 01/25/17 17:06 Last Admin: 01/25/17 18:44 Dose: Not Given Morphine Sulfate (Morphine) 2 mg IVPUSH ONETIME ONE Stop: 01/26/17 10:51 Last Admin: 01/26/17 11:24 Dose: 2 mg Ondansetron HCl (Zofran) 4 mg IV Q4H PRN PRN Reason: Nausea/Vomiting - Exam Quality Assessment: supplemental oxygen, DVT prophylaxis General: cooperative, lethargic HEENT: Pupils equal, Pupils reactive Lungs: Decreased breath sounds, Rales, Wheezing Cardiovascular: Regular Rate, Regular Rhythm Abdomen: no tenderness, abnormal bowel sounds Extremities: no tenderness/swelling Skin: cool, moist Neurological: no new focal deficit Psy/Mental Status: anxious - Problem List Review Problem List Initiated/Reviewed/Updated: Yes - My Orders Last 24 Hours: My Active Orders 01/26/17 07:55 Nursing Bedside Swallow Screen [RC] ASDIRECTED 01/26/17 09:00 Furosemide [Lasix] 40 mg PO BIDDIURETIC Tamsulosin [Flomax] 0.4 mg PO PCBREAKFAST 01/26/17 10:50 Convert IV to Saline Lock [OM.PC] Routine 01/26/17 11:26 Consult to Hospice [CONS] Routine 01/26/17 12:46 LORazepam [Ativan] 1 mg PO Q4H PRN 01/26/17 12:51 Urinary Catheter Assessment [RC] QSHIFT 01/26/17 12:58 Carboxymethylcellulose Sodium [Refresh Tears 0.5%] See Dose Instructions EYEBOTH ASDIRECTED PRN Haloperidol [Haldol] 0.5 mg PO Q6H PRN Loperamide [Imodium AD] 4 mg PO Q6H PRN Morphine 2 mg IVPUSH Q2H PRN Nitroglycerin [Nitrostat] 0.4 mg SL Q5M PRN Sennosides [Senna] 8.6 mg PO BEDTIME PRN guaiFENesin [Organ-I NR] 200 mg PO Q4H PRN 01/26/17 13:00 Brown Catheter Insertion [Insert Urinary Catheter] [OM.PC] Q24H 01/26/17 13:12 RT Incentive Spirometry [RC] Q4HWA OT Evaluation and Treatment [CONS] Routine PT Evaluation and Treatment [CONS] Routine 01/26/17 13:17 RT Aerosol Therapy [RC] ASDIRECTED 01/26/17 13:18 Accu Check [Blood Glucose Check, Bedside] [RC] 07,11,17,21 01/26/17 13:19 Intake and Output Strict [RC] 06,10,14,18,22,02 01/26/17 13:20 Vital Signs [RC] 08,14,20,02 01/26/17 13:37 Atropine 1% [Isopto Atropine 1% Ophth Soln] 0 ml SL Q1H PRN 01/26/17 13:45 Albuterol [Proventil Neb Soln] 2.5 mg NEB Q4H PRN 01/26/17 14:00 Enoxaparin [Lovenox] 30 mg SUBCUT Q24H 01/26/17 16:00 Albuterol/Ipratropium [DuoNeb 3.0-0.5 MG/3 ML] 3 ml NEB QIDRT 01/26/17 17:30 Insulin Aspart [NovoLOG] See Protocol SUBCUT QIDACANDBED 01/26/17 21:00 Mirtazapine [Remeron] 7.5 mg PO BEDTIME methylPREDNISolone Sod Succ [Solu-MEDROL] 60 mg IV Q12H 01/26/17 Lunch 2 Gram Sodium Diet [DIET] - Assessment Assessment:: - Problem List (1) Decompensated COPD with exacerbation (chronic obstructive pulmonary disease) SNOMED Code(s): 604361441, 808146622 ICD Code: J44.1 - CHRONIC OBSTRUCTIVE PULMONARY DISEASE W (ACUTE) EXACERBATION Status: Acute (2) Respiratory failure SNOMED Code(s): 673948331 ICD Code: J96.90 - RESPIRATORY FAILURE, UNSP, UNSP W HYPOXIA OR HYPERCAPNIA Status: Acute (3) Restrictive airway disease SNOMED Code(s): 95443621 ICD Code: J98.4 - OTHER DISORDERS OF LUNG Status: Acute (4) Hypoxemia SNOMED Code(s): 071976309 ICD Code: R09.02 - HYPOXEMIA Status: Acute (5) Hyperkalemia SNOMED Code(s): 87010649 ICD Code: E87.5 - HYPERKALEMIA Status: Acute (6) DNR (do not resuscitate) Status: Acute (7) DNI (do not intubate) SNOMED Code(s): 177836394 ICD Code: Z78.9 - OTHER SPECIFIED HEALTH STATUS Status: Acute (8) Anxiety disorder SNOMED Code(s): 385233322 ICD Code: F41.9 - ANXIETY DISORDER, UNSPECIFIED Status: Acute Problem Details: Lorazepam prn (9) Atelectasis of right lung SNOMED Code(s): 40426159 ICD Code: J98.11 - ATELECTASIS Status: Acute (10) CHF, Congestive heart failure SNOMED Code(s): 02161636 ICD Code: I50.9 - HEART FAILURE, UNSPECIFIED Status: Acute Problem Details: Appears stable (11) Palliative care status SNOMED Code(s): 437530120 ICD Code: Z51.5 - ENCOUNTER FOR PALLIATIVE CARE Status: Acute (12) Hyperglycemia due to type 2 diabetes mellitus SNOMED Code(s): 649683924533252, 997427055313526 ICD Code: E11.65 - TYPE 2 DIABETES MELLITUS WITH HYPERGLYCEMIA Status: Acute Qualifiers: Diabetes mellitus snf insulin use: unspecified 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 Qualified Code(s): E11.65 - Type 2 diabetes mellitus with hyperglycemia (13) BPH (benign prostatic hyperplasia) SNOMED Code(s): 926313969, 316957632 ICD Code: N40.0 - BENIGN PROSTATIC HYPERPLASIA WITHOUT LOWER URINRY TRACT SYMP Status: Acute Qualifiers: Lower urinary tract symptom presence: symptoms present Lower urinary tract symptom detail: straining on urination Qualified Code(s): N40.1 - Benign prostatic hyperplasia with lower urinary tract symptoms; R39.16 - Straining to void Problem List Initiated/Reviewed/Updated: Yes Orders Last 24hrs: - Plan Plan:: he tells me he will consider a brown catheter at this time as it have been difficulty to get out of bed. this will be ordered prn for when he asks for it. will help with skin cares as well. steroid burst for reactive airway for now in hopes that this will help open airways to make breathing less labor intensive. not curative. he understands this. he has agreed to hospice inpt while we get his pain with breathing and anxiety under control. with his breathing, IV will be used until other less invasive means can get his symptoms under control in order to provide maximum comfort. all of this was was discussed with his daughters and at the bedside and mr. ovalles agrees as they do as well. Hospice inpt to begin their cares and services at this time.
[2017-01-27] MEDS: Insulin Aspart 100 Units/ML 3 ML Pen SUBCUT SCH ×2 (09:25→11:26)
[2017-01-27] MEDS: Furosemide 40 MG Tab PO SCH (09:31)
[2017-01-27] MEDS: Tamsulosin 0.4 MG Cap.ER PO SCH (09:32)
[2017-01-27] MEDS: Sodium Chloride 0.9% 10 ML Syringe FLUSH PRN ×2 (09:35→11:10)
[2017-01-27] MEDS: methylPREDNISolone Sodium Succinate 125 MG/2 ML SDV IV SCH (09:35)
[2017-01-27] MEDS ORDERED: LORazepam 2 MG/ML MDV IVPUSH PRN (10:58)
[2017-01-27 11:23] VITALS: BP 121/68
[2017-01-27] MEDS ORDERED: methylPREDNISolone Sodium Succinate 40 MG/1 ML SDV IVPUSH SCH (21:00)
== END 2017-01-27 13:00 | disposition hospice, inpatient (51) | DRG 191 ==
LOC: FB.ED 17:01 → FB.MS 17:54
PROVIDERS: ADMIT Emergency Medicine; ATTEND Family Medicine
DX: J44.1 Chronic obstructive pulmonary disease with (acute) exacerbation (principal); E87.2 Acidosis; E86.0 Dehydration; E11.9 Type 2 diabetes mellitus without complications; Z66 Do not resuscitate; Z51.5 Encounter for palliative care; I11.0 Hypertensive heart disease with heart failure; I50.9 Heart failure, unspecified; E87.5 Hyperkalemia; Z79.84 Long term (current) use of oral hypoglycemic drugs; Z87.891 Personal history of nicotine dependence; E78.5 Hyperlipidemia, unspecified; M19.90 Unspecified osteoarthritis, unspecified site; K21.9 Gastro-esophageal reflux disease without esophagitis; K59.09 Other constipation; F32.9 Major depressive disorder, single episode, unspecified; F41.9 Anxiety disorder, unspecified; Z79.82 Long term (current) use of aspirin; Z79.52 Long term (current) use of systemic steroids; Z88.0 Allergy status to penicillin
CPT/HCPCS: 36415; 36600; 71010; 80048; 82803; 83880; 84484; 85025; 93005 ×2; 94640; 96374; 99285 ×2; J2930; J7620; 80053; 82962; 83605; 85610; A9270-GY; J2270; J7040; J7050

== ENCOUNTER 2017-01-27 13:57 | Inpatient (IN) | payer OTHER, BC ==
[2017-01-27] MEDS ORDERED: Albuterol 0.083% 2.5 MG/3 ML Neb Soln INH PRN (14:08)
[2017-01-27] MEDS ORDERED: Polyvinyl Alcohol 1.4% Ophth Soln 15 ML Bottle EYEBOTH PRN (14:09)
[2017-01-27] MEDS ORDERED: guaiFENesin 200 MG Tab PO PRN (14:10)
[2017-01-27] MEDS ORDERED: Haloperidol 0.5 MG Tab PO PRN (14:10)
[2017-01-27] MEDS ORDERED: LORazepam 1 MG Tab PO PRN (14:12)
[2017-01-27] MEDS ORDERED: Scopolamine 1.5 MG Transdermal Patch TOP PRN (14:15)
[2017-01-27] MEDS ORDERED: Nitroglycerin 0.4 MG Tab.SL SL PRN (14:15)
[2017-01-27] MEDS ORDERED: Hyoscyamine 0.125 MG Tab.SL PO PRN (14:16)
[2017-01-27] MEDS: Albuterol/Ipratropium 3.0-0.5 MG/3 ML Neb Soln INH SCH ×2 (15:29→20:58)
[2017-01-27] MEDS: Morphine 2 MG/ML Syringe IVPUSH PRN (20:37)
[2017-01-27] MEDS: methylPREDNISolone Sodium Succinate 40 MG/1 ML SDV IVPUSH SCH (20:58)
--- NOTE | 2017-01-28 07:12 | PCM.PN ---
- General Info Date of Service: 01/28/17 Admission Dx/Problem (Free Text): Admitted to Hospice Inpt yesterday for Respiratory Failure in the setting of End Stage COPD/Restrictive lung disease with acute on chronic CO2 retention, de- compensated respiratory acidosis, hypoxia, IV pain/anxiolytic control and comfort cares per his wishes. Functional Status: Denies: Pain Controlled, Tolerating Diet, Ambulating - Review of Systems General: Reports: Weakness. Denies: Appetite Pulmonary: Reports: Shortness of Breath, Pleuritic Chest Pain, Wheezing Cardiovascular: Reports: Dyspnea on Exertion Gastrointestinal: Denies: Abdominal Pain, Vomiting Genitourinary: Denies: Flank Pain Skin: Reports: Pallor, Bruising Neurological: Reports: Confusion Psychiatric: Reports: Anxiety - Patient Data Weight - Most Recent: 87.288 kg I&O - Last 24 Hours: Intake & Output 01/27/17 01/28/17 01/28/17 22:59 06:59 14:59 Intake Total 200 200 Output Total 400 300 Balance -200 -100 Med Orders - Current: Current Medications Albuterol (Proventil Neb Soln) 2.5 mg INH Q4H PRN PRN Reason: DYSPNEA Albuterol/Ipratropium (Duoneb 3.0-0.5 Mg/3 Ml) 3 ml INH QIDRT [facility] Last Admin: 01/27/17 20:58 Dose: 3 ml Artificial Tears (Liquitears 1.4% Ophth Soln) 0 ml EYEBOTH ASDIRECTED PRN PRN Reason: DRY EYES Guaifenesin (Organ-I Nr) 200 mg PO Q4H PRN PRN Reason: COUGH Haloperidol (Haldol) 0.5 mg PO Q6H PRN PRN Reason: RESTLESSNESS Hyoscyamine (Hyomax-Sl) 0.125 mg PO Q4H PRN PRN Reason: SECRETIONS Lorazepam (Ativan) 0.5 mg IVPUSH Q2H PRN PRN Reason: AGITATION/DYSPNEA Lorazepam (Ativan) 1 mg PO Q2H PRN PRN Reason: AGITATION/ANXIETY Methylprednisolone Sodium Succinate (Solu-Medrol) 40 mg IVPUSH BID [facility] Last Admin: 01/27/17 20:58 Dose: 40 mg Morphine Sulfate (Morphine) 2 mg IVPUSH Q30M PRN PRN Reason: PAIN/DYSPNEA Last Admin: 01/27/17 20:37 Dose: 2 mg Nitroglycerin (Nitrostat) 0.4 mg SL Q5M PRN PRN Reason: CHEST PAIN Scopolamine (Transderm-Scop) 1.5 mg TOP Q72H PRN PRN Reason: SECRETIONS Senna/Docusate Sodium (Senna Plus) 2 tab PO BID PRN PRN Reason: CONSTIPATION - Exam Quality Assessment: Supplemental Oxygen (4-6l), Urine Catheter General: Moderate Distress, Lethargic HEENT: No: Mucous Membr. Moist/[place] Lungs: Crackles, Rales, Wheezing. No: Normal Respiratory Effort Cardiovascular: Regular Rate, Regular Rhythm GI/Abdominal Exam: Non-Tender, Distended, Abnormal Bowel Sounds (Male) Exam: Scrotal Swelling. No: Hernia, Inguinal Lymphadenopathy, Urethral Discharge Extremities: Pedal Edema, Slow Capillary Refill, Pallor Skin: Cool Psy/Mental Status: Anxious - Problem List & Annotations (1) Decompensated COPD with exacerbation (chronic obstructive pulmonary disease) SNOMED Code(s): 106713004, 307690048 Code(s): J44.1 - CHRONIC OBSTRUCTIVE PULMONARY DISEASE W (ACUTE) EXACERBATION Status: Acute (2) Hospice care patient SNOMED Code(s): 518612168 Code(s): Z51.5 - ENCOUNTER FOR PALLIATIVE CARE Status: Acute (3) Palliative care status SNOMED Code(s): 846834639 Code(s): Z51.5 - ENCOUNTER FOR PALLIATIVE CARE Status: Acute (4) Restrictive airway disease SNOMED Code(s): 53775329 Code(s): J98.4 - OTHER DISORDERS OF LUNG Status: Acute (5) Anxiety disorder SNOMED Code(s): 270983283 Code(s): F41.9 - ANXIETY DISORDER, UNSPECIFIED Status: Acute Annotation/ Comment:: Lorazepam prn (6) Atelectasis of right lung SNOMED Code(s): 96570323 Code(s): J98.11 - ATELECTASIS Status: Acute (7) BPH (benign prostatic hyperplasia) SNOMED Code(s): 664050297, 791763651 Code(s): N40.0 - BENIGN PROSTATIC HYPERPLASIA WITHOUT LOWER URINRY TRACT SYMP Status: Acute Qualifiers: Lower urinary tract symptom presence: symptoms present Lower urinary tract symptom detail: straining on urination Qualified Code(s): N40.1 - Benign prostatic hyperplasia with lower urinary tract symptoms; R39.16 - Straining to void (8) DNI (do not intubate) SNOMED Code(s): 295158339 Code(s): Z78.9 - OTHER SPECIFIED HEALTH STATUS Status: Acute (9) DNR (do not resuscitate) Status: Acute - Problem List Review Problem List Initiated/Reviewed/Updated: Yes - My Orders Last 24 Hours: My Active Orders 01/27/17 13:00 Patient Status [ADT] Routine Oxygen Therapy [RC] .PRN Respiratory Care Assess and Treatment [CONS] Routine 01/27/17 14:07 Docusate Sodium/Sennosides [Senna Plus] 2 tab PO BID PRN 01/27/17 14:08 Albuterol [Proventil Neb Soln] 2.5 mg INH Q4H PRN 01/27/17 14:09 Polyvinyl Alcohol [LiquiTears 1.4% Ophth Soln] 0 ml EYEBOTH ASDIRECTED PRN 01/27/17 14:10 Haloperidol [Haldol] 0.5 mg PO Q6H PRN guaiFENesin [Organ-I NR] 200 mg PO Q4H PRN 01/27/17 14:12 LORazepam [Ativan] 0.5 mg IVPUSH Q2H PRN LORazepam [Ativan] 1 mg PO Q2H PRN 01/27/17 14:13 Resuscitation Status Routine 01/27/17 14:14 Morphine 2 mg IVPUSH Q30M PRN 01/27/17 14:15 Nitroglycerin [Nitrostat] 0.4 mg SL Q5M PRN Scopolamine [Transderm-Scop] 1.5 mg TOP Q72H PRN 01/27/17 14:16 Hyoscyamine [Hyomax-SL] 0.125 mg PO Q4H PRN 01/27/17 14:20 Urinary Catheter Assessment [RC] 08,16,00 01/27/17 14:22 Vital Signs [RC] 08 01/27/17 14:30 [place] Catheter Insertion [Insert Urinary Catheter] [OM.PC] Q24H 01/27/17 16:00 Albuterol/Ipratropium [DuoNeb 3.0-0.5 MG/3 ML] 3 ml INH QIDRT 01/27/17 21:00 methylPREDNISolone Sod Succ [Solu-MEDROL] 40 mg IVPUSH BID 01/27/17 Dinner Regular Diet [DIET] - Plan Plan:: continue respiratory, pain and comfort cares per hospice recommendations. son debriefed. do not anticipate him to survive more than 2-3 days as he continues to decline requiring more morphine and ativan to keep him comfortable. Son understands and agrees. family have in visiting.
[2017-01-28] MEDS: Albuterol/Ipratropium 3.0-0.5 MG/3 ML Neb Soln INH SCH ×4 (07:37→20:54)
[2017-01-28] MEDS: Morphine 2 MG/ML Syringe IVPUSH PRN ×3 (09:31→19:13)
[2017-01-28] MEDS: Sodium Chloride 0.9% 10 ML Syringe FLUSH PRN ×7 (09:31→20:55)
[2017-01-28] MEDS: methylPREDNISolone Sodium Succinate 40 MG/1 ML SDV IVPUSH SCH ×2 (10:37→20:55)
[2017-01-28] MEDS: LORazepam 2 MG/ML MDV IVPUSH PRN (10:39)
[2017-01-28] MEDS: LORazepam 0.5 MG Tab PO SCH ×2 (10:42→18:14)
[2017-01-28] MEDS ORDERED: Morphine 4 MG/ML Syringe IVPUSH ONE (12:01)
[2017-01-29] MEDS: LORazepam 0.5 MG Tab PO SCH (01:59)
[2017-01-29] MEDS: Albuterol/Ipratropium 3.0-0.5 MG/3 ML Neb Soln INH SCH ×3 (07:42→15:25)
[2017-01-29] MEDS: Morphine 2 MG/ML Syringe IVPUSH PRN (08:37)
[2017-01-29] MEDS: Sodium Chloride 0.9% 10 ML Syringe FLUSH PRN ×4 (08:37→13:45)
[2017-01-29] MEDS: methylPREDNISolone Sodium Succinate 40 MG/1 ML SDV IVPUSH SCH (08:53)
[2017-01-29] MEDS ORDERED: LORazepam 1 MG Tab PO SCH ×2 (09:30→10:00)
[2017-01-29] MEDS: Morphine 4 MG/ML Syringe IVPUSH PRN ×2 (11:10→12:21)
[2017-01-29] MEDS: LORazepam 2 MG/ML MDV IVPUSH PRN (13:45)
--- NOTE | 2017-01-29 15:26 | PCM.PN ---
- General Info Date of Service: 01/29/17 Subjective Update: Admission Dx/Problem (Free Text): Admitted to Hospice Inpt for Respiratory Failure in the setting of End Stage COPD/Restrictive lung disease with acute on chronic CO2 retention, de- compensated respiratory acidosis, hypoxia, IV pain/anxiolytic control and comfort cares per his wishes. Functional Status: Denies: Pain Controlled, Tolerating Diet, Ambulating - Review of Systems General: Reports: Weakness. Denies: Appetite Pulmonary: Reports: Shortness of Breath, Pleuritic Chest Pain, Wheezing Cardiovascular: Reports: Dyspnea on Exertion Gastrointestinal: Denies: Abdominal Pain, Vomiting Genitourinary: Denies: Flank Pain Skin: Reports: Pallor, Bruising Neurological: Reports: Confusion Psychiatric: Reports: Anxiety - Exam Quality Assessment: Supplemental Oxygen (4-6l), Urine Catheter General: Moderate Distress, Lethargic HEENT: No: Mucous Membr. Moist/[place] Lungs: Crackles, Rales, Wheezing. No: Normal Respiratory Effort Cardiovascular: Regular Rate, Regular Rhythm GI/Abdominal Exam: Non-Tender, Distended, Abnormal Bowel Sounds (Male) Exam: Scrotal Swelling. No: Hernia, Inguinal Lymphadenopathy, Urethral Discharge Extremities: Pedal Edema, Slow Capillary Refill, Pallor Skin: Cool Psy/Mental Status: Anxious - Patient Data Vitals - Most Recent: Last Vital Signs Temp 98.2 F 01/29/17 00:30 Pulse 106 H 01/29/17 11:15 Resp 20 01/29/17 00:30 BP 114/69 01/29/17 00:30 Pulse Ox 90 L 01/29/17 11:15 Weight - Most Recent: 87.288 kg I&O - Last 24 Hours: Intake & Output 01/29/17 01/29/17 01/29/17 06:59 14:59 22:59 Intake Total 150 Output Total 475 125 Balance -325 -125 Med Orders - Current: Current Medications Albuterol (Proventil Neb Soln) 2.5 mg INH Q4H PRN PRN Reason: DYSPNEA Albuterol/Ipratropium (Duoneb 3.0-0.5 Mg/3 Ml) 3 ml INH QIDRT [facility] Last Admin: 01/29/17 11:05 Dose: 3 ml Artificial Tears (Liquitears 1.4% Ophth Soln) 0 ml EYEBOTH ASDIRECTED PRN PRN Reason: DRY EYES Guaifenesin (Organ-I Nr) 200 mg PO Q4H PRN PRN Reason: COUGH Haloperidol (Haldol) 0.5 mg PO Q6H PRN PRN Reason: RESTLESSNESS Hyoscyamine (Hyomax-Sl) 0.125 mg PO Q4H PRN PRN Reason: SECRETIONS Lorazepam (Ativan) 0.5 mg IVPUSH Q2H PRN PRN Reason: AGITATION/DYSPNEA Last Admin: 01/29/17 13:45 Dose: 0.5 mg Lorazepam (Ativan) 1 mg PO Q2H PRN PRN Reason: AGITATION/ANXIETY Lorazepam (Ativan) 1 mg PO Q8H [facility] Last Admin: 01/29/17 10:53 Dose: 1 mg Morphine Sulfate (Morphine) 4 mg IVPUSH Q30M PRN PRN Reason: PAIN/SHORTNESS OF BREATH Last Admin: 01/29/17 12:21 Dose: 4 mg Nitroglycerin (Nitrostat) 0.4 mg SL Q5M PRN PRN Reason: CHEST PAIN Scopolamine (Transderm-Scop) 1.5 mg TOP Q72H PRN PRN Reason: SECRETIONS Senna/Docusate Sodium (Senna Plus) 2 tab PO BID PRN PRN Reason: CONSTIPATION Sodium Chloride (Saline Flush) 10 ml FLUSH ASDIRECTED PRN PRN Reason: flush med Last Admin: 01/29/17 13:45 Dose: 10 ml Discontinued Medications Lorazepam (Ativan) 0.5 mg PO Q8H [facility] Last Admin: 01/29/17 01:59 Dose: 0.5 mg Lorazepam (Ativan) 1 mg PO Q8H [facility] Methylprednisolone Sodium Succinate (Solu-Medrol) 40 mg IVPUSH BID [facility] Last Admin: 01/29/17 08:53 Dose: 40 mg Morphine Sulfate (Morphine) 2 mg IVPUSH Q30M PRN PRN Reason: PAIN/DYSPNEA Last Admin: 01/29/17 08:37 Dose: 2 mg Morphine Sulfate (Morphine) 4 mg IVPUSH ONETIME ONE Stop: 01/28/17 12:02 Last Admin: 01/28/17 12:16 Dose: 4 mg - Problem List Review Problem List Initiated/Reviewed/Updated: Yes - My Orders Last 24 Hours: My Active Orders 01/29/17 10:00 LORazepam [Ativan] 1 mg PO Q8H 01/29/17 10:44 Morphine 4 mg IVPUSH Q30M PRN - Assessment Assessment:: - Problem List & Annotations (1) Decompensated COPD with exacerbation (chronic obstructive pulmonary disease) SNOMED Code(s): 895651568, 303905562 Code(s): J44.1 - CHRONIC OBSTRUCTIVE PULMONARY DISEASE W (ACUTE) EXACERBATION Status: Acute (2) Hospice care patient SNOMED Code(s): 658999917 Code(s): Z51.5 - ENCOUNTER FOR PALLIATIVE CARE Status: Acute (3) Palliative care status SNOMED Code(s): 230932504 Code(s): Z51.5 - ENCOUNTER FOR PALLIATIVE CARE Status: Acute (4) Restrictive airway disease SNOMED Code(s): 27537624 Code(s): J98.4 - OTHER DISORDERS OF LUNG Status: Acute (5) Anxiety disorder SNOMED Code(s): 494762599 Code(s): F41.9 - ANXIETY DISORDER, UNSPECIFIED Status: Acute Annotation/ Comment:: Lorazepam prn (6) Atelectasis of right lung SNOMED Code(s): 28571468 Code(s): J98.11 - ATELECTASIS Status: Acute (7) BPH (benign prostatic hyperplasia) SNOMED Code(s): 514690199, 496834555 Code(s): N40.0 - BENIGN PROSTATIC HYPERPLASIA WITHOUT LOWER URINRY TRACT SYMP Status: Acute Qualifiers: Lower urinary tract symptom presence: symptoms present Lower urinary tract symptom detail: straining on urination Qualified Code(s): N40.1 - Benign prostatic hyperplasia with lower urinary tract symptoms; R39.16 - Straining to void (8) DNI (do not intubate) SNOMED Code(s): 753666198 Code(s): Z78.9 - OTHER SPECIFIED HEALTH STATUS Status: Acute (9) DNR (do not resuscitate) Status: Acute - Plan Plan:: continue respiratory, pain and comfort cares per hospice recommendations. son debriefed. do not anticipate him to survive more than 1-2 days as he continues to decline requiring more morphine and ativan to keep him comfortable. Son understands and agrees. family have in visiting.
[2017-01-29 15:31] VITALS: BP 122/77
--- NOTE | 2017-01-29 16:55 | PCM.DCSUM1 ---
Discharge Summary - Hospital Course Free Text/Narrative:: Admission Dx/Problem (Free Text): Admitted to Hospice Inpt for Respiratory Failure in the setting of End Stage COPD/Restrictive lung disease with acute on chronic CO2 retention, de- compensated respiratory acidosis, hypoxia, IV pain/anxiolytic control and comfort cares per his wishes. I was called to his room as he was found unresponsive, not breathing, pale during hospice assessment. Physcial assessment at the bedside by me. He has . His family will be notified as they were just visiting and left. they were able to say their goodbyes before he veronica his last breath. Hospice will continue to work with family and discharge coordination of cares. - Discharge Data Discharge Date: 01/29/17 Discharge Disposition: 20 Preliminary Cause of *Q: Respiratory Failure Condition: - Discharge Diagnosis/Problem(s) (1) Decompensated COPD with exacerbation (chronic obstructive pulmonary disease) SNOMED Code(s): 328837497, 949883527 ICD Code: J44.1 - CHRONIC OBSTRUCTIVE PULMONARY DISEASE W (ACUTE) EXACERBATION Status: Acute (2) Hospice care patient SNOMED Code(s): 878809397 ICD Code: Z51.5 - ENCOUNTER FOR PALLIATIVE CARE Status: Acute (3) Palliative care status SNOMED Code(s): 471292034 ICD Code: Z51.5 - ENCOUNTER FOR PALLIATIVE CARE Status: Acute (4) Restrictive airway disease SNOMED Code(s): 47369993 ICD Code: J98.4 - OTHER DISORDERS OF LUNG Status: Acute (5) Atelectasis of right lung SNOMED Code(s): 87025548 ICD Code: J98.11 - ATELECTASIS Status: Acute (6) BPH (benign prostatic hyperplasia) SNOMED Code(s): 982470178, 097632305 ICD Code: N40.0 - BENIGN PROSTATIC HYPERPLASIA WITHOUT LOWER URINRY TRACT SYMP Status: Acute Qualifiers: Lower urinary tract symptom presence: symptoms present Lower urinary tract symptom detail: straining on urination Qualified Code(s): N40.1 - Benign prostatic hyperplasia with lower urinary tract symptoms; R39.16 - Straining to void (7) CHF, Congestive heart failure SNOMED Code(s): 35273962 ICD Code: I50.9 - HEART FAILURE, UNSPECIFIED Status: Acute Problem Details: Appears stable (8) DNI (do not intubate) SNOMED Code(s): 126764159 ICD Code: Z78.9 - OTHER SPECIFIED HEALTH STATUS Status: Acute (9) DNR (do not resuscitate) Status: Acute (10) Hyperglycemia due to type 2 diabetes mellitus SNOMED Code(s): 983247351341301, 940484116026579 ICD Code: E11.65 - TYPE 2 DIABETES MELLITUS WITH HYPERGLYCEMIA Status: Acute Qualifiers: Diabetes mellitus intermission coordinator insulin use: unspecified chcf insulin use status Qualified Code(s): E11.65 - Type 2 diabetes mellitus with hyperglycemia (11) Kyphosis deformity of spine SNOMED Code(s): 108338396 ICD Code: M40.209 - UNSPECIFIED KYPHOSIS, SITE UNSPECIFIED Status: Acute Problem Details: Stable - Patient Summary/Data Consults: Consultations 01/27/17 13:00 Respiratory Care Assess and Treatment [CONS] Routine Comment: Physician Instructions: follow prn Special Instructions: keep sats equal to or less than 85% - Discharge Plan Home Medications: Home Meds Aspirin/Calcium Carbonate/Mag [Aspirin Buffered 325 mg Tab] 325 mg PO BID [History] Cholecalciferol (Vitamin D3) [Vitamin D3] 1,000 units PO DAILY 11/10/13 [History ] Furosemide 40 mg PO BID 11/10/13 [History] Mirtazapine [Remeron] 7.5 mg PO BEDTIME 11/10/13 [History] Omeprazole 40 mg PO DAILY 11/10/13 [History] Simvastatin 40 mg PO BEDTIME 11/10/13 [History] Alendronate Sodium [Fosamax] 70 mg PO TU 04/24/16 [History] Arformoterol [Brovana] 2 ml INH BID 04/24/16 [History] Ascorbic Acid [Vitamin C with Heather Hips] 1,000 mg PO DAILY 04/24/16 [History] FLUoxetine HCl [Fluoxetine HCl] 40 mg PO DAILY 04/24/16 [History] Glucosam/Msm/Vit C/Jesús/Hrb#21 [Glucosamine-MSM Complex] 1 tab PO BID 04/24/16 [ History] Multivitamin [Multi-Vitamin Daily] 1 tab PO DAILY 04/24/16 [History] Nabumetone 750 mg PO BID 04/24/16 [History] Polyethylene Glycol 3350 [MiraLAX] 17 gm PO BEDTIME 04/24/16 [History] Cyanocobalamin (Vitamin B12) [Vitamin B12] 1,000 mcg PO DAILY 11/04/16 [History] Fish Oil/[place]-3 Fatty Acids [Fish Oil 1,000 MG] 1 gm PO DAILY 11/04/16 [History ] busPIRone [Buspar] 7.5 mg PO BID 11/04/16 [History] Albuterol/Ipratropium [DuoNeb 3.0-0.5 MG/3 ML] 3 ml NEB TIDRT #90 neb 11/10/16 [ Rx] Acetaminophen with Codeine [Acetaminophen-Cod #3] 1 each PO QID 12/30/16 [ History] Glimepiride [Amaryl] 1 mg PO DAILY 12/30/16 [History] Tamsulosin [Flomax] 0.4 mg PO PCBREAKFAST #30 cap.er 01/05/17 [Rx] Prednisone [IJD: predniSONE] 20 mg PO WITHBREAKFAST #6 tablet 01/09/17 [Rx] Vitamin E 400 unit PO DAILY 01/09/17 [History] - Discharge Summary/Plan Comment DC Time >30 min.: No Discharge Summary/Plan Comment: please see above - Patient Data Vitals - Most Recent: Weight - Most Recent: 87.288 kg I&O - Last 24 hours: Intake & Output 01/29/17 01/29/17 01/29/17 06:59 14:59 22:59 Intake Total 150 Output Total 475 125 Balance -325 -125 Med Orders - Current: Current Medications Albuterol (Proventil Neb Soln) 2.5 mg INH Q4H PRN PRN Reason: DYSPNEA Albuterol/Ipratropium (Duoneb 3.0-0.5 Mg/3 Ml) 3 ml INH QIDRT WALTER Last Admin: 01/29/17 15:25 Dose: Not Given Artificial Tears (Liquitears 1.4% Ophth Soln) 0 ml EYEBOTH ASDIRECTED PRN PRN Reason: DRY EYES Guaifenesin (Organ-I Nr) 200 mg PO Q4H PRN PRN Reason: COUGH Haloperidol (Haldol) 0.5 mg PO Q6H PRN PRN Reason: RESTLESSNESS Hyoscyamine (Hyomax-Sl) 0.125 mg PO Q4H PRN PRN Reason: SECRETIONS Lorazepam (Ativan) 0.5 mg IVPUSH Q2H PRN PRN Reason: AGITATION/DYSPNEA Last Admin: 01/29/17 13:45 Dose: 0.5 mg Lorazepam (Ativan) 1 mg PO Q2H PRN PRN Reason: AGITATION/ANXIETY Lorazepam (Ativan) 1 mg PO Q8H [facility] Last Admin: 01/29/17 10:53 Dose: 1 mg Morphine Sulfate (Morphine) 4 mg IVPUSH Q30M PRN PRN Reason: PAIN/SHORTNESS OF BREATH Last Admin: 01/29/17 12:21 Dose: 4 mg Nitroglycerin (Nitrostat) 0.4 mg SL Q5M PRN PRN Reason: CHEST PAIN Scopolamine (Transderm-Scop) 1.5 mg TOP Q72H PRN PRN Reason: SECRETIONS Senna/Docusate Sodium (Senna Plus) 2 tab PO BID PRN PRN Reason: CONSTIPATION Sodium Chloride (Saline Flush) 10 ml FLUSH ASDIRECTED PRN PRN Reason: flush med Last Admin: 01/29/17 13:45 Dose: 10 ml Discontinued Medications Lorazepam (Ativan) 0.5 mg PO Q8H [facility] Last Admin: 01/29/17 01:59 Dose: 0.5 mg Lorazepam (Ativan) 1 mg PO Q8H [facility] Methylprednisolone Sodium Succinate (Solu-Medrol) 40 mg IVPUSH BID [facility] Last Admin: 01/29/17 08:53 Dose: 40 mg Morphine Sulfate (Morphine) 2 mg IVPUSH Q30M PRN PRN Reason: PAIN/DYSPNEA Last Admin: 01/29/17 08:37 Dose: 2 mg Morphine Sulfate (Morphine) 4 mg IVPUSH ONETIME ONE Stop: 01/28/17 12:02 Last Admin: 01/28/17 12:16 Dose: 4 mg - Exam HEENT: Denies: Pupils Reactive Lungs: Reports: Other (no respirations) Cardiovascular: Reports: Other (absent palpable pulses or cardiac activity on auscultation. ) Extremities: Pallor Skin: Reports: Cool Neurological: Reports: Other (no withdrawl to pain.) *Q Meaningful Use (DIS) - VTE *Q VTE Criteria *Q: - Stroke *Q Stroke Criteria *Q: - AMI *Q AMI Criteria *Q:
== END 2017-01-29 17:55 | disposition expired | DRG 190 ==
LOC: FB.MS 13:57
PROVIDERS: ADMIT Family Medicine; ATTEND Family Medicine
DX: J44.1 Chronic obstructive pulmonary disease with (acute) exacerbation (principal); J96.91 Respiratory failure, unspecified with hypoxia; J98.11 Atelectasis; E87.2 Acidosis; J98.4 Other disorders of lung; Z51.5 Encounter for palliative care; Z66 Do not resuscitate; R09.02 Hypoxemia; N40.0 Benign prostatic hyperplasia without lower urinary tract symptoms; I50.9 Heart failure, unspecified; E11.65 Type 2 diabetes mellitus with hyperglycemia; M40.209 Unspecified kyphosis, site unspecified; E87.5 Hyperkalemia; F41.9 Anxiety disorder, unspecified
CPT/HCPCS: 94640-76; A9270-GY; J2060; J2270; J2920; J7050; J7620